=== PATIENT | male | born 1950 | race Caucasian/White ===

== ENCOUNTER 2022-12-29 13:53 | Outpatient (OUT) | payer MEDICARE, OTHER, SELFPAY ==
--- NOTE | 2022-12-29 14:42 | CA_ITS ---
Patient: KAITLYN MORALEZ Exam Date: 12/29/2022 : 1950 Gender:M Ordering : YOLANDA PRICE Admission #: [id number] Family : DR KATY GIRON M.D. Order #: [id number] CLICK HERE TO VIEW EXAM ECHOCARDIOGRAM REPORT PROCEDURE: CA ECHO DOPPLER COMPLETE INDICATIONS: Acute on chronic systolic heart failure, pacemaker, hypertension. diabetes COMPARISON: None. DESCRIPTION: COMPLETE ECHOCARDIOGRAM Real-time transthoracic echocardiography with 2D, M-mode, spectral and color flow Doppler performed. QUALITY: Technical quality was good. LEFT VENTRICLE: Normal chamber size. Mild concentric left ventricular hypertrophy. The septum is abnormal in motion likely due to pacing. Systolic function appears mildly reduced. LV EF: Mildly reduced left ventricular ejection fraction, (45-50%). DIASTOLIC: Diastolic function is indeterminate. ATRIAL SEPTUM: Visually appears intact. LEFT ATRIUM: Severe dilatation. RIGHT ATRIUM: Severe dilatation. RIGHT VENTRICLE: Moderate dilatation. Systolic function appears preserved. Pacer wire present. TRICUSPID VALVE: Normal mobility and thickness. No stenosis with moderate regurgitation. Doppler studies reveal mildly (35-45) elevated right sided pressures. RVSP 43 mmHg MITRAL VALVE: Normal mobility and thickness. No evidence of mitral valve stenosis. There is no mitral annular calcification. Mild mitral regurgitation. AORTIC VALVE: Normal trileaflet appearance. Mildly diminished mobility. Left coronary cusp is restricted in mobility. No evidence of aortic valve stenosis. DVI 0.5, MARYANN 2.1 cm2. Mild to moderate aortic regurgitation. AORTIC ROOT: Normal diameter and appearance. PULMONIC VALVE: Normal thickness and mobility. No stenosis. Trivial regurgitation. PERICARDIUM: No evidence of pericardial effusion. IVC: IVC is dilated (3.4 cm) with no collapse. PLEURA: CONCLUSION: 1. The left ventricle is normal in size and exhibits mildly reduced systolic function. LVEF is 45 to 50%. 2. Moderately dilated right ventricle with preserved systolic function. 3. Severe biatrial dilatation. 4. Mild mitral and mild to moderate aortic regurgitation. 5. Moderate tricuspid regurgitation. 6. Mildly elevated right-sided pressures. RVSP is 43 mmHg. Adult Echocardiography Procedure Report Left Ventricle LVEDD (3.7 - 5.6 cm): 5.24 cm LVESD (2.2 - 4.0 cm): 3.59 cm LVIVS thickness (0.6 - 1.2 cm): 1.19 cm LVPW thickness (0.5 - 1.0 cm): 1.38 cm e': 0.18 m/s E - e': 3.27 LVOT Max Gradient: 2.19 mm[Hg] LVOT Area (cm2): 0.74 m/s Peak Velocity (LVOT): 0.74 m/s Mean Velocity (LVOT): 0.56 m/s LVOT Diameter 2.19 cm Left Atrium LA Volume Index (2D A2C): 52.41 ml/m2 Left Atrium Systolic Dimension: 5.32 cm Mitral Valve MV E to A Ratio: 2.06 Mitral Valve A-Wave Peak Velocity: 0.29 m/s Mitral Valve E-Wave Peak Velocity: 0.59 m/s Right Ventricle Aorta AO Root Diam: 3.80 cm Ascending Ao Diam: 3.97 cm, 3.15 cm Aortic Valve AoV Area (Peak Alessandro): 2.17 cm2, 2.09 cm2 AoV Area (VTI): 2.12 cm2, 2.01 cm2 Peak Velocity(Antegrade Flow): 1.34 m/s, 1.25 m/s Peak Gradient(Antegrade Flow): 7.17 mm[Hg], 6.20 mm[Hg] Mean Velocity(Antegrade Flow): 0.96 m/s, 0.89 m/s Mean Gradient(Antegrade Flow): 4.22 mm[Hg], 3.55 mm[Hg] Velocity Time Integral: 26.92 cm, 23.94 cm Tricuspid Valve Peak Velocity (Regurgitant Flow): 2.06 m/s, 2.14 m/s, 1.95 m/s, 2.64 m/s, 2.86 m/s, 2.47 m/s Pulmonic Valve Peak Velocity: 1.06 m/s Peak Gradient: 4.88 mm[Hg], 4.13 mm[Hg] Right Atrium Right Atrium Systolic Pressure: 91.56 ml, 91.56 ml Dictated by: Danny Ta M.D. on 12/30/2022 at 12:12 Approved by: Danny Ta M.D. on 12/30/2022 at 12:18
== END 2022-12-29 13:54 | disposition home or self-care (01) ==
PROVIDERS: PCP Internal Medicine; Visit Provider Nurse Practitioner
DX: I50.23 Acute on chronic systolic (congestive) heart failure (principal); I08.3 Combined rheumatic disorders of mitral, aortic and tricuspid valves
CPT/HCPCS: 93306

== ENCOUNTER 2023-05-29 12:59 | Outpatient (OUT) | payer MEDICARE, OTHER, SELFPAY ==
--- NOTE | 2023-05-29 13:31 | CA_ITS ---
Patient Name: KAITLYN MORALEZ MR#: [id number] : 1950 Exam Date: 05/29/2023 Ordering Doctor: YOLANDA PRICE ECHOCARDIOGRAM REPORT PROCEDURE: CA ECHO LIMITED INDICATIONS: Heart failure with reduced ejection fraction, pacemaker, hypertension, diabetes COMPARISON: None. DESCRIPTION: Limited ECHOCARDIOGRAM Real-time transthoracic echocardiography with 2D and M-mode performed. QUALITY: Technical quality was good. 74 , 200#, BSA 2.17 m2 LEFT VENTRICLE: Mild dilatation. LV EF: Global left ventricular systolic function is mildly reduced; visually estimated ejection fraction is 40 to 45%. Abnormal septal motion due to paced rhythm. LEFT ATRIUM: Severe dilatation. RIGHT ATRIUM: Severe dilatation. RIGHT VENTRICLE: Severe dilatation. Right ventricular systolic function is reduced. Pacer wire present. TRICUSPID VALVE: Normal mobility and thickness. MITRAL VALVE: Normal mobility and thickness. Mild mitral annular calcification. AORTIC VALVE: Normal trileaflet appearance. Mildly calcified aortic valve. AORTIC ROOT: Normal diameter and appearance. PULMONIC VALVE: Normal thickness and mobility. PERICARDIUM: No evidence of pericardial effusion. IVC: IVC is dilated (3.1 cm) with no collapse. CONCLUSION: 1. Global left ventricular systolic function is mildly reduced; visually estimated ejection fraction is 40 to 45% 2. The left ventricle is mildly dilated 3. Severe biatrial enlargement 4. Right ventricle is severely enlarged with reduced systolic function A limited echocardiogram was performed Adult Echocardiography Procedure Report Left Ventricle LVEDD (3.7 - 5.6 cm): 5.98 cm LVESD (2.2 - 4.0 cm): 4.45 cm LVIVS thickness (0.6 - 1.2 cm): 0.96 cm LVPW thickness (0.5 - 1.0 cm): 1.03 cm LVOT Diameter 2.52 cm Left Atrium LA Volume Index (2D A2C): 46.50 ml/m2 Left Atrium Systolic Dimension: 4.98 cm Mitral Valve Right Ventricle Aorta AO Root Diam: 3.66 cm Ascending Ao Diam: 3.12 cm Aortic Valve Tricuspid Valve Pulmonic Valve Right Atrium Right Atrium Systolic Pressure: 87.12 ml, 87.12 ml Dictated by: Desean Sal M.D. on 06/05/2023 at 09:23 Approved by: Desean Sal M.D. on 06/05/2023 at 09:26
== END 2023-05-29 13:00 | disposition home or self-care (01) ==
LOC: CARD 12:59
PROVIDERS: PCP Internal Medicine; Visit Provider Nurse Practitioner
DX: I48.19 Other persistent atrial fibrillation (principal)
CPT/HCPCS: 93308; 93356

== ENCOUNTER 2024-04-02 12:23 | Outpatient (OUT) | payer MEDICARE, OTHER, SELFPAY ==
--- NOTE | 2024-04-02 | XR_ITS ---
[address] [address] Patient Name: KAITLYN MORALEZ MRN: [id number] date: 1950 Sex: M Assigned Patient Location: [facility] Current Patient Location: Accession/Order Number: [id number] Exam Date: 04/02/2024 12:38 Report Date: 04/04/2024 05:34 At the request of: KATY GIRON Procedure: XR wrist LT min 3V 3 views of the left wrist INDICATION: Pain COMPARISON: None XR/XR wrist LT min 3V IMPRESSION: No acute fracture or dislocation. Scattered mild degenerative changes. Joint alignment is intact. Vascular calcifications. Electronically authenticated by: VICTOR HUGO VELAZQUEZ Date: 04/04/2024 05:34
--- NOTE | 2024-04-02 | XR_ITS ---
The [address] [address] Patient Name: KAITLYN MORALEZ MRN: [id number] date: 1950 Sex: M Assigned Patient Location: RAD Current Patient Location: [facility] Accession/Order Number: [id number] Exam Date: 04/02/2024 12:38 Report Date: 04/07/2024 07:34 At the request of: KATY GIRON Procedure: XR hand LT 2V PROCEDURE: XR hand LT 2V COMPARISON: None. HISTORY: polyarticular arthritis FINDINGS: BONES:No fracture, acute abnormality, or significant arthropathy. SOFT TISSUES:Negative. No visible soft tissue swelling. EFFUSION:None visible. OTHER: Negative. XR/XR hand LT 2V IMPRESSION: No acute radiographic abnormality Electronically authenticated by: KARSON ROBERT Date: 04/07/2024 07:34
--- OUTSIDE RECORDS SUMMARY | 2024-04-02 12:46 | XMS_ITS | CCD ---
Author Organization [facility] Care Team Providers Care Online Marketing Specialist Name Role Phone YESI HAGER AM Unavailable Unavailable YESI HAGER AM Unavailable Unavailable ALEJANDRO PRO Unavailable Unavailable ALEJANDRO PRO Unavailable Enrique Rodas Unavailable ROSI Pro Primary Care Provider MD Enrique Sharpe Attending Provider [phone] PETER CRAIN Admitting Unavailable PETER CRAIN Attending Unavailable MORTEZA, DR BURNS Primary Care Unavailable SELEAN, DR ANDREW Calderon Consulting Unavailable PETER CRAIN Consulting Unavailable PETER CRAIN Admitting Unavailable PETER CRAIN Attending Unavailable DR ALEJANDRO PRO Primary Care Unavailable PETER CRAIN Consulting Unavailable PETER CRAIN Admitting Unavailable PETER CRAIN Attending Unavailable MORTEZA, DR BURNS Primary Care Unavailable PETER CRAIN Consulting Unavailable Katie Eldridge Unavailable Asaad, Imad Unavailable ROSI Pro Primary Care Provider MD Godwin Barnes Attending Provider [phone] ROSI Pro Primary Care Provider [phone] MD Godwin Barnes Attending Provider Asaad, Imad Attending Unavailable Alejandro Pro Primary Care Unavailable Asaad, Imad Admitting Unavailable Asaad, Imad Attending Unavailable Alejandro Pro Primary Care Unavailable Asaad, Imad Admitting Unavailable CHEN SHEFFIELD Attending Unavailab KEMAL Madrid Attending Unavailable KEMAL DRAKE Attending Unavailable KEMAL DRAKE Attending Unavailable CHEN SHEFFIELD Attending Unavailab ALEJANDRO Pop Attending Unavailable KEMAL DRAKE Attending Unavailable ALEJANDRO PRO Attending Unavailable ALEJANDRO PRO Attending Unavailable Alejandro Pro MD Unavailable Alejandro Pro MD Primary Care Provider DAVID COYLE Attending Unavailable EPTER CRAIN Referring Unavailable PETER CRAIN Admitting Unavailable PETER CRAIN Attending Unavailable YOLANDA ROMAN Referring Unavailable PETER CRAIN Attending Unavailable YOLANDA ROMAN Attending Unavailable PETER CRAIN Referring Unavailable Allergies Allergy Classification Reported Allergen(s) Allergy Type Date of Onset Reaction(s) Facility (1 source) 05775,00; Translations: [44671,00] Propensity to adverse reactions (disorder) 0 [facility] Medications Current Medications Medication Drug Class(es) Dates Sig (Normalized) Sig (Original) Aspir-81 81 MG (3 sources) take 1 tablet by mouth once daily Aspir-81 81 MG 1 tablet Orally Once a day Active atorvastatin 80 mg oral tablet (9 sources) HMG-CoA Reductase Inhibitor Start: 05-03-2023 take 1 tablet by mouth in the morning atorvastatin (Lipitor) 80 MG tablet Indications: Mixed hyperlipidemia (CMS/HCC) TAKE 1 TABLET BY MOUTH IN THE MORNING 90 tablet 3 10/01/2023 Active take 1 tablet by kirstie th every twenty-four hours Atorvastatin Calcium 80 MG 1 tablet Oral ly Once a day Active biotin 10 mg oral tablet (3 sources) Start: 10-01-2023 take 1 tablet by mouth twice daily biotin (Biotin Maximum Strength) 10 MG tablet Indications: Cervical dystonia TAKE 1 TABLET BY MOUTH TWICE A DAY 180 tablet 3 10/01/2023 Active canagliflozin 150 mg / metFORMIN hydrochloride 1000 mg oral tablet (9 sources) Biguanide, Sodium-Glucose Cotransporter 2 Inhibitor Start: 05-03-2023 take 1 tablet by mouth once daily in the morning Invokamet 150-1000 MG Indications: Type 2 diabetes mellitus without complication, 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) TAKE 1 TABLET BY MOUTH EVERY DAY IN THE MORNING 90 tablet 3 10/01/2023 Active take 1 tablet by kirstie th every twelve hours Invokamet 150-1000 MG 1 tablet with meal s Orally Twice a day Active Carbidopa / Levodopa (3 sources) Aromatic Amino Acid Decarboxylation Inhibitor, Aromatic Amino Acid Carbidopa-Levodopa Active cetirizine hydrochloride 10 mg oral tablet (9 sources) Histamine-1 Receptor Antagonist Start: 2022 take 1 tablet by mouth once daily Cetirizine (Zyrtec) 10 mg Tablet Active 10 MG PO Daily May 03, 2023 1:00am docosahexaenoic acid 120 mg / eicosapentaenoic acid 180 mg oral capsule (3 sources) take 2 capsules by mouth every twelve hours omega-3 (Fish Oil) 1000 MG capsule Take 2 capsules by mouth every 12 (twelve) hours. Active Fish Oils (3 sources) take 1 capsule by mouth once daily Fish Oil 1200 MG 1 capsule Orally Once a day 1200(4 tab) bid Active FLUoxetine 20 mg oral capsule (3 sources) Serotonin Reuptake Inhibitor Start: 2023 End: 2023 take 1 capsule by mouth once daily FLUoxetine (PROzac) 20 MG capsule Indications: Grief reaction with prolonged bereavement (CMS/HCC) Take 1 capsule (20 mg) by mouth Daily 30 capsule 5 11/15/2023 05/13/2024 Active fluticasone propionate 0.05 mg/actuat metered dose nasal spray (3 sources) Corticosteroid Start: 2023 take 2 spray(s) nasal route once daily fluticasone (Flonase) 50 MCG/ACT nasal spray Indications: Allergic rhinitis, unspecified seasonality, unspecified trigger SPRAY 2 SPRAYS INTO EACH NOSTRIL EVERY DAY 48 mL 2 01/01/2024 Active lisinopril 10 mg oral tablet (9 sources) Angiotensin Converting Enzyme Inhibitor Start: 2022 End: 2024 take 1 tablet by mouth once daily lisinopril 10 MG tablet Indications: Paroxysmal atrial fibrillation (CMS/HCC) Take 1 tablet (10 mg) by mouth Daily 100 tablet 3 12/05/2023 01/08/2025 Active take 1 tablet by kirstie th every twenty-four hours Lisinopril 10 MG 1 tablet Orally Once a day Active montelukast 10 mg oral tablet (9 sources) Leukotriene Receptor Antagonist Start: 05-03-2023 take 1 tablet by mouth at bedtime montelukast (Singulair) 10 MG tablet Indications: Allergic rhinitis, unspecified seasonality, unspecified trigger Take 1 tablet (10 mg) by mouth at bedtime 100 tablet 3 09/10/2023 Active take 1 tablet by kirstie th every twenty-four hours Montelukast Sodium 10 MG 1 tablet in the evening Orally Once a day Active Multiple Vitamin (Multi-Vitamin) tablet (3 sources) take 1 tablet by mouth in the morning Multiple Vitamin (Multi-Vitamin) tablet Take 1 tablet by mouth in the morning. Active Multivitamin preparation (3 sources) Start: 05-03-2023 take 1 tablet by mouth once daily Multivitamin Active 1 TAB PO Daily May 03, 2023 1:00am Start: 05-03-2023 take 1 tablet by kirstie th once daily Multivitamin Active 1 TAB PO Daily May 03, 2023 12:00am [place] 1-Lak-Cai-Fish Oil (Fish Oil) 1,200 (144-216) mg Capsule (3 sources) Start: 05-03-2023 take 4 capsules by mouth twice daily [place] 2-Iut-Ati-Fish Oil (Fish Oil) 1,200 (144-216) mg Capsule Active 4 CAP PO Twice daily May 03, 2023 1:00am Start: 05-03-2023 take 4 capsules by m outh twice daily [place] 5-Kpb-Ced-Fish Oil (Fish Oil) 1,200 (144-216) mg Capsule Active 4 CAP PO Twice daily May 03, 2023 12:00am piroxicam 10 mg oral capsule (3 sources) Nonsteroidal Anti-inflammatory Drug Start: 04-30-2023 End: 04-29-2024 take 1 capsule by mouth in the morning piroxicam (Feldene) 10 MG capsule Indications: Trochanteric bursitis of both hips Take 1 capsule (10 mg) by mouth in the morning. 30 capsule 11 04/30/2023 04/29/2024 Active polyethylene glycol 3350 [id number] mg / potassium chloride 2970 mg / sodium bicarbonate 6740 mg / sodium chloride 5860 mg / sodium sulfate 28311 mg powder for oral solution (1 source) Osmotic Laxative Start: 04-17-2023 take 236 g by mouth once daily PEG-3350/Electrol ytes 236 GM 4000 ML Orally once daily for 1 days Mar, Active sildenafil 100 mg oral tablet (6 sources) Phosphodiesterase 5 Inhibitor sildenafil (Viagra) 100 MG tablet Take 100 mg by mouth if needed for erectile dysfunction. Active Sod Picosulf-Mag Ox-Citric Ac (2 sources) Start: 11-02-2023 Sod Picosulf-Mag Ox-Citric Ac (Clenpiq) 10 mg-3.5 gram- 12 gram/175 mL solution Active 175 ML PO Daily 175 November 02, 2023 12:00am take first dose at 3:00 PM followed by four 8oz glasses of liquid take second dose at 9:00 PM followed by 3 8oz glasses of liquid tiZANidine 4 mg oral tablet (9 sources) Central alpha-2 Adrenergic Agonist Start: 05-03-2023 take 4 mg by mouth once daily Tizanidine Active 4 MG PO Daily May 03, 2023 1:00am take 1-2 tablets by mouth every eight hours as needed tiZANidine (Zanaflex) 4 MG tablet Take 1 -2 tablets by mouth every 8 (eight) hours if needed for muscle spasms (not to exceed 3 doses in 24 hours). Active traMADol hydrochloride 50 mg oral tablet (3 sources) Opioid Agonist take 1 tablet by mouth every six hours traMADol HCl 50 MG 1 tablet as needed Orally every 6 hrs Active warfarin sodium 5 mg oral tablet (9 sources) Vitamin K Antagonist Start: 01-19-20 23 warfarin (Coumadin) 5 MG tablet Indications: Paroxysmal atrial fibrillation (CMS/HCC) Take 1 tablet (5 mg) by mouth See administration instructions. Take 5 mg Sun, , , Sat. Take 7.5 mg Sun, Sun, Sun 145 tablet 3 01/18/2023 Active Warfarin 7.5mg 7 .5 mg as directed orally Active Completed/Discontinued Medications Medication Drug Class(es) Dates Sig (Normalized) Sig (Original) 24 hr metoprolol succinate 100 mg extended release oral tablet (9 sources) beta-Adrenergic Scott Start: 03-23-2023 End: 03-05-2024 take 1 tablet by mouth once daily metoprolol succinate XL (Toprol-XL) 100 MG 24 hr tablet Indications: Benign hypertension (CMS/HCC) Take 1 tablet (100 mg) by mouth 1 (one) time each day at the same time. 100 tablet 3 03/23/2023 03/05/2024 Discontinued Metoprolol Succi bradley 100 MG Orally Active Problems Active Problems Problem Classification Problem Date Documented Date Episodic/Chronic Cardiac dysrhythmias (19 sources) Unspecified atrial fibrillation; Translations: [Unspecified atrial flutter] Onset: 01-21-2018 Chronic Cardiac dysrhythmias (2 sources) Tachycardia, unspecified Onset: 12-22-2021 Resolved: 12-22-2021 Episodic Conduction disorders (11 sources) Cardiac pacemaker in situ; Translations: [Presence of cardiac pacemaker] Onset: 10-16-2011 10-19-2022 Chronic Congestive heart failure; nonhypertensive (15 sources) Chronic diastolic (congestive) heart failure; Translations: [Chronic systolic heart failure] Onset: 10-19-2011 Chronic Coronary atherosclerosis and other heart disease (5 sources) Coronary atherosclerosis; Translations: [Atherosclerotic heart disease of ewiiaapaayp coronary artery without angina pectoris] Onset: 10-16-2011 01-26-2023 Chronic Diabetes mellitus without complication (10 sources) Type 2 diabetes mellitus; Translations: [Type 2 diabetes mellitus without complications] Onset: 10-16-2011 Resolved: 05-17-2023 12-25-2023 Chronic Disorders of lipid metabolism (3 sources) Mixed hyperlipidemia; Translations: [Mixed hyperlipidemia] Onset: 10-19-2022 10-19-2022 Chronic Esophageal disorders (3 sources) Gastroesophageal reflux disease without esophagitis; Translations: [Gastro-esophageal reflux disease without esophagitis] Onset: 10-19-2022 10-19-2022 Chronic Essential hypertension (5 sources) Benign hypertension; Translations: [Essential (primary) hypertension] Onset: 01-26-2023 01-26-2023 Chronic Genitourinary congenital anomalies (3 sources) Medullary sponge kidney; 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] Onset: 10-19-2022 10-19-2022 Chronic Heart valve disorders (6 sources) Non-rheumatic mitral regurgitation ; Translations: [Nonrheumatic mitral (valve) insufficiency] Onset: 07-04-2019 10-19-2022 Chronic Mood disorders (2 sources) Depressive disorder; Translations: [Depression] 12-25-2023 Chronic Other aftercare (4 sources) Encounter for therapeutic drug level monitoring; Translations: [ENCOUNTER FOR THERAPEUTIC DRUG LEVEL MONITORING] Onset: 01-21-2018 Episodic Other aftercare (1 source) 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; Translations: [SENIOR LIVING (CURRENT) USE OF ANTICOAGULANTS] Onset: 01-21-2018 Episodic Other and ill-defined heart disease (3 sources) Left ventricular hypertrophy; Translations: [Cardiomegaly] Onset: 10-19-2022 10-19-2022 Chronic Other and ill-defined heart disease (3 sources) Bilateral enlargement of atria; Translations: [Cardiomegaly] Onset: 07-04-2019 01-26-2023 Chronic Other and ill-defined heart disease (3 sources) Cardiomegaly; Translations: [Cardiomegaly] Onset: 09-14-2016 01-26-2023 Chronic Other hereditary and degenerative nervous system conditions (3 sources) Isolated cervical dystonia; Translations: [Spasmodic torticollis] Onset: 07-27-2023 07-27-2023 Chronic Other lower respiratory disease (1 source) Shortness of breath; Translations: [SHORTNESS OF BREATH] Onset: 04-24-2022 Episodic Other non-traumatic joint disorders (3 sources) Derangement of left shoulder joint; Translations: [Other specific joint derangements of left shoulder, not elsewhere classified] Onset: 10-19-2022 10-19-2022 Chronic Other nutritional; endocrine; and metabolic disorders (3 sources) Disorder of lipid metabolism; Translations: [Disorder of lipoprotein metabolism, unspecified] Onset: 05-06-2014 01-26-2023 Chronic Other nutritional; endocrine; and metabolic disorders (3 sources) Obesity; Translations: [Obesity, unspecified] Onset: 10-16-2011 01-26-2023 Chronic Other nutritional; endocrine; and metabolic disorders (2 sources) Body mass index (BMI) 26.0-26.9, adult Onset: 12-22-2021 Resolved: 12-22-2021 Episodic Other nutritional; endocrine; and metabolic disorders (1 source) Overweight in adulthood with body mass index of 25 or more but less than 30; Translations: [Body mass index (BMI) 25.0-25.9, adult] 12-25-2023 Episodic Other nutritional; endocrine; and metabolic disorders (1 source) Body mass index (BMI) 25.0-25.9, adult; Translations: [Body Mass Index 25.0-25.9, adult] 12-25-2023 Episodic Other screening for suspected conditions (not mental disorders or infectious disease) (1 source) Encounter for screening for malignant neoplasm of colon; Translations: [Encounter for screening for malignant neoplasm of colon] Onset: 11-09-2023 Episodic Other upper respiratory disease (3 sources) Allergic rhinitis; Translations: [Allergic rhinitis, unspecified] Onset: 10-19-2022 10-19-2022 Chronic Massiel-; endo-; and myocarditis; cardiomyopathy (except that caused by tuberculosis or sexually transmitted disease) (3 sources) Primary cardiomyopathy; Translations: [Cardiomyopathy, unspecified] Onset: 11-21-2011 01-26-2023 Chronic Residual codes; unclassified (10 sources) Obstructive sleep apnea syndrome; Translations: [Obstructive sleep apnea (adult) (pediatric)] Onset: 10-19-2022 12-25-2023 Chronic Residual codes; unclassified (3 sources) Obstructive sleep apnea (adult) (pediatric); Translations: [Obstructive sleep apnea (adult)(pediatric)] Onset: 12-22-2021 Resolved: 12-22-2021 Chronic Spondylosis; intervertebral disc disorders; other back problems (3 sources) Displacement of lumbar intervertebral disc without myelopathy; Translations: [Other intervertebral disc displacement, lumbar region] Onset: 10-19-2022 10-19-2022 Chronic Unclassified (2 sources) Unknown / UNK(Unknown) Onset: 01-21-2018 Unclassified (1 source) CONTACT W/AND (SUSP) EXPOS COVID-19; Translations: [CONTACT W/AND (SUSP) EXPOS COVID-19] Onset: 04-14-2022 Unclassified (1 source) Encounter for screening for malignant neoplasm of colon; Translations: [Encounter for screening for malignant neoplasm of colon] Onset: 05-03-2023 Unclassified (2 sources) Other persistent atrial fibrillation; Translations: [Other persistent atrial fibrillation] Onset: 07-10-2023 Unclassified (2 sources) Longstanding persistent atrial fibrillation; Translations: [Longstanding persistent atrial fibrillation] Onset: 02-26-2023 Past or Other Problems Problem Classification Problem Date Documented Date Episodic/Chronic Abdominal hernia (3 sources) Inguinal hernia; Translations: [Unilateral inguinal hernia, without obstruction or gangrene, not specified as recurrent] Onset: 04-12-2015 01-26-2023 Episodic Biliary tract disease (3 sources) Cholelithiasis without obstruction; Translations: [Calculus of gallbladder without cholecystitis without obstruction] Onset: 10-19-2022 10-19-2022 Episodic Conditions associated with dizziness or vertigo (3 sources) Vertigo; Translations: [Dizziness and giddiness] Onset: 10-19-2022 10-19-2022 Episodic Mood disorders (2 sources) Mood disorders Onset: 03-03-2024 03-03-2024 Other aftercare (3 sources) Long-term current use of anticoagulant; 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] Onset: 01-30-2019 01-26-2023 Episodic Other and unspecified benign neoplasm (3 sources) History of polyp of colon; Translations: [History of colonic polyps] Onset: 04-12-2015 01-26-2023 Episodic Other circulatory disease (3 sources) Chronic hypotension; Translations: [Other hypotension] Onset: 10-19-2011 01-26-2023 Episodic Other connective tissue disease (3 sources) Pain in limb; Translations: [Pain in unspecified limb] Onset: 10-19-2022 10-19-2022 Episodic Other connective tissue disease (3 sources) Bilateral trochanteric bursitis; Translations: [Trochanteric bursitis, right hip] Onset: 01-30-2023 01-30-2023 Episodic Other connective tissue disease (3 sources) Trochanteric bursitis of right hip; Translations: [Trochanteric bursitis, right hip] Onset: 07-02-2023 07-02-2023 Episodic Spondylosis; intervertebral disc disorders; other back problems (12 sources) Lumbar radiculopathy; Translations: [Radiculopathy, lumbar region] Onset: 10-16-2011 10-19-2022 Episodic Results Test Name Value Interpretation Reference Range Facility Anticoagulation - Warfarin [facility] 03-14-2024 Anticoagulation - Warfarin Visit [id number] Kaitlyn Jordan 1950 [facility] Provider Department Center 03/14/2024 DAVID FRANK [facility] Family History Family history unknown: Yes [facility] Anticoagulation - Warfarin [facility] 02-06-2024 Anticoagulation - Warfarin Visit [id number] Kaitlyn Jordan 1950 [facility] Provider Department Center 02/06/2024 JHONATHAN AREVALO [facility]ANTICOAG [facility] Family History Family history unknown: Yes [facility] Anticoagulation - Warfarin [facility] 01-11-2024 Anticoagulation - Warfarin Visit [id number] Kaitlyn Jordan 1950 M Date Provider Department Center 01/11/2024 WON AMEZQUITA [facility] Family History Family history unknown: Yes [facility] Telephoneon 01-11-2024 Telephone [id number] JulianKelincesario Calderon 1950 M Date Provider Department [facility] 01/11/2024 DAVID FRANK [facility] Family History Family history unknown: Yes [facility] Anticoagulation - Warfarin [facility] 12-31-2023 Anticoagulation - Warfarin Visit [id number] JulianKaitlyn Calderon 1950 M Date Provider Department [facility] 12/31/2023 DAVID FRANK [facility] Family History Family history unknown: Yes [facility] 36on 12-28-2023 36 LVM reminder for pt Normal [facility] Anticoagulation - Warfarin [facility] 12-14-2023 Anticoagulation - Warfarin Visit [id number] Kaitlyn Jordan 1950 Provider Department [facility] 12/14/2023 DAVID FRANK [facility] Family History Family history unknown: Yes Level of Service:29989 [place] OFFICE/OUTPATIENT EST PT MAY NOT REQ PHYS/QHP [facility] Office Visiton 12-11-2023 Follow-up visit [id number] JulianKelincesario Calderon 1950 Provider Department [facility] 12/11/2023 241-PETER CRAIN [facility] Family History Family history unknown: Yes Level of Service:59796 [place] OFFICE/OUTPATIENT ESTABLISHED LOW MDM 20 MIN Normal [facility] Anticoagulation - Warfarin [facility] 11-15-2023 Anticoagulation - Warfarin Visit [id number] Kaitlyn Jordan 1950 M Date Provider Department [facility] 11/15/2023 JING CONTRERASCANTICALYSSA [facility] Family History Family history unknown: Yes [facility] Telephoneon 11-13-2023 Telephone [id number] Kaitlyn Jordan 1950 M Date Provider Department [facility] 11/13/2023 4102-LEONIDES, DAVID [facility]VCANTICOAG [facility] Family History Family history unknown: Yes [facility] 36on 11-12-2023 36 Left VM msg for call back [facility] Activated partial thrombopla stin time (aPTT) in platelet poor plasma by coagulation aOrdered By: Godwin Barnes on 11-09-2023 aPTT Coag (PPP) [Time] 32.5 s 25.1-36.5 [facility] Comment on above: A hematocrit value g reater than 55% may lead to inaccurate results in coagulation testing. Patients having hematocrit values >55% require a special collection tube for coagulation studies. Please contact the laboratory at [phone] for redraw instructions. Amphetamine Screen Ql (U)Ord ered By: Godwin Barnes on 11-09-2023 Amphetamines Ql (U) Negative Negative [facility] Automated basophil %Ordered By: Godwin Barnes on 11-09-2023 Basophils/100 WBC (Bld) 0.7 % Normal . [facility] Comment on above: Performed By: #### P TT, PT, CBC #### [facility] [address] Automated basophil countOrde red By: Godwin Barnes on 11-09-2023 Basophils (Bld) [#/Vol] 0.1 10*3/uL Normal 0.0-0.2 [facility] Comment on above: Result Comment: PERF ORMED BY: [address] [place] [address] PATHOLOGIST FPGA DESIGN ENGINEER EVELIN CARTER M.D. Performed By: #### P TT, PT, CBC #### [facility] [address] Automated blood monocyte cou ntOrdered By: Imad Cameron on 11-09-2023 Monocytes (Bld) [#/Vol] 0.8 10*3/uL Normal 0.0-0.8 [facility] Comment on above: Performed By: #### P TT, PT, CBC #### [facility] [address] Automated eosinophil %Ordere d By: Godwin Barnes on 11-09-2023 Eosinophils/100 WBC (Bld) 2.9 % Normal . [facility] Comment on above: Performed By: #### P TT, PT, CBC #### [facility] [address] Automated eosinophil countOr dered By: Imad Asaad on 11-09-2023 Eosinophils (Bld) [#/Vol] 0.3 10*3/uL Normal 0.0-0.45 [facility] Comment on above: Performed By: #### P TT, PT, CBC #### [facility] [address] Automated monocyte %Ordered By: Imad Asaad on 11-09-2023 Monocytes/100 WBC (Bld) 8.0 % Normal . [facility] Comment on above: Performed By: #### P TT, PT, CBC #### [facility] [address] Automated neutrophil %Ordere d By: Imad Asaad on 11-09-2023 Neutrophils/100 WBC (Bld) 70.4 % Normal . [facility] Comment on above: Performed By: #### P TT, PT, CBC #### [facility] [address] [place] [address] Barbiturates [Presence] in U rine by Screen methodOrdered By: Imad Asaad on 11-09-2023 Barbiturates Screen Ql (U) Negative Negative [facility] Benzodiazepines Screen Ql (U )Ordered By: Imad Asaad on 11-09-2023 Benzodiazepines Ql (U) Negative Negative [facility] Benzoylecgonine [Presence] i n Urine by Screen methodOrdered By: Imad Asaad on 11-09-2023 Benzoylecgonine Screen Ql (U) Negative Negative [facility] Cannabinoids [Presence] in U rine by Screen methodOrdered By: Imad Asaad on 11-09-2023 Cannabinoids Screen Ql (U) Positive High Negative [facility] Comment on above: These are unconfirme d results and should not be used for legal purposes. Drug Cut-Off Concentration: AMPH 1000 ng/mL LEOBRADO 200 ng/mL MAXIMO 200 ng/mL COCM 300 ng/mL OP 300 ng/mL PCP 25 ng/mL THC 20 ng/mL Capillary blood glucose diego urement by glucometer (mass/volume)Ordered By: Godwin Barnes on 11-09-2023 Glucose [Mass/Vol] 78 mg/dL Normal [facility] Comment on above: Random Glucose Refer ence Range is dependent on time and content of last meal. Glucose of more than 200 mg/dL in a nonstressed, ambulatory subject supports the diagnosis of Diabetes Mellitus. Result Comment: [place] om Glucose Reference Range is dependent on time and content of last meal. Glucose of more than 200 mg/dL in a nonstressed, ambulatory subject supports the diagnosis of Diabetes Mellitus. PERFORMED BY: [place] [address] PATHOLOGIST FPGA DESIGN ENGINEER EVELIN CARTER M.D. Performed By: #### G LULS #### Point of Care testing , Complete Blood Count Auto Di ffon 11-09-2023 Mean Corpuscular HGB Conc 33.8 g/dL Normal 32.5-35.6 [facility] Comment on above: Performed By: #### P TT, PT, CBC #### [address] NRBC% 0.1 /100{WBC} Normal 0-0.5 [facility] Comment on above: Performed By: #### P TT, PT, CBC #### [place] [address] [place] Drug Screen,Urineon 11-09-19 24 Amphetamine Screen,Urine Negative Normal Negative [facility] Comment on above: Performed By: #### U RDS #### [address] Barbiturate Screen,Urine Negative Normal Negative [facility] Comment on above: Performed By: #### U RDS #### [address] Benzodiazepines Screen,Urine Negative Normal Negative [facility] Comment on above: Performed By: #### U RDS #### [address] Cannabinoid Screen,Urine Positive High Negative [facility] Comment on above: Result Comment: Thes e are unconfirmed results and should not be used for legal purposes. Drug Cut-Off Concentration: AMPH 1000 ng/mL LEOBARDO 200 ng/mL MAXIMO 200 ng/mL COCM 300 ng/mL OP 300 ng/mL PCP 25 ng/mL THC 20 ng/mL PERFORMED BY: [place] [address] PATHOLOGIST FPGA DESIGN ENGINEER EVELIN CARTER M.D. Performed By: #### U RDS #### [address] Cocaine Screen,Urine Negative Normal Negative [facility] Comment on above: Performed By: #### U RDS #### [address] Opiate Screen,Urine Negative Normal Negative [facility] Comment on above: Performed By: #### U RDS #### [address] Phencyclidine Screen,Urine Negative Normal Negative [facility] Comment on above: Performed By: #### U RDS #### [address] Erythrocyte distribution wid th [Ratio] by Automated countOrdered By: Imad Asaad on 11-09-2023 Erythrocyte distribution width (RBC) [Ratio] 13.2 % Normal 12.0-14.8 [facility] Comment on above: Performed By: #### P TT, PT, CBC #### [address] Erythrocytes [#/volume] in B lood by Automated countOrdered By: Imad Asaad on 11-09-2023 RBC (Bld) [#/Vol] 4.45 10*6/uL Normal 3.90-5.60 [facility] Comment on above: Performed By: #### P TT, PT, CBC #### [address] Hematocrit [Volume Fraction] of Blood by Automated countOrdered By: Imad Asaad on 11-09-2023 Hematocrit (Bld) [Volume fraction] 40.1 % Normal 38.8-50.0 [facility] Comment on above: Performed By: #### P TT, PT, CBC #### [facility] [address] Hemoglobin [Mass/volume] in BloodOrdered By: Godwin Barnes on 11-09-2023 Hemoglobin (Bld) [Mass/Vol] 13.6 g/dL Normal 13.0-17.0 [facility] Comment on above: Performed By: #### P TT, PT, CBC #### [facility] [address] INR in Platelet poor plasma by Coagulation assayOrdered By: Godwin Barnes on 11-09-2023 INR Coag (PPP) [Relative time] 1.3 {INR} Normal [facility] Comment on above: INR Therapeutic Rang e A) Pre- and Peroperative OAT started two weeks before surgery. NOT HIP SURGERY: 1.5 - 2.5 HIP SURGERY: 2 - 3B) Primary and secondary prevention of venous THROMBOSIS: 2 - 3C) Active venous thrombosis, pulmonary embolismand prevention of recurrent venous thrombosis: 2 - 3D) Prevention of arterial thromboembolismincluding patients with mechanical heart valves: 3 - 4.5 Result Comment: INR Therapeutic Range A) Pre- and Peroperative OAT started two weeks before surgery. NOT HIP SURGERY: 1.5 - 2.5 HIP SURGERY: 2 - 3 B) Primary and secondary prevention of venous THROMBOSIS: 2 - 3 C) Active venous thrombosis, pulmonary embolism and prevention of recurrent venous thrombosis: 2 - 3 D) Prevention of arterial thromboembolism including patients with mechanical heart valves: 3 - 4.5 Performed By: #### P TT, PT, CBC #### [facility] [address] [place] 11-09-2023 L Specimen: [id number] Received: 11/09/231249 Status: RADHA Noelle Num: [id number] Spec Type: Surgical Subm Dr: Godwin Barnes MD Tissues: A Colon Biopsy (CECUM POLYP) Procedures: HE/2, Gross/Micro L4 Age/ Patient Sex Location Account Attending Physician Kaitlyn Jordan 73/M [id number] Godwin Barnes MD SPEC NUM: [id number] RECD: 11/09/23 STATUS: RADHA DRAKE NUM: [id number] ROJELIO: 11/09/23- DR: Godwin Barnes MD ENTERED: 11/09/[address] [facility] [address]: SPEC TYPE: Surgical DEPT: S ORDERED: HE/2, Gross/Micro L4 ORDERED: HE/2, Gross/Micro L4 Pathological Diagnosis Cecum polyp biopsy: -Tubular adenoma Clinical Information History of colon polyps, family history of colon cancer Gross Description Received in formalin labeled with the patient's name, date of and cecum polyp is a 0.5 x 0.4 x 0.1 cm taylor polypoid tissue fragment, entirely submitted in A1. CPT Codes 80082 Specimen: [id number] Received: 11/09/23 Status: RADHA Drake Num: [id number] Spec Type: Surgical Subm Dr: Godwin Barnes MD Tissues: A Colon Biopsy (CECUM POLYP) Procedures: HE/2, Gross/Micro L4 Patient: Kaitlyn Jordan [id number] (Continued) Signed (signature on file) Dat-Jigar Calle MD 11/12/231922 Normal [facility] Leukocytes [#/volume] correc nicole for nucleated erythrocytes in Blood by Automated counOrdered By: Imad Asaad on 11-09-2023 WBC corrected for nucl RBC Auto (Bld) [#/Vol] 9.6 10*3/uL 4.1-10.5 [facility] Leukocytes [#/volume] in Blo od by Automated countOrdered By: Imad Asaad on 11-09-2023 WBC (Bld) [#/Vol] 9.6 10*3/uL Normal 4.1-10.5 [facility] Comment on above: Performed By: #### P TT, PT, CBC #### [facility] [address] [place] [address] Lymphocytes [#/volume] in Bl ood by Automated countOrdered By: Imad Asaad on 11-09-2023 Lymphocytes (Bld) [#/Vol] 1.7 10*3/uL Normal 1.00-4.8 [facility] Comment on above: Performed By: #### P TT, PT, CBC #### [facility] [address] [place] [address] [place] Lymphocytes/100 leukocytes i n Blood by Automated countOrdered By: Imad Asaad on 11-09-2023 Lymphocytes/100 WBC (Bld) 18.0 % Normal . [facility] Comment on above: Performed By: #### P TT, PT, CBC #### [facility] [address] [place] [address] MCH [Entitic mass] by Automa nicole countOrdered By: Imad Asaad on 11-09-2023 MCH (RBC) [Entitic mass] 30.5 pg Normal 27.5-35.2 [facility] Comment on above: Performed By: #### P TT, PT, CBC #### [facility] [address] [place] [address] MCHC Auto (RBC) [Mass/Vol]Or dered By: Imad Asaad on 11-09-2023 MCHC (RBC) [Mass/Vol] 33.8 g/dL 32.5-35.6 [facility] MCV [Entitic volume] by Auto mated countOrdered By: Imad Asaad on 11-09-2023 MCV (RBC) [Entitic vol] 90.3 fL Normal 83.5-101 [facility] Comment on above: Performed By: #### P TT, PT, CBC #### [facility] [address] [place] [address] Neutrophils [#/volume] in Bl ood by Automated countOrdered By: Imad Luis Mad on 11-09-2023 Neutrophils (Bld) [#/Vol] 6.8 10*3/uL Normal 1.8-7.7 [facility] Comment on above: Performed By: #### P TT, PT, CBC #### [facility] [address] [place] [address] Nucleated erythrocytes [Pres ence] in Blood by Automated countOrdered By: Imad Asaad on 11-09-2023 Nucleated RBC Auto Ql (Bld) 0.1 /100{WBC} 0-0.5 [facility] Opiates [Presence] in Urine by Screen methodOrdered By: Imad Asaad on 11-09-2023 Opiates Screen Ql (U) Negative Negative [facility] Partial Thromboplastin Timeo n 11-09-2023 aPTT Coag (Bld) [Time] 32.5 s Normal 25.1-36.5 [facility] Comment on above: Result Comment: A he matocrit value greater than 55% may lead to inaccurate results in coagulation testing. Patients having hematocrit values >55% require a special collection tube for coagulation studies. Please contact the laboratory at [phone] for redraw instructions. PERFORMED BY: [place] [address] PATHOLOGIST FPGA DESIGN ENGINEER EVELIN CARTER M.D. Performed By: #### P TT, PT, CBC #### [facility] [address] [place] [address] Phencyclidine Screen Ql (U)O rdered By: Imad Asaad on 11-09-2023 Phencyclidine Ql (U) Negative Negative [facility] Platelet mean volume [Entiti c volume] in Blood by Automated countOrdered By: Imad Asaad on 11-09-2023 Platelet mean volume (Bld) [Entitic vol] 6.0 fL Low 6.6-10.1 [facility] Comment on above: Performed By: #### P TT, PT, CBC #### [address] Platelets [#/volume] in Bloo d by Automated countOrdered By: Imad Asaad on 11-09-2023 Platelets (Bld) [#/Vol] 246 10*3/uL Normal 150-450 [facility] Comment on above: Performed By: #### P TT, PT, CBC #### [address] Prothrombin time (PT)Ordered By: Imad Asaad on 11-09-2023 PT Coag (PPP) [Time] 14.7 s High 9.0-12.9 [facility] Comment on above: A hematocrit value g reater than 55% may lead to inaccurate results in coagulation testing. Patients having hematocrit values >55% require a special collection tube for coagulation studies. Please contact the laboratory at [phone] for redraw instructions. Result Comment: A he matocrit value greater than 55% may lead to inaccurate results in coagulation testing. Patients having hematocrit values >55% require a special collection tube for coagulation studies. Please contact the laboratory at [phone] for redraw instructions. Performed By: #### P TT, PT, CBC #### [facility] [address] Documentationon 11-05-2023 Documentation [id number] Alkire,Kaityln R 1950 Date Provider Department Center 11/05/2023 DAVID FRANK [facility] Family History Family history unknown: Yes Reason for Visit and Comments: Anticoagulation [8] Normal [facility]tico[facility] - [facility] 10-31-2023 Anticoagulation - Warfarin Visit [id number] Alkire,Kaitlyn R 1950 M Date Provider Department Center 10/31/2023 SUZI WEBBER [facility] Family History Family history unknown: Yes Normal [facility] Documentationon 10-25-2023 Documentation [id number] Alkire,Kaitlyn R 1950 M Date Provider Department Center 10/25/2023 DAVID FRANK [facility] Family History Family history unknown: Yes Normal [facility] Anticoagulation - [facility]far[facility] 10-16-2023 Anticoagulation - Warfarin Visit [id number] Alkire,Kaitlyn R 1950 M Date Provider Department Center 10/16/202342808-WODJTCPETER GASTON [facility] Family History Family history unknown: Yes Normal [facility] Anticoagulation - Warfarin [facility] 09-20-2023 Anticoagulation - Warfarin Visit [id number] Alkire,Kaitlyn R 1950 Date Provider Department Center 09/20/2023 DAVID FRANK [facility] Family History Family history unknown: Yes Normal [facility] Anticoagulation - Warfarin [facility] 08-08-2023 Anticoagulation - Warfarin Visit [id number] Alkire,Kaitlyn R 1950 M Date Provider Department Center 08/08/2023 RAJ HERRERA [facility] Family History Family history unknown: Yes Normal [facility] Anticoagulation - Warfarin [facility] 06-28-2023 Anticoagulation - Warfarin Visit [id number] Alkire,Kaitlyn R 1950 M Date Provider Department Center 06/28/2023 DAVID FRANK [facility] Family History Family history unknown: Yes Normal [facility] Anticoagulation - Warfarin [facility] 06-15-2023 Anticoagulation - Warfarin Visit [id number] Kaitlyn Jordan R 1950 M Date Provider Department Center 06/15/2023 LavonRAJ BARNARDC[facility]ICOAR[facility]yn [facility] Family History Family history unknown: Yes Normal [facility] Telephoneon 06-14-2023 Telephone [id number] Kelin Jordann R 1950 M Date Provider Department Center 06/14/2023 LavonRAJ BARNARD [facility] Family History Family history unknown: Yes Normal [facility] Anticoagulation - Warfarin [facility] 06-04-2023 Anticoagulation - Warfarin Visit [id number] Kaitlyn Jordan R 1950 M Date Provider Department Center 06/04/2023 LavonRAJ BARNARD [facility] Family History Family history unknown: Yes Normal [facility] Telephoneon 06-01-2023 Telephone [id number] Kaitlyn Jordan R 1950 M Date Provider Department Center 06/01/2023 LavonRAJ BARNARD [facility] Family History Family history unknown: Yes Normal [facility] Follow-Upon 05-14-2023 Follow-Up [id number] Kaitlyn Jordan R 1950 [facility] Provider Department Center 05/14/[address] [facility] [facility] Family History Family history unknown: Yes Level of Service:94952 [place] OFFICE/OUTPATIENT ESTABLISHED MOD MDM 30 MIN Normal [facility] Activated partial thrombopla stin time (aPTT) in platelet poor plasma by coagulation aOrdered By: Godwin Barnes on 05-03-2023 aPTT Coag (PPP) [Time] 46.9 s 25.1-36.5 [facility] Comment on above: A hematocrit value g reater than 55% may lead to inaccurate results in coagulation testing. Patients having hematocrit values >55% require a special collection tube for coagulation studies. Please contact the laboratory at [phone] for redraw instructions. Automated basophil %Ordered By: Imad Asaad on 05-03-2023 Basophils/100 WBC (Bld) 0.8 % Normal . [facility] Comment on above: Performed By: #### P TT, PT, CBC #### [address] Automated basophil countOrde red By: Imad Asaad on 05-03-2023 Basophils (Bld) [#/Vol] 0.1 10*3/uL Normal 0.0-0.2 [facility] Comment on above: Result Comment: PERF ORMED BY: [place] [address] PATHOLOGIST FPGA DESIGN ENGINEER EVELIN CARTER M.D. Performed By: #### P TT, PT, CBC #### [address] Automated blood monocyte cou ntOrdered By: Imad Asaad on 05-03-2023 Monocytes (Bld) [#/Vol] 0.7 10*3/uL Normal 0.0-0.8 [facility] Comment on above: Performed By: #### P TT, PT, CBC #### [address] Automated eosinophil %Ordere d By: Imad Asaad on 05-03-2023 Eosinophils/100 WBC (Bld) 6.5 % Normal . [facility] Comment on above: Performed By: #### P TT, PT, CBC #### [address] Automated eosinophil countOr dered By: Imad Asaad on 05-03-2023 Eosinophils (Bld) [#/Vol] 0.5 10*3/uL High 0.0-0.45 [facility] Comment on above: Performed By: #### P TT, PT, CBC #### [address] Automated monocyte %Ordered By: Imad Asaad on 05-03-2023 Monocytes/100 WBC (Bld) 8.9 % Normal . [facility] Comment on above: Performed By: #### P TT, PT, CBC #### [facility] [address] Automated neutrophil %Ordere d By: Godwin Barnes on 05-03-2023 Neutrophils/100 WBC (Bld) 56.8 % Normal . [facility] Comment on above: Performed By: #### P TT, PT, CBC #### [address] Capillary blood glucose diego urement by glucometer (mass/volume)Ordered By: Godwin Barnes on 05-03-2023 Glucose [Mass/Vol] 88 mg/dL Normal [facility] Comment on above: Random Glucose Refer ence Range is dependent on time and content of last meal. Glucose of more than 200 mg/dL in a nonstressed, ambulatory subject supports the diagnosis of Diabetes Mellitus. Result Comment: [place] Glucose Reference Range is dependent on time and content of last meal. Glucose of more than 200 mg/dL in a nonstressed, ambulatory subject supports the diagnosis of Diabetes Mellitus. Performed By: #### P TT, PT, CBC #### [address] Complete Blood Count Auto Di ffon 05-03-2023 Mean Corpuscular HGB Conc 33.6 g/dL Normal 32.5-35.6 [facility] Comment on above: Performed By: #### P TT, PT, CBC #### [address] NRBC% 0.2 /100{WBC} Normal 0-0.5 [facility] Comment on above: Performed By: #### P TT, PT, CBC #### [address] Erythrocyte distribution wid th [Ratio] by Automated countOrdered By: Godwin Barnes on 05-03-2023 Erythrocyte distribution width (RBC) [Ratio] 14.3 % Normal 12.0-14.8 [facility] Comment on above: Performed By: #### P TT, PT, CBC #### [address] Erythrocytes [#/volume] in B lood by Automated countOrdered By: Imad Asaad on 05-03-2023 RBC (Bld) [#/Vol] 5.03 10*6/uL Normal 3.90-5.60 [facility] Comment on above: Performed By: #### P TT, PT, CBC #### [address] Glucose Poct Glucometerson 1 07-04-2022 Commemt1 Glu2: Cleaned Meter Normal [facility] Comment on above: Result Comment: PERF ORMED BY: [place] [address] PATHOLOGIST FPGA DESIGN ENGINEER EVELIN CARTER M.D. Performed By: #### P TT, PT, CBC #### [address] Hematocrit [Volume Fraction] of Blood by Automated countOrdered By: Imad Asaad on 05-03-2023 Hematocrit (Bld) [Volume fraction] 46.0 % Normal 38.8-50.0 [facility] Comment on above: Performed By: #### P TT, PT, CBC #### [address] Hemoglobin [Mass/volume] in BloodOrdered By: Imad Asaad on 05-03-2023 Hemoglobin (Bld) [Mass/Vol] 15.4 g/dL Normal 13.0-17.0 [facility] Comment on above: Performed By: #### P TT, PT, CBC #### [address] INR in Platelet poor plasma by Coagulation assayOrdered By: Imad Asaad on 05-03-2023 INR Coag (PPP) [Relative time] 2.3 {INR} Normal [facility] Comment on above: INR Therapeutic Rang e A) Pre- and Peroperative OAT started two weeks before surgery. NOT HIP SURGERY: 1.5 - 2.5 HIP SURGERY: 2 - 3B) Primary and secondary prevention of venous THROMBOSIS: 2 - 3C) Active venous thrombosis, pulmonary embolismand prevention of recurrent venous thrombosis: 2 - 3D) Prevention of arterial thromboembolismincluding patients with mechanical heart valves: 3 - 4.5 Result Comment: INR Therapeutic Range A) Pre- and Peroperative OAT started two weeks before surgery. NOT HIP SURGERY: 1.5 - 2.5 HIP SURGERY: 2 - 3 B) Primary and secondary prevention of venous THROMBOSIS: 2 - 3 C) Active venous thrombosis, pulmonary embolism and prevention of recurrent venous thrombosis: 2 - 3 D) Prevention of arterial thromboembolism including patients with mechanical heart valves: 3 - 4.5 Performed By: #### P TT, PT, CBC #### [address] 05-03-2023 L ------ Specimen: [id number] Received: 05/03/23 Status: RADHA Brisenoaz Num: [id number] Spec Type: Surgical Subm Dr: Godwin Barnes MD Tissues: A Colon Biopsy (TRANSV POLYP) B Colon Biopsy (ASC POLYP) Procedures: HE/4, Gross/Micro L4/2 Age/ Patient Sex Location Account Attending Physician Kaitlyn Jordan 72/Radha [id number] Godwin Barnes MD SPEC NUM: [id number] RECD: 05/03/23 STATUS: RADHA DRAKE NUM: [id number] ROJELIO: 05/03/23- SUBM DR: Godwin Barnes MD ENTERED: 05/03/[address] [facility] [address]: ALEX TYPE: Surgical DEPT: S ORDERED: HE/4, Gross/Micro L4/2 ORDERED: HE/4, Gross/Micro L4/2 Pathological Diagnosis A. Transverse colon polyps removal: - Multiple fragments of tubulovillous adenoma(s) without high-grade features B. Ascending colon polyps removal: - Multiple fragments of tubulovillous adenoma(s) without high-grade features Clinical Information Positive Cologuard Gross Description A. Received in formalin labeled with the patient's name, date of and transverse polyps are multiple taylor tissues measuring 2.0 x 1.5 x 0.3 cm in aggregate. Entirely submitted in one cassette labeled A1. B. Received in formalin labeled with the patient's name, date of and ascending polyps are multiple taylor tissues and fecal material measuring 2.0 x 0.7 x 0.3 cm in aggreg ate. Entirely submitted in one cassette labeled B1. Specimen: [id number] Received: 05/03/23 Status: TIFFANYAlena Drake Num: [id number] Spec Type: Surgical Subm Dr: Godwin Barnes MD Tissues: A Colon Biopsy (TRANSV POLYP) B Colon Biopsy (ASC POLYP) Procedures: MAIRA Gross/Micro L4/2 Patient: IvelisseKelin cruzcesario Calderon [id number] (Continued) Specimen: [id number] Received: 05/03/23 (Continued) Signed (signature on file) Diane Calle MD 05/04/23 1654 Specimen: [id number] Received: 05/03/23 Status: TIFFANYAlena Drake Num: [id number] Spec Type: Surgical Subm Dr: Godwin Barnes MD Tissues: A Colon Biopsy (TRANSV POLYP) B Colon Biopsy (ASC POLYP) Procedures: Rosalio RAO/Micro L4/2 Patient: Kaitlyn Jordan [id number] (Continued) Specimen: [id number] Received: 05/03/23 (Continued) Microscopic Description A. Two H E slides reviewed. The microscopic examination confirms the diagnosis. B. Two H E slides reviewed. The microscopic examination confirms the diagnosis. CPT Codes 63204s8 Specimen: [id number] Received: 05/03/23 Status: RADHA Drake Num: [id number] Spec Type: Surgical Subm Dr: Godwin Barnes MD Tissues: A Colon Biopsy (TRANSV POLYP) B Colon Biopsy (ASC POLYP) Procedures: HE/4, Gross/Micro L4/2 Patient: IvelisseKelin cruzcesario Calderon [id number] (Continued) Signed (signature on file) Chin-Jigar Calle MD 05/04/23 1654 Normal [facility] Leukocytes [#/volume] correc nicole for nucleated erythrocytes in Blood by Automated counOrdered By: Imad Asaad on 05-03-2023 WBC corrected for nucl RBC Auto (Bld) [#/Vol] 8.0 10*3/uL 4.1-10.5 [facility] Leukocytes [#/volume] in Blo od by Automated countOrdered By: Imad Asaad on 05-03-2023 WBC (Bld) [#/Vol] 8.0 10*3/uL Normal 4.1-10.5 [facility] Comment on above: Performed By: #### P TT, PT, CBC #### [facility] [address] Lymphocytes [#/volume] in Bl ood by Automated countOrdered By: Imad Asaad on 05-03-2023 Lymphocytes (Bld) [#/Vol] 2.2 10*3/uL Normal 1.00-4.8 [facility] Comment on above: Performed By: #### P TT, PT, CBC #### [facility] [address] [place] [address] Lymphocytes/100 leukocytes i n Blood by Automated countOrdered By: Imad Asaad on 05-03-2023 Lymphocytes/100 WBC (Bld) 27.0 % Normal . [facility] Comment on above: Performed By: #### P TT, PT, CBC #### [address] MCH [Entitic mass] by Automa nicole countOrdered By: Imad Asaad on 05-03-2023 MCH (RBC) [Entitic mass] 30.6 pg Normal 27.5-35.2 [facility] Comment on above: Performed By: #### P TT, PT, CBC #### [address] MCHC Auto (RBC) [Mass/Vol]Or dered By: Imad Asaad on 05-03-2023 MCHC (RBC) [Mass/Vol] 33.6 g/dL 32.5-35.6 [facility] MCV [Entitic volume] by Auto mated countOrdered By: Imad Asaad on 05-03-2023 MCV (RBC) [Entitic vol] 91.3 fL Normal 83.5-101 [facility] Comment on above: Performed By: #### P TT, PT, CBC #### [address] Neutrophils [#/volume] in Bl ood by Automated countOrdered By: Imad Asaad on 05-03-2023 Neutrophils (Bld) [#/Vol] 4.5 10*3/uL Normal 1.8-7.7 [facility] Comment on above: Performed By: #### P TT, PT, CBC #### [facility] [address] [place] [address] No Panel InformationOrdered By: Imad Asaad on 05-03-2023 Bedside Glucose Comment Glu2: cleaned meter [facility] Nucleated erythrocytes [Pres ence] in Blood by Automated countOrdered By: Imad Asaad on 05-03-2023 Nucleated RBC Auto Ql (Bld) 0.2 /100{WBC} 0-0.5 [facility] Partial Thromboplastin Timeo n 05-03-2023 aPTT Coag (Bld) [Time] 46.9 s High 25.1-36.5 [facility] Comment on above: Result Comment: A he matocrit value greater than 55% may lead to inaccurate results in coagulation testing. Patients having hematocrit values >55% require a special collection tube for coagulation studies. Please contact the laboratory at [phone] for redraw instructions. PERFORMED BY: [place] [address] PATHOLOGIST [employer] DESIGN ENGINEER EVELIN CARTER M.D. Performed By: #### P TT, PT, CBC #### [facility] [address] [place] [address] Platelet mean volume [Entiti c volume] in Blood by Automated countOrdered By: Imad Asaad on 05-03-2023 Platelet mean volume (Bld) [Entitic vol] 6.8 fL Normal 6.6-10.1 [facility] Comment on above: Performed By: #### P TT, PT, CBC #### [facility] [address] [place] [address] Platelets [#/volume] in Bloo d by Automated countOrdered By: Imad Luis Mad on 05-03-2023 Platelets (Bld) [#/Vol] 207 10*3/uL Normal 150-450 [facility] Comment on above: Performed By: #### P TT, PT, CBC #### [facility] [address] [place] [address] Prothrombin time (PT)Ordered By: Imad Asaad on 05-03-2023 PT Coag (PPP) [Time] 27.5 s High 9.0-12.9 [facility] Comment on above: A hematocrit value g reater than 55% may lead to inaccurate results in coagulation testing. Patients having hematocrit values >55% require a special collection tube for coagulation studies. Please contact the laboratory at [phone] for redraw instructions. Result Comment: A he matocrit value greater than 55% may lead to inaccurate results in coagulation testing. Patients having hematocrit values >55% require a special collection tube for coagulation studies. Please contact the laboratory at [phone] for redraw instructions. Performed By: #### P TT, PT, CBC #### [place] [id number] [facility] Telephoneon 04-27-2023 Telephone [id number] Kaitlyn Jordan R 1950 M [facility] Center 04/27/2023 DAVID FRANK HVCANTICOARobyn [facility] Family History Family history unknown: Yes Reason for Visit and Comments: Anticoagulation [8] Normal [facility] Orders Onlyon 04-10-2023 Orders Only [id number] JulianKaitlyn R 1950 [facility] Provider Department Center 04/10/2023 SUAD KRISHNAMURTHY HVC VASC LAB [facility] Family History Family history unknown: Yes Normal [facility] Documentationon 04-04-2023 Documentation [id number] Kaitlyn Jordan R 1950 [facility] Provider Department Center 04/04/2023 RAJ HERRERA HVCANTICOARobyn [facility] Family History Family history unknown: Yes Normal [facility] - Warfarin Visit [id number] Kaitlyn Jordan R 1950 [facility] Provider Department Center 03/22/2023 DAVID FRANK HVCANTICOARobyn [facility] Family History Family history unknown: Yes Normal [facility] Telephoneon 03-22-2023 Telephone [id number] Kaitlyn Jordan R 1950 [facility] Provider Department Center 03/22/2023 DAVID FRANK HVCANTICOARobyn [facility] Family History Family history unknown: Yes Reason for Visit and Comments: Anticoagulation [8] Normal [facility] XR CHEST 2 Von 04-19-2022 XR CHEST 2 V EXAMINATION: XR CHES T 2 V HISTORY: Atrial flutter , shortness of breath COMPARISON: XR chest 10/10/2019 FINDINGS: LUNGS: Mild blunting/opacification of left lateral and posterior costophrenic angles. Lungs otherwise clear. VASCULATURE: No increased pulmonary vasculature. PLEURA: No pneumothorax. CARDIAC: No cardiomegaly. Stable cardiac pacer. MEDIASTINUM: No visible mass or adenopathy. BONES: No fracture or visible bone lesion. OTHER: Negative. IMPRESSION: 1. New opacification of left lateral and posterior costophrenic angles; mild infiltrates versus atelectasis versus small pleural effusion. Electronically authenticated by: ANDREW WALTERS Date: 2022-04-19 09:06 Normal [facility] CBC AUTO DIFFon 04-11-2022 BASO # 0.0 103/ul Normal 0.0-0.1 [facility] Comment on above: Performed By: #### C BC #### [facility] [address] [address] [address] Georgia Calle Basophils/100 WBC (Bld) 0.5 % Normal 0.2-2.0 [facility] Comment on above: Performed By: #### C BC #### [facility] [address] [address] [address] Georgia Calle EO # 0.4 103/ul Normal 0.0-0.7 [facility] Comment on above: Performed By: #### C BC #### [facility] [address] [address] [address] Georgia Calle Eosinophils/100 WBC (Bld) 6.1 % Normal 0.9-7.0 [facility] Comment on above: Performed By: #### C BC #### [facility] [address] [address] [address] Georgia Calle Erythrocyte distribution width (RBC) [Ratio] 13.1 % Normal 11.0-15.0 [facility] Comment on above: Performed By: #### C BC #### [facility] [address] [address] [address] Georgia Calle Hematocrit (Bld) [Volume fraction] 40.0 % Critically low 42.0-54.0 [facility] Comment on above: Performed By: #### C BC #### [facility] [address] [address] [address] Georgia Calle Hemoglobin (Bld) [Mass/Vol] 13.1 g/dL Critically low 14.0-18.0 [facility] Comment on above: Performed By: #### C BC #### [facility] [address] [place] [address] Dr. Georgia Calle IG # 0.01 10e3/ul Normal 0.00-0.03 [facility] Comment on above: Performed By: #### C BC #### [facility] [address] [place] [address] Dr. Georgia Calle IG % 0.2 % Normal 0.0-0.5 [facility] Comment on above: Performed By: #### C BC #### [facility] [address] [place] [address] Dr. Georgia Calle LYMPH # 1.5 103/ul Normal 1.2-3.8 [facility] Comment on above: Performed By: #### C BC #### [facility] [address] [place] [address] Dr. Georgia Calle Lymphocytes/100 WBC (Bld) 25.7 % Normal 20.5-60.0 [facility] Comment on above: Performed By: #### C BC #### [facility] [address] [place] [address] Dr. Georgia Calle MANUAL DIFF REQ NO Normal [facility] Comment on above: Performed By: #### C BC #### [facility] [address] [place] [address] Dr. Georgia Calle MCH (RBC) [Entitic mass] 30.0 pg Normal 25.9-34.0 [facility] Comment on above: Performed By: #### C BC #### [facility] [address] [place] [address] Dr. Georgia Calle MCHC (RBC) [Mass/Vol] 32.8 g/dL Normal 29.9-35.2 [facility] Comment on above: Performed By: #### C BC #### [facility] [address] [place] [address] Dr. Georgia Calle MCV (RBC) [Entitic vol] 91.5 fL Normal 80.0-94.0 [facility] Comment on above: Performed By: #### C BC #### [facility] [address] [address] [address] Georgia Calle MONO # 0.5 103/ul Normal 0.3-0.8 [facility] Comment on above: Performed By: #### C BC #### [facility] [address] [address] [address] Georgia Calle Monocytes/100 WBC (Bld) 8.2 % Normal 1.7-12.0 [facility] Comment on above: Performed By: #### C BC #### [facility] [address] [place] [address] Dr. Georgia Calle NEUT # 3.4 103/ul Normal 1.4-6.5 [facility] Comment on above: Performed By: #### C BC #### [facility] [address] [place] [address] Dr. Georgia Calle Neutrophils/100 WBC (Bld) 59.3 % Normal 43.0-75.0 [facility] Comment on above: Performed By: #### C BC #### [facility] [address] [place] [address] Dr. Georgia Calle Platelet mean volume (Bld) [Entitic vol] 8.8 fL Critically low 9.5-13.5 [facility] Comment on above: Performed By: #### C BC #### [facility] [address] [place] [address] Dr. Georgia Calle PLT 168 103/ul Normal 150-450 [facility] Comment on above: Performed By: #### C BC #### [facility] [address] [place] [address] Dr. Georgia Calle RBC 4.37 106/ul Critically low 4.70-6.10 [facility] Comment on above: Performed By: #### C BC #### [facility] [address] [place] [address] Dr. Georgia Calle WBC 5.7 103/ul Normal 4.0-11.0 [facility] Comment on above: Performed By: #### C BC #### [facility] [address] [place] [address] Dr. Georgia Calle [facility] SARS-CoV-2 (COVID-19) RNA VERÓNICA+probe Ql (Unsp spec) Not detected Normal NOT DETECTED [facility] Comment on above: Result Comment: This test is not yet approved or cleared by the [place] FDA. When there are no FDA-approved or cleared tests available, and other criteria are met, FDA can make tests available under an emergency access mechanism called an Emergency Use Authorization (EUA). The EUA for this test is supported by the [place]waller of Health and Human Service's (HHS's) declaration that circumstances exist to justify the emergency use of in vitro diagnostics for the detection and/or diagnosis of the virus that causes COVID-19. This EUA will remain in effect (meaning this test can be used) for the duration of the COVID-19 declaration justifying emergency of IVDs, unless it is terminated or revoked by FDA (after which the test may no longer be used). When diagnostic testing is negative, the possibility of a false negative should be considered in the context of a patient's recent exposures and the presence of clinical signs and symptoms consistent with SARS-CoV-2. Performed By: #### C VDTBH #### [facility] [address] [place] [address] Dr. Georgia Calle PROF CHEM 8 (BAS METB)on Anion gap [Moles/Vol] 9.9 mmol/L Normal [facility] Comment on above: Performed By: #### B MP #### [facility] [address] [place] [address] Dr. Georgia Calle Calcium [Mass/Vol] 9.5 mg/dL Normal 8.5-10.1 [facility] Comment on above: Performed By: #### B MP #### [facility] [address] [place] [address] Dr. Georgia Calle Chloride [Moles/Vol] 103 mmol/L Normal 98-107 [facility] Comment on above: Performed By: #### B MP #### [facility] [address] [place] [address] Dr. Georgia Calle CO2 [Moles/Vol] 30.4 mmol/L Normal 21.0-32.0 [facility] Comment on above: Performed By: #### B MP #### [facility] [address] [address] [address] Georgia Calle Creatinine [Mass/Vol] 0.89 mg/dL Normal 0.70-1.30 [facility] Comment on above: Performed By: #### B MP #### [facility] [address] [address] [address] Georgia Calle EGFR-AF CROATIAN >60 Normal >=60 [facility] Comment on above: Performed By: #### B MP #### [facility] [address] [address] [address] Georgia Calle EGFR-NON AF CROATIAN >60 Normal >=60 [facility] Comment on above: Performed By: #### B MP #### [facility] [address] [address] [address] Georgia Calle Glucose [Mass/Vol] 92 mg/dL Normal 74-106 [facility] Comment on above: Performed By: #### B MP #### [facility] [address] [address] [address] Georgia Calle Potassium [Moles/Vol] 4.3 mmol/L Normal 3.5-5.1 [facility] Comment on above: Performed By: #### B MP #### [facility] [address] [address] [address] Georgia Calle Sodium [Moles/Vol] 139 mmol/L Normal 136-145 [facility] Comment on above: Performed By: #### B MP #### [facility] [address] [address] [address] Georgia Calle Urea nitrogen [Mass/Vol] 19.0 mg/dL Critically high 7.0-18.0 [facility] Comment on above: Performed By: #### B MP #### [facility] [address] [address] [address] Georgia Calle Urea nitrogen/Creatinine [Mass ratio] 21.3 mg/mg Normal [facility] Comment on above: Performed By: #### B #### [facility] [address] [address] [address] Georgia Calle ECHOCARDIO M/2D COMPLETEon 1 05-29-2021 ECHOCARDIO M/2D COMPLETE Patient: KAITLYN JORDAN Exam Date: 03/29/2022 : 1950 Gender:M Ordering : PETER PavonJoão KEVIN Admission #: [id number] Family : Order #: [id number] CLICK HERE TO VIEW EXAM ECHOCARDIOGRAM REPORT PROCEDURE: CARDIO PULMONARY ECHOCARDIO M/2D COMP INDICATIONS: Chronic diastolic heart failure COMPARISON: None. DESCRIPTION: COMPLETE ECHOCARDIOGRAM Real-time transthoracic echocardiography with 2D, M-mode, spectral and color flow Doppler performed. QUALITY: Technical quality was good. LEFT VENTRICLE: Normal chamber size. Mild concentric left ventricular hypertrophy. Systolic function is at the lower limits of normal. LV EF: Lower limits of normal left ventricular ejection fraction, (50%). DIASTOLIC: ATRIAL SEPTUM: LEFT ATRIUM: Severe dilatation. RIGHT ATRIUM: Severe dilatation. Pacer wire present. RIGHT VENTRICLE: Moderate dilatation. Decreased right ventricular systolic function. Pacer wire present. TRICUSPID VALVE: Normal mobility and thickness. No stenosis with moderate regurgitation. Mild pulmonary hypertension. RVSP 38 mmHg MITRAL VALVE: Normal mobility and thickness. No mitral valve prolapse. No evidence of mitral valve stenosis. There is no mitral annular calcification. Mild mitral regurgitation. AORTIC VALVE: Normal trileaflet appearance. Thickened aortic valve. Normal leaflet mobility. No evidence of aortic valve stenosis. Mild to moderate aortic regurgitation. AORTIC ROOT: Normal diameter and appearance. PULMONIC VALVE: Grossly normal. No regurgitation. PERICARDIUM: No evidence of pericardial effusion. IVC: Moderate dilatation. Measuring 2.6 cm. Collapses with inspiration. PLEURA: CONCLUSION: 1. Left ventricular systolic function is at the lower limits of normal. LVEF is 50%. 2. Moderately dilated right ventricle with reduced systolic function. 3. Severe biatrial dilatation. 4. Mild mitral regurgitation. 5. Mild to moderate aortic regurgitation. 6. Moderate tricuspid regurgitation. 7. Mildly elevated right-sided pressures. Adult Echocardiography Procedure Report Left Ventricle LVEDD (3.7 - 5.6 cm): 5.43 cm LVESD (2.2 - 4.0 cm): 4.11 cm LVIVS thickness (0.6 - 1.2 cm): 1.30 cm LVPW thickness (0.5 - 1.0 cm): 1.28 cm e': 0.17 m/s E - e': 4.09 LVOT Max Gradient: 3.81 mm[Hg] Peak Velocity (LVOT): 0.98 m/s Mean Velocity (LVOT): 0.67 m/s LVOT Diameter 2.26 cm Left Ventricular Ejection Fraction: 50 % Left Atrium LA Volume Index (2D A2C): 139.24 ml, 139.24 ml Left Atrium Systolic Dimension: 5.40 cm Mitral Valve MV E to A Ratio: 1.60 Mitral Valve A-Wave Peak Velocity: 0.43 m/s Mitral Valve E-Wave Peak Velocity: 0.68 m/s Right Ventricle RV Internal Diastolic Dimension: 5.04 cm Aorta AO Root Diam: 3.81 cm Ascending Ao Diam: 3.29 cm Aortic Valve AoV Area (Peak Alessandro): 2.44 cm2, 2.44 cm2 AoV Area (VTI): 2.31 cm2, 2.31 cm2 Deceleration Sequoyah: 2.16 m/s2 Pressure Half-Time: 525.28 ms Peak Velocity(Antegrade Flow): 1.60 m/s Peak Gradient(Antegrade Flow): 10.18 mm[Hg] Mean Velocity(Antegrade Flow): 1.10 m/s Mean Gradient(Antegrade Flow): 5.58 mm[Hg] Velocity Time Integral: 33.12 cm Tricuspid Valve Peak Velocity (Regurgitant Flow): 2.51 m/s, 2.27 m/s, 2.73 m/s, 2.73 m/s Peak Velocity: 0.76 m/s Pulmonic Valve Mean Gradient: 0.54 mm[Hg] Mean Velocity: 0.35 m/s Peak Velocity: 0.54 m/s, 0.84 m/s, 0.83 m/s Peak Gradient: 2.80 mm[Hg], 1.15 mm[Hg], 2.73 mm[Hg] Right Atrium Right Atrium Systolic Pressure: 117.74 ml, 117.74 ml Dictated by: Danny Ta M.D. on 03/29/2022 at 16:08 Approved by: Danny Ta M.D. on 03/29/2022 at 16:[address] [facility] Vital Signs Date Time Vital Sign Value Performing Clinician Facility 03-03-2024 10:55-0400 Body mass index (BMI) [Ratio] 25.11 kg/m2 Alejandro Pro MD Work Phone: [facility] 03-03-2024 10:55-0400 Body weight 88.72 kg Alejandro Pro MD Work Phone: [facility] 03-03-2024 10:55-0400 Diastolic blood pressure 65 mm[Hg] Alejandro Pro MD Work Phone: [facility] 03-03-2024 10:55-0400 Heart rate 72 /min Alejandro Pro MD Work Phone: [facility] 03-03-2024 10:55-0400 Respiratory rate 17 /min Alejandro Pro MD Work Phone: [facility] 03-03-2024 10:55-0400 SaO2% (BldA) [Mass fraction] 97 % Alejandro Pro MD Work Phone: [facility] 03-03-2024 10:55-0400 Systolic blood pressure 105 mm[Hg] Alejandro Pro MD Work Phone: [facility] 12-25-2023 10:29-0400 Body height 187.96 cm II Alejandro Pro Work Phone: [facility] 12-25-2023 10:29-0400 Body mass index (BMI) [Ratio] 25.4 kg/m2 II Alejandro Pro Work Phone: [facility] 12-25-2023 10:29-0400 Body weight 89.81 kg II Alejandro Pro Work Phone: [facility] 12-25-2023 10:29-0400 Diastolic blood pressure 67 mm[Hg] II Alejandro Pro Work Phone: [facility] 12-25-2023 10:29-0400 Heart rate 84 /min II Alejandro Pro Work Phone: [facility] 12-25-2023 10:29-0400 SaO2% (BldA) [Mass fraction] 95 % II Alejandro Pro Work Phone: [facility] 12-25-2023 10:29-0400 Systolic blood pressure 111 mm[Hg] II Alejandro Pro Work Phone: [facility] 11-09-2023 11:10-0400 Diastolic blood pressure 69 mm[Hg] II Alejandro Pro Work Phone: [facility] 11-09-2023 11:10-0400 Heart rate 78 /min II Alejandro Pro Work Phone: [facility] 11-09-2023 11:10-0400 Respiratory rate 16 /min II Alejandro Pro Work Phone: [facility] 11-09-2023 11:10-0400 SaO2% (BldA) [Mass fraction] 94 % II Alejandro Pro Work Phone: [facility] 11-09-2023 11:10-0400 Systolic blood pressure 113 mm[Hg] II lAejandro Pro Work Phone: [facility] 11-09-2023 08:30-0400 Body height 187.96 cm II Alejandro Pro Work Phone: [facility] 11-09-2023 08:30-0400 Body temperature 98.1 [degF] II Alejandro Pro Work Phone: [facility] 11-09-2023 08:30-0400 Body weight 90.7 kg II Alejandro Pro Work Phone: [facility] 05-03-2023 13:15-0500 Diastolic blood pressure 63 mm[Hg] II Alejandro Pro Work Phone: [facility] 05-03-2023 13:15-0500 Heart rate 69 /min II Alejandro Pro Work Phone: [facility] 05-03-2023 13:15-0500 Respiratory rate 18 /min II Alejandro Pro Work Phone: [facility] 05-03-2023 13:15-0500 SaO2% (BldA) [Mass fraction] 98 % II Alejandro Pro Work Phone: [facility] 05-03-2023 13:15-0500 Systolic blood pressure 102 mm[Hg] II Alejandro Pro Work Phone: [facility] 05-03-2023 10:41-0500 Body height 187.96 cm II Alejandro Pro Work Phone: [facility] 05-03-2023 10:41-0500 Body temperature 97.7 [degF] II Alejandro Pro Work Phone: [facility] 05-03-2023 10:41-0500 Body weight 90.71 kg II Alejandro Pro Work Phone: [facility] 12-19-2022 10:15-0400 Body height Katie Eldridge Other [facility] Other 12-19-2022 10:15-0400 Body mass index (BMI) [Ratio] 26.06 kg/m2 Katie Eldridge Other [facility] Other 12-19-2022 10:15-0400 Body weight 92.08 kg Katie Eldridge Other [facility] Other 12-19-2022 10:15-0400 Diastolic blood pressure 56 mm[Hg] Katie Eldridge Other [facility] Other 12-19-2022 10:15-0400 SaO2% (BldA) [Mass fraction] 96 % Katie Eldridge Other [facility] Other 12-19-2022 10:15-0400 Systolic blood pressure 94 mm[Hg] Katie Eldridge Other [facility] Other 12-22-2021 14:00-0400 Body height Enrique Sharpe Other [facility] Other 12-22-2021 14:00-0400 Body mass index (BMI) [Ratio] 26.13 kg/m2 Enrique Sharpe Other [facility] Other 12-22-2021 14:00-0400 Body temperature 98 [degF] Enrique Sharpe Other [facility] Other 12-22-2021 14:00-0400 Body weight 92.31 kg Enrique Sharpe Other [facility] Other 12-22-2021 14:00-0400 Diastolic blood pressure 69 mm[Hg] Enrique Dell Other [facility] Other 12-22-2021 14:00-0400 SaO2% (BldA) [Mass fraction] 96 % Enrique Sharpe Other [facility] Other 12-22-2021 14:00-0400 Systolic blood pressure 111 mm[Hg] Enrique Dell Other [facility] Other Encounters Encounter Date Encounter Type Care Provider Facility Start: 03-03-2024 End: 03-03-2024 Bamboo flowsheet Alejandro Pro MD Work Phone: [facility] Start: 03-03-2024 End: 03-03-2024 Bamboo flowsheet Alejandro Pro MD Work Phone: [facility] Start: 03-03-2024 End: 03-03-2024 Assay of hemosiderin, quant Alejandro Pro MD Work Phone: [facility] Work Phone: Start: 03-03-2024 End: 03-03-2024 Patient encounter procedure Alejandro Pro MD Work Phone: [facility] Comment on above: Routine general medi ramesh examination at health care facility (Primary Dx); Type 2 diabetes mellitus with other circulatory complication, 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); Benign hypertension (CMS/HCC); Chronic systolic heart failure (CMS/HCC); Paroxysmal atrial fibrillation ([facility]/HCC); Atherosclerosis of coronary artery of ewiiaapaayp heart, unspecified vessel or lesion type, unspecified whether angina present ([facility]/HCC) Start: 03-03-2024 End: 03-03-2024 ambulatory ALEJANDRO PRO Not Available Start: 01-08-2024 End: 01-08-2024 ambulatory [facility] Start: 12-25-2023 End: 12-25-2023 ambulatory II Alejandro Pro Work Phone: [facility] Work Phone: Start: 12-25-2023 End: 12-25-2023 Patient encounter procedure II Alejandro Pro Work Phone: [facility] Work Phone: Start: 12-14-2023 ambulatory DAVID [facility] Start: 12-11-2023 End: 12-11-2023 ambulatory [facility] Start: 11-15-2023 End: 11-15-2023 ambulatory ALEJANDRO PRO Not Available Start: 11-14-2023 Non-patient / Non-visit II Chad Pro Work Phone: [facility] Work Phone: Start: 11-09-2023 Non-patient / Non-visit II Chad Pro Work Phone: [facility] Work Phone: Start: 11-09-2023 End: 11-09-2023 Admission to same day surgery center II Alejandro Pro Work Phone: [facility] Work Phone: Start: 11-09-2023 End: 11-09-2023 ambulatory II Alejandro Pro Work Phone: [facility] Work Phone: Start: 07-26-2023 End: 07-26-2023 ambulatory CHEN M YOHANNES Not Available Start: 07-10-2023 End: 07-10-2023 ambulatory [facility] Start: 06-28-2023 End: 06-28-2023 ambulatory KEMAL W DRAKE Not Available Start: 06-21-2023 End: 06-21-2023 ambulatory KEMAL W DRAKE Not Available Start: 05-31-2023 End: 05-31-2023 ambulatory CHEN SHEFFIELD Not Available Start: 05-17-2023 End: 05-17-2023 ambulatory ALEJANDRO PRO Not Available Start: 05-17-2023 End: 05-17-2023 ambulatory KEMAL W DRAKE Not Available Start: 05-14-2023 End: 05-14-2023 ambulatory [facility] Start: 05-03-2023 End: 05-03-2023 Admission to same day surgery center II Alejandro Pro Work Phone: [facility] Work Phone: Start: 05-03-2023 End: 05-03-2023 ambulatory II Alejandro Pro Work Phone: [facility] Work Phone: Start: 04-30-2023 End: 04-30-2023 ambulatory KEMAL Librado DRAKE Not Available Start: 04-18-2023 End: 10-05-2023 [facility] Start: 04-13-2023 End: 04-13-2023 ambulatory Godwin Barnes Other [facility] Other Start: 04-13-2023 Telephone encounter Godwin Barnes [facility] R[facility] Access Start: 12-19-2022 End: 12-19-2022 ambulatory Katie Eldridge Other [facility] Other Start: 12-19-2022 Office outpatient vi sit 15 minutes Katie Eldridge [facility] Start: 04-18-2022 End: 04-19-2022 ambulatory PETER CRAIN Facility:[facility] Start: 04-14-2022 Encounter for other preprocedural examination PETER CRAIN [facility] Start: 04-14-2022 Encounter for preprocedural laboratory examination PETER CRAIN [facility] Start: 04-11-2022 End: 04-12-2022 ambulatory PETER CRAIN Facility:[facility] Start: 04-11-2022 End: 04-12-2022 Encounter for other preprocedural examination PETER CRAIN Facility:[facility] Start: 03-29-2022 End: 03-30-2022 ambulatory PETER CRAIN Facility:[facility] Start: 12-22-2021 End: 12-22-2021 ambulatory Enrique Sharpe Other [facility] Other Start: 12-22-2021 Office outpatient vi sit 25 minutes Enrique Sharpe [facility] Start: 12-22-2021 End: 12-22-2021 Patient encounter procedure II Alejandro Morteza Work Phone: [facility] Start: 01-21-2018 End: 01-22-2018 Patient encounter YESI HAGER Facility:[facility] Procedures Date Procedure Procedure Detail Performing Clinician Start: 11-09-2023 End: 11-09-2023 Colonoscopy II Alejandro Pro Work Phone: Start: 05-03-2023 Colonoscopy II Alejandrowood Pro Work Phone: Plan of Treatment Date Care Activity Detail Author Start: 11-08-2033 Screening for malign ant neoplasm of colon [facility] Start: 03-26-2026 Screening for malign ant neoplasm of colon FIT-DNA [facility] Start: 05-30-2025 Glaucoma screening Diabetes: R etinopathy Screening [facility] Start: 03-03-2025 Medicare Annual Wellness (AWV) Medicare Annual Wellness (AWV) [facility] Start: 02-26-2025 Urine screening for protein Diabetes: Urine Protein Screening [facility] Start: 09-08-2024 End: 09-08-2024 Patient encounter procedure 09/08/2024 11:30 AM EDT Office Visit [facility] [address] [place] [address] Alejandro Pro MD [address] [place] [address] [facility] Start: 05-29-2024 Hemoglobin A1c measurement Diabetes: Hemoglobin A1C [facility] Start: 03-03-2024 End: 03-03-2024 Patient encounter procedure 03/03/2024 10:30 AM EDT Office Visit [facility] [address] [place] [address] Alejandro Pro MD [address] [place] [address] Arrived [facility] Comment on above: Arrived Start: 11-09-2023 [facility] Start: 05-03-2023 [facility] Start: 1950 Medicare Annual Wellness (AWV) Medicare Annual Wellness (AWV) [facility] Start: 1950 Screening for malign ant neoplasm of colon [facility] Patient Education [facility] Work Phone: Immunizations Immunization Date Immunization Notes Care Provider Fa cili 02-04-2024 influenza, high dose seasonal, preservative-free Alejandro Pro MD Work Phone: [facility] 02-04-2024 RSV, recombinant, protein subunit RSVpreF, adjuvant reconstitu, 120mcg/0.5mL, PF (Arexvy) Alejandro Pro MD Work Phone: [facility] 02-06-2023 Influenza, Seasonal, Quadrivalent, Adjuvanted Alejandro Pro MD Work Phone: [facility] 02-06-2023 zoster vaccine recombinant Alejandro Pro MD Work Phone: [facility] 10-03-2022 zoster vaccine recombinant Alejandro Pro MD Work Phone: [facility] 03-20-2022 Influenza, Seasonal, Quadrivalent, Adjuvanted Alejandro Pro MD Work Phone: [facility] 03-20-2022 Seasonal, trivalent, recombinant, injectable influenza vaccine, preservative free Alejandro Pro MD Work Phone: [facility] 02-28-2021 Influenza, Seasonal, Quadrivalent, Adjuvanted Alejandro Pro MD Work Phone: [facility] 01-25-2021 tetanus toxoid, redu vaishali diphtheria toxoid, and acellular pertussis vaccine, adsorbed Alejandro Pro MD Work Phone: [facility] 04-07-2020 influenza, high dose seasonal, preservative-free Alejandro Pro MD Work Phone: [facility] 04-07-2020 pneumococcal polysaccharide vaccine, 23 valent Alejandro Pro MD Work Phone: [facility] 05-06-2019 influenza, injectabl e, quadrivalent, contains preservative Alejandro Pro MD Work Phone: [facility] 04-05-2018 Influenza, High-dose Seasonal, Quadrivalent, Preservative Free Alejandro Pro MD Work Phone: [facility] 04-16-2017 Influenza, High-dose Seasonal, Quadrivalent, Preservative Free Alejandro Pro MD Work Phone: [facility] 02-25-2014 influenza virus vacc ine, split virus (incl. purified surface antigen) Alejandro Pro MD Work Phone: [facility] Work Phone: 11-25-2013 zoster vaccine, live Alejandro Pro MD Work Phone: [facility] 05-28-2011 pneumococcal polysaccharide vaccine, 23 valent Alejandro Pro MD Work Phone: [facility] Payers Date Payer Category Payer Self-pay [id number] 2014 Unknown [employer] [id number] 2014-Present [address] [address] [place] [address] [id number] 2014 Medicare MEDICARE MEDICAR E RAILROAD [id number] 2014-Present [employer] MEDICARE [address] [address] [place] [address] Medicare [id number] 1959 Medicare [id number] 1959 Unknown [id number] 1948 Unknown [id number] 1948 Unknown [id number] 1948 Unknown [id number] 1948 Unknown [id number] 9 1948 Unknown [id number] 9 1948 Unknown [id number] [id number] 9 1948 Unknown [id number] [id number] 9 1948 Unknown [id number] 9 1948 Unknown [id number] 9 1948 Unknown [id number] [id number] 9 1948 Unknown [id number] [id number] 9 1948 Unknown [id number] 9 Medicare [id number] Unknown [id number] Unknown [id number] Social History Date Type Detail Facility Start: 05-16-2023 End: 03-03-2024 Sex Assigned At [facility] Start: 1950 Sex Assigned At Male [facility] Start: 05-03-2023 End: 07-26-2023 Tobacco smoking status NHIS Ex-smoker (finding) [facility] History of tobacco use Current smoker [facility] History of tobacco use Cigarette Smoker [facility] Start: 07-26-2023 Tobacco use and exposure Smokeless tobacco non-user [facility] Start: 11-15-2023 End: 03-03-2024 Alcoholic beverage intake Current drinker of alcohol (finding) [facility] Start: 05-16-2023 End: 03-03-2024 History of Social function [facility] Within the last year , have you been afraid of your partner or ex-partner? No [facility] How often do you att end scientology or zoroastrian services? Patient declined [facility] Do you belong to any clubs or organizations such as scientology groups, unions, fraternal or athletic groups, or school groups? Yes [facility] Are you now , , , , never or living with a partner? [facility] How often to you hav e a drink containing alcohol? Monthly or less [facility] How many standard dr inks containing alcohol do you have on a typical day? 1 or 2 [facility] How often do you hav e 6 or more drinks on 1 occasion? Never [facility] Do you feel stress - tense, restless, nervous, or anxious, or unable to sleep at night because your mind is troubled all the time - these days [OSQ] Only a little [facility] (I/We) worried wheberyl er (my/our) food would run out before (I/we) got money to buy more. Never true [facility] Start: 03-23-2023 Tobacco Comment Last smoked:>10 years [facility] Start: 03-23-2023 Alcohol Comment 2-4 times a month, caffeine 3-4 cups per day,soda [facility] Start: 11-02-2022 Gender identity Identifies as male gender (finding) [facility] Goals Date Patient Goal Desired Activity /State Clinical Notes 12-22-2021 to 03-14-2024 Alejandro Pro MD - 03/03/2024 10:30 AM EDT Note Date & Type Note Facility 03-14-2024 Note Management by ruthy barrios of [facility] 03-03-2024 History of Present illness Narrative Images from the original note were not included. Subjective : Chief Complaint: Kaitlyn Jordan is an 73 y.o. male here for an annual wellness visit. I have reviewed and reconciled the history and medication list with the patient today. Current Outpatient Medications Medication Sig Dispense Refill atorvastatin (Lipitor) 80 MG tablet TAKE 1 TABLET BY MOUTH IN THE MORNING 90 tablet 3 biotin (Biotin Maximum Strength) 10 MG tablet TAKE 1 TABLET BY MOUTH TWICE A DAY 180 tablet 3 cetirizine (ZyrTEC ALLERGY) 10 MG tablet Take 10 mg by mouth 1 (one) time each day at the same time. FLUoxetine (PROzac) 20 MG capsule Take 1 capsule (20 mg) by mouth Daily 30 capsule 5 fluticasone (Flonase) 50 MCG/ACT nasal spray SPRAY 2 SPRAYS INTO EACH NOSTRIL EVERY DAY 48 mL 2 Invokamet 150-1000 MG TAKE 1 TABLET BY MOUTH EVERY DAY IN THE MORNING 90 tablet 3 lisinopril 10 MG tablet Take 1 tablet (10 mg) by mouth Daily 100 tablet 3 montelukast (Singulair) 10 MG tablet Take 1 tablet (10 mg) by mouth at bedtime 100 tablet 3 Multiple Vitamin (Multi-Vitamin) tablet Take 1 tablet by mouth in the morning. omega-3 (Fish Oil) 1000 MG capsule Take 2 capsules by mouth every 12 (twelve) hours. piroxicam (Feldene) 10 MG capsule Take 1 capsule (10 mg) by mouth in the morning. 30 capsule 11 sildenafil (Viagra) 100 MG tablet Take 100 mg by mouth if needed for erectile dysfunction. tiZANidine (Zanaflex) 4 MG tablet Take 1-2 tablets by mouth every 8 (eight) hours if needed for muscle spasms (not to exceed 3 doses in 24 hours). warfarin (Coumadin) 5 MG tablet Take 1 tablet (5 mg) by mouth See administration instructions. Take 5 mg Sun, , , Sat. Take 7.5 mg Sun, Sun, Sun 145 tablet 3 metoprolol succinate XL (Toprol-XL) 100 MG 24 hr tablet TAKE 1 TABLET (100 MG) BY MOUTH ONE TIME EACH DAY AT THE SAME TIME 90 tablet 4 No current facility-administered medications for this visit. Review of Systems List of current healthcare providers: Patient Care Team: Alejandro Pro MD as PCP - General (Internal Medicine) Alejandro Pro MD as PCP - ACO [employer] Medicare Annual Visit Over the past 2 weeks, how often have you been bothered by any of the following problems? Little interest or pleasure in doing things: Not at all Feeling down, depressed, or hopeless: Not at all Patient Health Questionnaire-2 Score: 0 Over the past 2 weeks, how often have you been bothered by any of the following problems? Trouble falling or staying asleep, or sleeping too much: Not at all Feeling tired or having little energy: Several days Poor appetite or overeating: Not at all Feeling bad about yourself - or that you are a failure or have let yourself or your family down: Not at all Trouble concentrating on things, such as reading the newspaper or watching television: Not at all Moving or speaking so slowly that other people could have noticed? Or the opposite - being so fidgety or restless that you have been moving around a lot more than usual.: Not at all Thoughts that you would be better off or hurting yourself in some way: Not at all Patient Health Questionnaire-9 Score: 1 [place] Fall Risk History of Falling, Immediate or Within 3 Months: No Health Risk Assessment Form Do you need help eating, bathing, using the toilet, dressing, or getting around your home?: No Can you prepare your own meals?: Yes Can you do your own housework without help?: Yes Can you shop for groceries or clothes without help?: Yes Do you exercise for about 20 minutes 3 or more days a week?: Yes How confident are you that you can control and manage most of your health problems?: Very confident Can you mange your money, credit cards and accounts, pay bills and taxes?: Yes Cognitive Screening Three Word Registration: Banana, Ferguson, Chair Clock Drawing: Normal Clock - 2 Three Word Recall: All 3 words correct - 3 Total Score (0-5 Points): 5 Pain Assessment Pain Score: 2 Advance Care Planning Do you have a living will?: Yes Do you have a medical power of deputy prosecuting attorney?: Yes Who is your medical power of deputy prosecuting attorney?: Objective : BP 105/65 Pulse 72 Resp 17 Wt 195 lb 9.6 oz SpO2 97% BMI 25.11 kg/m No results found. Physical Exam Constitutional: General: He is not in acute distress. HENT: Head: Normocephalic and atraumatic. Cardiovascular: Rate and Rhythm: Normal rate. Rhythm irregular. Pulses: Dorsalis pedis pulses are 0 on the right side and 0 on the left side. Posterior tibial pulses are 0 on the right side and 0 on the left side. Heart sounds: Murmur heard. Systolic murmur is present with a grade of 2/6. Pulmonary: Effort: Pulmonary effort is normal. No respiratory distress. Breath sounds: Normal breath sounds. No wheezing. Abdominal: General: Bowel sounds are normal. There is no distension. Palpations: Abdomen is soft. Tenderness: There is no abdominal tenderness. There is no guarding. Musculoskeletal: Right lower leg: No edema. Left lower leg: No edema. Neurological: General: No focal deficit present. Mental Status: He is alert and oriented to person, place, and time. Psychiatric: Mood and Affect: Mood normal. Telephone on 02/26/2024 Component Date Value Ref Range Status Hemoglobin A1C 02/27/2024 6.6 (H) <5.7 % of total Hgb Final Comment: For someone without known diabetes, a hemoglobin A1c value of 6.5% or greater indicates that they may have diabetes and this should be confirmed with a follow-up test. For someone with known diabetes, a value <7% indicates that their diabetes is well controlled and a value greater than or equal to 7% indicates suboptimal control. A1c targets should be individualized based on duration of diabetes, age, comorbid conditions, and other considerations. Currently, no consensus exists regarding use of hemoglobin A1c for diagnosis of diabetes for children. Glucose 02/27/2024 102 (H) 65 - 99 mg/dL Final Comment: Fasting reference interval For someone without known diabetes, a glucose value between 100 and 125 mg/dL is consistent with prediabetes and should be confirmed with a follow-up test. BUN 02/27/2024 19 7 - 25 mg/dL Final Creatinine 02/27/2024 0.97 0.70 - 1.28 mg/dL Final EGFR 02/27/2024 81 > OR = 60 mL/min/1.73m2 Final BUN/CREATININE RATIO 02/27/2024 SEE NOTE: 6 - 22 (calc) Final Comment: Not Reported: BUN and Creatinine are within reference range. Sodium 02/27/2024 137 135 - 146 mmol/L Final Potassium, Bld 02/27/2024 4.0 3.5 - 5.3 mmol/L Final Chloride 02/27/2024 103 98 - 110 mmol/L Final Carbon Dioxide 02/27/2024 24 20 - 32 mmol/L Final Calcium 02/27/2024 9.2 8.6 - 10.3 mg/dL Final PROTEIN, TOTAL 02/27/2024 7.0 6.1 - 8.1 g/dL Final ALBUMIN 02/27/2024 4.0 3.6 - 5.1 g/dL Final GLOBULIN 02/27/2024 3.0 1.9 - 3.7 g/dL (calc) Final ALBUMIN/GLOBULIN RATIO 02/27/2024 1.3 1.0 - 2.5 (calc) Final BILIRUBIN, TOTAL 02/27/2024 1.0 0.2 - 1.2 mg/dL Final ALKALINE PHOSPHATASE 02/27/2024 63 35 - 144 U/L Final AST 02/27/2024 43 (H) 10 - 35 U/L Final ALT 02/27/2024 46 9 - 46 U/L Final WHITE BLOOD CELL COUNT 02/27/2024 4.9 3.8 - 10.8 Thousand/uL Final RED BLOOD CELL COUNT 02/27/2024 4.61 4.20 - 5.80 Million/uL Final HEMOGLOBIN 02/27/2024 13.2 13.2 - 17.1 g/dL Final HEMATOCRIT 02/27/2024 42.3 38.5 - 50.0 % Final MCV 02/27/2024 91.8 80.0 - 100.0 fL Final MCH 02/27/2024 28.6 27.0 - 33.0 pg Final MCHC 02/27/2024 31.2 (L) 32.0 - 36.0 g/dL Final Comment: For adults, a slight decrease in the calculated MCHC value (in the range of 30 to 32 g/dL) is most likely not clinically significant; however, it should be interpreted with caution in correlation with other red cell parameters and the patient's clinical condition. RDW 02/27/2024 14.3 11.0 - 15.0 % Final PLATELET COUNT 02/27/2024 156 140 - 400 Thousand/uL Final MPV 02/27/2024 9.1 7.5 - 12.5 fL Final CREATININE, RANDOM URINE 02/27/2024 75 20 - 320 mg/dL Final ALBUMIN, URINE 02/27/2024 15.5 See Note: mg/dL Final Comment: Reference Range: Reference Range Not established ALBUMIN/CREATININE RATIO, RANDOM U* 02/27/2024 207 (H) <30 mg/g creat Final Comment: The ADA defines abnormalities in albumin excretion as follows: Albuminuria Category Result (mg/g creatinine) Normal to Mildly increased <30 Moderately increased 30-299 Severely increased > OR = 300 The ADA recommends that at least two of three specimens collected within a 3-6 month period be abnormal before considering a patient to be within a diagnostic category. CHOLESTEROL, TOTAL 02/27/2024 94 <200 mg/dL Final HDL CHOLESTEROL 02/27/2024 23 (L) > OR = 40 mg/dL Final TRIGLYCERIDES 02/27/2024 150 (H) <150 mg/dL Final LDL-CHOLESTEROL 02/27/2024 48 mg/dL (calc) Final Comment: Reference range: <100 Desirable range <100 mg/dL for primary prevention; <70 mg/dL for patients with CHD or diabetic patients with > or = 2 CHD risk factors. LDL-C is now calculated using the Alexis-Nikia calculation, which is a validated novel method providing better accuracy than the Friedewald equation in the estimation of LDL-C. Alexis VERDIN et al. JANE. 2013;310(19): 8080-9485 (http://education.[employer].com/faq/VRS237) CHOL/HDLC RATIO 02/27/2024 4.1 <5.0 (calc) Final NON HDL CHOLESTEROL 02/27/2024 71 <130 mg/dL (calc) Final Comment: For patients with diabetes plus 1 major ASCVD risk factor, treating to a non-HDL-C goal of <100 mg/dL (LDL-C of <70 mg/dL) is considered a therapeutic option. PSA, TOTAL 02/27/2024 1.63 < OR = 4.00 ng/mL Final Comment: The total PSA value from this assay system is standardized against the WHO standard. The test result will be approximately 20% lower when compared to the equimolar-standardized total PSA (Ujdith Casey). Comparison of serial PSA results should be interpreted with this fact in mind. This test was performed using the Siemens chemiluminescent method. Values obtained from different assay methods cannot be used interchangeably. PSA levels, regardless of value, should not be interpreted as absolute evidence of the presence or absence of disease. Assessment/Plan : The following health maintenance schedule was reviewed with the patient and provided in printed form in the after visit summary: Health Maintenance Topic Date Due Medicare Annual Wellness (AWV) Never done Diabetes: Hemoglobin A1C 05/29/2024 Diabetes: Urine Protein Screening 02/26/2025 Diabetes: Retinopathy Screening 05/30/2025 Colorectal Cancer Screening 11/08/2033 Influenza Vaccine Completed Pneumococcal Vaccine: 65+ Years Addressed Advance Care Planning Patient agreed to discuss advance care planning at today's wellness visit. We discussed that an advance directive is a legal document that only goes into effect if the patient is incapacitated and unable to speak for himself or herself. This would help healthcare providers to ensure that the patient gets the care that he or she wishes to receive. The goal is to provide a patient with the best possible quality of life. Encouraged patient to obtain a living will and durable power of deputy prosecuting attorney for healthcare. We discussed telling posey people about their advance directives such as close family members, and requested a copy to scan into the patient's EHR. An advance directive packet was offered to the patient. Assessment/Plan Diagnoses and all orders for this visit: Routine general medical examination at [facility] facility Type 2 diabetes mellitus with other circulatory complication, 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) Benign hypertension (CMS/HCC) Chronic systolic heart failure (CMS/HCC) Paroxysmal atrial fibrillation (CMS/HCC) Atherosclerosis of coronary artery of [place] heart, unspecified vessel or lesion type, unspecified whether angina present (CMS/HCC) No orders of the defined types were placed in this encounter. Follow up in about 6 months (around 09/01/2024) for Routine F/U. Electronically signed by Alejandro Pro MD on March 07, 2024 documented in this encounter [facility] 02-27-2024 Note msg left for call back [facility] 01-23-2024 Note Manage by [facility] 12-14-2023 Note Annual face to face encounter - warfarin Reviewed anticoagulation education Yes Patient was educated on warfarin including: -Indication: atrial fibrillation -Duration of therapy: indefinite -Goal INR: 2-3 Discussed Dietary impact to INR was addressed including vitamin K and alcohol. Over the counter options for pain relief/fever were discussed with preference given to acetaminophen, and avoidance of NSAIDs. Patient was educated on signs of adverse events such as bleeding and bruising (blood in nose, gums, urine, dark tarry stool), and thrombosis or stroke (FAST acronym). Specifically, patient was educated to seek medical attention of any trauma was inflicted to the head to rule out bleed. Patient was educated to contact clinic on the same day for the following reasons: any medication changes, surgery is scheduled, medication refill request, any other facility gives warfarin instructions which contradict the anticoagulation clinic. Adherence was discussed. Warfarin is recommended to be taken in the evening. In case of a missed dose, patient may take up to 12 hours late, but should never double dose or make any changes to regimen without talking to the anticoagulation clinic. All of patient's providers should be aware of anticoagulation status. Teratogenicity not discussed as not of childbearing potential [place] Suicide Risk Screening was performed Yes Patient was provided written education material and verbalized understanding. Yes Medication reconciliation complete and allergies reviewed Yes Verified patient has active prescription Yes Verified patient has active lab order / Home monitor order Yes Verified patient has appropriate follow up with referring provider Yes, had appointment on 12/10 [facility] 12-11-2023 Note [facility] Consul t Note Reason for Consultation: Low HOOP RIVETER Pacing due to AF with RVR 12/11/23 patient is quite active and walks about a mile a day without any significant limitations. previously the decision to do AV node ablation was canceled due to the fact that he was not having significant A-fib RVR patient had a device check performed on 07/10/2023 that showed that he had 90% BiV pacing and 95% atrial pacing. he was noted to be in A-fib 3.5%. echocardiogram 05/29/2023 reveals ejection fraction to be 40 to 45% 05/14/23: S/p aborted AVN ablation d/t RVR improving Discussed with patient if RVR persists we will consider another AVN ablation TTE 12/29/22 shows EF45-50% Device check 04/18/23 shows HOOP RIVETER-P 99.9% of time and total Vpacing 88.9% He continues to feel well without complaints of SOB, CP, RHODES, LE edema, palpitations. He continues to be on warfarin without concerns for intolerance or bleeding 02/20/[address] crain HPI: He has been feeling well with no complaints of palpitations, CP, SOB, RHODES, LE edema, Per his device check he continues to have reduced HOOP RIVETER due to A-fib. this previous device heck shows less percent of time in A-fib but has less ventricular pacing ECHO: 12/29/22 EF 45-50% 03/2022 shows EF 50% Device check 11/29/22 11/29/2022 11 AF episodes he has been having A-fib for 12 hours/day for 60 days. RA pacing 54%, V pacing 86% with RV hiss lead 06/27/2022: RA pacing 14%, HOOP RIVETER 92% RV his lead, A-fib episode noted and was noted for 82% of the time Gen change 03/2022 with RA lead palcement and old Ra lead capped off Prior HPI: Kaitlyn Jordan is a 73 y.o. year old with past medical history of moderate single-vessel coronary disease [40% mid LAD]. Atrial flutter: Status post ablation of cavotricuspid isthmus on 12/30/2009. HFpEF, HFrEF with recovered EF of 55% per ECHO 2020. Patient underwent a BiV pacemaker GEN change on 01/03/[address] Lynne. He had initially undergone a BiV pacemaker placement by Dr. Kush Lutz on 10/02/2010. For pacemaker mediated cardiomyopathy. Previously he underwent ablation of the CTI flutter by Dr. Nash on 12/31/2019. He noted that the patient was in atrial flutter with a cycle length of 280 ms and during ablation the tachycardia terminated and following linear ablation a post pacing interval of 135 ms was noted. Additional medical history includes hypotension, HLD, mild MR, TR, mild AR, DM type II. Of late he has been noted to have atrial fibrillation on his device. Device check from 07/11/2021 reveals his current Medtronic HOOP RIVETER-P device with thresholds are acceptable with an element threshold of 1.5 V at 1 ms pulse width device histograms shows he has atrial fibrillation . He is atrially paced 95% of the time and ventricularly paced 97%. There was 6 days in which that he had more than 6 hours of A. fib. He is on metoprolol succinate extended release 100 mg once a day and takes Coumadin for anticoagulation. Prior testing: Device check 01/10/2021: mostly AP/BiVP. Underlying CHB <30 bpm, 2.2% AF burden. Blood testing 01/25/2021: BUN 21, creatinine 1.0, potassium 4.5, LFTs normal, cholesterol 111, triglycerides 78, LDL 63, HDL 32. Hemoglobin 14.5, platelets 186. Device check 07/12/20: PM dependent, ROJELIO 1.5 years, Apaced 96% Vpaced 100%, episode of VT (notes list printed but images not available) Device check 01/05/2020: 1.4% of A. fib ECG 02/16/2020: AV paced rhythm.. ECHO 07/31/2019 Normal size left ventricle. Global left ventricular systolic function is normal. The EF is 55 % visually. The LV wall thickness was mildly increased. No regional wall motion abnormality. Normal diastolic function. The right ventricle is enlarged. Normal right ventricular systolic function. Doppler studies suggest normal right sided pressures. The left atrium is mildly enlarged. The right atrium is moderately enlarged. Mild mitral regurgitation. Mild aortic valve regurgitation. This is a normal transthoracic echocardiogram. Cardiac cath 2009 Cardiovascular Laboratory Report FINAL IMPRESSION: 1. Moderate single vessel coronary artery disease. (mid LAD 40% narrowing) 2. Normal global left ventricular systolic function. 3. Moderately elevated left ventricular end-diastolic pressures. PMH: Past Medical History: Diagnosis Date Atrial fibrillation, unspecified type (CMS/HCC) 01/24/2022 Atrial flutter (CMS/HCC) 05/06/2014 Cardiac pacemaker in situ 02/05/2012 Chronic diastolic heart failure (CMS/HCC) 07/04/2019 Conduction disorder of the heart 10/16/2011 Coronary atherosclerosis 10/16/2011 Hyperlipidemia 10/16/2011 Primary cardiomyopathy (CMS/HCC) 11/21/2011 Tricuspid valve regurgitation 07/04/2019 Type 2 diabetes mellitus without complication (CMS/HCC) 10/16/2011 PSH: Past Surgical History: Procedure Laterality Date CARDIAC CATHETERIZATION CARDIAC ELECTROPHYSIOLOGY MAPPING AND ABLATION 12/30/2009 HEMORRHOID SURGERY INSERT / REPLACE / (more content not included)... [facility] 11-09-2023 History and physical note Note Date/Time November 09, 2023 9:37 am [facility] [address] [place] [address] Gastroenterology H&P Signed Patient: Kaitlyn Jordan MR#: [id number] : 1950 Acct:[id number] Age/Sex: 73 / M Adm Date: 4 Loc: Room: Type: [facility] Attending Dr: Godwin Barnes MD Copies to: MD Godwin Yates II, MD~ Date of Service: 11/09/2023 HISTORY & PHYSICAL: Patient's history with special attention to the cardiovascular, pulmonary systems and the current problem was reviewed with the patient immediately prior to the procedure. Present medications and doses reviewed in the EMR. Allergies and pertinent laboratory tests were also reviewedat this time in the EMR. The physical examination, as below, was then performed. Indication, assessment and HPI: 73-year-old man with history of colonic polyps and family history of colon cancer(mother) here for surveillance colonoscopy Family history of GI malignancy? Yes PHYSICAL EXAMINATION General appearance: NAD Skin: No jaundice Head: NC/AT Eyes: Anicteric Neck: Supple Lungs: Normal respiratory effort, no use of accessory muscles Abdomen: nondistended Neuro: Ox3. REVIEW OF SYSTEMS Constitutional: Denies malaise, fevers Cardiovascular: Denies chest pain, palpitations Respiratory: Denies shortness of breath, wheezing Gastrointestinal: As per HPI Genitourinary: Denies dysuria, polyuria Musculoskeletal: Denies joint swelling, joint stiffness Neurological: Denies confusion, numbness, tingling Endocrine: Denies fatigue Written informed consent obtained from the patient. Risks (including but not limited to perforation, infection, bloating, bleeding, need for emergent surgeryand loss of life), benefits and alternatives explained and questions answered. The patient verbalized understanding. Based on history patient is an appropriate candidate for the procedure. Godwin Barnes M.D. Documented By: Godwin Barnes MD 11/09/23935 Signed By: <Electronically signed by Godwin Barnes MD> 11/09/2337 [facility] Work Phone: 1(610) 539-742006-14-2024 [facility] NoteAnnual review of anticoagulation therapy completed today. Patient is taking warfarin for atrial fibrillation. Duration of anticoagulation is anticipated to be indefinite. INR Goal (if applicable): 2-3 Referring provider: Dr. Tsai - Visit with provider in last 12 months? Yes Date: w/ Yoalnda Roman 05/14/23 Screenings (if applicable to indication): Wt Readings from Last 1 Encounters: 04/18/23 90.3 kg (199 lb) Lab Results Component Value Date WBC 6.3 03/23/2023 HGB 14.2 03/23/2023 HCT 42.0 03/23/2023 Lab Results Component Value Date GLUCOSE 92 04/11/2022 NA 141 03/23/2023 K 4.4 03/23/2023 CO2 28 03/23/2023 BUN 21 03/23/2023 CHADS-VASc Score 6 due to CHF HTN DM vascular disease ages 75 and older HASBLED Score 1 due to ages 65 and older Factor II activity : Not applicable Phone or F2F Management? Phone Management - Home Monitor -If phone management - Patient due for annual kgyw-al-zhrf visit? Yes Next appointment or lab work scheduled? Yes If yes, next INR w/ home monitor due 11/14/23. Patient due for annual [id number]06-05-2024 NotePharmacist second verification of perioperative plan. I have reviewed and agree with plan. Jing Lowery, PharmD, BCACPUnUC Medical Center06-05-2024 NoteVM msg left for pt [facility] back[facility]06-[facility]-2024 NoteProcedure Type: Colonoscopy Procedure Date: 11/09/23 Required Hold Duration: 5 days Date Day of the Week Warfarin Dose (# tablet) 5 mg tablet Warfarin Dose (# mg) -11/04/23Sunday 0 Tabs 0 mg -11/05/23Sunday 0 Tabs 0 mg -11/06/23Sunday 0 Tabs 0 mg -11/07/23Sunday 0 Tabs 0 mg -11/08/23 0 Tabs 0 mg Procedure Day 11/09/23Sunday 2 Tabs 10 mg 11/10/23Sunday 2 Tabs 10 mg 11/11/23Sunday 2 Tabs 10 mg 11/12/23Sunday 1.5 Tabs 7.5 mg 11/13/23Sunday 1.5 Tabs 7.5 mg 11/14/23Sunday Warfarin Dose TBD - INR Due Follow above instructions exactly, unless your surgeon or procedure doctor states otherwise. If so, follow your surgeon's instructions or procedure doctor's instructions.[facility]05-30-2024 NoteAcelis Rx renewed 10/24[facility]05-21-2024 NoteManagement by exclusionWayne Hospital03-27-2024 NoteManage by exclusion [facility]02-28-2024 NoteManage by exclusionWayne Hospital02-28-2024 NoteOpened in errorWayne Hospital12-20-2023 NoteManage by exclusionWayne Hospital12-18-2023 NotePatient here for 3 mo follow up afib, chronic diastolic heart failure, and valve regurgitation. Ablation was not performed last month. Denies chest pain, SOB, palpitations, syncope, and bleeding on warfarin. Review of Systems Musculoskeletal: Positive for arthritis and back pain. Neurological: Positive for light-headedness. All other systems reviewed and are negative.[facility] 05-14-2023 NoteUT Cardiology Consult Note Reason for Consultation: Low HOOP RIVETER Pacing to AF with RVR 05/14/23: S/p aborted AVN ablation d/t RVR improving Discussed with patient if RVR persists we will consider another AVN ablation TTE 12/29/22 shows EF45-50% Device check 04/18/23 shows HOOP RIVETER-P 99.9% of time and total Vpacing 88.9% He continues to feel well without complaints of SOB, CP, RHODES, LE edema, palpitations. He continues to be on warfarin without concerns for intolerance or bleeding 02/20/[address]rain HPI: He has been feeling well with no complaints of palpitations, CP, SOB, RHODES, LE edema, Per his device check he continues to have reduced HOOP RIVETER due to A-fib. this previous device heck shows less percent of time in A-fib but has less ventricular pacing ECHO: 12/29/22 EF 45-50% 03/2022 shows EF 50% Device check 11/29/22 11/29/2022 11 AF episodes he has been having A-fib for 12 hours/day for 60 days. RA pacing 54%, V pacing 86% with RV hiss lead 06/27/2022: RA pacing 14%, HOOP RIVETER 92% RV his lead, A-fib episode noted and was noted for 82% of the time Gen change 03/2022 with RA lead palcement and old Ra lead capped off Prior HPI: Kaitlyn Jordan is a 72 y.o. year old with past medical history of moderate single-vessel coronary disease [40% mid LAD]. Atrial flutter: Status post ablation of cavotricuspid isthmus on 12/30/2009. HFpEF, HFrEF with recovered EF of 55% per ECHO 2020. Patient underwent a BiV pacemaker GEN change on 01/03/[address] Lynne. He had initially undergone a BiV pacemaker placement by Dr. Kush Lutz on 10/02/2010. For pacemaker mediated cardiomyopathy. Previously he underwent ablation of the CTI flutter by Dr. Nash on 12/31/2019. He noted that the patient was in atrial flutter with a cycle length of 280 ms and during ablation the tachycardia terminated and following linear ablation a post pacing interval of 135 ms was noted. Additional medical history includes hypotension, HLD, mild MR, TR, mild AR, DM type II. Of late he has been noted to have atrial fibrillation on his device. Device check from 07/11/2021 reveals his current Medtronic HOOP RIVETER-P device with thresholds are acceptable with an element threshold of 1.5 V at 1 ms pulse width device histograms shows he has atrial fibrillation . He is atrially paced 95% of the time and ventricularly paced 97%. There was 6 days in which that he had more than 6 hours of A. fib. He is on metoprolol succinate extended release 100 mg once a day and takes Coumadin for anticoagulation. Prior testing: Device check 01/10/2021: mostly AP/BiVP. Underlying CHB <30 bpm, 2.2% AF burden. Blood testing 01/25/2021: BUN 21, creatinine 1.0, potassium 4.5, LFTs normal, cholesterol 111, triglycerides 78, LDL 63, HDL 32. Hemoglobin 14.5, platelets 186. Device check 07/12/20: PM dependent, ROJELIO 1.5 years, Apaced 96% Vpaced 100%, episode of VT (notes list printed but images not available) Device check 01/05/2020: 1.4% of A. fib ECG 02/16/2020: AV paced rhythm.. ECHO 07/31/2019 Normal size left ventricle. Global left ventricular systolic function is normal. The EF is 55 % visually. The LV wall thickness was mildly increased. No regional wall motion abnormality. Normal diastolic function. The right ventricle is enlarged. Normal right ventricular systolic function. Doppler studies suggest normal right sided pressures. The left atrium is mildly enlarged. The right atrium is moderately enlarged. Mild mitral regurgitation. Mild aortic valve regurgitation. This is a normal transthoracic echocardiogram. Cardiac cath 2009 Cardiovascular Laboratory Report FINAL IMPRESSION: 1. Moderate single vessel coronary artery disease. (mid LAD 40% narrowing) 2. Normal global left ventricular systolic function. 3. Moderately elevated left ventricular end-diastolic pressures. PMH: Past Medical History: Diagnosis Date Atrial fibrillation, unspecified type (CMS/HCC) 01/24/2022 Atrial flutter (CMS/HCC) 05/06/2014 Cardiac pacemaker in situ 02/05/2012 Chronic diastolic heart failure (CMS/HCC) 07/04/2019 Conduction disorder of the heart 10/16/2011 Coronary atherosclerosis 10/16/2011 Hyperlipidemia 10/16/2011 Primary cardiomyopathy (CMS/HCC) 11/21/2011 Tricuspid valve regurgitation 07/04/2019 Type 2 diabetes mellitus without complication (CMS/HCC) 10/16/2011 PSH: Past Surgical History: Procedure Laterality Date CARDIAC CATHETERIZATION CARDIAC ELECTROPHYSIOLOGY MAPPING AND ABLATION 12/30/2009 HEMORRHOID SURGERY INSERT / REPLACE / REMOVE PACEMAKER 01/03/2017 INSERT / REPLACE / REMOVE PACEMAKER 12/26/2011 SH: Social Determinants of Health Tobacco Use: Medium Risk (04/10/2023) Patient History Smoking Tobacco Use: Former Smokeless Tobacco Use: Never Passive Exposure: Not on file Alcohol Use: Not on file Financial Resource Strain: Not on file Food Insecurity: Not on file Transportation Needs: Not on file Physical Activity: Not on file Stress: (more content not included)...[facility] 05-03-2023 History and physical note Author Godwin Barnes [facility] May 03, 2023 11:44am Note Date/Time May 03, 2023 1 1:44am [facility] [address] [place] [address] Gastroenterology H&P Signed Patient: Kaitlyn Jordan MR#: [id number] : 1950 Acct:[id number] Age/Sex: 72 / M Adm Date: 3 Loc: Room: Type: [facility] Attending Dr: Godwin Barnes MD Copies to: MD Godwin Yates II, MD~ Date of Service: 05/03/2023 HISTORY & PHYSICAL: Patient's history with special attention to the cardiovascular, pulmonary systems and the current problem was reviewed with the patient immediately prior to the procedure. Present medications and doses reviewed in the EMR. Allergies and pertinent laboratory tests were also reviewedat this time in the EMR. The physical examination, as below, was then performed. Indication, assessment and HPI: 72-year-old man with history of colonic polyps and family history of colon cancer(mother) here for surveillance colonoscopy Family history of GI malignancy? Yes PHYSICAL EXAMINATION Mouth and Pharynx : Moist mucus membranes, normal dentition Cardiac: Regular rate, regular rhythm Pulmonary: Clear to auscultation bilaterally, no wheezing Neurological: Alert and oriented x3, no focal deficits noted Abdomen: Abdomen soft, non-tender REVIEW OF SYSTEMS Constitutional: Denies malaise, fevers Cardiovascular: Denies chest pain, palpitations Respiratory: Denies shortness of breath, wheezing Gastrointestinal: Per HPI Genitourinary: Denies dysuria, polyuria Musculoskeletal: Denies joint swelling, joint stiffness Neurological: Denies numbness, tingling Integumentary: Denies rashes, skin lesions Endocrine: Denies fatigue, weight loss Written informed consent obtained from the patient. Risks (including but not limited to perforation, infection, bloating, bleeding, need for emergent surgeryand loss of life), benefits and alternatives explained and questions answered. The patient verbalized understanding. Based on history patient is an appropriate candidate for the procedure. Gdowin Barnes M.D. Documented By: Godwin Barnes MD 05/03/231142 Signed By: <Electronically signed by Godwin Barnes MD> 05/03/23 1144 [facility] Work Phone: 1(855) 877-157012-07-2023 Procedure noteOhio[facility]11-22-2023 NotePatient: Kaitlyn Jordan Procedure Information Date/Time: 04/18/23829 Procedure: AV node ablation Location: [facility]NA[facility] 1 / [facility] (Cath) Providers: Peter Crain MD Clinical information reviewed: Tobacco Allergies Meds Med Hx Surg Hx Fam Hx Physical Exam Airway Mallampati: II TM distance: >3 FB Neck ROM: full Cardiovascular Dental Pulmonary Abdominal Anesthesia Plan ASA 2 CSE Anesthetic plan and risks discussed with patient. Use of blood products discussed with patient who. Additional [facility] RequestsWayne Hospital11-22-2023 Note [place] [facility] Consult Note Reason for Consultation: Low HOOP RIVETER Pacing to AF with RVR HPI: He has been feeling well with no complaints of palpitations, CP, SOB, RHODES, LE edema, Per his device check he continues to have reduced HOOP RIVETER due to A-fib. this previous device heck shows less percent of time in A-fib but has less ventricular pacing ECHO: 12/29/22 EF 45-50% 03/2022 shows EF 50% Device check 11/29/22 11/29/2022 11 AF episodes he has been having A-fib for 12 hours/day for 60 days. RA pacing 54%, V pacing 86% with RV hiss lead 06/27/2022: RA pacing 14%, HOOP RIVETER 92% RV his lead, A-fib episode noted and was noted for 82% of the time Gen change 03/2022 with RA lead palcement and old Ra lead capped off Prior HPI: Kaitlyn Jordan is a 72 y.o. year old with past medical history of moderate single-vessel coronary disease [40% mid LAD]. Atrial flutter: Status post ablation of cavotricuspid isthmus on 12/30/2009. HFpEF, HFrEF with recovered EF of 55% per ECHO 2020. Patient underwent a BiV pacemaker GEN change on 01/03/[address] Lynne. He had initially undergone a BiV pacemaker placement by Dr. Kush Lutz on 10/02/2010. For pacemaker mediated cardiomyopathy. Previously he underwent ablation of the CTI flutter by Dr. Nash on 12/31/2019. He noted that the patient was in atrial flutter with a cycle length of 280 ms and during ablation the tachycardia terminated and following linear ablation a post pacing interval of 135 ms was noted. Additional medical history includes hypotension, HLD, mild MR, TR, mild AR, DM type II. Of late he has been noted to have atrial fibrillation on his device. Device check from 07/11/2021 reveals his current Medtronic HOOP RIVETER-P device with thresholds are acceptable with an element threshold of 1.5 V at 1 ms pulse width device histograms shows he has atrial fibrillation . He is atrially paced 95% of the time and ventricularly paced 97%. There was 6 days in which that he had more than 6 hours of A. fib. He is on metoprolol succinate extended release 100 mg once a day and takes Coumadin for anticoagulation. Prior testing: Device check 01/10/2021: mostly AP/BiVP. Underlying CHB <30 bpm, 2.2% AF burden. Blood testing 01/25/2021: BUN 21, creatinine 1.0, potassium 4.5, LFTs normal, cholesterol 111, triglycerides 78, LDL 63, HDL 32. Hemoglobin 14.5, platelets 186. Device check 07/12/20: PM dependent, ROJELIO 1.5 years, Apaced 96% Vpaced 100%, episode of VT (notes list printed but images not available) Device check 01/05/2020: 1.4% of A. fib ECG 02/16/2020: AV paced rhythm.. ECHO 07/31/2019 Normal size left ventricle. Global left ventricular systolic function is normal. The EF is 55 % visually. The LV wall thickness was mildly increased. No regional wall motion abnormality. Normal diastolic function. The right ventricle is enlarged. Normal right ventricular systolic function. Doppler studies suggest normal right sided pressures. The left atrium is mildly enlarged. The right atrium is moderately enlarged. Mild mitral regurgitation. Mild aortic valve regurgitation. This is a normal transthoracic echocardiogram. Cardiac cath 2009 Cardiovascular Laboratory Report FINAL IMPRESSION: 1. Moderate single vessel coronary artery disease. (mid LAD 40% narrowing) 2. Normal global left ventricular systolic function. 3. Moderately elevated left ventricular end-diastolic pressures. PMH: Past Medical History: Diagnosis Date Atrial fibrillation, unspecified type (CMS/HCC) 01/24/2022 Atrial flutter (CMS/HCC) 05/06/2014 Cardiac pacemaker in situ 02/05/2012 Chronic diastolic heart failure (CMS/HCC) 07/04/2019 Conduction disorder of the heart 10/16/2011 Coronary atherosclerosis 10/16/2011 Hyperlipidemia 10/16/2011 Primary cardiomyopathy (CMS/HCC) 11/21/2011 Tricuspid valve regurgitation 07/04/2019 Type 2 diabetes mellitus without complication (CMS/HCC) 10/16/2011 PSH: Past Surgical History: Procedure Laterality Date CARDIAC CATHETERIZATION CARDIAC ELECTROPHYSIOLOGY MAPPING AND ABLATION 12/30/2009 HEMORRHOID SURGERY INSERT / REPLACE / REMOVE PACEMAKER 01/03/2017 INSERT / REPLACE / REMOVE PACEMAKER 12/26/2011 SH: Social Determinants of Health Tobacco Use: Medium Risk (04/10/2023) Patient History Smoking Tobacco Use: Former Smokeless Tobacco Use: Never Passive Exposure: Not on file Alcohol Use: Not on file Financial Resource Strain: Not on file Food Insecurity: Not on file Transportation Needs: Not on file Physical Activity: Not on file Stress: Not on file Social Connections: Not on file Intimate Partner Violence: Not on file Depression: Not on file Housing Stability: Not on file Meds: No current facility-administered medications on file prior to encounter. Current Outpatient Medications on File Prior to Encounter Medication Sig Dispense Refill atorvastatin (Lipitor) 80 mg tablet Take 80 mg by mouth in the morning. canagliflozin-metformin (Invokam (more content not included)...[facility]11-08-2023 NoteProcedure Type: 04/18/23 Procedure Date: Ablation No bridge needed due to Afib [id number] >4 - Instructed to hold warfarin for 4 days per Cardiology clinic See dosing in AC ramesh for hold and dosing.[facility] 12-19-2022 Evaluation note* Encounter Date Diagnosis Assessment Notes Treatment Notes Treatment Clinical Notes Nov, Obstructive sleep apnea (ICD-10 - G47.33) Fortunately, the patient is using and benefiting from treatment. Download was reviewed with patient, Current pressure is controlling apnea well, And we will make no changes at this time. A prescription was sent to the [facility] for new supplies throughout the year. He was encouraged to continue to use his machine nightly, throughout the entire night as this does provide clinical benefit. He will follow-up in the sleep clinic in 1 year or sooner if problems. Nov, BMI 26.0-26.9,adult (ICD-10 - Z68.26) Weight is unchanged since last OV. We discussed the benefits of weight control in relation to LAYO. Any significant increase in body weight typically will cause worsened apnea, and thus render current pressure settings less effective. Encouraged patient to maintain healthy diet that is low in fat/calories and nutrient-dense, and staying active. We will continue to monitor Nov, Tachycardia (ICD-10 - R00.0) Patient got a new pacemaker with new leads which has resolved this issue. Nov, Other Call if any questions or problems. Patient is advised to work on healthy diet choices and appropriate servings, weight control, regular exercise as directed, and reduce fat intake. Use machine regularly, and keep up with mask changes as needed. Call if problems with mask toleration, increased sleepiness, or poor response to treatment. . [facility] Other 07-28-2022 Evaluation note* Encounter Date Diagnosis Assessment Notes Treatment Notes Treatment Clinical Notes Nov, Obstructive sleep apnea (ICD-10 - G47.33) Fortunately the patient is using and benefiting from treatment according to most recent download. The patient reports he uses his machine every night, all night. Lower pressures have been well-tolerated, but at times he will have leakage and does feel it may be low to hired at times. He has lost substantial weight since his original sleep test. Consequently we will try to adjust his pressure downward. He has a fixed pressure BiPAP currently set at 18/15 and his most recent AHI was 1.4. We will change BiPAP to 16/12, and we will get a download in a month after that. We could consider further clinical titration. Anticipate return in 1 year, call sooner if problems... Next time he is eligible for machine, it would be ideal if an auto BiPAP could be obtained Nov, BMI 26.0-26.9,adult (ICD-10 - Z68.26) Weight loss can have significant positive effects on sleep apnea, and it is quite possible that his previously required pressures are more than he needs now. We will make changes as noted. Nov, Tachycardia (ICD-10 - R00.0) He has tachycardia currently, which is much higher than he usually experiences. He reports that his usual base line heart rate is very consistent in the mid 70s. Fortunately he is not having shortness of breath dizziness or other associated symptoms. He plans to talk to his doctor today and have the tachycardia evaluated. He notes that he is continuously paced Nov, Other Call if any questions or problems. Patient is advised to work on healthy diet choices and appropriate servings, weight control, regular exercise as directed, and reduce fat intake. Use machine regularly, and keep up with mask changes as needed. Call if problems with mask toleration, increased sleepiness, or poor response to treatment. . [facility] Other Evaluation noteNo assessment information available [facility] Work Phone: Evaluation noteNo [facility] Other Evaluation note* Diagnosis Onset Date Resolution Status Atrial fibrillation acute BMI 25.0-25.9,adult acute Depression acute LAYO (obstructive sleep apnea) acute Type 2 diabetes mellitus acu te [facility] Work Phone: Evaluation note* Diagnosis Routine general medical examination at health care facility- Primary Routine general medical examination at a health care facility Type 2 diabetes mellitus with other circulatory complication, 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) Benign hypertension (CMS/HCC) Essential hypertension, benign Chronic systolic heart failure (CMS/HCC) Chronic systolic heart failure Paroxysmal atrial fibrillation (CMS/HCC) Atrial fibrillation Atherosclerosis of coronary artery of ewiiaapaayp heart, unspecified vessel or lesion type, unspecified whether angina present ([facility]) documented in this encounter [facility] general Narrative - Reported* Type Description Date Medical History Afib Medical History Hyperlipemia Medical History Diabetes Medical History LAYO (obstructive sleep apnea) Medical History Parkinson disease Surgical History cardiac pacemeker Surgical History hernia repair MC2 Other Hospital Discharge instructions Additional Instructions DISCHARGE INSTRUCTIONS FOR COLONOSCOPY WHAT TO EXPECT: - You may feel full, gassy or cramping after your procedure. In some cases, this may be from a few hours to a day. Walking may help relieve the discomfort. - If you have polyp(s) removed you may note some minor bloody discharge after your first bowel movements. - You should begin to recover from anesthesia within 1 hour of the procedure, however may feel groggy for the next 24 hours. DO's AND DON'Ts: - Call your doctor right away if you have a hard abdomen, severe pain, are passing lots of bright red blood or clots. - Call your doctor if you develop any rashes, hives or difficulty breathing. - Let your doctor know if you have not had a bowel movement by 3 days after your procedure. - If you take 81 mg aspirin for your heart it is safe to resume this medication. - If you take other blood thinner medications your doctor will instruct you when these can safely be resumed. - Do NOT drive for 24 hours. - Do NOT operate machinery such as power tools, lawn mowers, snow blowers, sewing machines, etc. for 24 hours. - Avoid alcoholic beverages and drugs for allergies, nerves, or sleep. - Do NOT stay alone. Do NOT leave your child unattended. - Do NOT make important personal or business decisions or sign any legal documents. - Eat solid foods and drink liquids in smaller amounts than usual until normal appetite returns. If you should experience an upset stomach, liquids high in sugar content (soda, Abraham-Aid, non-acid juices) are recommended. - You can resume normal activities tomorrow. FOLLOW UP & RECOMMENDATIONS: -Next colonoscopy in 6 months -Notify the doctor if you have any problems. -Follow up with PCP. -Office number [phone]. [facility] Work Phone: Hospital Discharge instructions Additional Instructions DISCHARGE INSTRUCTIONS FOR COLONOSCOPY WHAT TO EXPECT: - You may feel full, gassy or cramping after your procedure. In some cases, this may be from a few hours to a day. Walking may help relieve the discomfort. - If you have polyp(s) removed you may note some minor bloody discharge after your first bowel movements. - You should begin to recover from anesthesia within 1 hour of the procedure, however may feel groggy for the next 24 hours. DO's AND DON'Ts: - Call your doctor right away if you have a hard abdomen, severe pain, are passing lots of bright red blood or clots. - Call your doctor if you develop any rashes, hives or difficulty breathing. - Let your doctor know if you have not had a bowel movement by 3 days after your procedure. - If you take 81 mg aspirin for your heart it is safe to resume this medication. - If you take other blood thinner medications your doctor will instruct you when these can safely be resumed. - Do NOT drive for 24 hours. - Do NOT operate machinery such as power tools, lawn mowers, snow blowers, sewing machines, etc. for 24 hours. - Avoid alcoholic beverages and drugs for allergies, nerves, or sleep. - Do NOT stay alone. Do NOT leave your child unattended. - Do NOT make important personal or business decisions or sign any legal documents. - Eat solid foods and drink liquids in smaller amounts than usual until normal appetite returns. If you should experience an upset stomach, liquids high in sugar content (soda, Abraham-Aid, non-acid juices) are recommended. - You can resume normal activities tomorrow. FOLLOW UP & RECOMMENDATIONS: -Notify the doctor if you have any problems. -Repeat colonoscopy in 3 years. -Follow up with PCP. -Office number [phone]. [facility] Work Phone: Summary Purpose Family History No Family History Records Found Relationship Condition Age at Onset Recorded Date/T michele Not Specified Malignant neoplasm of colon Unknown Relationship Condition Age at Onset Recorded Date/T michele Not Specified Malignant neoplasm of colon Unknown father Parkinson's disease Unknown Not Specified Diabetes mellitus Unknown Unknown Malignant neoplasm Unknown Relationship Condition Age at Onset Recorded Date/T michele mother Malignant neoplasm of colon Unknown father Parkinson's disease Unknown mother Diabetes mellitus Unknown Unknown Malignant neoplasm Unknown Advance Directives No Advanced Directives Records Found Advance Directive Response Recorded Date/ Time Advance Directives No December 10 2:40pm Advance Directive Response Recorded Date/ Time Advance Directives No December 10 1:40pm Chief Complaint and Reason for Visit Chief Complaint Sleep apnea annual f ollow up Chief Complaint positive cologuard Chief Complaint hx colon polyps, fam maged hx of colon ca mother hx colon polyps, family hx of colon ca mother Chief Complaint hx colon polyps, fam maged hx of colon ca mother hx colon polyps, family hx of colon ca mother Amb Documentation layo/annual visit Reason for Visit Atrial fibrillation BMI 25.0-25.9,adult Depression LAYO (obstructive sleep apnea) Type 2 diabetes mellitus Additional Source Comments (unrecognized sect ion and content) No Status Records FoundNo Status Records FoundNo Status Records FoundNo Status Records FoundNo Status Records Found INFORMATION SOURCE (unrecogn ized section and content) DATE CREATED AUTHOR 01/30/2018 [facility] DATE CREATED AUTHOR AUTHOR'S ORGANIZ ATION 04/24/2022 [facility] DATE CREATED AUTHOR AUTHOR'S ORGANIZ ATION 01/03/2024 [facility] DATE CREATED AUTHOR AUTHOR'S ORGANIZ ATION 03/04/2024 [facility] EPIC DATE CREATED AUTHOR AUTHOR'S ORGANIZ ATION 03/17/2024 [facility] Care Teams (unrecognized sec tion and content) Team Status: Inactive Member Role Status Dates Alejandro Pro II MD Primary Care Provider Active Enrique Sharpe MD Attending Provider Active Team Status: Active Member Role Status Dates Alejandro Pro II MD Primary Care Provider Active Team Status: Inactive Member Role Status Dates Alejandro Por II MD Primary Care Provider Active Godwin Barnes MD Attending Provider Active Team Status: Inactive Member Role Status Dates Alejandro Pro II MD Primary Care Provider Active Start: November 09, 2023 End: November 09, 2023 Godwin Barnes MD Attending Provider Active Start: November 09, 2023 End: November 09, 2023 Team Status: Active Member Role Status Dates Alejandro Pro II MD Primary Care Provider Active Start: November 09, 2023 Godwin Barnes MD Attending Provider, Other Provider Act mari Start: November 09, 2023 Team Status: Active Member Role Status Dates Alejandro Pro II MD Primary Care Provider Active Start: November 14, 2023 Olamide Neri Attending Provider Active Start: November 14, 2023 Team Status: Inactive Member Role Status Dates Alejandro Pro II MD Primary Care Provider Active Start: December 25, 2023 End: December 25, 2023 Katie Eldridge NP Attending Provider Active Start: December 25, 2023 End: December 25, 2023 Online Marketing Specialist Relationship Specialty Start Date End Date Alejandro Pro MD [address] [place] [address] PCP - [facility] Reach 10/19/22 Alejandro Pro MD [address] [place] [address] PCP - General Internal Medicine 10/03/22 Online Marketing Specialist Relationship Specialty Start Date End Date Alejandro Pro MD [address] [place] [address] PCP - ACO Reach 10/19/22 Alejandro Pro MD [address] [place] [address] PCP - General Internal Medicine 10/03/22 Goals (unrecognized section and content) Goals may be documented in a n alternate section REASON FOR VISIT (unrecogniz ed section and content) MAIL PPW FOR RECORDS PERTAINING TO PATIENTS WHO ARE OR HAVE BEEN ENROLLED IN A CHEMICAL DEPENDENCY/SUBSTANCEABUSE PROGRAM, SOME INFORMATION MAY BE OMITTED. This clinical summary was aggregated from multiple sources. Caution should be exercised in using it in the provision of clinical care. This summary normalizes information from multiple sources, and as a consequence, information in this document may materially change the coding, format and clinical context of patient data. In addition, data may be omitted in some cases. CLINICAL DECISIONS SHOULD BE BASED ON THE PRIMARY CLINICAL RECORDS. [employer] provides no warranty or guarantee of the accuracy or completeness of information in this document.
== END 2024-04-02 12:24 | disposition home or self-care (01) ==
LOC: RAD 12:25
PROVIDERS: PCP Internal Medicine; Visit Provider Internal Medicine
DX: M13.0 Polyarthritis, unspecified (principal)
CPT/HCPCS: 73110; 73120

== ENCOUNTER 2024-09-12 11:51 | Outpatient (OUT) | payer MEDICARE, OTHER, SELFPAY ==
--- OUTSIDE RECORDS SUMMARY | 2024-09-12 11:59 | XMS_ITS | CCD ---
Author Organization [facility] Care Team Providers Care Hydraulic Lift Operator Name Role Phone YESI HAGER AM Unavailable Unavailable YESI HAGER AM Unavailable Unavailable ALEJANDRO PRO Unavailable Unavailable ALEJANDRO PRO Unavailable Unavailable Enrique Sharpe Unavailable ROSI Pro Primary Care Provider [phone] MD Enrique Sharpe Attending Provider JAMES CRAIN Admitting Unavailable JAMES CRAIN Attending Unavailable MORTEZA, DR BURNS Primary Care Unavailable SELENA, DR ANDREW Calderon Consulting Unavailable JAMES CRAIN Consulting Unavailable JAMES CRAIN Admitting Unavailable JAMES CRAIN Attending Unavailable MORTEZA, DR BURNS Primary Care Unavailable JAMES CRAIN Consulting Unavailable JAMES CRAIN Admitting Unavailable JAMES CRAIN Attending Unavailable MORTEZA, DR BURNS Primary Care Unavailable JAMES CRAIN Consulting Unavailable Katie Eldridge Unavailable Asaad, Imad Unavailable ROSI Pro Primary Care Provider [phone] MD Godwin Barnes Attending Provider ROSI Pro Primary Care Provider [phone] MD Godwin Barnes Attending Provider Alejandro Pro MD Unavailable Alejandro Pro MD Primary Care Provider Alejandro Pro II Primary Care Provider Rustam Harris MD Attending Provider [phone] Alejandro Pro Primary Care Unavailable Rustam Harris Attending Unavailable Rustam Harris Admitting Unavailable Asaad, Imad Attending Unavailable Cameron, Imad Admitting Unavailable Alejandro Pro Primary Care Unavailable ALEJANDRO PRO Attending Unavailable ALEJANDRO PRO Attending Unavailable ALEJANDRO PRO Attending Unavailable ALEJANDRO PRO Attending Unavailable ALEJANDRO PRO Attending Unavailable NAKITA BALDWIN Attending Unavailable ALEJANDRO PRO Attending Unavailable KEMAL STONE Attending Unavailable ALEJANDRO PRO Attending Unavailable ALEJANDRO PRO Attending Unavailable JAMES CRAIN Referring Unavailable JAMES CRAIN Attending Unavailable JAMES CRAIN Attending Unavailable GERALD COYLE Attending Unavailable Allergies Allergy Classification Reported Allergen(s) Allergy Type Date of Onset Reaction(s) Facility (1 source) 57609,00; Translations: [63747,00] Propensity to adverse reactions (disorder) 0 [facility] Repository Medications Current Medications Medication Drug Class(es) Dates Sig (Normalized) Sig (Original) amantadine hydrochloride 100 mg oral capsule (7 sources) Influenza A M2 Protein Inhibitor Start: 08-16-2024 take 1 capsule by mouth once daily amantadine (Symmetrel) 100 MG capsule Indications: Parkinsonism, unspecified Parkinsonism type (CMS/HCC) TAKE 1 CAPSULE BY MOUTH EVERY DAY 90 capsule 1 08/16/2024 Active Start: 07-24-2024 End: 07-24-2025 take 1 tablet by mouth once daily amantadine (Symmetrel) 100 MG tablet Indications: Parkinsonism, unspecified Parkinsonism type (CMS/HCC) Take 1 tablet (100 mg) by mouth Daily 30 tablet 2 07/24/2024 07/24/2025 Active Aspir-81 81 MG (3 sources) take 1 tablet by mouth once daily Aspir-81 81 MG 1 tablet Orally Once a day Active atorvastatin 80 mg oral tablet (20 sources) HMG-CoA Reductase Inhibitor Start: 3 take 1 tablet by mouth in the morning atorvastatin (Lipitor) 80 MG tablet Indications: Mixed hyperlipidemia (CMS/HCC) TAKE 1 TABLET BY MOUTH IN THE MORNING 100 tablet 3 08/28/2024 Active take 1 tablet by kirstie th every twenty-four hours Atorvastatin Calcium 80 MG 1 tablet Oral ly Once a day Active biotin 10 mg oral tablet (20 sources) Start: 10-01-2023 End: 08-27-2024 take 1 tablet by mouth twice daily biotin (Biotin Maximum Strength) 10 MG tablet Indications: Cervical dystonia TAKE 1 TABLET BY MOUTH TWICE A DAY 180 tablet 3 08/27/2024 Active canagliflozin 150 mg / metFORMIN hydrochloride 1000 mg oral tablet (20 sources) Biguanide, Sodium-Glucose Cotransporter 2 Inhibitor Start: 05-03-2023 End: 06-30-2024 take 150-1000 mg by mouth once daily Canagliflozin-Metf ormin (Invokamet) 150-1,000 mg tablet Active 1 TAB PO Daily May 03, 2023 1:00am take 1 tablet by kirstie th every twelve hours Invokamet 150-1000 MG 1 tablet with meal s Orally Twice a day Active Carbidopa / Levodopa (3 sources) Aromatic Amino Acid Decarboxylation Inhibitor, Aromatic Amino Acid Carbidopa-Levodopa Active cefuroxime 500 mg oral tablet (8 sources) Cephalosporin Antibacterial Start: 2024 End: 2024 take 1 tablet by mouth in the morning cefuroxime (Ceftin) 500 MG tablet Indications: Acute Lyme disease Take 1 tablet (500 mg) by mouth in the morning and 1 tablet (500 mg) before bedtime. Do all this for 28 days. 56 tablet 06/30/2024 07/28/2024 Active cetirizine hydrochloride 10 mg oral tablet (20 sources) Histamine-1 Receptor Antagonist Start: 2022 take 1 tablet by mouth once daily Cetirizine (Zyrtec) 10 mg Tablet Active 10 MG PO Daily May 03, 2023 1:00am 24 hr dapagliflozin 5 mg / metFORMIN hydrochloride 1000 mg extended release oral tablet (10 sources) Biguanide, Sodium-Glucose Cotransporter 2 Inhibitor Start: 2024 End: 2025 take 1 tablet by mouth at mealtime dapagliflozin-metFORMIN ER (Xigduo XR) 5-1000 MG Indications: Type 2 diabetes mellitus with other circulatory complication, without long-term current use of insulin Take 1 tablet by mouth in the morning. Take with meals. 30 tablet 11 06/30/2024 06/30/2025 Active docosahexaenoic acid 120 mg / eicosapentaenoic acid 180 mg oral capsule (20 sources) take 2 capsules by mouth every twelve hours omega-3 (Fish Oil) 1000 MG capsule Take 2 capsules by mouth every 12 (twelve) hours. Active doxycycline hyclate 100 mg oral tablet (3 sources) Tetracycline-class Drug Start: 2023 End: 2024 take 1 tablet by mouth in the morning, then take 1 tablet by mouth at bedtime doxycycline (Vibra-Tabs) 100 MG tablet Indications: Acute Lyme disease Take 1 tablet (100 mg) by mouth in the morning and 1 tablet (100 mg) before bedtime. Take with a full glass of water and do not lie down for at least 30 minutes after.. 60 tablet 05/14/2024 06/13/2024 Active Fish Oils (3 sources) take 1 capsule by mouth once daily Fish Oil 1200 MG 1 capsule Orally Once a day 1200(4 tab) bid Active fluticasone propionate 0.05 mg/actuat metered dose nasal spray (20 sources) Corticosteroid Start: 2023 take 2 spray(s) nasal route once daily fluticasone (Flonase) 50 MCG/ACT nasal spray Indications: Allergic rhinitis, unspecified seasonality, unspecified trigger SPRAY 2 SPRAYS INTO EACH NOSTRIL EVERY DAY 48 mL 2 08/28/2024 Active lisinopril 10 mg oral tablet (20 sources) Angiotensin Converting Enzyme Inhibitor Start: 2022 End: 2024 take 1 tablet by mouth once daily lisinopril 10 MG tablet Indications: Paroxysmal atrial fibrillation (CMS/HCC) Take 1 tablet (10 mg) by mouth Daily 100 tablet 3 12/05/2023 01/08/2025 Active take 1 tablet by kirstie th every twenty-four hours Lisinopril 10 MG 1 tablet Orally Once a day Active 24 hr metoprolol succinate 100 mg extended release oral tablet (20 sources) beta-Adrenergic Scott Start: 03-23-2023 End: 03-05-2024 take 1 tablet by mouth once daily metoprolol succinate XL (Toprol-XL) 100 MG 24 hr tablet Indications: Benign hypertension (CMS/HCC) TAKE 1 TABLET (100 MG) BY MOUTH ONE TIME EACH DAY AT THE SAME TIME 90 tablet 4 03/05/2024 Active Metoprolol Succi bradley 100 MG Orally Active montelukast 10 mg oral tablet (20 sources) Leukotriene Receptor Antagonist Start: 05-03-2023 take 1 tablet by mouth at bedtime montelukast (Singulair) 10 MG tablet Indications: Allergic rhinitis, unspecified seasonality, unspecified trigger TAKE 1 TABLET BY MOUTH AT BEDTIME 100 tablet 3 08/28/2024 Active take 1 tablet by kirstie th every twenty-four hours Montelukast Sodium 10 MG 1 tablet in the evening Orally Once a day Active Multiple Vitamin (Multi-Vitamin) tablet (20 sources) take 1 tablet by mouth in [...] TAB PO Daily May 03, 2023 12:00am Multivitamin Tablet (1 source) Start: 05-03-2023 take 1 tablet by mouth once daily Multivitamin Tablet Active 1 TAB PO Daily May 03, 2023 1:00am Crowley 6-Beh-Rik-Fish Oil (Fish Oil) 1,200 (144-216) mg Capsule (4 sources) Start: 05-03-2023 take 4 capsules by mouth twice daily Crowley 6-Itn-Csp-Fish Oil (Fish Oil) 1,200 (144-216) mg Capsule Active 4 CAP PO Twice daily May 03, 2023 1:00am Start: 05-03-2023 take 4 capsules by m out twice daily Crowley 9-Lyg-Lgc-Fish Oil (Fish Oil) 1,200 (144-216) mg Capsule Active 4 CAP PO Twice daily May 03, 2023 12:00am piroxicam 10 mg oral capsule (17 sources) Nonsteroidal Anti-inflammatory Drug Start: 04-30-2023 End: 06-30-2024 take 1 capsule by mouth in the morning piroxicam (Feldene) 10 MG capsule Indications: Trochanteric bursitis of both hips TAKE 1 CAPSULE BY MOUTH IN THE MORNING 30 capsule 11 04/06/2024 06/30/2024 Discontinued polyethylene glycol 3350 [id number] mg / potassium chloride 2970 mg / sodium bicarbonate 6740 mg / sodium chloride 5860 mg / sodium sulfate 31853 mg powder for oral solution (1 source) Osmotic Laxative Start: 04-17-2023 take 236 g by mouth once daily PEG-3350/Electrol ytes 236 GM 4000 ML Orally once daily for 1 days Mar, Active predniSONE 20 mg oral tablet (5 sources) Start: 07-24-2024 End: 08-02-2024 predniSONE (Deltasone) 20 MG tablet Indications: Lyme disease 3 pills po daily X3 days, then 2 pills po daily X3 days , then 1 pill po daily X3 days then stop 9 days ,18 pills 18 tablet 1 07/24/2024 08/02/2024 Active sildenafil 100 mg oral tablet (20 sources) Phosphodiesterase 5 Inhibitor sildenafil (Viagra) 100 MG tablet Take 100 mg by mouth if needed for erectile dysfunction. Active Sod Picosulf-Mag Ox-Citric Ac (3 sources) Start: 11-02-2023 Sod Picosulf-Mag Ox-Citric Ac (Clenpiq) 10 mg-3.5 gram- 12 gram/175 mL solution Active 175 ML PO Daily 175 1 November 02, 2023 12:00am take first dose at 3:00 PM followed by four 8oz glasses of liquid take second dose at 9:00 PM followed by 3 8oz glasses of liquid tiZANidine 4 mg oral tablet (20 sources) Central alpha-2 Adrenergic Agonist Start: 05-03-2023 take 1 tablet by mouth once daily Tizanidine 4 mg Tablet Active 4 MG PO Daily May 03, [...] Active warfarin sodium 5 mg oral tablet (20 sources) Vitamin K Antagonist Start: 3 warfarin (Coumadin) 5 MG tablet Indications: Paroxysmal atrial fibrillation (CMS/HCC) TAKE 1 TABLET BY MOUTH SUN, TU, , SAT. TAKE 7.5MG MON, WED, FRI 102 tablet 5 04/23/2024 Active Warfarin 7.5mg 7 .5 mg as directed orally Active Completed/Discontinued Medications Medication Drug Class(es) Dates Sig (Normalized) Sig (Original) FLUoxetine 20 mg oral capsule (14 sources) Serotonin Reuptake Inhibitor Start: 4 End: 5 take 1 capsule by mouth once daily FLUoxetine (PROzac) 20 MG capsule Indications: Grief reaction with prolonged bereavement (CMS/HCC) TAKE 1 CAPSULE BY MOUTH EVERY DAY 100 capsule 3 03/13/2024 06/02/2024 Discontinued methylPREDNISolone (2 sources) Corticosteroid Start: 4 End: methylPREDNISolone (Medrol Dospak) 4 MG tablets Indications: Polyarticular arthritis Follow schedule on package instructions 21 tablet 04/07/2024 04/14/2024 Problems Active Problems Problem Classification Problem Date Documented Date Episodic/Chronic Cardiac dysrhythmias (20 sources) Unspecified atrial fibrillation; Translations: [Unspecified atrial flutter] Onset: 01-21-2018 Chronic Cardiac dysrhythmias (2 sources) Tachycardia, unspecified Onset: 12-22-2021 Resolved: 12-22-2021 Episodic Conduction disorders (20 sources) Cardiac pacemaker in situ; Translations: [Presence of cardiac pacemaker] Onset: 10-16-2011 10-19-2022 Chronic Congestive heart failure; nonhypertensive (20 sources) Chronic diastolic (congestive) heart failure; Translations: [Chronic systolic heart failure] Onset: 10-19-2011 Chronic Coronary atherosclerosis and other heart disease (20 sources) Coronary atherosclerosis; Translations: [Atherosclerotic heart disease of ewiiaapaayp coronary artery without angina pectoris] Onset: 10-16-2011 01-26-2023 Chronic Diabetes mellitus without complication (20 sources) Type 2 diabetes mellitus; Translations: [Type 2 diabetes mellitus without complications] Onset: 10-16-2011 Resolved: 05-17-2023 12-25-2023 Chronic Disorders of lipid metabolism (20 sources) Mixed hyperlipidemia; Translations: [Mixed hyperlipidemia] Onset: 10-19-2022 10-19-2022 Chronic Esophageal disorders (20 sources) Gastroesophageal reflux disease without esophagitis; Translations: [Gastro-esophageal reflux disease without esophagitis] Onset: 10-19-2022 10-19-2022 Chronic Essential hypertension (20 sources) Benign hypertension; Translations: [Essential (primary) hypertension] Onset: 01-26-2023 01-26-2023 Chronic Genitourinary congenital anomalies (20 sources) Medullary sponge kidney; 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] Onset: 10-19-2022 10-19-2022 Chronic Heart valve disorders (20 sources) Non-rheumatic mitral regurgitation ; Translations: [Nonrheumatic mitral (valve) insufficiency] Onset: 07-04-2019 10-19-2022 Chronic Mood disorders (3 sources) Depressive disorder; Translations: [Depression] 12-25-2023 Chronic Other aftercare (4 sources) Encounter for therapeutic drug level monitoring; Translations: [ENCOUNTER FOR THERAPEUTIC DRUG LEVEL MONITORING] Onset: 01-21-2018 Episodic Other aftercare (1 source) oysterman (current) use of anticoagulants; Translations: [ALF (CURRENT) USE OF ANTICOAGULANTS] Onset: 01-21-2018 Episodic Other and ill-defined heart disease (20 sources) Left ventricular hypertrophy; Translations: [Cardiomegaly] Onset: 10-19-2022 10-19-2022 Chronic Other and ill-defined heart disease (20 sources) Bilateral enlargement of atria; Translations: [Cardiomegaly] Onset: 07-04-2019 01-26-2023 Chronic Other and ill-defined heart disease (20 sources) Cardiomegaly; Translations: [Cardiomegaly] Onset: 09-14-2016 01-26-2023 Chronic Other connective tissue disease (2 sources) Bilateral weakness of upper limbs; Translations: [Other symptoms and signs involving the musculoskeletal system] 06-30-2024 Episodic Other connective tissue disease (1 source) Pain in right hand; Translations: [Pain in right hand] Onset: 08-14-2024 Episodic Other hereditary and degenerative nervous system conditions (20 sources) Isolated cervical dystonia; Translations: [Spasmodic torticollis] Onset: 07-27-2023 07-27-2023 Chronic Other infections; including parasitic (4 sources) Acute lyme disease; Translations: [Lyme disease, unspecified] 06-02-2024 Episodic Other infections; including parasitic (9 sources) Lyme disease; Translations: [Lyme disease, unspecified] Onset: 07-24-2024 07-23-2024 Episodic Other lower respiratory disease (1 source) Shortness of breath; Translations: [SHORTNESS OF BREATH] Onset: 04-24-2022 Episodic Other nervous system disorders (9 sources) Bilateral carpal tunnel syndrome; Translations: [Carpal tunnel syndrome, bilateral upper limbs] Onset: 07-24-2024 07-24-2024 Chronic Other non-traumatic joint disorders (20 sources) Derangement of left shoulder joint; Translations: [Other specific joint derangements of left shoulder, not elsewhere classified] Onset: 10-19-2022 10-19-2022 Chronic Other non-traumatic joint disorders (16 sources) Polyarthropathy; Translations: [Polyarthritis, unspecified] 04-02-2024 Chronic Other nutritional; endocrine; and metabolic disorders (20 sources) Disorder of lipid metabolism; Translations: [Disorder of lipoprotein metabolism, unspecified] Onset: 05-06-2014 01-26-2023 Chronic Other nutritional; endocrine; and metabolic disorders (20 sources) Obesity; Translations: [Obesity, unspecified] Onset: 10-16-2011 01-26-2023 Chronic Other nutritional; endocrine; and metabolic disorders (2 sources) Body mass index (BMI) 26.0-26.9, adult Onset: 12-22-2021 Resolved: 12-22-2021 Episodic Other nutritional; endocrine; and metabolic disorders (2 sources) Overweight in adulthood with body mass index of 25 or more but less than 30; Translations: [Body mass index (BMI) 25.0-25.9, adult] 12-25-2023 Episodic Other nutritional; endocrine; and metabolic disorders (1 source) Body mass index (BMI) 25.0-25.9, adult; Translations: [Body Mass Index 25.0-25.9, adult] 12-25-2023 Episodic Other upper respiratory disease (20 sources) Allergic rhinitis; Translations: [Allergic rhinitis, unspecified] Onset: 10-19-2022 10-19-2022 Chronic Massiel-; endo-; and myocarditis; cardiomyopathy (except that caused by tuberculosis or sexually transmitted disease) (20 sources) Primary cardiomyopathy; Translations: [Cardiomyopathy, unspecified] Onset: 11-21-2011 01-26-2023 Chronic Residual codes; unclassified (20 sources) Obstructive sleep apnea syndrome; Translations: [Obstructive sleep apnea (adult) (pediatric)] Onset: 10-19-2022 12-25-2023 Chronic Residual codes; unclassified (3 sources) Obstructive sleep apnea (adult) (pediatric); Translations: [Obstructive sleep apnea (adult)(pediatric)] Onset: 12-22-2021 Resolved: 12-22-2021 Chronic Residual codes; unclassified (2 sources) Insomnia; Translations: [Sleep disorder, unspecified] 06-02-2024 Episodic Spondylosis; intervertebral disc disorders; other back problems (20 sources) Displacement of lumbar intervertebral disc without myelopathy; Translations: [Other intervertebral disc displacement, lumbar region] Onset: 10-19-2022 10-19-2022 Chronic Unclassified (9 sources) Parkinsonism; Translations: [Parkinsonism, unspecified Parkinsonism type (CMS/HCC)] Onset: 07-24-2024 07-24-2024 Chronic Unclassified (2 sources) Unknown / UNK(Unknown) Onset: 01-21-2018 Unclassified (1 source) CONTACT W/AND (SUSP) EXPOS COVID-19; Translations: [CONTACT W/AND (SUSP) EXPOS COVID-19] Onset: 04-14-2022 Past or Other Problems Problem Classification Problem Date Documented Date Episodic/Chronic Abdominal hernia (20 sources) Inguinal hernia; Translations: [Unilateral inguinal hernia, without obstruction or gangrene, not specified as recurrent] Onset: 04-12-2015 01-26-2023 Episodic Biliary tract disease (20 sources) Cholelithiasis without obstruction; Translations: [Calculus of gallbladder without cholecystitis without obstruction] Onset: 10-19-2022 10-19-2022 Episodic Conditions associated with dizziness or vertigo (20 sources) Vertigo; Translations: [Dizziness and giddiness] Onset: 10-19-2022 10-19-2022 Episodic Mood disorders (20 sources) Mood disorders Onset: 03-03-2024 03-03-2024 Other aftercare (20 sources) Long-term current use of anticoagulant; Translations: [oysterman (current) use of anticoagulants] Onset: 01-30-2019 01-26-2023 Episodic Other and unspecified benign neoplasm (20 sources) History of polyp of colon; Translations: [History of colonic polyps] Onset: 04-12-2015 01-26-2023 Episodic Other circulatory disease (20 sources) Chronic hypotension; Translations: [Other hypotension] Onset: 10-19-2011 01-26-2023 Episodic Other connective tissue disease (20 sources) Pain in limb; Translations: [Pain in unspecified limb] Onset: 10-19-2022 10-19-2022 Episodic Other connective tissue disease (20 sources) Bilateral trochanteric bursitis; Translations: [Trochanteric bursitis, right hip] Onset: 01-30-2023 01-30-2023 Episodic Other connective tissue disease (20 sources) Trochanteric bursitis of right hip; Translations: [Trochanteric bursitis, right hip] Onset: 07-02-2023 07-02-2023 Episodic Other screening for suspected conditions (not mental disorders or infectious disease) (1 source) Encounter for screening for malignant neoplasm of colon; Translations: [Encounter for screening for malignant neoplasm of colon] Onset: 11-09-2023 Episodic Spondylosis; intervertebral disc disorders; other back problems (20 sources) Lumbar radiculopathy; Translations: [Radiculopathy, lumbar region] Onset: 10-16-2011 10-19-2022 Episodic Results Test Name Value Interpretation Reference Range Facility Orders Onlyon 09-10-2024 Orders Only [id number] Kaitlyn Jordan 1950 Provider Department Center 09/10/2024 YESI DALE [facility] Family History Family history unknown: Yes Normal [facility] Anticoagulation - Warfarin [facility] 09-08-2024 Anticoagulation - Warfarin Visit [id number] Kaitlyn Jordan 1950 [facility] Provider Department Center 09/08/2024 NAA [facility] Family History Family history unknown: Yes Normal [facility] Telephoneon 09-04-2024 Telephone [id number] Kaitlyn Jordan 1950 Provider Department Center 09/04/2024 JHONATHAN AREVALO [facility] Family History Family history unknown: Yes Normal [facility] Anticoagulation - Warfarin [facility] 09-01-2024 Anticoagulation - Warfarin Visit [id number] Kaitlyn Jordan 1950 Date Provider Department Center 09/01/2024 JHONATHAN AREVALO [facility] Family History Family history unknown: Yes Normal [facility] Anticoagulation - Warfarin [facility] 08-27-2024 Anticoagulation - Warfarin Visit [id number] Kaitlyn Jordan 1950 Date Provider Department Center 08/27/2024 JHONATHAN AREVALO [facility] Family History Family history unknown: Yes Normal [facility] Alanine aminotransferase [En zymatic activity/volume] in Serum or PlasmaOrdered By: Rustam Harris on 08-14-2024 ALT [Catalytic activity/Vol] Alanine aminotransferase [Enzymatic activity/volume] in Serum or Plasma 7-52 [facility] Albumin [Mass/volume] in Ser um or Plasma by Bromocresol green (BCG) dye binding methoOrdered By: Rustam Harris on 08-14-2024 Albumin BCG dye [Mass/Vol] Albumin [Mass/volume] in Serum or Plasma by Bromocresol green (BCG) dye binding metho 3.5-5.7 [facility] Alkaline phosphatase [Enzyma tic activity/volume] in Serum or PlasmaOrdered By: Rustam Harris on 08-14-2024 ALP [Catalytic activity/Vol] Alkaline phosphatase [Enzymatic activity/volume] in Serum or Plasma 34-104 [facility] Aspartate aminotransferase [ Enzymatic activity/volume] in Serum or PlasmaOrdered By: Rustam Harris on 08-14-2024 AST [Catalytic activity/Vol] Aspartate aminotransferase [Enzymatic activity/volume] in Serum or Plasma 13-39 [facility] Basophils Auto (Bld) [#/Vol] Ordered By: Rustam Harris on 08-14-2024 Basophils (Bld) [#/Vol] Automated basophil count 0.0-0.2 [facility] Basophils/100 WBC Auto (Bld) Ordered By: Rustam Harris on 08-14-2024 Basophils/100 WBC (Bld) Automated basophil % . [facility] Bilirubin.direct [Mass/volum e] in Serum or PlasmaOrdered By: Rustam Harris on 08-14-2024 Bilirubin.direct [Mass/Vol] Bilirubin.direct [Mass/volume] in Serum or Plasma High 0.03-0.18 [facility] Bilirubin.total [Mass/volume ] in Serum or PlasmaOrdered By: Rustam Harris on 08-14-2024 Bilirubin [Mass/Vol] Bilirubin.total [Mass/volume] in Serum or Plasma 0.3-1.0 [facility] C reactive protein [Mass/vol ume] in Serum or PlasmaOrdered By: Rustam Harris on 08-14-2024 CRP [Mass/Vol] C reactive protein [Mass/volume] in Serum or Plasma 0.0-0.5 [facility] C-Reactive Proteinon 08-14- 025 CRP [Mass/Vol] mg/L Normal 0.0-0.5 [facility] Comment on above: Result Comment: PERF ORMED BY: [place] [address] PATHOLOGIST [employer] TE[employer]ER JAVIER FRIED M.D. Performed By: #### P T, CBC, PTT #### [address] Complete Blood Count Auto Di ffon 08-14-2024 Basophils (Bld) [#/Vol] 0.1 10*3/uL Normal 0.0-0.2 [facility] Comment on above: Performed By: #### C REAT, ESR, HEPATIC, PTH, CBC, CRP #### [address] Basophils/100 WBC (Bld) 0.9 % Normal . [facility] Comment on above: Performed By: #### C REAT, ESR, HEPATIC, PTH, CBC, CRP #### [address] Eosinophils (Bld) [#/Vol] 0.3 10*3/uL Normal 0.0-0.45 [facility] Comment on above: Performed By: #### C REAT, ESR, HEPATIC, PTH, CBC, CRP #### [address] Eosinophils/100 WBC (Bld) 4.6 % Normal . [facility] Comment on above: Performed By: #### C REAT, ESR, HEPATIC, PTH, CBC, CRP #### [address] Erythrocyte distribution width (RBC) [Ratio] 15.7 % High 12.0-14.8 [facility] Comment on above: Performed By: #### C REAT, ESR, HEPATIC, PTH, CBC, CRP #### [address] Hematocrit (Bld) [Volume fraction] 39.2 % Normal 38.8-50.0 [facility] Comment on above: Performed By: #### C REAT, ESR, HEPATIC, PTH, CBC, CRP #### [address] Hemoglobin (Bld) [Mass/Vol] 13.1 g/dL Normal 13.0-17.0 [facility] Comment on above: Performed By: #### C REAT, ESR, HEPATIC, PTH, CBC, CRP #### [address] Lymphocytes (Bld) [#/Vol] 1.2 10*3/uL Normal 1.00-4.8 [facility] Comment on above: Performed By: #### C REAT, ESR, HEPATIC, PTH, CBC, CRP #### [address] Lymphocytes/100 WBC (Bld) 19.1 % Normal . [facility] Comment on above: Performed By: #### C REAT, ESR, HEPATIC, PTH, CBC, CRP #### [address] MCH (RBC) [Entitic mass] 30.2 pg Normal 27.5-35.2 [facility] Comment on above: Performed By: #### C REAT, ESR, HEPATIC, PTH, CBC, CRP #### [address] MCV (RBC) [Entitic vol] 90.6 fL Normal 83.5-101 [facility] Comment on above: Performed By: #### C REAT, ESR, HEPATIC, PTH, CBC, CRP #### [address] Mean Corpuscular HGB Conc 33.3 g/dL Normal 32.5-35.6 [facility] Comment on above: Performed By: #### C REAT, ESR, HEPATIC, PTH, CBC, CRP #### [address] Monocytes (Bld) [#/Vol] 0.6 10*3/uL Normal 0.0-0.8 [facility] Comment on above: Performed By: #### C REAT, ESR, HEPATIC, PTH, CBC, CRP #### [address] Monocytes/100 WBC (Bld) 8.9 % Normal . [facility] Comment on above: Performed By: #### C REAT, ESR, HEPATIC, PTH, CBC, CRP #### [address] Neutrophils (Bld) [#/Vol] 4.2 10*3/uL Normal 1.8-7.7 [facility] Comment on above: Performed By: #### C REAT, ESR, HEPATIC, PTH, CBC, CRP #### [address] Neutrophils/100 WBC (Bld) 66.5 % Normal . [facility] Comment on above: Performed By: #### C REAT, ESR, HEPATIC, PTH, CBC, CRP #### [address] NRBC% 0.1 /100{WBC} Normal 0-0.5 [facility] Comment on above: Performed By: #### C REAT, ESR, HEPATIC, PTH, CBC, CRP #### [address] Platelet mean volume (Bld) [Entitic vol] 7.0 fL Normal 6.6-10.1 [facility] Comment on above: Performed By: #### C REAT, ESR, HEPATIC, PTH, CBC, CRP #### [address] Platelets (Bld) [#/Vol] 149 10*3/uL Low 150-450 [facility] Comment on above: Performed By: #### C REAT, ESR, HEPATIC, PTH, CBC, CRP #### [address] RBC (Bld) [#/Vol] 4.32 10*6/uL Normal 3.90-5.60 [facility] Comment on above: Performed By: #### C REAT, ESR, HEPATIC, PTH, CBC, CRP #### [address] WBC (Bld) [#/Vol] 6.3 10*3/uL Normal 4.1-10.5 [facility] Comment on above: Performed By: #### C REAT, ESR, HEPATIC, PTH, CBC, CRP #### [address] Creatinineon 08-14-2024 Creatinine [Mass/Vol] 1.18 mg/dL Normal 0.70-1.30 [facility] Comment on above: Performed By: #### P T, CBC, PTT #### [address] GFR/1.73 sq M.predicted MDRD (S/P/Bld) [Vol rate/Area] mL/min/{1.73_m2} Normal [facility] Comment on above: Performed By: #### P T, CBC, PTT #### [address] Creatinine [Mass/volume] in Serum or PlasmaOrdered By: Rustam Harris on 08-14-2024 Creatinine [Mass/Vol] Creatinine [Mass/volume] in Serum or Plasma 0.70-1.30 [facility] Eosinophils Auto (Bld) [#/Vo l]Ordered By: Rustam Harris on 08-14-2024 Eosinophils (Bld) [#/Vol] Automated eosinophil count 0.0-0.45 [facility] Eosinophils/100 WBC Auto (Bl d)Ordered By: Rustam Harris on 08-14-2024 Eosinophils/100 WBC (Bld) Automated eosinophil % . [facility] Erythrocyte Sedimentation Ra makenna 08-14-2024 ESR (Bld) [Velocity] 20 mm/h High 0-19 [facility] Comment on above: Result Comment: PERF ORMED BY: [address] [place] [place] [address] PATHOLOGIST [employer] JAVIER FRIED M.D. Performed By: #### C REAT, ESR, HEPATIC, PTH, CBC, CRP #### [address] Erythrocyte distribution wid th Auto (RBC) [Ratio]Ordered By: Rustam Harris on 08-14-2024 Erythrocyte distribution width (RBC) [Ratio] Erythrocyte distribution width [Ratio] by Automated count High 12.0-14.8 [facility] Erythrocyte sedimentation ra te by Photometric methodOrdered By: Rustam Harris on 08-14-2024 ESR Photometric method (Bld) [Velocity] Erythrocyte sedimentation rate by Photometric method High 0-19 [facility] Globulin Calc (S) [Mass/Vol] Ordered By: Rustam Harris on 08-14-2024 Globulin (S) [Mass/Vol] Serum globulin measurement by calculation (mass/volume) [facility] Hematocrit Auto (Bld) [Volum e fraction]Ordered By: Rustam Harris on 08-14-2024 Hematocrit (Bld) [Volume fraction] Hematocrit [Volume Fraction] of Blood by Automated count 38.8-50.0 [facility] Hemoglobin [Mass/volume] in BloodOrdered By: Rustam Harris on 08-14-2024 Hemoglobin (Bld) [Mass/Vol] Hemoglobin [Mass/volume] in Blood 13.0-17.0 [facility] Hepatic Panelon 08-14-2024 Albumin [Mass/Vol] 4.5 g/dL Normal 3.5-5.7 [facility] Comment on above: Performed By: #### P T, CBC, PTT #### [address] Albumin/Globulin [Mass ratio] 1.7 {ratio} Normal [facility] Comment on above: Performed By: #### P T, CBC, PTT #### [address] ALP [Catalytic activity/Vol] 65 U/L Normal 34-104 [facility] Comment on above: Performed By: #### P T, CBC, PTT #### [address] ALT [Catalytic activity/Vol] 29 U/L Normal 7-52 [facility] Comment on above: Performed By: #### P T, CBC, PTT #### [address] AST [Catalytic activity/Vol] 22 U/L Normal 13-39 [facility] Comment on above: Performed By: #### P T, CBC, PTT #### [facility] [address] [place] [address] Bilirubin [Mass/Vol] 0.8 mg/dL Normal 0.3-1.0 [facility] Comment on above: Performed By: #### P T, CBC, PTT #### [address] Bilirubin,Indirect 0.6 mg/dL Normal [facility] Comment on above: Performed By: #### P T, CBC, PTT #### [facility] [address] [place] [address] Bilirubin.indirect [Mass/Vol] 0.20 mg/dL High 0.03-0.18 [facility] Comment on above: Performed By: #### P T, CBC, PTT #### [address] Globulin (S) [Mass/Vol] 2.7 g/dL Normal [facility] Comment on above: Performed By: #### P T, CBC, PTT #### [address] Protein [Mass/Vol] 7.2 g/dL Normal 6.4-8.9 [facility] Comment on above: Performed By: #### P T, CBC, PTT #### [facility] [address] [place] [address] Leukocytes [#/volume] correc nicole for nucleated erythrocytes in Blood by Automated counOrdered By: Rustam Harris on 08-14-2024 WBC corrected for nucl RBC Auto (Bld) [#/Vol] Leukocytes [#/volume] corrected for nucleated erythrocytes in Blood by Automated coun 4.1-10.5 [facility] Lymphocytes Auto (Bld) [#/Vo l]Ordered By: Rustam Harris on 08-14-2024 Lymphocytes (Bld) [#/Vol] Lymphocytes [#/volume] in Blood by Automated count 1.00-4.8 [facility] Lymphocytes/100 WBC Auto (Bl d)Ordered By: Rustam Harris on 08-14-2024 Lymphocytes/100 WBC (Bld) Lymphocytes/100 leukocytes in Blood by Automated count . [facility] MCH Auto (RBC) [Entitic mass ]Ordered By: Rustam Harris on 08-14-2024 MCH (RBC) [Entitic mass] MCH [Entitic mass] by Automated count 27.5-35.2 [facility] MCHC Auto (RBC) [Mass/Vol]Or dered By: Rustam Harris on 08-14-2024 MCHC (RBC) [Mass/Vol] MCHC [Mass/volume] by Automated count 32.5-35.6 [facility] MCV Auto (RBC) [Entitic vol] Ordered By: Rustam Harris on 08-14-2024 MCV (RBC) [Entitic vol] MCV [Entitic volume] by Automated count 83.5-101 [facility] Monocytes Auto (Bld) [#/Vol] Ordered By: Rustam Harris on 08-14-2024 Monocytes (Bld) [#/Vol] Automated blood monocyte count 0.0-0.8 [facility] Monocytes/100 WBC Auto (Bld) Ordered By: Rustam Harris on 08-14-2024 Monocytes/100 WBC (Bld) Automated monocyte % . [facility] Neutrophils Auto (Bld) [#/Vo l]Ordered By: Rustam Harris on 08-14-2024 Neutrophils (Bld) [#/Vol] Neutrophils [#/volume] in Blood by Automated count 1.8-7.7 [facility] Neutrophils/100 WBC Auto (Bl d)Ordered By: Rustam Harris on 08-14-2024 Neutrophils/100 WBC (Bld) Automated neutrophil % . [facility] No Panel InformationOrdered By: Rustam Harris on 08-14-2024 Estimated GFR (CKD-EPI) > 60.0 mL/Min [facility] Creatinine Clearance (Chem N/A [facility] Nucleated erythrocytes [Pres ence] in Blood by Automated countOrdered By: Rustam Harris on 08-14-2024 Nucleated RBC Auto Ql (Bld) Nucleated erythrocytes [Presence] in Blood by Automated count 0-0.5 [facility] Parathyrin.intact [Mass/volu me] in Serum or PlasmaOrdered By: Rustam Harris on 08-14-2024 Parathyrin.intact [Mass/Vol] Parathyrin.intact [Mass/volume] in Serum or Plasma [facility] Parathyroid Hormone Intacton 08-14-2024 Parathyroid Hormone Intact 18.5 pg/mL Normal [facility] Comment on above: Result Comment: PERF ORMED BY: [place] [address] PATHOLOGIST [employer] JAVIER FRIED M.D. Performed By: #### C REAT, ESR, HEPATIC, PTH, CBC, CRP #### [address] Platelet mean volume Auto (B ld) [Entitic vol]Ordered By: Rustam Harris on 08-14-2024 Platelet mean volume (Bld) [Entitic vol] Platelet mean volume [Entitic volume] in Blood by Automated count 6.6-10.1 [facility] Platelets Auto (Bld) [#/Vol] Ordered By: Rustam Harris on 08-14-2024 Platelets (Bld) [#/Vol] Platelets [#/volume] in Blood by Automated count Low 150-450 [facility] Protein [Mass/volume] in Ser um or PlasmaOrdered By: Rustam Harris on 08-14-2024 Protein [Mass/Vol] Protein [Mass/volume ] in Serum or Plasma 6.4-8.9 [facility] RBC Auto (Bld) [#/Vol]Ordere d By: Rustam Harris on 08-14-2024 RBC (Bld) [#/Vol] Erythrocytes [#/volu me] in Blood by Automated count 3.90-5.60 [facility] Serum or plasma albumin/glob ulin mass ratioOrdered By: Rustam Harris on 08-14-2024 Albumin/Globulin [Mass ratio] Serum or plasma albumin/globulin mass ratio [facility] Serum or plasma non-glucuron idated bilirubin measurement (mass/volume)Ordered By: Rustam Harris on 08-14-2024 Bilirubin.indirect [Mass/Vol] Serum or plasma non-glucuronidated bilirubin measurement (mass/volume) [facility] WBC Auto (Bld) [#/Vol]Ordere d By: Rustam Harris on 08-14-2024 WBC (Bld) [#/Vol] Leukocytes [#/volume ] in Blood by Automated count 4.1-10.5 [facility] X-ray reportOrdered By: Jaciel Sarabia on 08-14-2024 Study report [facility] [address] XRay Report Signed Patient: Kaitlyn Jordan MR#: [id number] : 1950 Acct:[id number] Age/Sex: 74 / M ADM Date: 5 Loc: ICXD Room: Type: [facility] Attending Dr: Rustam Harris MD Copies to: Rustam Harris MD~ Ordering Provider: Rustam Harris MD Date of Service: 08/14/24 XR/XR hand BI 2V: HAND PAIN BILATERAL HAND - 4 views total COMPARISON: None REASON FOR EXAM: lyme disease, arthritis, hand and joint pain FINDINGS: No fracture dislocation. Osteoarthritic changes notably involving theDIP joint joints [id number] degenerative changes involving the carpal and intercarpal joints. No definite areas of periarticular osteopenia. There is maybe focal soft tissue involving DIP joint of the second digit left hand and second digit of the right hand. XR/XR hand BI 2V IMPRESSION: Predominantly osteoarthritic changes. Questionable areas of soft tissue swelling involving the DIP joints of the second digits bilaterally. Impression dictated by: Rafy Sarabia M.D.08/14/2024 4:27 PM Dictation Location: [place] [address] Transcribed By: [facility] 08/14/24 1627 Dictated By: Rafy Sarabia MD 08/14/24 1629 Signed By: 08/14/24 1627 [facility] Work Phone: XR hand BI 2Von 08-14-2024 XR hand BI 2V [facility] Main [address] [address] XRay Report Signed Patient: Kaitlyn Jordan MR#: [id number] : 1950 Acct:[id number] Age/Sex: 74 / M ADM Date: 08/14/24 Loc: ICXD Room: Type: [facility] Attending Dr: Rustam Harris MD Copies to: Rustam Harris MD Ordering Provider: Rustam Harris MD Date of Service: 08/14/24 XR/XR hand BI 2V: HAND PAIN BILATERAL HAND - 4 views total COMPARISON: None REASON FOR EXAM: lyme disease, arthritis, hand and joint pain FINDINGS: No fracture dislocation. Osteoarthritic changes notably involving the DIP joint joints [id number] degenerative changes involving the carpal and intercarpal joints. No definite areas of periarticular osteopenia. There is maybe focal soft tissue involving DIP joint of the second digit left hand and second digit of the right hand. XR/XR hand BI 2V IMPRESSION: Predominantly osteoarthritic changes. Questionable areas of soft tissue swelling involving the DIP joints of the second digits bilaterally. Impression dictated by: Rafy Sarabia M.D.08/14/2024 4:27 PM Dictation Location: [place] [address] Transcribed By: [facility] 08/14/24 162 Dictated By: Rafy Sarabia MD 08/14/241623 Signed By: 08/14/24 1627 Normal [facility] Anticoagulation - Warfarin V [place] 08-13-2024 Anticoagulation - Warfarin Visit [id number] Kaitlyn Jordan 1950 Provider Department Center 08/13/2024 Zane-GERALD COYLE HVCANTICOARobyn [facility] Family History Family history unknown: Yes Normal [facility] Office Visiton 08-05-2024 Follow-up visit [id number] Kaitlyn Jordan 1950 Date Provider Department Center 08/05/2024 JAMES SAM [facility] Jorge [facility] Family History Family history unknown: Yes Level of Service:69710 [place] OFFICE/OUTPATIENT ESTABLISHED HIGH MDM 40 MIN Normal [facility] Anticoagulation - Warfarin [facility] 07-31-2024 Anticoagulation - Warfarin Visit [id number] IvelisseKelin cruzn R 1950 M Date Provider Department Center 07/31/2024 JHONATHAN AREVALO HVCANTICALYSSA [facility] Family History Family history unknown: Yes Normal [facility] Laboratory - Hematology and Cell countson 07-28-2024 HbA1c (Bld) [Mass fraction] 6.5 % [facility] No Panel Informationon 07-28 [facility] Anticoagulation - Warfarin [facility] 07-17-2024 Anticoagulation - Warfarin Visit [id number] IvelisseKelin cruzn R 1950 M Date Provider Department Center 07/17/2024 GERALD FRANK HVCANTICOARobyn [facility] Family History Family history unknown: Yes Normal [facility] Anticoagulation - Warfarin [facility] 06-25-2024 Anticoagulation - Warfarin Visit [id number] IvelisseKelin cruzn R 1950 M Date Provider Department Center 06/25/2024 GERALD FRANK [facility]VCANTICOARobyn [facility] Family History Family history unknown: Yes Normal [facility] Anticoagulation - Warfarin [facility] 06-04-2024 Anticoagulation - Warfarin Visit [id number] IvelisseKelin cruzn R 1950 M Date Provider Department Center 06/04/2024 GERALD FRANK HVCANTICOAG [facility] Family History Family history unknown: Yes Normal [facility] Laboratory - Hematology and Cell countson 06-02-2024 HbA1c (Bld) [Mass fraction] 6.3 % [facility] No Panel Informationon 06-02 Interpretation and review of laboratory results Abnormal [facility] Telephoneon 05-15-2024 Telephone [id number] IvelisseKelin cruzn R 1950 M Date Provider Department Center 05/15/2024 JHONATHAN AREVALO [facility]VCANTICALYSSA [facility] Family History Family history unknown: Yes Normal [facility] Anticoagulation - Warfarin [facility] 05-14-2024 Anticoagulation - Warfarin Visit [id number] Kaitlyn Jordan 1950 M Date Provider Department [place] 05/14/2024 Jeff-NAA FERNÁNDEZ [facility] Family History Family history unknown: Yes Normal [facility] C-REACTIVE PROTEINon 024 CRP [Mass/Vol] 34.3 mg/L High <8.0 [facility] Comment on above: Performed By: #### 6 399, 8472, 8593 #### [facility] [address], [address] [place] [address] [place]: Trevor Lundy MD #### 528 #### [facility], [address] [place] [phone] [place]: Geeta Alfonso MD,PhD,AUDIE CBC (INCLUDES DIFF/PLT)on Basophils (Bld) [#/Vol] 0.037 10*3/uL Normal 0-200 [facility] Comment on above: Performed By: #### 6 399, 6890, 8593 #### [facility] [address], [address] [place] [address] [place]: Trevor Lundy MD #### 528 #### [facility], [facility] [place] [address] [place]: Geeta Alfonso MD,PhD,AUDIE Basophils/100 WBC (Bld) 0.4 % Normal [facility] Comment on above: Performed By: #### 6 399, 6272, 8593 #### [facility] [address], [address] [place] [address] [place]: Trevor Lundy MD #### 528 #### [facility], [address] [place] [address] [place]: Geeta Alfonso MD,PhD,AUDIE Eosinophils (Bld) [#/Vol] 0.26 10*3/uL Normal 15-500 [facility] Comment on above: Performed By: #### 6 399, 8472, 8593 #### [facility] of [address], [address] [place] [address] [place]: Trevor Lundy MD #### 528 #### [facility], [address] [place] [address] [place]: Geeta Alfonso MD,PhD,AUDIE Eosinophils/100 WBC (Bld) 2.8 % Normal [facility] Comment on above: Performed By: #### 6 399, 8472, 8593 #### [facility] of [place] [address] [place]: Trevor Lundy MD #### 528 #### [facility], [address] [place] [address] [place]: Geeta Alfonso MD,PhD,AUDIE Erythrocyte distribution width (RBC) [Ratio] 14.4 % Normal 11.0-15.0 [facility] Comment on above: Performed By: #### 6 399, 8872, 8593 #### [facility] of [address], [address] [place] [address] [place]: Trevor Lundy MD #### 528 #### [facility], [address] [place] [address] [place]: Geeta Alfonso MD,PhD,AUDIE Hematocrit (Bld) [Volume fraction] 42.8 % Normal 38.5-50.0 [facility] Comment on above: Performed By: #### 6 399, 6872, 8593 #### [facility] of [address], [address] [place] [address] [place]: Trevor Lundy MD #### 528 #### [facility], [address] [place] [address] [place]: Geeta Alfonso MD,PhD,AUDIE Hemoglobin (Bld) [Mass/Vol] 14.0 g/dL Normal 13.2-17.1 [facility] Comment on above: Performed By: #### 6 399, 8472, 8593 #### [facility] of [place] [address], [address] [place] [address] [place]: Trevor Lunyd MD #### 528 #### [facility], [facility] [place] [phone] [place]: Geeta Alfonso MD,PhD,AUDIE Lymphocytes (Bld) [#/Vol] 1.488 10*3/uL Normal 850-3900 [facility] Comment on above: Performed By: #### 6 399, 8472, 8593 #### [facility] of [place] [address], [address] [place] [address] [place]: Trevor Lundy MD #### 528 #### [facility], [facility] [place] [phone] [place]: Geeta Alfonso MD,PhD,AUDIE Lymphocytes/100 WBC (Bld) 16.0 % Normal [facility] Comment on above: Performed By: #### 6 399, 8472, 8593 #### [facility] of [place] [address], [address] [place] [address] [place]: Trevor Lundy MD #### 528 #### [facility], [address] [place] [phone] [place]: Geeta Alfonso MD,PhD,AUDIE MCH (RBC) [Entitic mass] 29.0 pg Normal 27.0-33.0 [facility] Comment on above: Performed By: #### 6 399, 8472, 8593 #### [facility] [address], [address] [place] [address] [place]: Trevor Lundy MD #### 528 #### [facility], [address] [place] [address] [place]: Geeta Alfonso MD,PhD,AUDIE MCHC (RBC) [Mass/Vol] 32.7 g/dL Normal 32.0-36.0 [facility] Comment on above: Result Comment: For adults, a slight decrease in the calculated MCHC value (in the range of 30 to 32 g/dL) is most likely not clinically significant; however, it should be interpreted with caution in correlation with other red cell parameters and the patient's clinical condition. Performed By: #### 6 399, 8472, 8593 #### [facility] [place] [address] [place]: Trevor Lundy MD #### 528 #### [facility]/[place] [address] [place]: Geeta Alfonso MD,PhD,AUDIE MCV (RBC) [Entitic vol] 88.8 fL Normal 80.0-100.0 [facility] Comment on above: Performed By: #### 6 399, 5470, 8593 #### [facility] [place] [address] [place]: Trevor Lundy MD #### 528 #### [facility], [address] [place] [address] [place]: Geeta Alfonso MD,PhD,AUDIE Monocytes (Bld) [#/Vol] 0.753 10*3/uL Normal 200-950 [facility] Comment on above: Performed By: #### 6 399, 2072, 8593 #### [facility] of [place] [address], [address] [place] [address] [place]: Trevor Lundy MD #### 528 #### [facility] [address] [facility] [place] [address] [place]: Geeta Alfonso MD,PhD,AUDIE Monocytes/100 WBC (Bld) 8.1 % Normal [facility] Comment on above: Performed By: #### 6 399, 8472, 8593 #### [facility] of [place] [address], [address] [place] [address] [place]: Trevor Lundy MD #### 528 #### [facility], [facility] [place] [address] [place]: Geeta Alfonso MD,PhD,AUDIE Neutrophils (Bld) [#/Vol] 6.761 10*3/uL Normal 5527-0244 [facility] Comment on above: Performed By: #### 6 399, 8472, 8593 #### [facility] of [place] [address], [address] [place] [address] [place]: Trevor Lundy MD #### 528 #### [facility] [address] [place] [address] [place]: Geeta Alfonso MD,PhD,AUDIE Neutrophils/100 WBC (Bld) 72.7 % Normal [facility] Comment on above: Performed By: #### 6 399, 8472, 8593 #### [facility] of [place] [address] , [address] [place] [address] [place]: Trevor Lundy MD #### 528 #### [facility], [address] [place] [address] [place]: Geeta Alfonso MD,PhD,AUDIE Platelet mean volume (Bld) [Entitic vol] 8.9 fL Normal 7.5-12.5 [facility] Comment on above: Performed By: #### 6 399, 8472, 8593 #### [facility] of [address], [address] [place] [address] [place]: Trevor Lundy MD #### 528 #### [facility], [facility] [address] [place]: Geeta Alfonso MD,PhD,AUDIE Platelets (Bld) [#/Vol] 251 10*3/uL Normal 140-400 [facility] Comment on above: Performed By: #### 6 399, 8472, 8593 #### [facility] of [address], [address] [place] [address] [place]: Trevor Lundy MD #### 528 #### [facility], [facility] [address] [place]: Geeta Alfonso MD,PhD,AUDIE RBC (Bld) [#/Vol] 4.82 10*6/uL Normal 4.20-5.80 [facility] Comment on above: Performed By: #### 6 399, 8472, 8593 #### [facility] of [address], [address] [place] [address] [place]: Trevor Lundy MD #### 528 #### [facility], [address] [address] [place]: Geeta Alfonso MD,PhD,AUDIE WBC (Bld) [#/Vol] 9.3 10*3/uL Normal 3.8-10.8 [facility] Comment on above: Performed By: #### 6 399, 8472, 8593 #### [facility] of [address], [address] [place] [address] [place]: Trevor Lundy MD #### 528 #### [facility], [address] [place] [address] [place]: Geeta Alfonso MD,PhD,AUDIE HEPATITIS C AB W/REFL TO HCV RNA, QN, PCRon 05-13-2024 HEPATITIS C ANTIBODY Non-Reactive Normal NON-MARILIN CTIV E [facility] Comment on above: Result Comment: HCV antibody was non-reactive. There is no laboratory evidence of HCV infection. In most cases, no further action is required. However, if recent HCV exposure is suspected, a test for HCV RNA (test code 85054) is suggested. For additional information please refer to http://education.Glanse/faq/DLB94l3 (This link is being provided for informational/ educational purposes only.) Performed By: #### 6 399, 3040, 8593 #### [facility] [address], [address] [place] [address] [place]: Trevor Lundy MD #### 528 #### [facility], [address] [place] [address] [place]: Geeta Alfonso MD,PhD,AUDIE HLA-B27 ANTIGENon 05-13-2024 HLA-B27 ANTIGEN Negative Normal NEGATIVE [facility] Comment on above: Performed By: #### 6 399, 1051, 8593 #### [facility] [address], [address] [place] [address] [place]: Trevor Lundy MD #### 528 #### [facility], [address] [place] [address] [place]: Geeta Alofnso MD,PhD,AUDIE LYME DISEASE ANTIBODIES (IGG ,IGM), IMMUNOBLOTon 05-13-2024 18 KD (IGG) BAND Reactive Abnormal [facility] Comment on above: Performed By: #### 6 399, 6572, 8593 #### [facility] of [facility] [address], [address] [place] [address] [place]: Trevor Lundy MD #### 528 #### [facility], [address] [facility] [place] [address] [place]: Geeta Alfonso MD,PhD,AUDIE 23 KD (IGG) BAND Non-Reactive Normal [facility] Comment on above: Performed By: #### 6 399, 8472, 8593 #### [facility] of [facility] [address], [address] [place] [address] [place]: Trevor Lundy MD #### 528 #### [facility], [address] [place] [address] [place]: Geeta Alfonso MD,PhD,AUDIE 23 KD (IGM) BAND Non-Reactive Normal [facility] Comment on above: Performed By: #### 6 399, 8472, 8593 #### [facility] of [place] [address], [address] [place] [address] [place]: Trevor Lundy MD #### 528 #### [facility], [address] [place] [address], [place] [address] [place]: Geeta Alfonso MD,PhD,AUDIE 28 KD (IGG) BAND Non-Reactive Normal [facility] Comment on above: Performed By: #### 6 399, 8472, 8593 #### [facility] of [facility] [address], [address] [place] [address] [place]: Trevor Lundy MD #### 528 #### [facility], [address] [place] [address], [place] [address] [place]: Geeta Alfonso MD,PhD,AUDIE 30 KD (IGG) BAND Non-Reactive Normal [facility] Comment on above: Performed By: #### 6 399, 8472, 8593 #### [facility] [place] [address] , [address] [place] [address] [place]: Trevor Lundy MD #### 528 #### [facility], [address] [place] [address] [place]: Geeta Alfonso MD,PhD,UADIE 39 KD (IGG) BAND Non-Reactive Normal [facility] Comment on above: Performed By: #### 6 399, 8472, 8593 #### [facility] [address], [address] [place] [address] [place]: Trevor Lundy MD #### 528 #### [facility], [address] [place] [address] [place]: Geeta Alfonso MD,PhD,AUDIE 39 KD (IGM) BAND Reactive Abnormal [facility] Comment on above: Performed By: #### 6 399, 8472, 8593 #### [facility] of [address], [address] [place] [address] [place]: Trevor Lundy MD #### 528 #### [facility], [address] [place] [address] [place]: Geeta Alfonso MD,PhD,AUDIE 41 KD (IGG) BAND Non-Reactive Normal [facility] Comment on above: Performed By: #### 6 399, 8472, 8593 #### [facility] [address], [address] [place] [address] [place]: Trevor Lundy MD #### 528 #### [facility], [address] [place] [address] [place]: Geeta Alfonso MD,PhD,AUDIE 41 KD (IGM) BAND Non-Reactive Normal [facility] Comment on above: Result Comment: Lyme immunoblot testing should only be performed on samples from patients who have had a Positive or Equivocal result in a screening assay. As per CDC criteria, a Lyme disease IgG Immunoblot must show reactivity to at least 5 of 10 specific borrelial proteins to be considered positive; similarly, a positive Lyme disease IgM immunoblot requires reactivity to 2 of 3 specific borrelial proteins. Although considered negative, IgG reactivity to fewer specific borrelial proteins or IgM reactivity to only 1 protein may indicate recent B. burgdorferi infection and warrant testing of a later sample. A positive IgM but negative IgG result obtained more than a month after onset of symptoms likely represents a false- positive IgM result rather than acute Lyme disease. In rare instances, Lyme disease immunoblot reactivity may represent antibodies induced by exposure to other spirochetes. Performed By: #### 6 399, 3320, 8593 #### [facility] [address], [address] [place] [address] [place]: Trevor Lundy MD #### 528 #### [facility] [address] [place] [address] [place]: Geeta Alfonso MD,PhD,AUDIE 45 KD (IGG) BAND Non-Reactive Normal [facility] Comment on above: Performed By: #### 6 399, 0302, 8514 #### [facility] [place] [address] [place]: Trevor Lundy MD #### 528 #### [facility], [address] [place] [address] [place]: Geeta Alfonso MD,PhD,AUDIE 58 KD (IGG) BAND Non-Reactive Normal [facility] Comment on above: Performed By: #### 6 399, 5974, 8593 #### [facility] [address], [address] [place] [address] [place]: Trevor Lundy MD #### 528 #### [facility], [address] [facility] [place] [address] [place]: Geeta Alfonso MD,PhD,AUDIE 66 KD (IGG) BAND Non-Reactive Normal [facility] Comment on above: Performed By: #### 6 399, 8472, 8593 #### [facility] [place] [address] , [address] [place] [address] [place]: Trevor Lundy MD #### 528 #### [facility], [address] [facility] [place] [address] [place]: Geeta Alfonso MD,PhD,AUDIE 93 KD (IGG) BAND Non-Reactive Normal [facility] Comment on above: Performed By: #### 6 399, 8472, 8593 #### [facility] [address], [address] [place] [address] [place]: Trevor Lundy MD #### 528 #### [facility], [address] [address] [place] [address] [place]: Geeta Alfonso MD,PhD,AUDIE LYME DISEASE AB(IGG),BLOT Negative Normal NEGATIVE [facility] Comment on above: Performed By: #### 6 399, 8472, 8593 #### [facility] of [address], [address] [place] [address] [place]: Trevor Lundy MD #### 528 #### [facility], [address] [address] [place] [address] [place]: Geeta Alfonso MD,PhD,AUDIE LYME DISEASE AB(IGM),BLOT Negative Normal NEGATIVE [facility] Comment on above: Performed By: #### 6 399, 8472, 8593 #### [facility] [address], [address] [place] [address] [place]: Trevor Lundy MD #### 528 #### [facility], [address] [place] [place] [address] [place]: Geeta Alfonso MD,PhD,AUDIE Anticoagulation - Warfarin V mahin 05-02-2024 Anticoagulation - Warfarin Visit [id number] Kelin Jordancesario Calderon 1950 M Date Provider Department Center 05/02/2024 J[facility]ATHAN [facility] History Family history unknown: Yes Normal [facility] Telephoneon 05-01-2024 Telephone [id number] Kelin Jordann R 1950 M Date Provider Department Center 05/01/2024 JHONATHAN [facility]VAL[facility] Family History Family history unknown: Yes Normal [facility] Laboratory - Chemistry and C hemistry - challengeon 04-11-2024 Urate [Mass/Vol] 3.9 mg/dL Low 4.0 - 8.0 mg/dL [facility] Comment on above: Therapeutic target f or gout patients: <6.0 mg/dL URIC ACIDon 04-11-2024 Urate [Mass/Vol] 3.9 mg/dL Low 4.0-8.0 [facility] Comment on above: Order Comment: FASTI NG:NO FASTING: NO Result Comment: Ther apeutic target for gout patients: <6.0 mg/dL Performed By: #### 9 05 #### [facility] [address], [address] [place], [place] [address] [place]: Trevor Lundy MD Urate [Mass/Vol]on Interpretation and review of laboratory results Abnormal [facility] FASTING:NO FASTING: NO QUEST Performing Organizat ion Information Site ID: QPT Name: [facility] Address: [address] [place] [address], [address] [place], [place] [id number] Director: Trevor Lundy MD [facility] KAREN SCREEN, IFA, W/REFL TITE R AND PATTERNon 04-07-2024 KAREN SCREEN, IFA Negative Normal NEGATIVE [facility] Comment on above: Result Comment: KAREN IFA is a first line screen for detecting the presence of up to approximately 150 autoantibodies in various autoimmune diseases. A negative KAREN IFA result suggests an KAREN-associated autoimmune disease is not present at this time, but is not definitive. If there is high clinical suspicion for Sjogren's syndrome, testing for anti-SS-A/Ro antibody should be considered. Anti-Bridget-1 antibody should be considered for clinically suspected inflammatory myopathies. AC-0: Negative International Consensus on KAREN Patterns (https://doi.org/10.1515/piht-8479-7738) For additional information, please refer to http://education.Jaba Technologies/faq/LDW132 (This link is being provided for informational/ educational purposes only.) Performed By: #### 8 4419, 249 #### [facility] [place] [address] [place]: Trevor Lundy MD #### [address] #### [facility]/[address] [place], [place]: Crispin Hutchison M.D.,PhD C-REACTIVE PROTEINon CRP [Mass/Vol] 7.0 mg/L Normal <8.0 [facility] Comment on above: Performed By: #### 8 4419, 249 #### [facility] [place] [address] [place]: Trevor Lundy MD #### [address] #### [facility]/[address] [place], [place]: Crispin Hutchison M.D.,PhD RHEUMATOID ARTHRITIS DIAGNOS TIC PANEL 3on 04-07-2024 CYCLIC CITRULLINATED PEPTIDE (CCP) AB (IGG) <16 Normal <20 [facility] Comment on above: Result Comment: Negative: <20 Weak Positive: 20 - 39 Moderate Positive: 40 - 59 Strong Positive: >59 Performed By: #### 4419, 249 #### [facility] [address], [address] [place], [place] [address] [place]: Trevor Lundy MD ### #### [facility]/[address] [place]: Crispin Hutchison M.D.,PhD RHEUMATOID FACTOR (IGA) <5 Normal <=6 [facility] Comment on above: Performed By: #### 01 03, 4419, 249 #### [facility] of [address], [address] [place], [place] [address] [place]: Trevor Lundy MD #### #### [facility]/[address] [place], [place]: Crispin Hutchison M.D.,PhD RHEUMATOID FACTOR (IGG) <5 Normal <=6 [facility] Comment on above: Performed By: #### 01 03, 4419, 249 #### [facility] [address], [address] [place], [place] [address] [place]: Trevor Lundy MD #### [address] #### [facility]/[address] [place], [place]: Crispin Hutchison M.D.,PhD RHEUMATOID FACTOR (IGM) <5 Normal <=6 [facility] Comment on above: Performed By: #### 01 03, 4419, 249 #### [facility] of [address], [address] [place] [address] [place]: Trevor Lundy MD #### #### [facility] [address] [place], [place]: Crispin Hutchison M.D.,PhD SJOGREN'S ANTIBODY (SS-A) <1.0 Normal [facility] Comment on above: Result Comment: Reference Range: < 1.0 NEG AI Performed By: #### 01 03, 4419, 249 #### [facility] of [address], [address] [place] [address] [place]: Trevor Lundy MD #### [address] #### [facility]/[address] [place], [place]: Crispin Hutchison M.D.,PhD SJOGREN'S ANTIBODY (SS-B) <1.0 Normal [facility] Comment on above: Result Comment: Reference Range: < 1.0 NEG AI Performed By: #### 8 , 44, 249 #### [facility] [address], [address] [place] [address] [place]: Trevor Lundy MD #### 033[address] #### [facility]/[address] [place], [place]: Crispin Hutchison M.D.,PhD SED RATE BY MODIFIED [facility] 04-07-2024 SED RATE BY MODIFIED WESTERGREN 17 mm/h Normal < OR = 20 [facility] Comment on above: Performed By: #### 01 03, 4419, 249 #### [facility] of [address], [address] [place] [address] [place]: Trevor Lundy MD #### 18605 #### [facility]/[address] [place], [place]: Crispin Hutchison M.D.,PhD Anticoagulation - Warfarin [facility] 04-02-2024 Anticoagulation - Warfarin Visit [id number] Kaitlyn Jordan 1950 Date Provider Department Center 04/02/2024 [facility]ALD FR[place] [facility] Family History Family history unknown: Yes Normal [facility] Anticoagulation - Warfarin [facility] 03-14-2024 Anticoagulation - Warfarin Visit [id number] Kaitlyn Jordan 1950 M Date Provider Department [place] 03/14/2024 GERALD FRANK [facility] Family History Family history unknown: Yes Normal [facility] Anticoagulation - Warfarin [facility] 02-06-2024 Anticoagulation - Warfarin Visit [id number] Kaitlyn Jordan 1950 M Date Provider Department Center 02/06/2024 JHONATHAN AREVALO [facility] [facility] Family History Family history unknown: Yes Normal [facility] Anticoagulation - Warfarin [facility] 01-11-2024 Anticoagulation - Warfarin Visit [id number] Kaitlyn Jordan 1950 [facility] Provider Department Center 01/11/2024 [id number], JOY [facility]ANTICOAG [facility] Family History Family history unknown: Yes Normal [facility] Telephoneon 01-11-2024 Telephone [id number] Kaitlyn Jordan 1950 [facility] Provider Department [place] 01/11/2024 GERALD FRANKCANTICOARobyn [facility] Family History Family history unknown: Yes Normal [facility] Anticoagulation - Warfarin [facility] 12-31-2023 Anticoagulation - Warfarin Visit [id number] Kaitlyn Jordan 1950 [facility] Provider Department [place] 12/31/2023 GERALD FRANKCANTICALYSSA [facility] Family History Family history unknown: Yes Normal [facility] 36on 12-28-2023 36 LVM reminder for pt Normal [facility] Anticoagulation - Warfarin [facility] 12-14-2023 Anticoagulation - Warfarin Visit [id number] Kaitlyn Jordan 1950 Provider Department Center 12/14/2023 GERALD FRANKCANTICOARobyn [facility] Family History Family history unknown: Yes Level of Service:67015 [place] OFFICE/OUTPATIENT EST PT MAY NOT REQ PHYS/QHP Normal [facility] Office Visiton 12-11-2023 Follow-up visit [id number] Kaitlyn Jordan 1950 [facility] Provider Department Center 12/11/2023 Misbah-JAMES CRAIN [facility] Family History Family history unknown: Yes Level of Service:66092 [place] OFFICE/OUTPATIENT ESTABLISHED LOW MDM 20 MIN Normal [facility] Anticoagulation - Warfarin [facility] 11-15-2023 Anticoagulation - Warfarin Visit [id number] Kaitlyn Jordan 1950 M Date Provider Department Center 11/15/2023 JING CONTRERAS [facility]ICOAG [facility] Family History Family history unknown: Yes Normal [facility] Telephoneon 11-13-2023 Telephone [id number] Kaitlyn Jordan 1950 M Date Provider Department Center 11/13/2023 GERALD FRANK [facility]ICOAG [facility] Family History Family history unknown: Yes Normal [facility] 36on 11-12-2023 36 Left VM msg for call back Normal [facility] Activated partial thrombopla stin time (aPTT) in platelet poor plasma by coagulation aOrdered By: Godwin Barnes on 11-09-2023 aPTT Coag (PPP) [Time] 32.5 s 25.1-36.5 [facility] Comment on above: A hematocrit value g reater than 55% may lead to inaccurate results in coagulation testing. Patients having hematocrit values >55% require a special collection tube for coagulation studies. Please contact the laboratory at [phone] for redraw instructions. Amphetamine Screen Ql (U)Ord ered By: Godwin Barnes on 11-09-2023 Amphetamines Ql (U) Negative Negative [facility] Automated basophil %Ordered By: Godwin Barnes on 11-09-2023 Basophils/100 WBC (Bld) 0.7 % Normal . [facility] Comment on above: Performed By: #### P T, CBC, PTT #### [facility] [address] [place] [address] Automated basophil countOrde red By: Godwni Barnes on 11-09-2023 Basophils (Bld) [#/Vol] 0.1 10*3/uL Normal 0.0-0.2 [facility] Comment on above: Result Comment: PERF ORMED BY: [place] [address] PATHOLOGIST DAY CARE TEACHER EVELIN CARTER M.D. Performed By: #### P T, CBC, PTT #### [address] Automated blood monocyte cou ntOrdered By: Imad Asaad on 11-09-2023 Monocytes (Bld) [#/Vol] 0.8 10*3/uL Normal 0.0-0.8 [facility] Comment on above: Performed By: #### P T, CBC, PTT #### [address] Automated eosinophil %Ordere d By: Imad Asaad on 11-09-2023 Eosinophils/100 WBC (Bld) 2.9 % Normal . [facility] Comment on above: Performed By: #### P T, CBC, PTT #### [address] Automated eosinophil countOr dered By: Imad Asaad on 11-09-2023 Eosinophils (Bld) [#/Vol] 0.3 10*3/uL Normal 0.0-0.45 [facility] Comment on above: Performed By: #### P T, CBC, PTT #### [address] Automated monocyte %Ordered By: Imad Asaad on 11-09-2023 Monocytes/100 WBC (Bld) 8.0 % Normal . [facility] Comment on above: Performed By: #### P T, CBC, PTT #### [address] Automated neutrophil %Ordere d By: Imad Asaad on 11-09-2023 Neutrophils/100 WBC (Bld) 70.4 % Normal . [facility] Comment on above: Performed By: #### P T, CBC, PTT #### [address] Barbiturates [Presence] in U rine by Screen methodOrdered By: Imad Asaad on 11-09-2023 Barbiturates Screen Ql (U) Negative Negative [facility] Benzodiazepines Screen Ql (U )Ordered By: Imad Asaad on 11-09-2023 Benzodiazepines Ql (U) Negative Negative [facility] Benzoylecgonine [Presence] i n Urine by Screen methodOrdered By: Godwin Barnes on 11-09-2023 Benzoylecgonine Screen Ql (U) Negative Negative [facility] Cannabinoids [Presence] in U rine by Screen methodOrdered By: Godwin Barnes on 11-09-2023 Cannabinoids Screen Ql (U) Positive High Negative [facility] Comment on above: These are unconfirme d results and should not be used for legal purposes. Drug Cut-Off Concentration: AMPH 1000 ng/mL LEOBARDO 200 ng/mL MAXIMO 200 ng/mL COCM 300 ng/mL OP 300 ng/mL PCP 25 ng/mL THC 20 ng/mL Capillary blood glucose diego urement by glucometer (mass/volume)Ordered By: Godwin Barnes on 11-09-2023 Glucose [Mass/Vol] 78 mg/dL Normal [facility] Comment on above: Random Glucose Refer ence Range is dependent on time and content of last meal. Glucose of more than 200 mg/dL in a nonstressed, ambulatory subject supports the diagnosis of Diabetes Mellitus. Result Comment: [place] Glucose Reference Range is dependent on time and content of last meal. Glucose of more than 200 mg/dL in a nonstressed, ambulatory subject supports the diagnosis of Diabetes Mellitus. PERFORMED BY: [place] [address] PATHOLOGIST DAY CARE TEACHER EVELIN CARTER M.D. Performed By: #### G LUJOSEFA #### Point of Care testing , Complete Blood Count Auto Di ffon 11-09-2023 Mean Corpuscular HGB Conc 33.8 g/dL Normal 32.5-35.6 [facility] Comment on above: Performed By: #### P T, CBC, PTT #### [facility] [address] [place] [address] NRBC% 0.1 /100{WBC} Normal 0-0.5 [facility] Comment on above: Performed By: #### P T, CBC, PTT #### [facility] [address] [place] [address] Drug Screen,Urineon 11-09-19 24 Amphetamine Screen,Urine Negative Normal Negative [facility] Comment on above: Performed By: #### U RDS #### [address] Barbiturate Screen,Urine Negative Normal Negative [facility] Comment on above: Performed By: #### U RDS #### [address] Benzodiazepines Screen,Urine Negative Normal Negative [facility] Comment on above: Performed By: #### U RDS #### [address] Cannabinoid Screen,Urine Positive High Negative [facility] Comment on above: Result Comment: Thes e are unconfirmed results and should not be used for legal purposes. Drug Cut-Off Concentration: AMPH 1000 ng/mL LEOBARDO 200 ng/mL MAXIMO 200 ng/mL COCM 300 ng/mL OP 300 ng/mL PCP 25 ng/mL THC 20 ng/mL PERFORMED BY: [place] [address] PATHOLOGIST DAY CARE TEACHER EVELIN CARTER M.D. Performed By: #### U RDS #### [address] Cocaine Screen,Urine Negative Normal Negative [facility] Comment on above: Performed By: #### U RDS #### [address] Opiate Screen,Urine Negative Normal Negative [facility] Comment on above: Performed By: #### U RDS #### [place] [address] [place] Phencyclidine Screen,Urine Negative Normal Negative [facility] Comment on above: Performed By: #### U RDS #### [address] Erythrocyte distribution wid th [Ratio] by Automated countOrdered By: Godwin Barnes on 11-09-2023 Erythrocyte distribution width (RBC) [Ratio] 13.2 % Normal 12.0-14.8 [facility] Comment on above: Performed By: #### P T, CBC, PTT #### [address] Erythrocytes [#/volume] in B lood by Automated countOrdered By: Godwin Barnes on 11-09-2023 RBC (Bld) [#/Vol] 4.45 10*6/uL Normal 3.90-5.60 [facility] Comment on above: Performed By: #### P T, CBC, PTT #### [facility] [address] Hematocrit [Volume Fraction] of Blood by Automated countOrdered By: Godwin Barnes on 11-09-2023 Hematocrit (Bld) [Volume fraction] 40.1 % Normal 38.8-50.0 [facility] Comment on above: Performed By: #### P T, CBC, PTT #### [facility] [address] Hemoglobin [Mass/volume] in BloodOrdered By: Godwin Barnes on 11-09-2023 Hemoglobin (Bld) [Mass/Vol] 13.6 g/dL Normal 13.0-17.0 [facility] Comment on above: Performed By: #### P T, CBC, PTT #### [facility] [address] INR in Platelet poor plasma by Coagulation assayOrdered By: Godwin Barnes on 11-09-2023 INR Coag (PPP) [Relative time] 1.3 {INR} Normal [facility] Comment on above: INR Therapeutic Rang [...] 3 - 4.5 Performed By: #### P T, CBC, PTT #### [facility] [address] Raza 11-09-2023 L Specimen: [id number] Received: 11/09/23 Status: RADHA Brisenoaz Num: [id number] Spec Type: Surgical Subm Dr: Godwin Barnes MD Tissues: A Colon Biopsy (CECUM POLYP) Procedures: HE/2, Gross/Micro L4 Age/ Patient Sex Location Account Attending Physician Kaitlyn Jordan 73/M [id number] Godwin Barnes MD SPEC NUM: RECD: 11/09/23 STATUS: TIFFANYAlena DRAKE NUM: [id number] ROJELIO: 11/09/23 DR: Godwin Barnes MD ENTERED: 11/09/23 [facility] DR: SPEC TYPE: Surgical DEPT: S ORDERED: [...] fragment, entirely submitted in A1. CPT Codes 10473 Specimen: [id number] Received: 11/09/23 Status: RADHA Drake Num: [id number] Spec Type: Surgical Subm Dr: Godwin Barnes MD Tissues: A Colon Biopsy (CECUM POLYP) Procedures: HE/2, Gross/Micro L4 Patient: Kaitlyn Jordan Kvng [id number] (Continued) Signed (signature on file) Diane Calle MD 11/12/231922 Normal [facility] Leukocytes [#/volume] correc nicole for nucleated erythrocytes in Blood by Automated counOrdered By: Imad Luis Mad on 11-09-2023 WBC corrected for nucl RBC Auto (Bld) [#/Vol] 9.6 10*3/uL 4.1-10.5 [facility] Leukocytes [#/volume] in Blo od by Automated countOrdered By: Imad Asaad on 11-09-2023 WBC (Bld) [#/Vol] 9.6 10*3/uL Normal 4.1-10.5 [facility] Comment on above: Performed By: #### P T, CBC, PTT #### [facility] [address] [place] [address] Lymphocytes [#/volume] in Bl ood by Automated countOrdered By: Imad Asamoncho on 11-09-2023 Lymphocytes (Bld) [#/Vol] 1.7 10*3/uL Normal 1.00-4.8 [facility] Comment on above: Performed By: #### P T, CBC, PTT #### [address] Lymphocytes/100 leukocytes i n Blood by Automated countOrdered By: Imad Asaad on 11-09-2023 Lymphocytes/100 WBC (Bld) 18.0 % Normal . [facility] Comment on above: Performed By: #### P T, CBC, PTT #### [address] MCH [Entitic mass] by Automa nicole countOrdered By: Imad Asaad on 11-09-2023 MCH (RBC) [Entitic mass] 30.5 pg Normal 27.5-35.2 [facility] Comment on above: Performed By: #### P T, CBC, PTT #### [address] MCHC Auto (RBC) [Mass/Vol]Or dered By: Imad Asaad on 11-09-2023 MCHC (RBC) [Mass/Vol] 33.8 g/dL 32.5-35.6 [facility] MCV [Entitic volume] by Auto mated countOrdered By: Imad Asaad on 11-09-2023 MCV (RBC) [Entitic vol] 90.3 fL Normal 83.5-101 [facility] Comment on above: Performed By: #### P T, CBC, PTT #### [place] [address] [place] Neutrophils [#/volume] in Bl ood by Automated countOrdered By: Imad Asaad on 11-09-2023 Neutrophils (Bld) [#/Vol] 6.8 10*3/uL Normal 1.8-7.7 [facility] Comment on above: Performed By: #### P T, CBC, PTT #### [place] [address] [place] Nucleated erythrocytes [Pres ence] in Blood by Automated countOrdered By: Imad Asaad on 11-09-2023 Nucleated RBC Auto Ql (Bld) 0.1 /100{WBC} 0-0.5 [facility] Opiates [Presence] in Urine by Screen methodOrdered By: Immoncho Barnes on 11-09-2023 Opiates Screen Ql (U) Negative Negative [facility] Partial Thromboplastin Timeo n 11-09-2023 aPTT Coag (Bld) [Time] 32.5 s Normal 25.1-36.5 [facility] Comment on above: Result Comment: A he matocrit value greater than 55% may lead to inaccurate results in coagulation testing. Patients having hematocrit values >55% require a special collection tube for coagulation studies. Please contact the laboratory at [phone] for redraw instructions. PERFORMED BY: [place] [address] PATHOLOGIST DAY CARE TEACHER EVELIN CARTER M.D. Performed By: #### P T, CBC, PTT #### [facility] [address] [place] [address] Phencyclidine Screen Ql (U)O rdered By: Immoncho Barnes on 11-09-2023 Phencyclidine Ql (U) Negative Negative [facility] Platelet mean volume [Entiti c volume] in Blood by Automated countOrdered By: Immoncho Asamoncho on 11-09-2023 Platelet mean volume (Bld) [Entitic vol] 6.0 fL Low 6.6-10.1 [facility] Comment on above: Performed By: #### P T, CBC, PTT #### [facility] [address] [place] [address] Platelets [#/volume] in Bloo d by Automated countOrdered By: Imad Asaad on 11-09-2023 Platelets (Bld) [#/Vol] 246 10*3/uL Normal 150-450 [facility] Comment on above: Performed By: #### P T, CBC, PTT #### [facility] [address] [place] [address] Prothrombin time (PT)Ordered By: Imad Asaad on 11-09-2023 PT Coag (PPP) [Time] 14.7 s High 9.0-12.9 [facility] Comment on above: A hematocrit value g reater than 55% may lead to inaccurate results in coagulation testing. Patients having hematocrit values >55% require a special collection tube for coagulation studies. Please contact the laboratory at [phone] for redraw instructions. Result Comment: A he matocrit value greater than 55% may lead to inaccurate results in coagulation testing. Patients having hematocrit values >55% require a special collection tube for coagulation studies. Please contact the laboratory at [phone] for redraw instructions. Performed By: #### P T, CBC, PTT #### [address] Documentationon 11-05-2023 Documentation [id number] IvelisseireKaitlyn R 1950 Date Provider Department Center 11/05/2023 GERALD FRANK HVCANTICALYSSA [facility] Family History Family history unknown: Yes Reason for Visit and Comments: Anticoagulation [8] Normal [facility] Anticoagulation - Warfarin [facility] 10-31-2023 Anticoagulation - Warfarin Visit [id number] AlkireKaitlyn R 1950 M Date Provider Department Center 10/31/2023 Xiomy6NAA PHELPS HVCANTICOARobyn [facility] Family History Family history unknown: Yes Normal [facility] Documentationon 10-25-2023 Documentation [id number] Alkire,Kaitlyn R 1950 Date Provider Department Center 10/25/2023 GERALD FRANKTICALYSSA [facility] Family History Family history unknown: Yes Normal [facility] Anticoagulation - Warfarin [facility] 10-16-2023 Anticoagulation - Warfarin Visit [id number] AlkireKaitlyn R 1950 M Date Provider Department Center 10/16/2023 [id number] GASTON HVCANTICOARobyn [facility] Family History Family history unknown: Yes Normal [facility] Anticoagulation - Warfarin [facility] 09-20-2023 Anticoagulation - Warfarin Visit [id number] AlkireKaitlyn R 1950 M Date Provider Department Center 09/20/2023 GERALD FRANK [facility]VCANTICOARobyn [facility] Family History Family history unknown: Yes Normal [facility] Activated partial thrombopla stin time (aPTT) in platelet poor plasma by coagulation aOrdered By: Godwin Barnes on 05-03-2023 aPTT Coag (PPP) [Time] 46.9 s 25.1-36.5 [facility] Comment on above: A hematocrit value g reater than 55% may lead to inaccurate results in coagulation testing. Patients having hematocrit values >55% require a special collection tube for coagulation studies. Please contact the laboratory at [phone] for redraw instructions. Basophils Auto (Bld) [#/Vol] Ordered By: ad Cameron on 05-03-2023 Basophils (Bld) [#/Vol] 0.1 10*3/uL 0.0-0.2 [facility] Basophils/100 WBC Auto (Bld) Ordered By: ad Asaad on 05-03-2023 Basophils/100 WBC (Bld) 0.8 % . [facility] Eosinophils Auto (Bld) [#/Vo l]Ordered By: ad Asaad on 05-03-2023 Eosinophils (Bld) [#/Vol] 0.5 10*3/uL 0.0-0.45 [facility] Eosinophils/100 WBC Auto (Bl d)Ordered By: Imad Asaad on 05-03-2023 Eosinophils/100 WBC (Bld) 6.5 % . [facility] Erythrocyte distribution wid th Auto (RBC) [Ratio]Ordered By: Imad Asaad on 05-03-2023 Erythrocyte distribution width (RBC) [Ratio] 14.3 % 12.0-14.8 [facility] Glucose Glucometer (BldC) [M ass/Vol]Ordered By: [facility] Cameron on 05-03-2023 Glucose [Mass/Vol] 88 mg/dL [facility] Comment on above: Random Glucose Refer ence Range is dependent on time and content of last meal. Glucose of more than 200 mg/dL in a nonstressed, ambulatory subject supports the diagnosis of Diabetes Mellitus. Hematocrit Auto (Bld) [Volum e fraction]Ordered By: Imad Luis Mad on 05-03-2023 Hematocrit (Bld) [Volume fraction] 46.0 % 38.8-50.0 [facility] Hemoglobin [Mass/volume] in BloodOrdered By: Godwin Barnes on 05-03-2023 Hemoglobin (Bld) [Mass/Vol] 15.4 g/dL 13.0-17.0 [facility] INR in Platelet poor plasma by Coagulation assayOrdered By: Godwin Barnes on 05-03-2023 INR Coag (PPP) [Relative time] 2.3 {INR} [facility] Comment on above: INR Therapeutic Rang [...] with mechanical heart valves: 3 - 4.5 Leukocytes [#/volume] correc nicole for nucleated erythrocytes in Blood by Automated counOrdered By: moncho Barnes on 05-03-2023 WBC corrected for nucl RBC Auto (Bld) [#/Vol] 8.0 10*3/uL 4.1-10.5 [facility] Lymphocytes Auto (Bld) [#/Vo l]Ordered By: moncho Barnes on 05-03-2023 Lymphocytes (Bld) [#/Vol] 2.2 10*3/uL 1.00-4.8 [facility] Lymphocytes/100 WBC Auto (Bl d)Ordered By: moncho Barnes on 05-03-2023 Lymphocytes/100 WBC (Bld) 27.0 % . [facility] MCH Auto (RBC) [Entitic mass ]Ordered By: moncho Barnes on 05-03-2023 MCH (RBC) [Entitic mass] 30.6 pg 27.5-35.2 [facility] MCHC Auto (RBC) [Mass/Vol]Or dered By: ad Asaad on 05-03-2023 MCHC (RBC) [Mass/Vol] 33.6 g/dL 32.5-35.6 [facility] MCV Auto (RBC) [Entitic vol] Ordered By: ad Asaad on 05-03-2023 MCV (RBC) [Entitic vol] 91.3 fL 83.5-101 [facility] Monocytes Auto (Bld) [#/Vol] Ordered By: Imad Asaad on 05-03-2023 Monocytes (Bld) [#/Vol] 0.7 10*3/uL 0.0-0.8 [facility] Monocytes/100 WBC Auto (Bld) Ordered By: Imad Asaad on 05-03-2023 Monocytes/100 WBC (Bld) 8.9 % . [facility] Neutrophils Auto (Bld) [#/Vo l]Ordered By: Imad Asaad on 05-03-2023 Neutrophils (Bld) [#/Vol] 4.5 10*3/uL 1.8-7.7 [facility] Neutrophils/100 WBC Auto (Bl d)Ordered By: Imad Asaad on 05-03-2023 Neutrophils/100 WBC (Bld) 56.8 % . [facility] No Panel InformationOrdered By: Imad Asaad on 05-03-2023 Bedside Glucose Comment Glu2: cleaned meter [facility] Nucleated erythrocytes [Pres ence] in Blood by Automated countOrdered By: Imad Asaad on 05-03-2023 Nucleated RBC Auto Ql (Bld) 0.2 /100{WBC} 0-0.5 [facility] Platelet mean volume Auto (B ld) [Entitic vol]Ordered By: Imad Asaad on 05-03-2023 Platelet mean volume (Bld) [Entitic vol] 6.8 fL 6.6-10.1 [facility] Platelets Auto (Bld) [#/Vol] Ordered By: Imad Asaad on 05-03-2023 Platelets (Bld) [#/Vol] 207 10*3/uL 150-450 [facility] Prothrombin time (PT)Ordered By: Imad Asaad on 05-03-2023 PT Coag (PPP) [Time] 27.5 s 9.0-12.9 [facility] Comment on above: A hematocrit value g reater than 55% may lead to inaccurate results in coagulation testing. Patients having hematocrit values >55% require a special collection tube for coagulation studies. Please contact the laboratory at [phone] for redraw instructions. RBC Auto (Bld) [#/Vol]Ordere d By: Imad Asaad on 05-03-2023 RBC (Bld) [#/Vol] 5.03 10*6/uL 3.90-5.60 [facility] WBC Auto (Bld) [#/Vol]Ordere d By: Godwin Barnes on 05-03-2023 WBC (Bld) [#/Vol] 8.0 10*3/uL 4.1-10.5 [facility] XR CHEST 2 Von 04-19-2022 XR [...] ANDREW WALTERS Date: 2022-04-19 09:06 Normal [facility] CBC AUTO DIFFon 04-11-2022 BASO # 0.0 103/ul Normal 0.0-0.1 [facility] Comment on above: Performed By: #### C BC #### [facility] [address] [place] [address] Dr. Georgia Calle Basophils/100 WBC (Bld) 0.5 % Normal 0.2-2.0 [facility] Comment on above: Performed By: #### C BC #### [facility] [address] [address] [address] Georgia Calle EO # 0.4 103/ul Normal 0.0-0.7 [facility] Comment on above: Performed By: #### C BC #### [facility] [address] [place] [address] Dr. Georgia Calle Eosinophils/100 WBC (Bld) 6.1 % Normal 0.9-7.0 [facility] Comment on above: Performed By: #### C BC #### [facility] [address] [place] [address] Dr. Georgia Calle Erythrocyte distribution width (RBC) [Ratio] 13.1 % Normal 11.0-15.0 [facility] Comment on above: Performed By: #### C BC #### [facility] [address] [place] [address] Dr. Georgia Calle Hematocrit (Bld) [Volume fraction] 40.0 % Critically low 42.0-54.0 [facility] Comment on above: Performed By: #### C BC #### [facility] [address] [place] [address] Dr. Georgia Calle Hemoglobin (Bld) [Mass/Vol] 13.1 g/dL Critically low 14.0-18.0 [facility] Comment on above: Performed By: #### C BC #### [facility] [address] [place] [address] Dr. Georgia Calle IG # 0.01 10e3/ul Normal 0.00-0.03 [facility] Comment on above: Performed By: #### C BC #### [facility] [address] [place] [address] Dr. Georgia Calle IG % 0.2 % Normal 0.0-0.5 [facility] Comment on above: Performed By: #### C BC #### [facility] [address] [place] [address] Dr. Georgia Calle LYMPH # 1.5 103/ul Normal 1.2-3.8 [facility] Comment on above: Performed By: #### C BC #### [facility] [address] [place] [address] Dr. Georgia Calle Lymphocytes/100 WBC (Bld) 25.7 % Normal 20.5-60.0 [facility] Comment on above: Performed By: #### C BC #### [facility] [address] [place] [address] Dr. Georgia Calle MANUAL DIFF REQ NO Normal [facility] Comment on above: Performed By: #### C BC #### [facility] [address] [address] [address] Georgia Calle MCH (RBC) [Entitic mass] 30.0 pg Normal 25.9-34.0 [facility] Comment on above: Performed By: #### C BC #### [facility] [address] [place] [address] Dr. Georgia Calle MCHC (RBC) [Mass/Vol] 32.8 g/dL Normal 29.9-35.2 [facility] Comment on above: Performed By: #### C BC #### [facility] [address] [place] [address] Dr. Georgia Calle MCV (RBC) [Entitic vol] 91.5 fL Normal 80.0-94.0 [facility] Comment on above: Performed By: #### C BC #### [facility] [address] [place] [address] Dr. Georgia Calle MONO # 0.5 103/ul Normal 0.3-0.8 [facility] Comment on above: Performed By: #### C BC #### [facility] [address] [place] [address] Dr. Georgia Calle Monocytes/100 WBC (Bld) 8.2 % Normal 1.7-12.0 [facility] Comment on above: Performed By: #### C BC #### [facility] [address] [place] [address] Dr. Georgia Calle NEUT # 3.4 103/ul Normal 1.4-6.5 [facility] Comment on above: Performed By: #### C BC #### [facility] [address] [place] [address] Dr. Georgia Calle Neutrophils/100 WBC (Bld) 59.3 % Normal 43.0-75.0 [facility] Comment on above: Performed By: #### C BC #### [facility] [address] [place] [address] Dr. Georgia Calle Platelet mean volume (Bld) [Entitic vol] 8.8 fL Critically low 9.5-13.5 [facility] Comment on above: Performed By: #### C BC #### [facility] [address] [address] [address] Georgia Calle PLT 168 103/ul Normal 150-450 [facility] Comment on above: Performed By: #### C BC #### [facility] [address] [address] [address] Georgia Calle RBC 4.37 106/ul Critically low 4.70-6.10 [facility] Comment on above: Performed By: #### C BC #### [facility] [address] [address] [address] Georgia Calle WBC 5.7 103/ul Normal 4.0-11.0 [facility] Comment on above: Performed By: #### C BC #### [facility] [address] [place] [address] Dr. Georgia Calle Covid-19 PCR (CVDTB)on 03-28 SARS-CoV-2 (COVID-19) RNA VERÓNICA+probe Ql (Unsp spec) Not detected Normal NOT DETECTED [facility] Comment on above: Result Comment: This test is not yet approved or cleared by the [place] FDA. When there are no FDA-approved or cleared tests available, and other criteria are met, FDA can make tests available under an emergency access mechanism called an Emergency Use Authorization (EUA). The EUA for this test is supported by the [employer] of Health and Human Service's (HHS's) declaration [...] SARS-CoV-2. Performed By: #### C VDTBH #### [facility] [address] [place] [address] Dr. Georgia Calle PROF CHEM 8 (BAS METB)on Anion gap [Moles/Vol] 9.9 mmol/L Normal [facility] Comment on above: Performed By: #### B MP #### [facility] [address] [place] [address] Dr. Georgia Calle Calcium [Mass/Vol] 9.5 mg/dL Normal 8.5-10.1 [facility] Comment on above: Performed By: #### B MP #### [facility] [address] [place] [address] Dr. Georgia Calle Chloride [Moles/Vol] 103 mmol/L Normal 98-107 [facility] Comment on above: Performed By: #### B MP #### [facility] [address] [place] [address] Dr. Georgia Calle CO2 [Moles/Vol] 30.4 mmol/L Normal 21.0-32.0 [facility] Comment on above: Performed By: #### B MP #### [facility] [address] [place] [address] Dr. Georgia Calle Creatinine [Mass/Vol] 0.89 mg/dL Normal 0.70-1.30 [facility] Comment on above: Performed By: #### B MP #### [facility] [address] [place] [address] Dr. Georgia Calle EGFR-AF SERBIAN >60 Normal >=60 [facility] Comment on above: Performed By: #### B MP #### [facility] [address] [place] [address] Dr. Georgia Calle EGFR-NON AF SERBIAN >60 Normal >=60 [facility] Comment on above: Performed By: #### B MP #### [facility] [address] [place] [address] Dr. Georgia Calle Glucose [Mass/Vol] 92 mg/dL Normal 74-106 [facility] Comment on above: Performed By: #### B MP #### [facility] [address] [place] [address] Dr. Georgia Calle Potassium [Moles/Vol] 4.3 mmol/L Normal 3.5-5.1 [facility] Comment on above: Performed By: #### B MP #### [facility] [address] [place], [place] [address] Dr. Georgia Calle Sodium [Moles/Vol] 139 mmol/L Normal 136-145 [facility] Comment on above: Performed By: #### B MP #### [facility] [address] [place], [place] [address] Dr. Georgia Calle Urea nitrogen [Mass/Vol] 19.0 mg/dL Critically high 7.0-18.0 [facility] Comment on above: Performed By: #### B MP #### [facility] [address] [place], [place] [address] Dr. Georgia Calle Urea nitrogen/Creatinine [Mass ratio] 21.3 mg/mg Normal [facility] Comment on above: Performed By: #### B MP #### [facility] [address] [place], [place] [address] Dr. Georgia Calle ECHOCARDIO M/2D COMPLETEon 1 05-29-2021 ECHOCARDIO M/2D COMPLETE Patient: KAITLYN JORDAN Exam Date: 03/29/2022 : 1950 Gender:M Ordering : JAMES CRAIN Admission #: [id number] Family : Order #: [id number] CLICK HERE TO VIEW EXAM ECHOCARDIOGRAM REPORT [...] Area (VTI): 2.31 cm2, 2.31 cm2 Deceleration Maries: 2.16 m/s2 Pressure Half-Time: 525.28 ms Peak [...] Danny Ta M.D. on 03/29/2022 at 16:13 [facility] Vital Signs Date Time Vital Sign Value Performing Clinician Facility 07-28-2024 14:08-0500 Body height 185.4 cm Alejandro Pro MD Work Phone: [facility] 07-28-2024 14:08-0500 Body mass index (BMI) [Ratio] 25.73 kg/m2 Alejandro Pro MD Work Phone: [facility] 07-28-2024 14:08-0500 Body weight 88.45 kg Alejandro Pro MD Work Phone: [facility] 07-28-2024 14:08-0500 Diastolic blood pressure 66 mm[Hg] Alejandro Pro MD Work Phone: [facility] 07-28-2024 14:08-0500 Heart rate 86 /min Alejandro Pro MD Work Phone: [facility] 07-28-2024 14:08-0500 SaO2% (BldA) [Mass fraction] 97 % Alejandro Pro MD Work Phone: [facility] 07-28-2024 14:08-0500 Systolic blood pressure 126 mm[Hg] Alejandro Pro MD Work Phone: [facility] 07-23-2024 13:09-0500 Body height 185.4 cm Kemal Stone MD Work Phone: [facility] 07-23-2024 13:09-0500 Body mass index (BMI) [Ratio] 25.73 kg/m2 Kemal Stone MD Work Phone: [facility] 07-23-2024 13:09-0500 Body weight 88.45 kg Kemal Stone MD Work Phone: [facility] 07-23-2024 13:09-0500 Diastolic blood pressure 80 mm[Hg] Kemal Stone MD Work Phone: [facility] 07-23-2024 13:09-0500 Systolic blood pressure 128 mm[Hg] Kemal Stone MD Work Phone: [facility] 06-30-2024 11:16-0500 Body height 185.4 cm Alejandro Pro MD Work Phone: [facility] 06-30-2024 11:16-0500 Body mass index (BMI) [Ratio] 25.33 kg/m2 Alejandro Pro MD Work Phone: [facility] 06-30-2024 11:16-0500 Body weight 87.09 kg Alejandro Pro MD Work Phone: [facility] 06-30-2024 11:16-0500 Diastolic blood pressure 76 mm[Hg] Alejandro Pro MD Work Phone: [facility] 06-30-2024 11:16-0500 Heart rate 84 /min Alejandro Pro MD Work Phone: [facility] 06-30-2024 11:16-0500 SaO2% (BldA) [Mass fraction] 97 % Alejandro Pro MD Work Phone: [facility] 06-30-2024 11:16-0500 Systolic blood pressure 122 mm[Hg] Alejandro Pro MD Work Phone: [facility] 06-02-2024 14:05-0500 Body height 185.4 cm Nakita PETERS Work Phone: [facility] 06-02-2024 14:05-0500 Body mass index (BMI) [Ratio] 24.94 kg/m2 Nakita Hemmer PA Work Phone: [facility] 06-02-2024 14:05-0500 Body weight 85.73 kg Nakita Hemmer PA Work Phone: [facility] 06-02-2024 14:05-0500 Diastolic blood pressure 66 mm[Hg] Nakita Hemmer PA Work Phone: [facility] 06-02-2024 14:05-0500 Heart rate 103 /min Nakita Hemmer PA Work Phone: [facility] 06-02-2024 14:05-0500 Respiratory rate 16 /min Nakita Hemmer PA Work Phone: [facility] 06-02-2024 14:05-0500 SaO2% (BldA) [Mass fraction] 97 % Nakita Hemmer PA Work Phone: [facility] 06-02-2024 14:05-0500 Systolic blood pressure 112 mm[Hg] Nakita Hemmer PA Work Phone: [facility] 05-08-2024 08:32-0500 Body height 188 cm Alejandro Pro MD Work Phone: [facility] 05-08-2024 08:32-0500 Body mass index (BMI) [Ratio] 25.04 kg/m2 Alejandro Pro MD Work Phone: [facility] 05-08-2024 08:32-0500 Body temperature 98.29 [degF] Alejandro Pro MD Work Phone: [facility] 05-08-2024 08:32-0500 Body weight 88.45 kg Alejandro Pro MD Work Phone: [facility] 05-08-2024 08:32-0500 Diastolic blood pressure 64 mm[Hg] Alejandro Pro MD Work Phone: [facility] 05-08-2024 08:32-0500 Heart rate 78 /min Alejandro Pro MD Work Phone: [facility] 05-08-2024 08:32-0500 SaO2% (BldA) [Mass fraction] 96 % Alejandro Pro MD Work Phone: [facility] 05-08-2024 08:32-0500 Systolic blood pressure 120 mm[Hg] Alejandro Pro MD Work Phone: [facility] 04-07-2024 13:11-0500 Body height 188 cm Alejandro Pro MD Work Phone: [facility] 04-07-2024 13:11-0500 Body mass index (BMI) [Ratio] 25.42 kg/m2 Alejandro Pro MD Work Phone: [facility] 04-07-2024 13:11-0500 Body weight 89.81 kg Alejandro Pro MD Work Phone: [facility] 04-07-2024 13:11-0500 Diastolic blood pressure 66 mm[Hg] Alejandro Pro MD Work Phone: [facility] 04-07-2024 13:11-0500 Heart rate 75 /min Alejandro Pro MD Work Phone: [facility] 04-07-2024 13:11-0500 SaO2% (BldA) [Mass fraction] 97 % Alejandro Pro MD Work Phone: [facility] 04-07-2024 13:11-0500 Systolic blood pressure 118 mm[Hg] Alejandro Pro MD Work Phone: [facility] 04-02-2024 11:24-0500 Body height 188 cm Alejandro Pro MD Work Phone: [facility] 04-02-2024 11:24-0500 Body mass index (BMI) [Ratio] 25.42 kg/m2 Alejandro Pro MD Work Phone: [facility] 04-02-2024 11:24-0500 Body weight 89.81 kg Alejandro Pro MD Work Phone: [facility] 04-02-2024 11:24-0500 Diastolic blood pressure 66 mm[Hg] Alejandro Pro MD Work Phone: [facility] 04-02-2024 11:24-0500 Heart rate 75 /min Alejandro Pro MD Work Phone: [facility] 04-02-2024 11:24-0500 SaO2% (BldA) [Mass fraction] 97 % Alejandro Pro MD Work Phone: [facility] 04-02-2024 11:24-0500 Systolic blood pressure 122 mm[Hg] Alejandro Pro MD Work Phone: [facility] 03-03-2024 10:55-0400 Body mass index (BMI) [Ratio] 25.11 kg/m2 Alejandro Pro MD Work Phone: [facility] 03-03-2024 10:55-0400 Body weight 88.72 kg Alejandro Pro MD Work Phone: [facility] 03-03-2024 10:55-0400 Diastolic blood pressure 65 mm[Hg] Alejandro Pro MD Work Phone: [facility] 03-03-2024 10:55-0400 Heart rate 72 /min Alejandro Pro MD Work Phone: [facility] 03-03-2024 10:55-0400 Respiratory rate 17 /min Alejandro Pro MD Work Phone: [facility] 03-03-2024 10:55-0400 SaO2% (BldA) [Mass fraction] 97 % Alejandro Pro MD Work Phone: [facility] 03-03-2024 10:55-0400 Systolic blood pressure 105 mm[Hg] Alejandro Pro MD Work Phone: [facility] 12-25-2023 10:29-0400 Body height 187.96 cm II Alejandro Pro Work Phone: [facility] 12-25-2023 10:29-0400 Body mass index (BMI) [Ratio] 25.4 kg/m2 II Alejandro Pro Work Phone: [facility] 12-25-2023 10:29-0400 Body weight 89.81 kg II Alejandro Pro Work Phone: [facility] 12-25-2023 10:29-0400 Diastolic blood pressure 67 mm[Hg] II Alejandro Pro Work Phone: [facility] 12-25-2023 10:29-0400 Heart rate 84 /min II Alejandro Pro Work Phone: [facility] 12-25-2023 10:29-0400 SaO2% (BldA) [Mass fraction] 95 % II Alejandro Pro Work Phone: [facility] 12-25-2023 10:29-0400 Systolic blood pressure 111 mm[Hg] II Alejandro Pro Work Phone: [facility] 11-09-2023 11:10-0400 Diastolic blood pressure 69 mm[Hg] II Alejandro Pro Work Phone: [facility] 11-09-2023 11:10-0400 Heart rate 78 /min II Alejandro Pro Work Phone: [facility] 11-09-2023 11:10-0400 Respiratory rate 16 /min II Alejandro Pro Work Phone: [facility] 11-09-2023 11:10-0400 SaO2% (BldA) [Mass fraction] 94 % II Alejandro Pro Work Phone: [facility] 11-09-2023 11:10-0400 Systolic blood pressure 113 mm[Hg] II Alejandro Pro Work Phone: [facility] 11-09-2023 08:30-0400 Body height 187.96 cm II Alejandro Pro Work Phone: [facility] 11-09-2023 08:30-0400 Body temperature 98.1 [degF] II Alejandro Pro Work Phone: [facility] 11-09-2023 08:30-0400 Body weight 90.7 kg II Alejandro Pro Work Phone: [facility] 05-03-2023 13:15-0500 Diastolic blood pressure 63 mm[Hg] II Alejandro Pro Work Phone: [facility] 05-03-2023 13:15-0500 Heart rate 69 /min II Alejandro Pro Work Phone: [facility] 05-03-2023 13:15-0500 Respiratory rate 18 /min II Alejandro Pro Work Phone: [facility] 05-03-2023 13:15-0500 SaO2% (BldA) [Mass fraction] 98 % II Alejandro Pro Work Phone: [facility] 05-03-2023 13:15-0500 Systolic blood pressure 102 mm[Hg] II Alejandro Pro Work Phone: [facility] 05-03-2023 10:41-0500 Body height 187.96 cm II Alejandro Pro Work Phone: [facility] 05-03-2023 10:41-0500 Body temperature 97.7 [degF] II Alejandro Pro Work Phone: [facility] 05-03-2023 10:41-0500 Body weight 90.71 kg II Alejandro Pro Work Phone: [facility] 12-19-2022 10:15-0400 Body height Katienell Eldridge Other [employer] Other 12-19-2022 10:15-0400 Body mass index (BMI) [Ratio] 26.06 kg/m2 Katie Eldridge Other [employer] Other 12-19-2022 10:15-0400 Body weight 92.08 kg Katie Eldridge Other [employer] Other 12-19-2022 10:15-0400 Diastolic blood pressure 56 mm[Hg] Katie Eldridge Other [employer] Other 12-19-2022 10:15-0400 SaO2% (BldA) [Mass fraction] 96 % Katie Eldridge Other [employer] Other 12-19-2022 10:15-0400 Systolic blood pressure 94 mm[Hg] Katie Eldridge Other [employer] Other 12-22-2021 14:00-0400 Body height Enrique Dell Other [employer] Other 12-22-2021 14:00-0400 Body mass index (BMI) [Ratio] 26.13 kg/m2 Enrique Sharpe Other [employer] Other 12-22-2021 14:00-0400 Body temperature 98 [degF] Enrique Sharpe Other [employer] Other 12-22-2021 14:00-0400 Body weight 92.31 kg Enrique Dell Other [employer] Other 12-22-2021 14:00-0400 Diastolic blood pressure 69 mm[Hg] Enrique Sharpe Other [employer] Other 12-22-2021 14:00-0400 SaO2% (BldA) [Mass fraction] 96 % Enrique Sharpe Other [employer] Other 12-22-2021 14:00-0400 Systolic blood pressure 111 mm[Hg] Enrique Sharpe Other [employer] Other Encounters Encounter Date Encounter Type Care Provider Facility Start: 09-08-2024 End: 09-08-2024 Kory Pro MD Work Phone: [facility] Start: 09-08-2024 End: 09-08-2024 Kory Pro MD Work Phone: [facility] Start: 09-08-2024 End: 09-08-2024 ambulatory ALEJANDRO PRO Not Available Start: 08-27-2024 End: 08-27-2024 Refill Kemal Stone MD Work Phone: [facility] Comment on above: Cervical dystonia Start: 08-14-2024 End: 08-14-2024 Patient encounter procedure Alejandro Pro II Work Phone: [facility] [address] Work Phone: Start: 08-14-2024 End: 08-14-2024 ambulatory Alejandro Pro II Work Phone: [facility] Work Phone: Start: 08-05-2024 End: 08-05-2024 ambulatory [facility] Start: 08-04-2024 End: 08-04-2024 ambulatory ALEJANDRO PRO Not Available Start: 07-28-2024 End: 07-28-2024 Office outpatient visit 25 minutes Alejandro Pro MD Work Phone: [facility] Comment on above: Polyarticular arthri tis (Primary Dx); Type 2 diabetes mellitus with other circulatory complication, 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); Chronic diastolic (congestive) heart failure (CMS/HCC); Paroxysmal atrial fibrillation (CMS/HCC) Start: 07-28-2024 End: 07-28-2024 ambulatory ALEJANDRO PRO Not Available Start: 07-28-2024 End: 07-28-2024 Bamboo flowsjordyn Pro MD Work Phone: [facility] Start: 07-28-2024 End: 07-28-2024 Bamboo flowsjordyn Pro MD Work Phone: [facility] Start: 07-23-2024 End: 07-23-2024 Bamboo flowsheet Kemal Stone MD Work Phone: [facility] Start: 07-23-2024 End: 07-23-2024 Bamboo flowsheet Kemal Stone MD Work Phone: [facility] Start: 07-23-2024 End: 07-23-2024 Office outpatient visit 25 minutes Kemal Stone MD Work Phone: [facility] Comment on above: Lyme disease (Primar y Dx); Bilateral carpal tunnel syndrome; Parkinsonism, unspecified Parkinsonism type (CMS/HCC); Cervical dystonia; Lumbar radiculopathy Start: 07-23-2024 End: 07-23-2024 ambulatory KEMAL STONE Not Available Start: 06-30-2024 End: 06-30-2024 Bamboo flowsheet Alejandro Pro MD Work Phone: [facility] Start: 06-30-2024 End: 06-30-2024 Bamboo flowsheet Alejandro Pro MD Work Phone: [facility] Start: 06-30-2024 End: 06-30-2024 ambulatory ALEJANDRO PRO Not Available Start: 06-30-2024 End: 06-30-2024 Office outpatient visit 25 minutes Alejandro Pro MD Work Phone: [facility] Comment on above: Polyarticular arthri tis (Primary Dx); Type 2 diabetes mellitus with other circulatory complication, 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); Acute Lyme disease; Cervical dystonia; Bilateral arm weakness Start: 06-02-2024 End: 06-02-2024 Bamboo flowsheet Nakita PETERS Work Phone: [facility] Start: 06-02-2024 End: 06-02-2024 Bamboo flowsheet Nakita PETERS Work Phone: [facility] Start: 06-02-2024 End: 06-02-2024 Office outpatient visit 25 minutes Nakita PETERS Work Phone: [facility] Comment on above: Polyarticular arthri tis (Primary Dx); Type 2 diabetes mellitus with other circulatory complication, 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); Acute Lyme disease; Trouble in sleeping Start: 06-02-2024 End: 06-02-2024 ambulatory NAKITA BALDWIN Not Available Start: 05-08-2024 End: 05-08-2024 Bamboo flowsheet Alejandro Pro MD Work Phone: [facility] Start: 05-08-2024 End: 05-08-2024 Bamboo flowsheet Alejandro Pro MD Work Phone: [facility] Start: 05-08-2024 End: 05-08-2024 Office outpatient visit 25 minutes Alejandro Pro MD Work Phone: [facility] Comment on above: Polyarticular arthri tis (Primary Dx) Start: 05-08-2024 End: 05-08-2024 ambulatory ALEJANDRO PRO Not Available Start: 04-07-2024 End: 04-07-2024 Office outpatient visit 15 minutes Alejandro Pro MD Work Phone: [facility] Comment on above: Polyarticular arthri tis (Primary Dx) Start: 04-07-2024 End: 04-07-2024 ambulatory ALEJANDRO PRO Not Available Start: 04-02-2024 End: 04-02-2024 Bamboo flowsjordyn Pro MD Work Phone: [facility] Start: 04-02-2024 End: 04-02-2024 Bamboo flowsjordyn Pro MD Work Phone: [facility] Start: 04-02-2024 End: 04-02-2024 Office outpatient visit 15 minutes Alejandro Pro MD Work Phone: [facility] Comment on above: Polyarticular arthri tis (Primary Dx) Start: 04-02-2024 End: 04-02-2024 ambulatory ALEJANDRO PRO Not Available Start: 03-03-2024 End: 03-03-2024 Bamboo flowsheet Alejandro Pro MD Work Phone: [facility] Start: 03-03-2024 End: 03-03-2024 Bamboo flowsheet Alejandro Pro MD Work Phone: [facility] Start: 03-03-2024 End: 03-03-2024 Assay of hemosiderin, quant Alejandro Pro MD Work Phone: [facility] Work Phone: Start: 03-03-2024 End: 03-03-2024 Patient encounter procedure Alejandro Pro MD Work Phone: [facility] Comment on above: Routine general medi ramesh examination at health care facility (Primary Dx); Type 2 diabetes mellitus with other circulatory complication, 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); Benign hypertension ([facility]/HCC); Chronic systolic heart failure (CMS/HCC); Paroxysmal atrial fibrillation ([facility]/HCC); Atherosclerosis of coronary artery of e[place]ayp heart, unspecified vessel or lesion type, unspecified whether angina present ([facility]/HCC) Start: 03-03-2024 End: 03-03-2024 ambulatory ALEJANDRO PRO Not Available Start: 01-08-2024 End: 01-08-2024 ambulatory [facility] Start: 12-25-2023 End: 12-25-2023 ambulatory II Alejandro Pro Work Phone: [facility] Work Phone: Start: 12-25-2023 End: 12-25-2023 Patient encounter procedure II Alejandro Pro Work Phone: [facility] Work Phone: Start: 12-14-2023 ambulatory GERALD [facility] Start: 12-11-2023 End: 12-11-2023 ambulatory JAMES [facility] Start: 11-15-2023 End: 11-15-2023 ambulatory ALEJANDRO PRO Not Available Start: 11-14-2023 Non-patient / Non-visit II Chad Pro Work Phone: [facility] Work Phone: Start: 11-09-2023 Non-patient / Non-visit II Chad Pro Work Phone: [facility] Work Phone: Start: 11-09-2023 End: 11-09-2023 Admission to same day surgery center II Alejandro Pro Work Phone: [facility] Work Phone: Start: 11-09-2023 End: 11-09-2023 ambulatory II Alejandro Pro Work Phone: [facility] Work Phone: Start: 05-03-2023 End: 05-03-2023 Admission to same day surgery center II Alejandro Pro Work Phone: [facility] Work Phone: Start: 05-03-2023 End: 05-03-2023 ambulatory II Alejandro Pro Work Phone: [facility] Work Phone: Start: 04-13-2023 End: 04-13-2023 ambulatory Imad Asaad Other [employer] Other Start: 04-13-2023 Telephone encounter Immoncho Barnes [facility] [employer] [employer] Start: 12-19-2022 End: 12-19-2022 ambulatory Katie Eldridge Other [employer] Other Start: 12-19-2022 Office outpatient vi sit 15 minutes Katie Eldridge [facility] Start: 04-18-2022 End: 04-19-2022 ambulatory JAMES CRAIN Facility:[facility] Start: 04-14-2022 Encounter for other preprocedural examination JAMES CRAIN [facility] Start: 04-14-2022 Encounter for preprocedural laboratory examination JAMES CRAIN [facility] Start: 04-11-2022 End: 04-12-2022 ambulatory JAMES CRAIN Facility:[facility] Start: 04-11-2022 End: 04-12-2022 Encounter for other preprocedural examination JAMES CRAIN Facility:[facility] Start: 03-29-2022 End: 03-30-2022 ambulatory JAMES CRAIN Facility: Start: 12-22-2021 End: 12-22-2021 ambulatory Enrique Sharpe Other [facility] [employer] Other Start: 12-22-2021 Office outpatient vi sit 25 minutes Enrique Sharpe [facility] Start: 12-22-2021 End: 12-22-2021 Patient encounter procedure II Alejandro Morteza Work Phone: [facility] Start: 01-21-2018 End: 01-22-2018 Patient encounter YESI HAGER Facility:[facility] Procedures Date Procedure Procedure Detail Performing Clinician Start: 08-14-2024 Plain X-ray of bilat eral hands Alejandro Pro II Work Phone: Start: 07-28-2024 Hemoglobin glycosyla nicole a1c Alejandro Pro MD Work Phone: Start: 06-02-2024 Hemoglobin glycosyla nicole a1c Nakita PETERS Work Phone: Start: 04-10-2024 Assay of blood/uric acid Alejandro Pro MD Work Phone: Start: 11-09-2023 End: 11-09-2023 Colonoscopy II Alejandro Pro Work Phone: Start: 05-03-2023 Colonoscopy II Alejandro Pro Work Phone: Plan of Treatment Date Care Activity Detail Author Start: 11-08-2033 Screening for malign ant neoplasm of colon [facility] Start: 03-26-2026 Screening for malign ant neoplasm of colon FIT-DNA [facility] Start: 05-30-2025 Glaucoma screening Diabetes: R etinopathy Screening [facility] Start: 03-03-2025 Medicare Annual Well ness (AWV) Medicare Annual Wellness (AWV) [facility] Start: 02-26-2025 Urine screening for protein Di abetes: Urine Protein Screening [facility] Start: 10-28-2024 Hemoglobin A1c measurement Penelope betes: Hemoglobin A1C [facility] Start: 09-18-2024 End: 09-18-2024 Patient encounter procedure 09/18/2024 2:00 PM EDT Office Visit [facility] [address] [facility] [address] [place] [address] Kemal Stone MD [address] [facility] [address] [id number] [facility] Start: 09-08-2024 End: 09-08-2024 Patient encounter procedure [facility] Comment on above: Arrived Start: 08-31-2024 Hemoglobin A1c measurement Penelope betes: Hemoglobin A1C [facility] Start: 08-04-2024 End: 08-04-2024 Patient encounter procedure 08/04/2024 12:00 PM EDT Procedure Visit [facility] [address] [address] [facility] Start: 07-28-2024 End: 07-28-2024 Patient encounter procedure [facility] Comment on above: Arrived Start: 07-24-2024 End: 07-23-2025 EMG 2 Extremities EMG 2 Extremities Neurology Routine Bilateral carpal tunnel syndrome Expected: 07/24/2024 (Approximate), Expires: 07/23/2025 [facility] Work Phone: Comment on above: Expected: 07/24/2024 (Approximate), Expires: 07/23/2025 Start: 07-23-2024 End: 07-23-2024 Patient encounter procedure [facility] Comment on above: Arrived Start: 06-02-2024 End: 06-02-2024 Patient encounter procedure 06/02/2024 2:00 PM EST Office Visit [facility] [address] [facility] [address] [place] [id number] Nakita Baldwin PA [address] [facility] [address] [place] [address] Arrived [facility] Comment on above: Arrived Start: 05-29-2024 Hemoglobin A1c measurement Penelope betes: Hemoglobin A1C [facility] Start: 05-08-2024 End: 05-08-2025 B. burgdorferi antibodies B. burgdorferi antibodies Lab Routine Polyarticular arthritis Expected: 05/08/2024 (Approximate), Expires: 05/08/2025 [facility] Work Phone: Comment on above: Expected: 05/08/2024 (Approximate), Expires: 05/08/2025 Start: 05-08-2024 End: 05-08-2025 C reactive protein [Mass/volume] in Serum or Plasma C-reactive protein Lab Routine Polyarticular arthritis Expected: 05/08/2024 (Approximate), Expires: 05/08/2025 [facility] Comment on above: Expected: 05/08/2024 (Approximate), Expires: 05/08/2025 Start: 05-08-2024 End: 05-08-2025 Hepatitis C virus Ab [Presence] in Serum or Plasma by Immunoassay Hepatitis C antibody Lab Routine Polyarticular arthritis Expected: 05/08/2024 (Approximate), Expires: 05/08/2025 [facility] Comment on above: Expected: 05/08/2024 (Approximate), Expires: 05/08/2025 Start: 05-08-2024 End: 05-08-2025 HLA-B27 antigen HLA-B27 antigen Lab Routine Polyarticular arthritis Expected: 05/08/2024 (Approximate), Expires: 05/08/2025 [facility] Comment on above: Expected: 05/08/2024 (Approximate), Expires: 05/08/2025 Start: 05-08-2024 End: 05-08-2024 Patient encounter procedure 05/08/2024 8:45 AM EST Office Visit [facility] [address] [facility] [address] [place] [id number] Alejandro Pro MD [address] [facility] [address] [place] [address] Arrived [facility] Comment on above: Arrived Start: 04-02-2024 End: 04-02-2025 C reactive protein [Mass/volume] in Serum or Plasma C-reactive protein Lab Routine Polyarticular arthritis Expected: 04/02/2024 (Approximate), Expires: 04/02/2025 [facility] Comment on above: Expected: 04/02/2024 (Approximate), Expires: 04/02/2025 Start: 04-02-2024 End: 04-02-2025 Erythrocyte sedimentation rate Sedimentation rate, automated Lab Routine Polyarticular arthritis Expected: 04/02/2024 (Approximate), Expires: 04/02/2025 [facility] Comment on above: Expected: 04/02/2024 (Approximate), Expires: 04/02/2025 Start: 04-02-2024 End: 04-02-2025 Nuclear Ab [Titer] in Serum by Immunofluorescence KAREN Lab Routine Polyarticular arthritis Expected: 04/02/2024 (Approximate), Expires: 04/02/2025 [facility] Comment on above: Expected: 04/02/2024 (Approximate), Expires: 04/02/2025 Start: 04-02-2024 End: 04-02-2025 RHEUMATOID ARTHRITIS DIAGNOSTIC PANEL 3 RHEUMATOID ARTHRITIS DIAGNOSTIC PANEL 3 Lab Routine Polyarticular arthritis Expected: 04/02/2024 (Approximate), Expires: 04/02/2025 [facility] Work Phone: Comment on above: Expected: 04/02/2024 (Approximate), Expires: 04/02/2025 Start: 04-02-2024 End: 04-02-2025 XR Hand - left 2 Views XR hand 1 or 2 views left Imaging Routine Polyarticular arthritis Expected: 04/02/2024, Expires: 04/02/2025 [facility] Comment on above: Expected: 04/02/2024 , Expires: 04/02/2025 Start: 04-02-2024 End: 04-02-2025 XR Wrist - left 3 Views XR wrist 3+ views left Imaging Routine Polyarticular arthritis Expected: 04/02/2024, Expires: 04/02/2025 [facility] Comment on above: Expected: 04/02/2024 , Expires: 04/02/2025 Start: 04-02-2024 End: 04-02-2024 Patient encounter procedure 04/02/2024 11:30 AM EST Office Visit [facility] [address] [facility] [address] [place] [id number] Alejandro Pro MD [address] [facility] [address] [place], [place] [id number] Arrived [facility] Comment on above: Arrived Start: 03-03-2024 End: 03-03-2024 Patient encounter procedure 03/03/2024 10:30 AM EDT Office Visit [facility] [address] [place] [address] [place] [address] Alejandro Pro MD [address] [place] [address] [place] [address] Arrived [facility] Comment on above: Arrived Start: 11-09-2023 [facility] Start: 05-03-2023 [facility] Start: 1950 Medicare Annual Well ness (AWV) Medicare Annual Wellness (AWV) [facility] Start: 1950 Screening for malign ant neoplasm of colon [facility] CBC W Auto Different ial panel - Blood CBC and differential Lab Routine Polyarticular arthritis Ordered: 05/08/2024 [facility] Comment on above: Ordered: 05/08/2024 Patient Education [facility] Work Phone: Immunizations Immunization Date Immunization Notes Care Provider Fa cili 02-04-2024 influenza, high dose seasonal, preservative-free Alejandro Pro MD Work Phone: [facility] 02-04-2024 RSV, recombinant, protein subunit RSVpreF, adjuvant reconstitu, 120mcg/0.5mL, PF (Arexvy) Alejandro Pro MD Work Phone: [facility] 02-06-2023 Influenza, Seasonal, Quadrivalent, Adjuvanted Alejandro Pro MD Work Phone: [facility] 02-06-2023 zoster vaccine recombinant Alejandro Pro MD Work Phone: [facility] 10-03-2022 zoster vaccine recombinant Alejandro Pro MD Work Phone: [facility] 03-20-2022 Influenza, Seasonal, Quadrivalent, Adjuvanted Alejandro Pro MD Work Phone: [facility] 03-20-2022 Seasonal, trivalent, recombinant, injectable influenza vaccine, preservative free Alejandro Pro MD Work Phone: [facility] 02-28-2021 Influenza, Seasonal, Quadrivalent, Adjuvanted Alejandro Pro MD Work Phone: [facility] 01-25-2021 tetanus toxoid, redu vaishali diphtheria toxoid, and acellular pertussis vaccine, adsorbed Alejandro Pro MD Work Phone: [facility] 04-07-2020 influenza, high dose seasonal, preservative-free Alejandro Pro MD Work Phone: [facility] 04-07-2020 pneumococcal polysaccharide vaccine, 23 valent Alejandro Pro MD Work Phone: [facility] 05-06-2019 influenza, injectabl e, quadrivalent, contains preservative Alejandro Pro MD Work Phone: [facility] 04-05-2018 Influenza, High-dose Seasonal, Quadrivalent, Preservative Free Alejandro Pro MD Work Phone: [facility] 04-16-2017 Influenza, High-dose Seasonal, Quadrivalent, Preservative Free Alejandro Pro MD Work Phone: [facility] 02-25-2014 influenza virus vacc ine, split virus (incl. purified surface antigen) Alejandro Pro MD Work Phone: [facility] Work Phone: 11-25-2013 zoster vaccine, live Alejandro Pro MD Work Phone: [facility] 05-28-2011 pneumococcal polysaccharide vaccine, 23 valent Alejandro Pro MD Work Phone: [facility] Payers Date Payer Category Payer Self-pay [id number] 2014 Private Health Insurance [facility] [employer] [id number] 2014 Unknown [employer] [id number] 2014-Present [address] [address] [place] [address] [id number] 2014 Medicare [id number] 1959 Medicare [id number] 1959 Unknown [id number] 1948 Unknown [id number] .593 1948 Unknown [id number] .593 1948 Unknown [id number] [id number] .593 1948 Unknown [id number] [id number] .1259 1948 Unknown [id number] [id number] .1259 1948 Unknown [id number] [id number] .1259 1948 Unknown [id number] [id number] .1259 1948 Unknown [id number] [id number] .1259 1948 Unknown [id number] [id number] .1259 1948 Unknown [id number] [id number] .1259 1948 Unknown [id number] [id number] .1258 1948 Unknown [id number] [id number] .1259 1948 Unknown [id number] [id number] .1259 1948 Unknown [id number] [id number] .1259 Medicare [id number] Unknown [id number] .531 Unknown [id number] .531 Social History Date Type Detail Facility Start: 05-16-2023 End: 03-03-2024 Sex Assigned At [facility] Start: 1950 Sex Assigned At Male [facility] Start: 05-03-2023 End: 07-26-2023 Tobacco smoking status NHIS Ex-smoker (finding) [facility] History of tobacco use Current smoker [facility] History of tobacco use Cigarette Smoker [facility] Start: 07-26-2023 Tobacco use and exposure Smokeless tobacco non-user [facility] Start: 11-15-2023 End: 07-28-2024 Alcoholic beverage intake Current drinker of alcohol (finding) [facility] Start: 05-16-2023 End: 03-03-2024 History of Social function [facility] Within the last year , have you been afraid of your partner or ex-partner? No [facility] How often do you att end holiness or tenriism services? Patient declined [facility] Do you belong to any clubs or organizations such as holiness groups, unions, fraternal or athletic groups, or school groups? Yes [facility] Are you now , , , , never or living with a partner? [facility] How often to you hav e a drink containing alcohol? Monthly or less [facility] How many standard dr preciado containing alcohol do you have on a [...] Only a little [facility] (I/We) worried wheth er (my/our) food would run out before (I/we) got money to buy more. Never true [facility] Start: 03-23-2023 Tobacco Comment Last smoked:>10 years [facility] Start: 03-23-2023 Alcohol Comment 2-4 times a month, caffeine 3-4 cups per day,soda [facility] Start: 11-02-2022 Gender identity Identifies as male gender (finding) [facility] Start: 08-15-2024 Sex Male (finding) [facility] Goals Date Patient Goal Desired Activity /State Clinical Notes 12-22-2021 to 09-08-2024 Alejandro Pro MD - 07/28/2024 2:15 PM Teresa Stone MD - 07/23/2024 1:00 PM Keren Pro MD - 06/30/2024 11:15 AM FRAN Butler - 06/02/2024 2:00 PM EST Note Date & Type Note Facility 09-08-2024 Note Spoke to pt and inst ructed to begin taking xarelto today with food. Pt aware he will need labs in 3 months and we will give reminder call [facility] 09-01-2024 Note Follow-Up Telephone Encounter for Anticoagulation Management Subjective/Objective: INR Performed via Home Monitor: INR 2.4 on 09/01/24 with INR Goal Range: 2-3. Patient Reports: Missed or extra doses: No Changes to medications: No Changes to lifestyle (diet / alcohol / smoking / activity): No Recent health change / ED visit / hospitalization / falls: No Signs/symptoms of bruising or bleeding / clotting or stroke / other HIREN: No Upcoming procedures: Cardioversion 09/17/24 New prescription needed: No Seen referring provider in last 12 months: Yes Assessment: INR is Therapeutic today. Plan: Patient is instructed to take 7.5mg today and re-assess dosing tomorrow. Patient has since received Xarelto from [facility]; will await further recs from Dr. Crain regarding date of transition. Check INR in 7 days. Patient Education: Patient provided with dosing and follow-up instructions. Patient reminded to seek medical attention if experiencing any signs/symptoms of bleeding or clotting. Patient aware to call with questions or changes to medications or medical status. Jhonathan Vital PharmD 09/01/24 [facility] 08-27-2024 Note Follow-Up Telephone Encounter for Anticoagulation Management Subjective/Objective: INR Performed via Home Monitor: INR 5.2 on 08/27/24 with INR Goal Range: 2-3. Patient Reports: Missed or extra doses: No Changes to medications: Started steroid course and piroxicam (Dr. Stone - Neurology) Changes to lifestyle (diet / alcohol / smoking / activity): No Recent health change / ED visit / hospitalization / falls: No Signs/symptoms of bruising or bleeding / clotting or stroke / other HIREN: No Upcoming procedures: No New prescription needed: No Seen referring provider in last 12 months: Yes Assessment: INR is Supratherapeutic today. Plan: Patient is instructed to hold today 08/27, take 2.5mg Clara, 7.5mg Fri, and 5mg Sat/Sun. Check INR in 5 days. Patient Education: Patient provided with dosing and follow-up instructions. Patient reminded to seek medical attention if experiencing any signs/symptoms of bleeding or clotting. Patient aware to call with questions or changes to medications or medical status. Jhonathan Vital PharmD 08/27/24 [facility] 08-13-2024 Note Follow-Up Telephone Encounter for Anticoagulation Management Subjective/Objective: INR Performed via Home Monitor: INR 3.3 on 08/13/24 with INR Goal Range: 2-3. Patient Reports: Missed or extra doses: No Changes to medications: started amiodarone last week Changes to lifestyle (diet / alcohol / smoking / activity): No Recent health change / ED visit / hospitalization / falls: No Signs/symptoms of bruising or bleeding / clotting or stroke / other HIREN: No Upcoming procedures: cardioversion in August New prescription needed: No Seen referring provider in last 12 months: Yes Assessment: INR is Supratherapeutic today. Plan: Patient is instructed to reduce regimen to 7.5 mg MF, 5 mg AOD. Check INR in 2 weeks. Patient Education: Patient provided with dosing and follow-up instructions. Patient reminded to seek medical attention if experiencing any signs/symptoms of bleeding or clotting. Patient aware to call with questions or changes to medications or medical status. Gerald Coyle, PharmD, CACP 08/13/24 [facility] 08-05-2024 Note [place] [facility] Consul t Note Reason for Consultation: Low E TAILER Pacing due to AF with RVR 08/05/24 Patient here for 6 month follow up. He is in Afib. Previously we discussed ablation and he was in SR. He was ion DOAC before but stopped due to high cost. Device check performed on 01/08/2024 shows 1 episode of A-fib that may have been persistent since October 10, 2023 BiV pacing was 90% at that time and has been in it since then. 12/11/23 patient is quite active and walks [...] 12/29/22 shows EF45-50% Device check 04/18/23 shows E TAILER-P 99.9% of time and total Vpacing 88.9% He continues to feel well without complaints of SOB, CP, RHODES, LE edema, palpitations. He continues to be on warfarin without concerns for intolerance or bleeding 02/20/[address] crain HPI: He has been feeling well with no complaints of palpitations, CP, SOB, RHODES, LE edema, Per his device check he continues to have reduced E TAILER due to A-fib. this previous device heck shows less percent of time in A-fib but has less ventricular pacing ECHO: 12/29/22 EF 45-50% 03/2022 shows EF 50% Device check 11/29/22 11/29/2022 11 AF episodes he has been having A-fib for 12 hours/day for 60 days. RA pacing 54%, V pacing 86% with RV hiss lead 06/27/2022: RA pacing 14%, E TAILER 92% RV his lead, A-fib episode noted and was noted for 82% of the time Gen change 03/2022 with RA lead palcement and old Ra lead capped off Prior HPI: Kaitlyn Jordan is a 74 y.o. year old with past medical history [...] check from 07/11/2021 reveals his current Med[employer]onic E TAILER-P device with thresholds are acceptable with an [...] History: Diagnosis Date Atrial fibrillation, unspecified type (CMS/[facility]) 01/24/2022 Atrial flutter (CMS/[facility]) 05/06/2014 Cardiac pacemaker in situ 02/05/2012 Chronic diastolic heart failure (CMS/HCC) 07/04/2019 Conduction disorder of the heart 10/16/2011 Coronary atherosclerosis 10/16/2011 Hyperlipidem (more content not included)... [facility] 07-31-2024 Note Follow-Up Telephone Encounter for Anticoagulation Management Subjective/Objective: INR Performed via Home Monitor: INR 3.0 on 07/30/24 with INR Goal Range: 2-3. Patient Reports: Missed or extra doses: No Changes to medications: Started steroid and cefuroxime; couple days left for lymes disease Changes to lifestyle (diet / alcohol / smoking / activity): No Recent health change / ED visit / hospitalization / falls: No Signs/symptoms of bruising or bleeding / clotting or stroke / other HIREN: No Upcoming procedures: No New prescription needed: No Seen referring provider in last 12 months: Yes Assessment: INR is Therapeutic today. Plan: Patient is instructed to continue 7.5mg Mon/Wed/Fri and 5mg all other days. Check INR in 2 weeks. Patient Education: Patient provided with dosing and follow-up instructions. Patient reminded to seek medical attention if experiencing any signs/symptoms of bleeding or clotting. Patient aware to call with questions or changes to medications or medical status. Jhonathan Vital, Radha [facility] 07-28-2024 History of Present illness Narrative Images from the original note were not included. Subjective Patient ID: Kaitlyn Jordan is a 74 y.o. male who presents for Diabetes. Diabetes Mellitus Patient presents for follow up of diabetes. Current symptoms include: none. Patient denies foot ulcerations, hypoglycemia , paresthesia of the feet, polydipsia, polyuria, and visual disturbances. Evaluation to date has included: fasting blood sugar, fasting lipid panel, hemoglobin A1C, and microalbuminuria. Home sugars: BGs range between 100 and 110. Pt has been taking Xigduo as directed tolerating well Hypertension Patient is here for follow-up of elevated blood pressure. Cardiac symptoms: none. Patient denies chest pain, claudication, exertional chest pressure/discomfort, fatigue, irregular heart beat, lower extremity edema, near-syncope, orthopnea, palpitations, paroxysmal nocturnal dyspnea, syncope, and tachypnea. Cardiovascular risk factors: advanced age (older than 55 for men, 65 for women), diabetes mellitus, hypertension, and male gender. Diabetes Hypoglycemia symptoms include nervousness/anxiousness. Pertinent negatives for diabetes include no chest pain and no fatigue. Congestive Heart Failure Associated symptoms include unexpected weight change. Pertinent negatives include no abdominal pain, chest pain, fatigue, palpitations or shortness of breath. Hypertension Pertinent negatives include no chest pain, palpitations or shortness of breath. Current Outpatient Medications on File Prior to Visit Medication Sig Dispense Refill amantadine (Symmetrel) 100 MG tablet Take 1 tablet (100 mg) by mouth Daily 30 tablet 2 atorvastatin (Lipitor) 80 MG tablet TAKE 1 TABLET BY MOUTH IN THE MORNING 90 tablet 3 biotin (Biotin Maximum Strength) 10 MG tablet TAKE 1 TABLET BY MOUTH TWICE A DAY 180 tablet 3 cefuroxime (Ceftin) 500 MG tablet Take 1 tablet (500 mg) by mouth in the morning and 1 tablet (500 mg) before bedtime. Do all this for 28 days. 56 tablet 0 cetirizine (ZyrTEC ALLERGY) 10 MG tablet Take 10 mg by mouth 1 (one) time each day at the same time. dapagliflozin-metFORMIN ER (Xigduo XR) 5-1000 MG Take 1 tablet by mouth in the morning. Take with meals. 30 tablet 11 fluticasone (Flonase) 50 MCG/ACT nasal spray SPRAY 2 SPRAYS INTO EACH NOSTRIL EVERY DAY 48 mL 2 lisinopril 10 MG tablet Take 1 tablet (10 mg) by mouth Daily 100 tablet 3 metoprolol succinate XL (Toprol-XL) 100 MG 24 hr tablet TAKE 1 TABLET (100 MG) BY MOUTH ONE TIME EACH DAY AT THE SAME TIME 90 tablet 4 montelukast (Singulair) 10 MG tablet Take 1 tablet (10 mg) by mouth at bedtime 100 tablet 3 Multiple Vitamin (Multi-Vitamin) tablet Take 1 tablet by mouth in the morning. omega-3 (Fish Oil) 1000 MG capsule Take 2 capsules by mouth every 12 (twelve) hours. predniSONE (Deltasone) 20 MG tablet 3 pills po daily X3 days, then 2 pills po daily X3 days , then 1 pill po daily X3 days then stop 9 days ,18 pills 18 tablet 1 sildenafil (Viagra) 100 MG tablet Take 100 mg by mouth if needed for erectile dysfunction. tiZANidine (Zanaflex) 4 MG tablet Take 1-2 tablets by mouth every 8 (eight) hours if needed for muscle spasms (not to exceed 3 doses in 24 hours). warfarin (Coumadin) 5 MG tablet TAKE 1 TABLET BY MOUTH SUN, , , SAT. TAKE 7.5MG MON, WED, FRI 102 tablet 5 No current facility-administered medications on file prior to visit. I have reviewed and reconciled the history and medication list with the patient today. No Known Allergies Social History Tobacco Use Smoking status: Former Types: Cigarettes Smokeless tobacco: Never Tobacco comments: Last smoked:>10 years Substance Use Topics Alcohol use: Yes Comment: 2-4 times a month, caffeine 3-4 cups per day,soda Family History Problem Relation Name Age of Onset Cancer Mother Diabetes Mother Parkinsonism Father Heart disease Father Diabetes Sibling Past Medical History: Diagnosis Date Atrial fibrillation (CMS/HCC) 2009 Left inguinal hernia 2019 Pacemaker 03/2022 Pace Maker replaced Type 2 diabetes mellitus (CMS/HCC) Past Surgical History: Procedure Laterality Date CARDIAC PACEMAKER PLACEMENT 2009 CARDIAC PACEMAKER PLACEMENT 2016 COLONOSCOPY W/ POLYPECTOMY 2008 COLONOSCOPY W/ POLYPECTOMY 2004 COLONOSCOPY W/ POLYPECTOMY 05/03/2023 COLONOSCOPY W/ POLYPECTOMY 11/09/2023 EYE EXAM 2012 Diabetes mellitus, type 2 HERNIA REPAIR 05/2019 Left inguinal hernia repair with mesh graft and excision cord lipoma HERNIA REPAIR 10/10/2019 Repair recurrent left inguinal hernia with mesh INSERT / REPLACE / REMOVE PACEMAKER 04/17/2022 Pacemaker Lead & Generator Replacement IR RADIO FREQUENCY ABLATION 2009 Radio Freq Ablation;Disease:Atrial fibrillation Visit Vitals BP 126/66 Pulse 86 Ht 6' 1 Wt 195 lb SpO2 97% BMI 25.73 kg/m Smoking Status Former BSA 2.13 m Review of Systems Constitutional: Positive for unexpected weight change. Negative for fatigue. Respiratory: Negative for shortness of breath. Cardiovascular: Negative for chest pain and palpitations. Gastrointestinal: Negative for abdominal pain. Psychiatric/Behavioral: The patient is nervous/anxious. Objective Physical Exam Constitutional: General: He is not in acute distress. Appearance: Normal appearance. HENT: Head: Normocephalic and atraumatic. Eyes: General: No scleral icterus. Cardiovascular: Rate and Rhythm: Normal rate and regular rhythm. Heart sounds: Murmur heard. Systolic murmur is present with a grade of 2/6. Pulmonary: Effort: Pulmonary effort is normal. No respiratory distress. Breath sounds: Normal breath sounds. No wheezing, rhonchi or rales. Musculoskeletal: Right hand: No swelling or tenderness. Decreased range of motion. Decreased strength. Normal capillary refill. Normal pulse. Left hand: No swelling or tenderness. Decreased range of motion. Decreased strength. Normal capillary refill. Normal pulse. Skin: General: Skin is warm and dry. Neurological: Mental Status: He is alert and oriented to person, place, and time. Motor: Weakness and tremor present. 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 Behavior: Behavior normal. Office Visit on 07/28/2024 Component Date Value Ref Range Status Hemoglobin A1C 07/28/2024 6.5 Final Assessment/Plan Diagnoses and all orders for this visit: Polyarticular arthritis - Ambulatory referral to Rheumatology; Future - Has clinical features c/w PMR. Responds well to oral steroids at high dose. Did not respond to low dose. Was treated for Lyme disease, felt a little better . Type 2 diabetes mellitus with other circulatory complication, 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) - POCT Glycated hemoglobin, total Chronic diastolic (congestive) heart failure (CMS/HCC) Paroxysmal atrial fibrillation (CMS/HCC) Follow up for As Previously Scheduled. documented in this encounter [facility] 07-23-2024 History of Present illness Narrative Images from the original note were not included. CHIEF COMPLAINT REASON FOR VISIT: Follow up due to lyme disease HPI: Kaitlyn Jordan is a 74 y.o. male who presents for a follow up, pains and aches have started more since the diagnosis of lyme disease. He states tremor can be increased from stress/nerves. States that cold weather can caused them to increase as well. He states that he does get aches and pains. He states he does get a lot of stiffness in his hands. States the right hand he cannot close all the way. He can push it closed and it does not hurt. States that he does get stiffness in his feet. States he did two rounds of the steroids that did help. States that if he is sitting too long he will be sore. He states that sometimes he will tend to go to the right when he is walking. Denies any other concerns. CURRENT MEDICATIONS: ALLERGIES/DISCONTINUE MEDICATIONS Current Outpatient Medications Medication Instructions atorvastatin (LIPITOR) 80 mg, Oral, Every morning Biotin Maximum Strength 10 mg, Oral, 2 times daily cefuroxime (CEFTIN) 500 mg, Oral, 2 times daily cetirizine (ZYRTEC ALLERGY) 10 mg, Every 24 hours dapagliflozin-metFORMIN ER (Xigduo XR) 5-1000 MG 1 tablet, Oral, Daily with breakfast fluticasone (Flonase) 50 MCG/ACT nasal spray 2 sprays, Each Nostril, Daily lisinopril 10 mg, Oral, Daily metoprolol succinate XL (Toprol-XL) 100 MG 24 hr tablet TAKE 1 TABLET (100 MG) BY MOUTH ONE TIME EACH DAY AT THE SAME TIME montelukast (SINGULAIR) 10 mg, Oral, Nightly Multiple Vitamin (Multi-Vitamin) tablet 1 tablet, Daily RT omega-3 (Fish Oil) 1000 MG capsule 2 capsules, Every 12 hours sildenafil (VIAGRA) 100 mg, As needed tiZANidine (Zanaflex) 4 MG tablet 1-2 tablets, Every 8 hours PRN warfarin (Coumadin) 5 MG tablet TAKE 1 TABLET BY MOUTH SUN, TUES, THURS, SAT. TAKE 7.5MG MON, WED, FRI No Known Allergies There are no discontinued medications. PAST MEDICAL HISTORY: SURGICAL/SOCIAL/FAMILY HISTORY DEPRESSION SCREEN: Past Medical History: Diagnosis Date Atrial fibrillation (CMS/HCC) 2009 Left inguinal hernia 2019 Pacemaker 03/2022 Pace Maker replaced Type 2 diabetes mellitus (CMS/HCC) Past Surgical History: Procedure Laterality Date CARDIAC PACEMAKER PLACEMENT 2009 CARDIAC PACEMAKER PLACEMENT 2016 COLONOSCOPY W/ POLYPECTOMY 2008 COLONOSCOPY W/ POLYPECTOMY 2004 COLONOSCOPY W/ POLYPECTOMY 05/03/2023 COLONOSCOPY W/ POLYPECTOMY 11/09/2023 EYE EXAM 2012 Diabetes mellitus, type 2 HERNIA REPAIR 05/2019 Left inguinal hernia repair with mesh graft and excision cord lipoma HERNIA REPAIR 10/10/2019 Repair recurrent left inguinal hernia with mesh INSERT / REPLACE / REMOVE PACEMAKER 04/17/2022 Pacemaker Lead & Generator Replacement IR RADIO FREQUENCY ABLATION 2009 Radio Freq Ablation;Disease:Atrial fibrillation Social History Tobacco Use Smoking status: Former Types: Cigarettes Smokeless tobacco: Never Tobacco comments: Last smoked:>10 years Substance Use Topics Alcohol use: Yes Comment: 2-4 times a month, caffeine 3-4 cups per day,soda Family History Problem Relation Name Age of Onset Cancer Mother Diabetes Mother Parkinsonism Father Heart disease Father Diabetes Sibling Depression: Not at risk (03/03/2024) PHQ-2 PHQ-2 Score: 0 REVIEW OF SYMPTOMS: Review of Systems Constitutional: Negative for chills, diaphoresis, fatigue and fever. HENT: Negative for ear pain, tinnitus and trouble swallowing. Eyes: Negative for photophobia and visual disturbance. Respiratory: Negative for cough and shortness of breath. Cardiovascular: Negative for palpitations and leg swelling. Gastrointestinal: Negative for abdominal pain and nausea. Genitourinary: Negative for difficulty urinating and urgency. Musculoskeletal: Positive for back pain and gait problem. Negative for arthralgias, myalgias, neck pain and neck stiffness. Neurological: Positive for tremors. Negative for weakness, light-headedness and numbness. Psychiatric/Behavioral: Negative for agitation, confusion and suicidal ideas. OBJECTIVE: 07/23/2024 1:09 PM 06/30/2024 11:16 AM 06/02/2024 2:05 PM Vitals BMI 25.73 kg/m2 25.33 kg/m2 24.94 kg/m2 BSA (m2) 2.14 m2 2.12 m2 2.1 m2 Systolic 128 122 112 Diastolic 80 76 66 Heart Rate 84 103 SpO2 97 % 97 % Resp 16 Height (in) 6' 1 6' 1 6' 1 Weight (lb) 195 192 189 Visit Report Report Report Report EXAM: Neurological Exam Mental Status Awake, alert and oriented to person, place and time. Oriented to person, place and time. Recent and remote memory are intact. Speech is normal. Language is fluent with no aphasia. Attention and concentration are normal. Cranial Nerves CN II: Visual acuity is normal. Visual herr full to confrontation. CN III, IV, : Extraocular movements intact bilaterally. Normal lids and orbits bilaterally. Pupils equal round and reactive to light bilaterally. CN V: Facial sensation is normal. CN VII: Full and symmetric facial movement. CN VIII: Hearing is normal. CN XII: Tongue midline without atrophy or fasciculations. Motor Normal muscle bulk throughout. Normal muscle tone. Right Left Wrist flexion 5 5 Wrist extension 5 5 Right Left Deltoid 5 5 Biceps 5 5 Triceps 5 5 Wrist flexor 5 5 Wrist extensor 5 5 Glutei 5 5 Iliopsoas 5 5 Quadriceps 5 5 Gastrocnemius 5 5 Anterior tibialis 5 5 Posterior tibialis 5 5 Sensory Light touch is normal in upper and lower extremities. Pinprick is normal in upper and lower extremities. Vibration is normal in upper and lower extremities. Reflexes Right Left Brachioradialis 2+ 2+ Biceps 2+ 2+ Patellar 2+ 2+ Achilles 2+ 2+ Right Plantar: downgoing Left Plantar: downgoing Right pathological reflexes: Ryan's absent. Ankle clonus absent. Left pathological reflexes: Ryan's absent. Ankle clonus absent. Coordination Yethmf-eg-axea, rapid alternating movements and ayln-rk-mgrk normal bilaterally without dysmetria. Gait Normal casual, toe, heel and tandem gait. Romberg is absent. PROCEDURE: ASSESSMENT AND PLAN: Diagnoses and all orders for this visit: Lyme disease - predniSONE (Deltasone) 20 MG tablet; 3 pills po daily X3 days, then 2 pills po daily X3 days , then 1 pill po daily X3 days then stop 9 days ,18 pills Bilateral carpal tunnel syndrome - EMG 2 Extremities; Future -I will order an electromyograph evaluation of the upper extremities to assess for nerve damage such as cervical radiculopathy, brachial plexopathy, or entrapment mononeuropathy. Parkinsonism, unspecified Parkinsonism type (CMS/HCC) - amantadine (Symmetrel) 100 MG tablet; Take 1 tablet (100 mg) by mouth Daily -I will order a Corky scan, or Dopamine Transporter Scan, which is a specialized imaging test used to help diagnose Parkinson's disease and other conditions that affect dopamine function in the brain. It involves the use of a radioactive tracer that binds to dopamine transporters in the brain, allowing us to visualize and assess dopamine activity. The patient receives an injection of a small amount of a radioactive tracer, commonly [id number] (DaTscan), which binds to dopamine transporters in the brain. The images are analyzed to determine whether there is a reduction in dopamine transporter levels, which is a hallmark of Parkinson's disease and other parkinsonian syndromes. In a healthy brain, the images typically show a symmetrical, comma-shaped appearance of dopamine activity. In Parkinson's disease, the dopamine activity is reduced, often asymmetrically, leading to a characteristic change in the shape and intensity of the signal. The Corky scan is primarily used to differentiate Parkinson's disease from other conditions that cause similar symptoms, such as essential tremor or drug-induced parkinsonism. It can help confirm a diagnosis when clinical symptoms are unclear or atypical. Cervical dystonia Lumbar radiculopathy This note was scribed by LEDY Mulligan acting under the direction of Kemal Stone MD. The content has been reviewed and confirmed for accuracy by Kemal Stone MD documented in this encounter [facility] 07-17-2024 Note Follow-Up Telephone Encounter for Anticoagulation Management Subjective/Objective: INR Performed via Home Monitor: INR 2.5 on 07/16/24 with INR Goal Range: 2-3. Patient Reports: Missed or extra doses: No Changes to medications: on cefuroxime for 2 more weeks Changes to lifestyle (diet / alcohol / smoking / activity): No Recent health change / ED visit / hospitalization / falls: No Signs/symptoms of bruising or bleeding / clotting or stroke / other HIREN: No Upcoming procedures: No New prescription needed: No Seen referring provider in last 12 months: Yes Assessment: INR is Therapeutic today. Plan: Patient is instructed to continue TWD 42.5 mg. Check INR in 2 weeks. Patient Education: Patient provided with dosing and follow-up instructions. Patient reminded to seek medical attention if experiencing any signs/symptoms of bleeding or clotting. Patient aware to call with questions or changes to medications or medical status. Gerald Coyle, Radha [facility] 07-09-2024 Note Follow-Up Telephone Encounter for Anticoagulation Management Subjective/Objective: INR Performed via Home Monitor: INR 3.1 on 07/09/2024 with INR Goal Range: 2-3. Patient Reports: Missed or extra doses: yes pt has been taking 7.5 mg 4 days and 5 mg 3 days, not as we had instructed. Will begin taking as noted Changes to medications: Yes pt is back on cefuroxime bid x 30 days , started 5 days ago, for lymes disease Changes to lifestyle (diet / alcohol / smoking / activity): No Recent health change / ED visit / hospitalization / falls: No Signs/symptoms of bruising or bleeding / clotting or stroke / other HIREN: No Upcoming procedures: No New prescription needed: No Seen referring provider in last 12 months: Yes Assessment: INR is Supratherapeutic today. Plan: Patient is instructed to Check INR in 1weeks. Patient Education: Patient provided with dosing and follow-up instructions. Patient reminded to seek medical attention if experiencing any signs/symptoms of bleeding or clotting. Patient aware to call with questions or changes to medications or medical status. Naa Fernández RN [facility] 06-30-2024 History of Present illness Narrative HPI discuss medication changes Additional comments: Pt states invokamet is not covered he brought a list of covered alternatives Last edited by Varsha Maldonado LPN on 06/30/2024 11:20 AM. Subjective Patient ID: Kaitlyn Jordan is a 73 y.o. male who presents for Lyme Disease and discuss medication changes (Pt states invokamet is not covered he brought a list of covered alternatives). Pt finished doxycycline since last visit Pt states the severe pain he was having in hands has improved But still as stiffness and aches in bilateral hands --right is still worse than left Lyme Disease Current Outpatient Medications on File Prior to Visit Medication Sig Dispense Refill atorvastatin (Lipitor) 80 MG tablet TAKE 1 TABLET BY MOUTH IN THE MORNING 90 tablet 3 biotin (Biotin Maximum Strength) 10 MG tablet TAKE 1 TABLET BY MOUTH TWICE A DAY 180 tablet 3 cetirizine (ZyrTEC ALLERGY) 10 MG tablet Take 10 mg by mouth 1 (one) time each day at the same time. fluticasone (Flonase) 50 MCG/ACT nasal spray SPRAY 2 SPRAYS INTO EACH NOSTRIL EVERY DAY 48 mL 2 lisinopril 10 MG tablet Take 1 tablet (10 mg) by mouth Daily 100 tablet 3 metoprolol succinate XL (Toprol-XL) 100 MG 24 hr tablet TAKE 1 TABLET (100 MG) BY MOUTH ONE TIME EACH DAY AT THE SAME TIME 90 tablet 4 montelukast (Singulair) 10 MG tablet Take 1 tablet (10 mg) by mouth at bedtime 100 tablet 3 Multiple Vitamin (Multi-Vitamin) tablet Take 1 tablet by mouth in the morning. omega-3 (Fish Oil) 1000 MG capsule Take 2 capsules by mouth every 12 (twelve) hours. sildenafil (Viagra) 100 MG tablet Take 100 mg by mouth if needed for erectile dysfunction. tiZANidine (Zanaflex) 4 MG tablet Take 1-2 tablets by mouth every 8 (eight) hours if needed for muscle spasms (not to exceed 3 doses in 24 hours). warfarin (Coumadin) 5 MG tablet TAKE 1 TABLET BY MOUTH SUN, TU, TH, SAT. TAKE 7.5MG MON, WED, FRI 102 tablet 5 [DISCONTINUED] Invokamet 150-1000 MG TAKE 1 TABLET BY MOUTH EVERY DAY IN THE MORNING 90 tablet 3 [DISCONTINUED] piroxicam (Feldene) 10 MG capsule TAKE 1 CAPSULE BY MOUTH IN THE MORNING (Patient not taking: Reported on 06/02/2024) 30 capsule 11 No current facility-administered medications on file prior to visit. I have reviewed and reconciled the history and medication list with the patient today. No Known Allergies Social History Tobacco Use Smoking status: Former Types: Cigarettes Smokeless tobacco: Never Tobacco comments: Last smoked:>10 years Substance Use Topics Alcohol use: Yes Comment: 2-4 times a month, caffeine 3-4 cups per day,soda Family History Problem Relation Name Age of Onset Cancer Mother Diabetes Mother Parkinsonism Father Heart disease Father Diabetes Sibling Past Medical History: Diagnosis Date Atrial fibrillation (CMS/HCC) 2009 Left inguinal hernia 2019 Pacemaker 03/2022 Pace Maker replaced Type 2 diabetes mellitus (CMS/HCC) Past Surgical History: Procedure Laterality Date CARDIAC PACEMAKER PLACEMENT 2009 CARDIAC PACEMAKER PLACEMENT 2016 COLONOSCOPY W/ POLYPECTOMY 2009 COLONOSCOPY W/ POLYPECTOMY 2004 COLONOSCOPY W/ POLYPECTOMY 05/03/2023 COLONOSCOPY W/ POLYPECTOMY 11/09/2023 EYE EXAM 2012 Diabetes mellitus, type 2 HERNIA REPAIR 05/2019 Left inguinal hernia repair with mesh graft and excision cord lipoma HERNIA REPAIR 10/10/2019 Repair recurrent left inguinal hernia with mesh INSERT / REPLACE / REMOVE PACEMAKER 04/17/2022 Pacemaker Lead & Generator Replacement IR RADIO FREQUENCY ABLATION 2009 Radio Freq Ablation;Disease:Atrial fibrillation Visit Vitals BP 122/76 Pulse 84 Ht 6' 1 Wt 192 lb SpO2 97% BMI 25.33 kg/m Smoking Status Former BSA 2.12 m Review of Systems Objective Physical Exam Constitutional: General: He is not in acute distress. Appearance: Normal appearance. HENT: Head: Normocephalic and atraumatic. Eyes: General: No scleral icterus. Cardiovascular: Rate and Rhythm: Normal rate and regular rhythm. Heart sounds: Murmur heard. Systolic murmur is present with a grade of 2/6. Pulmonary: Effort: Pulmonary effort is normal. No respiratory distress. Breath sounds: Normal breath sounds. No wheezing, rhonchi or rales. Musculoskeletal: Right hand: Swelling and tenderness present. Decreased range of motion. Normal capillary refill. Normal pulse. Left hand: Swelling and tenderness present. Decreased range of motion. Normal capillary refill. Normal pulse. Comments: Mild swelling of bilat hands, worst over the MCP, PIP, and DIP joints. No significant erythema Skin: General: Skin is warm and dry. Neurological: Mental Status: He is alert and oriented to person, place, and time. Motor: Weakness and tremor present. 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 Behavior: Behavior normal. Assessment/Plan Diagnoses and all orders for this visit: Polyarticular arthritis Type 2 diabetes mellitus with other circulatory complication, without long-term current use of insulin ([facility]) - dapagliflozin-metFORMIN ER (Xigduo XR) 5-1000 MG; Take 1 tablet by mouth in the morning. Take with meals. Acute Lyme disease - cefuroxime (Ceftin) 500 MG tablet; Take 1 tablet (500 mg) by mouth in the morning and 1 tablet (500 mg) before bedtime. Do all this for 28 days. Cervical dystonia Bilateral arm weakness Follow up in about 4 weeks (around 07/28/2024) for F/U med changes. documented in this encounter [facility] 06-18-2024 Note Follow-Up Telephone Encounter for Anticoagulation Management Subjective/Objective: INR Performed via Home Monitor: INR 2.9 on 06/18/2024 with INR Goal Range: 2-3. Patient Reports: Missed or extra doses: No Changes to medications: No not at the moment but pt feels he may be on et off antibiotics for life. He will let us know when he restarts Changes to lifestyle (diet / alcohol / smoking / activity): No Recent health change / ED visit / hospitalization / falls: No Signs/symptoms of bruising or bleeding / clotting or stroke / other HIREN: No Upcoming procedures: No New prescription needed: No Seen referring provider in last 12 months: Yes Assessment: INR is Therapeutic today. Plan: Patient is instructed to Check INR in 2 weeks. Patient Education: Patient provided with dosing and follow-up instructions. Patient reminded to seek medical attention if experiencing any signs/symptoms of bleeding or clotting. Patient aware to call with questions or changes to medications or medical status. Naa Fernández RN [facility] 06-11-2024 Note Follow-Up Telephone Encounter for Anticoagulation Management Subjective/Objective: INR Performed In-Office via POC: INR 4.1 on 06/11/2024 with INR Goal Range: 2-3. Patient Reports: Missed or extra doses: No Changes to medications: Yes Pt is still on doxycycline x 1 day but he feels he will need another round, still having joint pain Changes to lifestyle (diet / alcohol / smoking / activity): No Recent health change / ED visit / hospitalization / falls: No Signs/symptoms of bruising or bleeding / clotting or stroke / other HIREN: No Upcoming procedures: No New prescription needed: No Seen referring provider in last 12 months: Yes Assessment: INR is Supratherapeutic today. Plan: Patient is instructed to Check INR in 1 weeks. Patient Education: Patient provided with dosing and follow-up instructions. Patient reminded to seek medical attention if experiencing any signs/symptoms of bleeding or clotting. Patient aware to call with questions or changes to medications or medical status. Naa Fernández RN [facility] 06-04-2024 Note Follow-Up Telephone Encounter for Anticoagulation Management Subjective/Objective: INR Performed via Home Monitor: INR 4.9 on 06/04/24 with INR Goal Range: 2-3. Patient Reports: Missed or extra doses: No Changes to medications: on doxycycline for Lymes disease x10 more days, Tylenol PRN Changes to lifestyle (diet / alcohol / smoking / activity): reduced activity due to significant pain from Lymes disease Recent health change / ED visit / hospitalization / falls: recent diagnosis of Lymes disease, causing significant pain Signs/symptoms of bruising or bleeding / clotting or stroke / other HIREN: No Upcoming procedures: No New prescription needed: No Seen referring provider in last 12 months: Yes Assessment: INR is Supratherapeutic today. Plan: Patient is instructed to hold warfarin today, then resume prior maintenance regimen. Check INR in 1 weeks. Patient Education: Patient provided with dosing and follow-up instructions. Patient reminded to seek medical attention if experiencing any signs/symptoms of bleeding or clotting. Patient aware to call with questions or changes to medications or medical status. Gerald Coyle, PharmD [facility] 06-02-2024 History of Present illness Narrative Images from the original note were not included. Subjective Patient ID: Kaitlyn Jordan is a 73 y.o. male who presents for lyme disease. Kaitlyn is present today for follow up Lyme disease. He was rx'd Doxycycline Hyclate. He has not been doing his INR's twice a week, he was not aware he was to do his INR's twice a week. The ATB has improved his symptoms. The worst of his symptoms is in his hands/fingers, right worse than left. Pain level is down and can sleep for a few hours. Has been using Voltaren Gel which has helped some. Did use a warm wax therapy treatment which helped that day, but then it was worse the next day. Denies any s/e from the medication. Has been eating yogurt regularly. States he is not taking the Fluoxetine. Does not want to take it. I have just been dealing with it. Does not take the Piroxicam currently, does have it at home in case he needs it. States it messed up his INR. Current Outpatient Medications on File Prior to Visit Medication Sig Dispense Refill atorvastatin (Lipitor) 80 MG tablet TAKE 1 TABLET BY MOUTH IN THE MORNING 90 tablet 3 biotin (Biotin Maximum Strength) 10 MG tablet TAKE 1 TABLET BY MOUTH TWICE A DAY 180 tablet 3 cetirizine (ZyrTEC ALLERGY) 10 MG tablet Take 10 mg by mouth 1 (one) time each day at the same time. doxycycline (Vibra-Tabs) 100 MG tablet Take 1 tablet (100 mg) by mouth in the morning and 1 tablet (100 mg) before bedtime. Take with a full glass of water and do not lie down for at least 30 minutes after.. 60 tablet 0 fluticasone (Flonase) 50 MCG/ACT nasal spray SPRAY 2 SPRAYS INTO EACH NOSTRIL EVERY DAY 48 mL 2 Invokamet 150-1000 MG TAKE 1 TABLET BY MOUTH EVERY DAY IN THE MORNING 90 tablet 3 lisinopril 10 MG tablet Take 1 tablet (10 mg) by mouth Daily 100 tablet 3 metoprolol succinate XL (Toprol-XL) 100 MG 24 hr tablet TAKE 1 TABLET (100 MG) BY MOUTH ONE TIME EACH DAY AT THE SAME TIME 90 tablet 4 montelukast (Singulair) 10 MG tablet Take 1 tablet (10 mg) by mouth at bedtime 100 tablet 3 Multiple Vitamin (Multi-Vitamin) tablet Take 1 tablet by mouth in the morning. omega-3 (Fish Oil) 1000 MG capsule Take 2 capsules by mouth every 12 (twelve) hours. piroxicam (Feldene) 10 MG capsule TAKE 1 CAPSULE BY MOUTH IN THE MORNING (Patient not taking: Reported on 06/02/2024) 30 capsule 11 sildenafil (Viagra) 100 MG tablet Take 100 mg by mouth if needed for erectile dysfunction. tiZANidine (Zanaflex) 4 MG tablet Take 1-2 tablets by mouth every 8 (eight) hours if needed for muscle spasms (not to exceed 3 doses in 24 hours). warfarin (Coumadin) 5 MG tablet TAKE 1 TABLET BY MOUTH SUN, TUES, THURS, SAT. TAKE 7.5MG MON, WED, FRI 102 tablet 5 [DISCONTINUED] FLUoxetine (PROzac) 20 MG capsule TAKE 1 CAPSULE BY MOUTH EVERY DAY (Patient not taking: Reported on 06/02/2024) 100 capsule 3 No current facility-administered medications on file prior to visit. I have reviewed and reconciled the history and medication list with the patient today. No Known Allergies Social History Tobacco Use Smoking status: Former Types: Cigarettes Smokeless tobacco: Never Tobacco comments: Last smoked:>10 years Substance Use Topics Alcohol use: Yes Comment: 2-4 times a month, caffeine 3-4 cups per day,soda Family History Problem Relation Name Age of Onset Cancer Mother Diabetes Mother Parkinsonism Father Heart disease Father Diabetes Sibling Past Medical History: Diagnosis Date Atrial fibrillation (CMS/HCC) 2009 Left inguinal hernia 2019 Pacemaker 03/2022 Pace Maker replaced Type 2 diabetes mellitus (CMS/HCC) Past Surgical History: Procedure Laterality Date CARDIAC PACEMAKER PLACEMENT 2009 CARDIAC PACEMAKER PLACEMENT 2016 COLONOSCOPY W/ POLYPECTOMY 2008 COLONOSCOPY W/ POLYPECTOMY 2004 COLONOSCOPY W/ POLYPECTOMY 05/03/2023 COLONOSCOPY W/ POLYPECTOMY 11/09/2023 EYE EXAM 2012 Diabetes mellitus, type 2 HERNIA REPAIR 05/2019 Left inguinal hernia repair with mesh graft and excision cord lipoma HERNIA REPAIR 10/10/2019 Repair recurrent left inguinal hernia with mesh INSERT / REPLACE / REMOVE PACEMAKER 04/17/2022 Pacemaker Lead & Generator Replacement IR RADIO FREQUENCY ABLATION 2009 Radio Freq Ablation;Disease:Atrial fibrillation Visit Vitals BP 112/66 Pulse 103 Resp 16 Ht 6' 1 Wt 189 lb SpO2 97% BMI 24.94 kg/m Smoking Status Former BSA 2.1 m Review of Systems Constitutional: Negative for chills, fatigue and fever. Respiratory: Negative for cough, shortness of breath and wheezing. Cardiovascular: Negative for chest pain, palpitations and leg swelling. Gastrointestinal: Negative for abdominal pain, constipation, diarrhea, nausea and vomiting. Musculoskeletal: Positive for arthralgias, back pain and joint swelling. Skin: Negative for rash. Psychiatric/Behavioral: Positive for sleep disturbance. Objective Physical Exam Constitutional: General: He is not in acute distress. Appearance: Normal appearance. HENT: Head: Normocephalic and atraumatic. Eyes: General: No scleral icterus. Cardiovascular: Rate and Rhythm: Normal rate and regular rhythm. Heart sounds: Murmur heard. Systolic murmur is present with a grade of 2/6. Pulmonary: Effort: Pulmonary effort is normal. No respiratory distress. Breath sounds: Normal breath sounds. No wheezing, rhonchi or rales. Musculoskeletal: Right hand: Swelling and tenderness present. Decreased range of motion. Normal capillary refill. Normal pulse. Left hand: Swelling and tenderness present. Decreased range of motion. Normal capillary refill. Normal pulse. Comments: Mild-moderate swelling of bilat hands, worst over the MCP, PIP, and DIP joints. No significant erythema Skin: General: Skin is warm and dry. Neurological: General: No focal deficit present. Mental Status: He is alert and oriented to person, place, and time. Psychiatric: Mood and Affect: Mood normal. Behavior: Behavior normal. Assessment/Plan Diagnoses and all orders for this visit: Polyarticular arthritis Per pt, symptoms have started to improve. Type 2 diabetes mellitus with other circulatory complication, without long-term current use of insulin ([facility]) - POCT Glycated hemoglobin, total Advised pt that his HgbA1c is improved to 6.3. from previous of 6.6. Continue current medications. Continue to aim for healthy diet and maintaining a healthy weight. Acute Lyme disease Is responding to the Doxycyline. He has noted mild improvement in his joint pain. Tolerating the antibiotic well. Continue yogurt with active cultures. Trouble in sleeping Multifactorial, has trouble getting comfortable due to back pain in addition to his joint pain. Sleeps in a recliner or the bed as tolerated. Muscle relaxers are helpful for pt. Follow up for Appointment As Scheduled. documented in this encounter [facility] 05-26-2024 Note Spoke to pt and he c hecked it on 05/21 but sis not call it in. Will call it in today [facility] by [facility] 05-14-2024 Note Follow-Up Telephone Encounter for Anticoagulation Management Subjective/Objective: INR Performed via Home Monitor: INR 3.0 on 05/14/2024 with INR Goal Range: 2-3. Patient Reports: Missed or extra doses: No Changes to medications: No Changes to lifestyle (diet / alcohol / smoking / activity): No Recent health change / ED visit / hospitalization / falls: No Signs/symptoms of bruising or bleeding / clotting or stroke / other HIREN: No Upcoming procedures: No New prescription needed: No Seen referring provider in last 12 months: Yes Assessment: INR is Therapeutic today. Plan: 5 mg every Sun, Clara, Sat; 7.5 mg all other days Patient is instructed to Check INR in 2 weeks. Patient Education: Patient provided with dosing and follow-up instructions. Patient reminded to seek medical attention if experiencing any signs/symptoms of bleeding or clotting. Patient aware to call with questions or changes to medications or medical status. Naa Fernández RN [facility] 05-08-2024 History of Present illness Narrative Images from the original note were not included. HPI Follow-up Additional comments: Bilateral wrist pain/swelling Last edited by Varsha aMldonado LPN on 05/08/2024 8:36 AM. Subjective Patient ID: Kaitlyn Jordan is a 73 y.o. male who presents for Follow-up (Bilateral wrist pain/swelling). Wrist Pain Patient complains of bilateral wrist pain. The pain worsens with movement, and some relief with steroids There is associated swelling in the wrists Pain has been present for 6-8 weeks. Denies injury Pt completed 2 courses of prednisone recently seemed to help some while on it but when med finsihed symptoms returned Xrays and labs were previously done for this Wrist Pain Current Outpatient Medications on File Prior to Visit Medication Sig Dispense Refill atorvastatin (Lipitor) 80 MG tablet TAKE 1 TABLET BY MOUTH IN THE MORNING 90 tablet 3 biotin (Biotin Maximum Strength) 10 MG tablet TAKE 1 TABLET BY MOUTH TWICE A DAY 180 tablet 3 cetirizine (ZyrTEC ALLERGY) 10 MG tablet Take 10 mg by mouth 1 (one) time each day at the same time. FLUoxetine (PROzac) 20 MG capsule TAKE 1 CAPSULE BY MOUTH EVERY DAY 100 capsule 3 fluticasone (Flonase) 50 MCG/ACT nasal spray SPRAY 2 SPRAYS INTO EACH NOSTRIL EVERY DAY 48 mL 2 Invokamet 150-1000 MG TAKE 1 TABLET BY MOUTH EVERY DAY IN THE MORNING 90 tablet 3 lisinopril 10 MG tablet Take 1 tablet (10 mg) by mouth Daily 100 tablet 3 metoprolol succinate XL (Toprol-XL) 100 MG 24 hr tablet TAKE 1 TABLET (100 MG) BY MOUTH ONE TIME EACH DAY AT THE SAME TIME 90 tablet 4 montelukast (Singulair) 10 MG tablet Take 1 tablet (10 mg) by mouth at bedtime 100 tablet 3 Multiple Vitamin (Multi-Vitamin) tablet Take 1 tablet by mouth in the morning. omega-3 (Fish Oil) 1000 MG capsule Take 2 capsules by mouth every 12 (twelve) hours. piroxicam (Feldene) 10 MG capsule TAKE 1 CAPSULE BY MOUTH IN THE MORNING 30 capsule 11 sildenafil (Viagra) 100 MG tablet Take 100 mg by mouth if needed for erectile dysfunction. tiZANidine (Zanaflex) 4 MG tablet Take 1-2 tablets by mouth every 8 (eight) hours if needed for muscle spasms (not to exceed 3 doses in 24 hours). warfarin (Coumadin) 5 MG tablet TAKE 1 TABLET BY MOUTH SUN, TUES, THURS, SAT. TAKE 7.5MG MON, WED, FRI 102 tablet 5 No current facility-administered medications on file prior to visit. I have reviewed and reconciled the history and medication list with the patient today. No Known Allergies Social History Tobacco Use Smoking status: Former Types: Cigarettes Smokeless tobacco: Never Tobacco comments: Last smoked:>10 years Substance Use Topics Alcohol use: Yes Comment: 2-4 times a month, caffeine 3-4 cups per day,soda Family History Problem Relation Name Age of Onset Cancer Mother Diabetes Mother Parkinsonism Father Heart disease Father Diabetes Sibling Past Medical History: Diagnosis Date Atrial fibrillation (CMS/HCC) 2009 Left inguinal hernia 2019 Pacemaker 03/2022 Pace Maker replaced Type 2 diabetes mellitus (CMS/HCC) Past Surgical History: Procedure Laterality Date CARDIAC PACEMAKER PLACEMENT 2009 CARDIAC PACEMAKER PLACEMENT 2016 COLONOSCOPY W/ POLYPECTOMY 2008 COLONOSCOPY W/ POLYPECTOMY 2004 COLONOSCOPY W/ POLYPECTOMY 05/03/2023 COLONOSCOPY W/ POLYPECTOMY 11/09/2023 EYE EXAM 2012 Diabetes mellitus, type 2 HERNIA REPAIR 05/2019 Left inguinal hernia repair with mesh graft and excision cord lipoma HERNIA REPAIR 10/10/2019 Repair recurrent left inguinal hernia with mesh INSERT / REPLACE / REMOVE PACEMAKER 04/17/2022 Pacemaker Lead & Generator Replacement IR RADIO FREQUENCY ABLATION 2009 Radio Freq Ablation;Disease:Atrial fibrillation Visit Vitals Ht 6' 2 BMI 25.42 kg/m Smoking Status Former BSA 2.17 m Review of Systems Objective Physical Exam Constitutional: General: He is not [...] tenderness. There is no guarding. Musculoskeletal: Right wrist: Effusion and tenderness present. Decreased range of motion. Left wrist: Effusion and tenderness present. Decreased range of motion. Right lower leg: No edema. Left lower leg: No edema. Neurological: General: No focal deficit present. Mental Status: He is alert and oriented to person, place, and time. Psychiatric: Mood and Affect: Mood normal. Office Visit on 04/07/2024 Component Date Value Ref Range Status URIC ACID 04/10/2024 3.9 (L) 4.0 - 8.0 mg/dL Final Comment: Therapeutic target for gout patients: <6.0 mg/dL Office Visit on 04/02/2024 Component Date Value Ref Range Status RHEUMATOID FACTOR (IGG) 04/02/2024 <5 <=6 U Final RHEUMATOID FACTOR (IGA) 04/02/2024 <5 <=6 U Final RHEUMATOID FACTOR (IGM) 04/02/2024 <5 <=6 U Final CYCLIC CITRULLINATED PEPTIDE (CCP)* 04/02/2024 <16 <20 Units Final Comment: Negative: <20 Weak Positive: 20 - 39 Moderate Positive: 40 - 59 Strong Positive: >59 SJOGREN'S ANTIBODY (SS-A) 04/02/2024 <1.0 AI Final Comment: Reference Range: < 1.0 NEG AI SJOGREN'S ANTIBODY (SS-B) 04/02/2024 <1.0 AI Final Comment: Reference Range: < 1.0 NEG AI SED RATE BY MODIFIED WESTERGREN 04/02/2024 17 < OR = 20 mm/h Final C-REACTIVE PROTEIN 04/02/2024 7.0 <8.0 mg/L Final KAREN SCREEN, IFA 04/02/2024 NEGATIVE NEGATIVE Final Comment: KAREN IFA is a first line screen for detecting the presence of up to approximately 150 autoantibodies in various autoimmune diseases. A negative KAREN IFA result suggests an KAREN-associated autoimmune disease is not present at this time, but is not definitive. If there is high clinical suspicion for Sjogren's syndrome, testing for anti-SS-A/Ro antibody should be considered. Anti-Bridget-1 antibody should be considered for clinically suspected inflammatory myopathies. AC-0: Negative International Consensus on KAREN Patterns (https://doi.org/10.1515/cclm-2018 -0052) For additional information, please refer to http://education.[employer]Met[employer]/faq/OLD534 (This link is being provided for informational/ educational purposes only.) Assessment/Plan Diagnoses and all orders for this visit: Polyarticular arthritis - B. burgdorferi antibodies; Future - Hepatitis C antibody; Future - CBC and differential - HLA-B27 antigen; Future - C-reactive protein; Future - Ambulatory referral to Rheumatology; Future - Partial response to Medrol dose pack, but INR went way high. - Workup to this point has been negative. No follow-ups on file. documented in this encounter [facility] 05-02-2024 Note Follow-Up Telephone Encounter for Anticoagulation Management Subjective/Objective: INR Performed via Home Monitor: INR 3.5 on 05/02/24 with INR Goal Range: 2-3. Patient Reports: Missed or extra doses: No Changes to medications: No Changes to lifestyle (diet / alcohol / smoking / activity): No Recent health change / ED visit / hospitalization / falls: No Signs/symptoms of bruising or bleeding / clotting or stroke / other HIREN: No Upcoming procedures: No New prescription needed: No Seen referring provider in last 12 months: Yes Assessment: INR is Supratherapeutic today. Plan: Patient is instructed to decrease today's dose to 5mg x1 and then continue on 45mg/week; 5mg Sun/Clara/Sat and 7.5mg all other days. Check INR in 2 weeks. Patient Education: Patient provided with dosing and follow-up instructions. Patient reminded to seek medical attention if experiencing any signs/symptoms of bleeding or clotting. Patient aware to call with questions or changes to medications or medical status. Jhonathan Vital PharmD [facility] 04-16-2024 Note Follow-Up Telephone Encounter for Anticoagulation Management Subjective/Objective: INR Performed via Home Monitor: INR 2.8 on 04/16/2024 with INR Goal Range: 2-3. Patient Reports: Missed or extra doses: No Changes to medications: No Changes to lifestyle (diet / alcohol / smoking / activity): No Recent health change / ED visit / hospitalization / falls: No Signs/symptoms of bruising or bleeding / clotting or stroke / other HIREN: No Upcoming procedures: No New prescription needed: No Seen referring provider in last 12 months: Yes Assessment: INR is Therapeutic today. Plan: Maintenance plan:5 mg every Sun, Clara, Sat; 7.5 mg all other days Patient is instructed to Check INR in 2 weeks. Patient Education: Patient provided with dosing and follow-up instructions. Patient reminded to seek medical attention if experiencing any signs/symptoms of bleeding or clotting. Patient aware to call with questions or changes to medications or medical status. Management by exclusion Naa Fernández RN [facility] 04-07-2024 History of Present illness Narrative HPI Results Additional comments: Labs and xray Last edited by Varsha Maldonado LPN on 04/07/2024 1:11 PM. Subjective Patient ID: Kaitlyn Jordan is a 73 y.o. male who presents for Results (Labs and xray) and Joint Pain. Wrist Pain Patient complains of left wrist pain. The pain worsens with movement, and some relief by voltaren gel. There is associated swelling in the left wrist Pain has been present for 2 weeks. Denies injury Pt states he has had issues with generalized joint 3-4 months ago but recently the left wrist started really bothering him since last visit right hand starting hurting as well Stopped atorvastatin no change in joint pain per pt Wrist Pain Current Outpatient Medications on File Prior to Visit Medication Sig Dispense Refill biotin (Biotin Maximum Strength) 10 MG tablet TAKE 1 TABLET BY MOUTH TWICE A DAY 180 tablet 3 cetirizine (ZyrTEC ALLERGY) 10 MG tablet Take 10 mg by mouth 1 (one) time each day at the same time. FLUoxetine (PROzac) 20 MG capsule TAKE 1 CAPSULE BY MOUTH EVERY DAY 100 capsule 3 fluticasone (Flonase) 50 MCG/ACT nasal spray SPRAY 2 SPRAYS INTO EACH NOSTRIL EVERY DAY 48 mL 2 Invokamet 150-1000 MG TAKE 1 TABLET BY MOUTH EVERY DAY IN THE MORNING 90 tablet 3 lisinopril 10 MG tablet Take 1 tablet (10 mg) by mouth Daily 100 tablet 3 metoprolol succinate XL (Toprol-XL) 100 MG 24 hr tablet TAKE 1 TABLET (100 MG) BY MOUTH ONE TIME EACH DAY AT THE SAME TIME 90 tablet 4 montelukast (Singulair) 10 MG tablet Take 1 tablet (10 mg) by mouth at bedtime 100 tablet 3 Multiple Vitamin (Multi-Vitamin) tablet Take 1 tablet by mouth in the morning. omega-3 (Fish Oil) 1000 MG capsule Take 2 capsules by mouth every 12 (twelve) hours. piroxicam (Feldene) 10 MG capsule TAKE 1 CAPSULE BY MOUTH IN THE MORNING 30 capsule 11 sildenafil (Viagra) 100 MG [...] mg Sun, Sun, Sun 145 tablet 3 atorvastatin (Lipitor) 80 MG tablet TAKE 1 TABLET BY MOUTH IN THE MORNING (Patient not taking: Reported on 04/07/2024) 90 tablet 3 [DISCONTINUED] piroxicam (Feldene) 10 MG capsule Take 1 capsule (10 mg) by mouth in the morning. 30 capsule 11 No current facility-administered medications on file prior to visit. I have reviewed and reconciled the history and medication list with the patient today. No Known Allergies Social History Tobacco Use Smoking status: Former Types: Cigarettes Smokeless tobacco: Never Tobacco comments: Last smoked:>10 years Substance Use Topics Alcohol use: Yes Comment: 2-4 times a month, caffeine 3-4 cups per day,soda Family History Problem Relation Name Age of Onset Cancer Mother Diabetes Mother Parkinsonism Father Heart disease Father Diabetes Sibling Past Medical History: Diagnosis Date Atrial fibrillation (CMS/HCC) 2009 Left inguinal hernia 2019 Pacemaker 03/2022 Pace Maker replaced Type 2 diabetes mellitus (CMS/HCC) Past Surgical History: Procedure Laterality Date CARDIAC PACEMAKER PLACEMENT 2009 CARDIAC PACEMAKER PLACEMENT 2016 COLONOSCOPY W/ POLYPECTOMY 2008 COLONOSCOPY W/ POLYPECTOMY 2004 COLONOSCOPY W/ POLYPECTOMY 05/03/2023 COLONOSCOPY W/ POLYPECTOMY 11/09/2023 EYE EXAM 2012 Diabetes mellitus, type 2 HERNIA REPAIR 05/2019 Left inguinal hernia repair with mesh graft and excision cord lipoma HERNIA REPAIR 10/10/2019 Repair recurrent left inguinal hernia with mesh INSERT / REPLACE / REMOVE PACEMAKER 04/17/2022 Pacemaker Lead & Generator Replacement IR RADIO FREQUENCY ABLATION 2009 Radio Freq Ablation;Disease:Atrial fibrillation Visit Vitals BP 118/66 Pulse 75 Ht 6' 2 Wt 198 lb SpO2 97% BMI 25.42 kg/m Smoking Status Former BSA 2.17 m Review of Systems Objective Physical Exam Constitutional: General: He is not [...] abdominal tenderness. There is no guarding. Musculoskeletal: Left wrist: Effusion and tenderness present. Decreased range of motion. Right lower leg: No edema. Left lower leg: No edema. Neurological: General: No focal deficit present. Mental Status: He is alert and oriented to person, place, and time. Psychiatric: Mood and Affect: Mood normal. Office Visit on 04/02/2024 Component Date Value Ref Range Status RHEUMATOID FACTOR (IGG) 04/02/2024 <5 <=6 U Final RHEUMATOID FACTOR (IGA) 04/02/2024 <5 <=6 U Final RHEUMATOID FACTOR (IGM) 04/02/2024 <5 <=6 U Final CYCLIC CITRULLINATED PEPTIDE (CCP)* 04/02/2024 <16 <20 Units Final Comment: Negative: <20 Weak Positive: 20 - 39 Moderate Positive: 40 - 59 Strong Positive: >59 SJOGREN'S ANTIBODY (SS-A) 04/02/2024 <1.0 AI Final Comment: Reference Range: < 1.0 NEG AI SJOGREN'S ANTIBODY (SS-B) 04/02/2024 <1.0 AI Final Comment: Reference Range: < 1.0 NEG AI SED RATE BY MODIFIED WESTERGREN 04/02/2024 17 < OR = 20 mm/h Final C-REACTIVE PROTEIN 04/02/2024 7.0 <8.0 mg/L Final KAREN SCREEN, IFA 04/02/2024 NEGATIVE NEGATIVE Final Comment: KAREN IFA is a first line screen for detecting the presence of up to approximately 150 autoantibodies in various autoimmune diseases. A negative KAREN IFA result suggests an KAREN-associated autoimmune disease is not present at this time, but is not definitive. If there is high clinical suspicion for Sjogren's syndrome, testing for anti-SS-A/Ro antibody should be considered. Anti-Bridget-1 antibody should be considered for clinically suspected inflammatory myopathies. AC-0: Negative International Consensus on KAREN Patterns (https://doi.org/10.1515/cclm-2018 -0052) For additional information, please refer to http://education.[employer]. g-Nostics/faq/ADE023 (This link is being provided for informational/ educational purposes only.) Telephone on 02/26/2024 Component Date Value Ref [...] factors. LDL-C is now calculated using the Alexis-Montejo calculation, which is a validated novel method providing better accuracy than the Friedewald equation in the estimation of LDL-C. Alexis SS et al. JANE. 2013;310(19): 4417-2528 (http://education.BarEye .g-Nostics/faq/QQG310) CHOL/HDLC RATIO 02/27/2024 4.1 <5.0 (calc) Final [...] when compared to the equimolar-standardized total PSA (Judith Makanda). Comparison of serial PSA results should be interpreted with this fact in mind. This test was performed using the Siemens chemiluminescent method. Values obtained from different assay methods cannot be used interchangeably. PSA levels, regardless of value, should not be interpreted as absolute evidence of the presence or absence of disease. Office Visit on 11/15/2023 Component Date Value Ref Range Status Hemoglobin A1C 11/15/2023 6.5 Final Assessment/Plan Diagnoses and all orders for this visit: Polyarticular arthritis - Uric acid; Future - methylPREDNISolone (Medrol Dospak) 4 MG tablets; Follow schedule on package instructions No follow-ups on file. documented in this encounter [facility] 04-02-2024 History of Present illness Narrative Images from the original note were not included. Subjective Patient ID: Kaitlyn Jordan is a 73 y.o. male who presents for Wrist Pain. Wrist Pain Patient complains of left wrist pain. The pain worsens with movement, and some relief by voltaren gel. There is associated swelling in the left wrist Pain has been present for 2 weeks. Denies injury Pt states he has had issues with generalized joint 3-4 months ago but recently the left wrist started really bothering him Wrist Pain Current Outpatient Medications on File Prior to Visit Medication Sig Dispense Refill atorvastatin (Lipitor) 80 MG tablet TAKE 1 TABLET BY MOUTH IN THE MORNING 90 tablet 3 biotin (Biotin Maximum Strength) 10 MG tablet TAKE 1 TABLET BY MOUTH TWICE A DAY 180 tablet 3 cetirizine (ZyrTEC ALLERGY) 10 MG tablet Take 10 mg by mouth 1 (one) time each day at the same time. FLUoxetine (PROzac) 20 MG capsule TAKE 1 CAPSULE BY MOUTH EVERY DAY 100 capsule 3 fluticasone (Flonase) 50 MCG/ACT nasal spray SPRAY 2 SPRAYS INTO EACH NOSTRIL EVERY DAY 48 mL 2 Invokamet 150-1000 MG TAKE 1 TABLET BY MOUTH EVERY DAY IN THE MORNING 90 tablet 3 lisinopril 10 MG tablet Take 1 tablet (10 mg) by mouth Daily 100 tablet 3 metoprolol succinate XL (Toprol-XL) 100 MG 24 hr tablet TAKE 1 TABLET (100 MG) BY MOUTH ONE TIME EACH DAY AT THE SAME TIME 90 tablet 4 montelukast (Singulair) 10 MG tablet Take 1 [...] Sun, , , Sat. Take 7.5 mg Mon, Wed, Sun 145 tablet 3 No current facility-administered medications on file prior to visit. I have reviewed and reconciled the history and medication list with the patient today. No Known Allergies Social History Tobacco Use Smoking status: Former Types: Cigarettes Smokeless tobacco: Never Tobacco comments: Last smoked:>10 years Substance Use Topics Alcohol use: Yes Comment: 2-4 times a month, caffeine 3-4 cups per day,soda Family History Problem Relation Name Age of Onset Cancer Mother Diabetes Mother Parkinsonism Father Heart disease Father Diabetes Sibling Past Medical History: Diagnosis Date Atrial fibrillation (CMS/HCC) 2009 Left inguinal hernia 2019 Pacemaker 03/2022 Pace Maker replaced Type 2 diabetes mellitus (CMS/HCC) Past Surgical History: Procedure Laterality Date CARDIAC PACEMAKER PLACEMENT 2009 CARDIAC PACEMAKER PLACEMENT 2016 COLONOSCOPY W/ POLYPECTOMY 2008 COLONOSCOPY W/ POLYPECTOMY 2004 COLONOSCOPY W/ POLYPECTOMY 05/03/2023 COLONOSCOPY W/ POLYPECTOMY 11/09/2023 EYE EXAM 2012 Diabetes mellitus, type 2 HERNIA REPAIR 05/2019 Left inguinal hernia repair with mesh graft and excision cord lipoma HERNIA REPAIR 10/10/2019 Repair recurrent left inguinal hernia with mesh INSERT / REPLACE / REMOVE PACEMAKER 04/17/2022 Pacemaker Lead & Generator Replacement IR RADIO FREQUENCY ABLATION 2010 Radio Freq Ablation;Disease:Atrial fibrillation Visit Vitals BP 122/66 Pulse 75 Ht 6' 2 Wt 198 lb SpO2 97% BMI 25.42 kg/m Smoking Status Former BSA 2.17 m Review of Systems Musculoskeletal: Positive for arthralgias and myalgias. Neurological: Positive for weakness. Objective Physical Exam Constitutional: General: He is not [...] abdominal tenderness. There is no guarding. Musculoskeletal: Left wrist: Effusion and tenderness present. Decreased range of motion. Right lower leg: No edema. Left lower leg: No edema. Neurological: General: No focal deficit present. Mental Status: He is alert and oriented to person, place, and time. Psychiatric: Mood and Affect: Mood normal. Assessment/Plan Diagnoses and all orders for this visit: Polyarticular arthritis - RHEUMATOID ARTHRITIS DIAGNOSTIC PANEL 3; Future - Sedimentation rate, automated; Future - C-reactive protein; Future - KAREN; Future - XR wrist 3+ views left; Future - XR hand 1 or 2 views left; Future - Hold Atorvastatin X 1 week Follow up in about 1 week (around 04/09/2024) for F/U med changes, Test/Lab Review. documented in this encounter [facility] 04-02-2024 Note Follow-Up Telephone Encounter for Anticoagulation Management Subjective/Objective: INR Performed via Home Monitor: INR 2.3 on 04/02/24 with INR Goal Range: 2-3. Patient Reports: Missed or extra doses: No Changes to medications: No Changes to lifestyle (diet / alcohol / smoking / activity): No Recent health change / ED visit / hospitalization / falls: No Signs/symptoms of bruising or bleeding / clotting or stroke / other HIREN: No Upcoming procedures: No New prescription needed: No Seen referring provider in last 12 months: Yes Assessment: INR is Therapeutic today. Plan: Patient is instructed to continue TWD 45 mg. Check INR in 2 weeks. Patient Education: Patient provided with dosing and follow-up instructions. Patient reminded to seek medical attention if experiencing any signs/symptoms of bleeding or clotting. Patient aware to call with questions or changes to medications or medical status. Geraldfrancheska Coyle PharmD [facility] 03-14-2024 Note Management by rtuhy Stein [facility] 03-03-2024 History of Present illness Narrative Images [...] See administration instructions. Take 5 mg Sun, Tues, Thurs, Sat. Take 7.5 mg Mon, Wed, Fri 145 tablet 3 metoprolol succinate XL (Toprol-XL) [...] Yes Cognitive Screening Three Word Registration: Banana, [place], Chair Clock Drawing: Normal Clock - 2 Three Word Recall: All 3 words correct - 3 Total Score (0-5 Points): 5 Pain Assessment Pain Score: 2 Advance Care Planning Do you have a living will?: Yes Do you have a medical power of attorney general?: Yes Who is your medical power of attorney general?: Objective : BP 105/65 Pulse 72 Resp [...] factors. LDL-C is now calculated using the Alexis-Montejo calculation, which is a validated novel method providing better accuracy than the Friedewald equation in the estimation of LDL-C. Alexis SS et al. JANE. 2013;310(19): 7132-9512 (http://education.BarEye .g-Nostics/faq/VLV424) CHOL/HDLC RATIO 02/27/2024 4.1 <5.0 (calc) Final [...] when compared to the equimolar-standardized total PSA (Judith Yaritza). Comparison of serial PSA results should be [...] a living will and durable power of attorney general for healthcare. We discussed telling posey people about their advance directives such as close family members, and requested a copy to scan into the patient's EHR. An advance directive packet was offered to the patient. Assessment/Plan Diagnoses and all orders for this visit: Routine general medical examination at [facility] Type 2 diabetes mellitus with [...] March 07, 2024 documented in this encounter [facility] 02-27-2024 Note VM msg [facility] 01-23-[address] [facility] 12-14-2023 Note Annual face to face encounter [...] not discussed as not of childbearing potential [place] Suicide Risk Screening was performed Yes Patient was provided written education material and verbalized understanding. Yes Medication reconciliation complete and allergies reviewed Yes Verified patient has active prescription Yes Verified patient has active lab order / Home monitor order Yes Verified patient has appropriate follow up with referring provider Yes, had appointment on 12/10 [facility] 12-11-2023 Note [place] Cardiology Consul t Note Reason for Consultation: Low E TAILER Pacing due to AF with RVR 12/11/23 [...] 12/29/22 shows EF45-50% Device check 04/18/23 shows E TAILER-P 99.9% of time and total Vpacing 88.9% He continues to feel well without complaints of SOB, CP, RHODES, LE edema, palpitations. He continues to be on warfarin without concerns for intolerance or bleeding 02/20/[address] crain HPI: He has been feeling well with no complaints of palpitations, CP, SOB, RHODES, LE edema, Per his device check he continues to have reduced E TAILER due to A-fib. this previous device heck shows less percent of time in A-fib but has less ventricular pacing ECHO: 12/29/22 EF 45-50% 03/2022 shows EF 50% Device check 11/29/22 11/29/2022 11 AF episodes he has been having A-fib for 12 hours/day for 60 days. RA pacing 54%, V pacing 86% with RV hiss lead 06/27/2022: RA pacing 14%, E TAILER 92% RV his lead, A-fib episode noted [...] check from 07/11/2021 reveals his current Medtronic E TAILER-P device with thresholds are acceptable with an [...] / REPLACE / (more content not included)... [facility] 11-09-2023 History and physical note Note Date/Time November 09, 2023 9:37 am [facility] [address] [place] [address] Gastroenterology H&P Signed Patient: Kaitlyn Jordan MR#: [id number] : 1950 Acct:[id number] Age/Sex: 73 / M Adm Date: 4 Loc: Room: Type: [facility] Attending Dr: Godwin Barnes MD Copies to: [...] Barnes M.D. Documented By: Godwin Barnes MD 11/09/23 0936 Signed By: <Electronically signed by Godwin Barnes MD> 11/09/23 0937 [facility] Work Phone: 1(123) 679-976306-14-2024 [facility] NoteAnnual review of anticoagulation therapy completed today. Patient is taking warfarin for atrial fibrillation. Duration of anticoagulation is anticipated to be indefinite. INR Goal (if applicable): 2-3 Referring provider: Dr. Tsai - Visit with provider in last 12 months? Yes Date: w/ Amilcar Roman 05/14/23 Screenings (if applicable to indication): [...] phone management - Patient due for annual [id number]-[id number] visit? Yes Next appointment or lab work scheduled? Yes If yes, next INR w/ home monitor due 11/14/23. Patient [id number]24 NotePharmacist second verification of perioperative plan. I have reviewed and agree with plan. Jing Lowery, PharmD, BCACPUnWayne Hospital06-05-2024 NoteProcedure Type: Colonoscopy Procedure Date: 11/09/23 [...] follow your surgeon's instructions or procedure doctor's instructions.[facility]06-05-2024 NoteVM msg left for pt to call backUnWayne Hospital05-30-2024 NoteAcelis Rx renewed 10/24[facility]05-21-2024 NoteManagement by exclusionUnWayne Hospital12-07-2023 History and physical note Author Godwin Barnes [facility] May 03, 2023 11:44am Note Date/Time May 03, 2023 1 1:44am [facility] [address] [place] [address] Gastroenterology H&P Signed Patient: Kaitlyn Jordan MR#: [id number] : 1950 Acct:[id number] Age/Sex: 72 / M Adm Date: 3 Loc: Room: Type: [facility] Attending Dr: Godwin Barnes MD Copies to: [...] Barnes M.D. Documented By: Godwin Barnes MD 05/03/23 114 Signed By: <Electronically signed by Godwin Barnes MD> 05/03/23 1148 [facility] Work Phone: 1(893) 875-935612-07-2023 Procedure noteHol[facility]07-25-2023 Evaluation note* Encounter Date Diagnosis Assessment Notes Treatment Notes Treatment Clinical Notes Nov, Obstructive sleep apnea (ICD-10 - G47.33) Fortunately, the patient is using and benefiting from treatment. Download was reviewed with patient, Current pressure is controlling apnea well, And we will make no changes at this time. A prescription was sent to the [facility] for new supplies throughout the year. He [...] sleepiness, or poor response to treatment. . [employer] Other 07-28-2022 Evaluation note* Encounter Date Diagnosis [...] sleepiness, or poor response to treatment. . [facility] [employer] Other Evaluation noteNo assessment information available [facility] Work Phone: Evaluation noteNo [facility] Behind [employer] Other Evaluation note* Diagnosis Onset Date Resolution Status Atrial fibrillation acute BMI 25.0-25.9,adult acute Depression acute LAYO (obstructive sleep apnea) acute Type 2 diabetes mellitus acu te [facility] Work Phone: Evaluation note* Diagnosis Routine general medical examination at health care facility- Primary Routine general medical examination at a health care facility Type 2 diabetes mellitus with other circulatory complication, without long-term current use of insulin ([facility]) Benign hypertension ([facility]) Essential hypertension, benign Chronic systolic heart failure ([facility]) Chronic systolic heart failure Paroxysmal atrial fibrillation ([facility]) Atrial fibrillation Atherosclerosis of coronary artery of ewiiaapaayp heart, unspecified vessel or lesion type, unspecified whether angina present ([facility]) [facility] Diagnosis Polyarticular arthritis- Primary Unspecified polyarthropathy or polyarthritis, site unspecified [facility]* Diagnosis Polyarticular arthritis- Primary Unspecified polyarthropathy or polyarthritis, site unspecified [facility]* Diagnosis Polyarticular arthritis- Primary Unspecified polyarthropathy or polyarthritis, site unspecified [facility]* Diagnosis Polyarticular arthritis- Primary Unspecified polyarthropathy or polyarthritis, site unspecified Type 2 diabetes mellitus with other circulatory complication, without long-term current use of insulin ([facility]) Acute Lyme disease Trouble in sleeping Unspecified sleep disturbance [facility] Diagnosis Polyarticular arthritis- Primary Unspecified polyarthropathy or polyarthritis, site unspecified Type 2 diabetes mellitus with other circulatory complication, without long-term current use of insulin ([facility]) Acute Lyme disease Cervical dystonia Spasmodic torticollis Bilateral arm weakness Other musculoskeletal symptoms referable to limbs [facility]* Diagnosis Lyme disease- Primary Bilateral carpal tunnel syndrome Carpal tunnel syndrome Parkinsonism, unspecified Parkinsonism type ([facility]) Cervical dystonia Spasmodic torticollis Lumbar radiculopathy Thoracic or lumbosacral neuritis or radiculitis, unspecified documented in this encounter [facility] HealthcareEvaluation [facility]* Diagnosis Polyarticular arthritis- Primary Unspecified polyarthropathy or polyarthritis, site unspecified Type 2 diabetes mellitus with other circulatory complication, without long-term current use of insulin ([facility]) Chronic diastolic (congestive) heart failure ([facility]) Paroxysmal atrial fibrillation ([facility]) Atrial fibrillation documented in this encounter [facility] HealthcareEvaluation note* Diagnosis Cervical dystonia Spasmodic torticollis documented in this encounter [facility] HealthcareHistory general Narrative - Reported* Type Description Date Medical History Afib Medical History Hyperlipemia Medical History Diabetes Medical History LAYO (obstructive sleep apnea) Medical History Parkinson disease Surgical History cardiac pacemeker Surgical History hernia repair [employer] Other Hospital Discharge instructions Additional Instructions DISCHARGE [...] problems. -Follow up with PCP. -Office number [phone]. [facility] Work Phone: Hospital Discharge instructions Additional [...] years. -Follow up with PCP. -Office number [phone]. [facility] Work Phone: Summary Purpose Family History No [...] (obstructive sleep apnea) Type 2 diabetes mellitus Chief Complaint Admit Date HAND PAINS, M25.50 M89.9 August 14 10:58am Additional Source Comments (unrecognized sect ion and content) No Status Records FoundNo Status Records FoundNo Status Records FoundNo Status Records FoundNo Status Records FoundNo Status Records Found INFORMATION SOURCE (unrecogn ized section and content) DATE CREATED AUTHOR 01/30/2018 [facility] DATE CREATED AUTHOR AUTHOR'S ORGANIZ ATION 04/24/2022 [facility] DATE CREATED AUTHOR AUTHOR'S ORGANIZ ATION 05/17/2024 [facility] DATE CREATED AUTHOR AUTHOR'S ORGANIZ ATION 08/22/2024 [facility] DATE CREATED AUTHOR AUTHOR'S ORGANIZ ATION 09/09/2024 [facility] EPIC DATE CREATED AUTHOR AUTHOR'S ORGANIZ ATION 09/11/2024 [facility] Care Teams (unrecognized sec tion and content) Team Status: Inactive Member Role Status Dates Alejandro Pro II MD Primary Care Provider Active Enrique Sharpe MD Attending Provider Active Team Status: Active Member Role Status Dates Alejandro Pro II MD Primary Care Provider Active Team Status: Inactive Member Role Status Dates Alejandro Pro II MD Primary Care Provider Active Godwin [...] December 25, 2023 End: December 25, 2023 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 Specialty Start Date End Date Alejandro Pro MD [address] [facility] [address] [place] [address] PCP - ACO Reach 10/19/22 Alejandro Pro MD [address] [facility] [address] [place] [address] PCP - General Internal Medicine 10/03/22 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 Specialty Start Date End Date Alejandro Pro MD [address] [facility] [address] [place] [address] PCP - ACO Reach 10/19/22 Alejandro Pro MD [address] [facility] [address] [place] [address] PCP - General Internal Medicine 10/03/22 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 Specialty Start Date End Date Alejandro Pro MD [address] [place] [address] [place] [address] PCP - ACO Reach 10/19/22 Alejandro Pro MD [address] [place] [address] [place] [address] PCP - General Internal Medicine 10/03/22 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 Specialty Start Date End Date Alejandro Pro MD [address] [place] [address] [place] [address] PCP - ACO Reach 10/19/22 Alejandro Pro MD [address] [place] [address] [place] [address] PCP - General Internal Medicine 10/03/22 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 Specialty Start Date End Date Alejandro Pro MD [address] [place] [address] [place] [address] PCP - ACO Reach 10/19/22 Alejandro Pro MD [address] [place] [address] [place] [address] PCP - General Internal Medicine 10/03/22 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 Specialty Start Date End Date Alejandro Pro MD [address] [place] [address] [place] [address] PCP - ACO Reach 10/19/22 Alejandro Pro MD [address] [place] [address] [place] [address] PCP - General Internal Medicine 10/03/22 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 Specialty Start Date End Date Alejandro Pro MD [address] [place] [address] [place] [address] PCP - ACO Reach 10/19/22 Alejandro Pro MD [address] [place] [address] [place] [address] PCP - General Internal Medicine 10/03/22 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 Specialty Start Date End Date Alejandro Pro MD [address] [place] [address] [place] [address] PCP - ACO Reach 10/19/22 Alejandro Pro MD [address] [place] [address] [place] [address] PCP - General Internal Medicine 10/03/22 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 Specialty Start Date End Date Alejandro Pro MD [address] [place] [address] [place] [address] PCP - ACO Reach 10/19/22 Alejandro Pro MD [address] [place] [address] [place] [address] PCP - General Internal Medicine 10/03/22 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 Specialty Start Date End Date Alejandro Pro MD [address] [place] [address] [place] [address] PCP - ACO Reach 10/19/22 Alejandro Pro MD [address] [place] [address] [place] [address] PCP - General Internal Medicine 10/03/22 Team Status: Inactive Member Role Status Dates Alejandro Pro II MD Primary Care Provider Active Start: August 14, 2024 End: August 14, 2024 Rustam Harris MD Attending Provider Active St art: August 14, 2024 End: August 14, 2024 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 Specialty Start Date End Date Alejandro Pro MD [address] [facility] [address] [place] [address] PCP - ACO Reach 10/19/22 Alejandro Pro MD [address] [facility] [address] [place] [address] PCP - General Internal Medicine 10/03/22 Goals (unrecognized section and content) Goals may be documented in a n alternate section REASON FOR VISIT (unrecogniz ed section and content) Reason Comments Med Refill Reason Comments Diabetes Reason Comments Lyme Disease discuss medication changes Pt states inv okamet is not covered he brought a list of covered alternatives Reason Comments Follow-up Bilateral wrist pain /swelling Reason Comments Results Labs and xray Joint Pain Reason Comments Wrist Pain MAIL PPW FOR RECORDS PERTAINING TO PATIENTS [...] BE BASED ON THE PRIMARY CLINICAL RECORDS. [employer] [facility]. provides no warranty or guarantee of the accuracy or completeness of information in this document.
[2024-09-12 12:13] LABS: Basophils Absolute Auto 0.1 10^3/uL (0.0-0.1); Basophils Percent Auto 0.8 % (0.2-2.0); Eosinophils Absolute Auto 0.2 10^3/uL (0.0-0.7); Eosinophils Percent Auto 3.6 % (0.9-7.0); Immature Granulocytes Abs Auto 0.03 10^3/uL (0.00-0.03); Immature Granulocytes Pct Auto 0.5 % (0.0-0.5); Lymphocytes Absolute Auto 1.8 10^3/uL (1.2-3.8); Lymphocytes Percent Auto 29.5 % (20.5-60.0); Mean Corpuscular HGB Conc 32.5 g/dL (29.9-35.2); Mean Corpuscular Hemoglobin 30.2 pg (25.9-34.0); Mean Corpuscular Volume 92.8 fL (80.0-94.0); Monocytes Absolute Auto 0.6 10^3/uL (0.3-0.8); Monocytes Percent Auto 9.9 % (1.7-12.0); Neutrophils Absolute Auto 3.4 10^3/uL (1.4-6.5); Neutrophils Percent Auto 55.7 % (43.0-75.0); Platelet Count 138 10^3/uL (150-450); Red Blood Count 4.31 10^6/uL (4.70-6.10); Red Cell Distribution Width 14.5 % (11.0-15.0); White Blood Count 6.2 10^3/uL (4.0-11.0)
[2024-09-12 13:06] LABS: Anion Gap 13.1; BUN Creatinine Ratio 17.6; Calcium 9.3 mg/dL (8.5-10.1); Carbon Dioxide 25.9 mmol/L (21.0-32.0); Chloride 105 mmol/L (98-107); Estimated GFR (African America >60 (>=60 mL/min/1.73m^2); Estimated GFR (Non-African Ame 59 (>=60 mL/min/1.73m^2); Glucose 98 mg/dL (74-106); Sodium 140 mmol/L (136-145)
== END 2024-09-12 11:52 | disposition home or self-care (01) ==
LOC: LAB 11:54
PROVIDERS: PCP Internal Medicine; Visit Provider Internal Medicine Cardiovascular Disease
DX: I48.0 Paroxysmal atrial fibrillation (principal)
CPT/HCPCS: 36415; 80048; 85025

== ENCOUNTER 2025-03-23 12:11 | Outpatient (OUT) | payer MEDICARE, OTHER, SELFPAY ==
--- OUTSIDE RECORDS SUMMARY | 2025-03-09 13:00 | XMS_ITS | Encounter Summary ---
Author Organization [facility] Address [address] [place] [id number] Care Team Providers Care Import/Export Administrator Name Role Phone Alejandro Pro MD Unavailable [phone] Alejandro Pro MD Primary Care Provider [phone] Reason for Referral * Imaging (Routine) - AuthorizedSpecialtyDiagnoses / ProceduresReferred By ContactReferred To ContactRadiology Diagnoses Hypermotility of intestine Procedures FL upper GI single contrast w small bowel follow through Alejandro Pro MD [address] [place] [address] [place] [address] Phone: tel: fax: [facility] [address] [place] [id number] Phone: tel: fax: Referral IDStatusReasonStart DateExpiration DateVisits RequestedVisits [id number] Perform Procedure / Reason for Visit * ReasonCommentsMedicare Annual Wellness Visit SubsequentPt has been having with abd pain, bloating,nausea,increased gasHas tried otc treatments Encounter Details DateTypeDepartmentCare Team (Latest Contact Info)Tzdphrtelgu90/13/2025 1:00 PM EDTOffice Visit [facility] [address] [place] [address] [place] [address] Alejandro Pro MD [address] [place] [address] [place] [address] Routine general medical examination at health care facility (Primary Dx); ACP (advance care planning); Chronic systolic heart failure (HCC); Type 2 diabetes mellitus with other circulatory complication, without long-term current use of insulin (HCC); Paroxysmal atrial fibrillation (HCC); Mixed hyperlipidemia; Hypermotility of intestine Social History Tobacco UseTypesPacks/DayYears UsedDateSmoking Tobacco: FormerCigarettes3.510 Started: 1972Smokeless Tobacco: Never Tobacco Cessation:Counseling Given: Not Answered Comments:Last smoked:>10 years Alcohol UseStandard Drinks/WeekCommentsYes0 (1 standard drink = 0.6 oz pure alcohol)2-4 times a month, caffeine 3-4 cups per day,sodaHumiliation, Afraid, Rape, and Kick questionnaireAnswerDate RecordedWithin the last year, have you been afraid of your partner or ex-partner?No05/16/2023Within the last year, have you been humiliated or emotionally abused in other ways by your partner or ex-partner?No05/16/2023Within the last year, have you been kicked, hit, slapped, or otherwise physically hurt by your partner or ex-partner?No05/16/2023Within the last year, have you been raped or forced to have any kind of sexual activity by your partner or ex-partner?No05/16/2023Social Connection and Isolation Panel AnswerDate RecordedIn a typical week, how many times do you talk on the phone with family, friends, or neighbors?Twice a week05/16/2023How often do you get together with friends or relatives?Once a week05/16/2023How often do you attend taoist or moravian services?Patient bahzxpse12/20/2023Do you belong to any clubs or organizations such as taoist groups, unions, fraternal or athletic cordelia ups, or school groups?Yes05/16/2023How often do you attend meetings of the clubs or organizations you belong to?1 to 4 times per year05/16/2023re you , , , , never , or living with a partner? 05/16/2023UDIT-CAnswerDate RecordedQ1: How often do you have a drink containing alcohol?Monthly or less05/16/2023Q2: How many drinks containing alcohol do you have on a typical day when you are drinking?1 or Q3: How often do you have six or more drinks on one occasion?Never05/16/2023Overall Financial Resource Strain (CARDIA)AnswerDate RecordedHow hard is it for you to pay for the very basics like food, housing, medical care, and heating?Not hard at all 05/16/2023HQ-2AnswerDate RecordedPatient Health Questionnaire-2 Score0 03/09/2025[facility] Occup[facility] Health - Occupational Stress QuestionnaireAnswerDate RecordedDo you feel stress - tense, restless, nervous, or anxious, or unable to sleep at night because yourmind is troubled all the time - these days?Only a eikale4005/16/2023Exercise Vital SignAnswerDate Recorded On average, how many days per week do you engage in moderate to strenuous exercise (like a brisk walk)?7 days05/16/2023Minutes of Exercise per SessionNot on file05/16/2023Hunger Vital SignAnswerDate RecordedWithin the past 12 months, you worried that your food would run out before you got the money to buymore. Never true05/16/2023Within the past 12 months, the food you bought just didn't last and you didn't have money to get more.Never true05/16/2023RAPARE - TransportationAnswerDate RecordedIn the past 12 months, has lack of transportation kept you from medical appointments or from getting medications?No 05/16/2023In the past 12 months, has lack of transportation kept you from meetings, work, or from getting things needed for daily living?No05/16/2023 Housing Stability Vital SignAnswerDate RecordedIn the last 12 months, was there a time when you were not able to pay the mortgage or rent on time?No05/16/2023In the last 12 months, how many places have you lived?In the last 12 months, was there a time when you did not have a steady place to sleep or slept in [facility] (including now)?No05/16/2023Sex and Gender InformationValueDate RecordedSex Assigned at FaxkkKbgw88/08/2023 12:11 PM EDTLegal AsuXony0608/09/2022 6:57 PM EDTGender MwbdkqocYdih48/08/2023 12:11 PM EDTSexual OrientationNot on filedocumented as of this encounter Last Filed Vital Signs Vital SignReadingTime TakenCommentsBlood Dchgtodj390/6603/09/2025 12:58 PM EDT Cokcd101103/09/2025 12:58 PM EDTTemperature--Respiratory Rate--Oxygen Saturation 97%03/09/2025 12:58 PM EDTInhaled Oxygen Concentration--Yanbyw55.5 kg (193 lb) 03/09/2025 12:58 PM THKSoijkr204.4 cm (6' 1 )03/09/2025 12:58 PM EDTBody Mass Index25.4603/09/2025 12:58 PM EDTdocumented in this encounter Functional Status * Over the past 2 weeks, how often have you been bothered by any of the following problems?QuestionAnswerDate of AssessmentAuthorLittle interest or pleasure in doing thingsNot at all03/09/2025 1:00 PM Varsha Yañez LPN Feeling down, depressed, or hopelessNot at all03/09/2025 1:00 PM Varsha Yañez LPNPatient Health Questionnaire-2 Kjzcx634 1:00 PM Varsha Yañez LPN documented as of this encounter Progress Notes * Alejandro Pro MD - 03/09/2025 1:00 PM EDT Images from the original note were not included. Subjective : Chief Complaint: Lito Jordan is an 74 y.o. male here for an annual wellness visit. I have reviewed and reconciled the history and medication list with the patient today. Current Outpatient Medications Medication Sig Dispense Refill amantadine (Symmetrel) 100 MG capsule Take 1 capsule (100 mg) by mouth in the morning and 1 capsule(100 mg) before bedtime. 200 capsule 3 amiodarone (Pacerone) 200 MG tablet Take 1 tablet by mouth Daily atorvastatin (Lipitor) 80 MG tablet TAKE 1 TABLET BY MOUTH IN THE MORNING 100 tablet 3 biotin (Biotin Maximum Strength) 10 MG tablet TAKE 1 TABLET BY MOUTH TWICE A DAY 180 tablet 3 celecoxib (CeleBREX) 200 MG capsule Take 200 mg by mouth Daily cetirizine (ZyrTEC ALLERGY) 10 MG tablet Take 10 mg by mouth 1 (one) time each day at the same time dapagliflozin-metFORMIN ER (Xigduo XR) 5-1000 MG Take 1 tablet by mouth in the morning. Take with meals. 90 tablet 3 fluticasone (Flonase) 50 MCG/ACT nasal spray SPRAY 2 SPRAYS INTO EACH NOSTRIL EVERY DAY 48 mL 2 lisinopril 10 MG tablet TAKE 1 TABLET (10 MG) BY MOUTH DAILY. 100 tablet 3 metoprolol succinate XL (Toprol-XL) 100 MG 24 hr tablet TAKE 1 TABLET (100 MG) BY MOUTH ONE TIME EACH DAY AT THE SAME TIME 90 tablet 4 montelukast (Singulair) 10 MG tablet TAKE 1 TABLET BY MOUTH AT BEDTIME 100 tablet 3 Multiple Vitamin (Multi-Vitamin) tablet Take 1 tablet by mouth in the morning. omega-3 (Fish Oil) 1000 MG capsule Take 2 capsules by mouth every 12 (twelve) hours rivaroxaban (Xarelto) 20 MG tablet Take 20 mg by mouth in the evening. Take with meals sildenafil (Viagra) 100 MG tablet Take 100 mg by mouth if needed for erectile dysfunction tiZANidine (Zanaflex) 4 MG tablet Take 0.5 tablets (2 mg) by mouth every 8 (eight) hours if needed for muscle spasms (not to exceed 3 doses in 24 hours) 180 tablet 1 No current facility-administered medications for this visit. [...] at all Patient Health Questionnaire-2 Score: 0 [place] Fall Risk History of Falling, Immediate or Within 3 Months: No Secondary Diagnosis: No Ambulatory Aid: Walks without aid/bedrest/nurse assist Health Risk Assessment Form Do you need [...] taxes?: Yes Cognitive Screening Three Word Registration: Village, Kitchen, Baby Clock Drawing: Normal Clock - 2 Three Word Recall: All 3 words correct - 3 Total Score (0-5 Points): 5 Pain Assessment Pain Score: 5 - Moderate pain Advance Care Planning Do you have a living will?: No Do you have a medical power of fruit distributor?: No Objective : BP 110/66 Pulse 82 Ht 6' 1 Wt 193 lb SpO2 97% BMI 25.46 kg/m?? No results found. Physical Exam Constitutional: General: He is not in acute distress. Appearance: Normal appearance. HENT: Head: Normocephalic and atraumatic. Eyes: General: No scleral icterus. Cardiovascular: Rate and Rhythm: Normal rate. Rhythm irregular. Heart sounds: Murmur heard. Systolic murmur is present with a grade of 2/6. Pulmonary: Effort: Pulmonary effort is normal. No respiratory distress. Breath sounds: Normal breath sounds. No wheezing, rhonchi or rales. Abdominal: General: Bowel sounds are increased. There is no distension. Tenderness: There is no abdominal tenderness. There is no guarding. Hernia: No hernia is present. Musculoskeletal: Right hand: No swelling or tenderness. [...] and tremor present. 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 Behavior: Behavior normal. Office Visit on 03/09/2025 Component Date Value Ref Range Status RESULTS 12/26/2024 ndr Final Hemoglobin A1C 03/09/2025 6.1 Final Assessment/Plan : The following health maintenance schedule was reviewed with the patient and provided in printed form in the after visit summary: Health Maintenance Topic Date Due Diabetes: Hemoglobin A1C 10/28/2024 Influenza Vaccine (1) 01/26/2025 Diabetes: Urine Protein Screening 02/26/2025 Diabetes: Retinopathy Screening 12/26/2026 Pneumococcal Vaccine: 65+ Years Addressed Colorectal Cancer Screening Discontinued Advance Care Planning Assessment/Plan Diagnoses and all orders for this visit: Routine general medical examination at health care facility ACP (advance care planning) Chronic systolic heart failure (HCC) - Comprehensive metabolic panel; Future Type 2 diabetes mellitus with other circulatory complication, without long-term current use of insulin (HCC) - POCT Glycated hemoglobin, total - Comprehensive metabolic panel; Future - FSBS log shows good control, most recent A1C is at or near goal. Continue current treatment plan as previously outlined without changes. Paroxysmal atrial fibrillation (HCC) Mixed hyperlipidemia - Lipid panel; Future Hypermotility of intestine - FL upper GI single contrast w small bowel follow through; Future - Had CT 5 years ago for similar complaint, CT with no cause but did see cholelithiasis - Colonoscopy last year normal except for an isolated polyp, pathology not available Orders Placed This Encounter Procedures Diabetic Retinopathy Screening - OU - Both Eyes This order was created through External Result Entry Electronically signed by Alejandro Pro MD on March 09, 2025 documented in this encounter Plan of Treatment DateTypeDepartmentCare Team (Latest Contact Info)Nlceyiqrflr84/13/2025 11:00 AM ESTOffice Visit [facility] [address] [facility] [address] [place] [address] Alejandro rPo MD [address] [facility] [address] [place] [address] NameTypePriorityAssociated DiagnosesOrder ScheduleLipid panelLabRoutine Mixed hyperlipidemia Expected: 03/09/2025 (Approximate), Expires: 03/09/2026omprehensive metabolic panelLabRoutine Chronic systolic heart failure (HCC) Type 2 diabetes mellitus with other circulatory complication, without long-term current use of insulin (HCC) Expected: 03/09/2025 (Approximate), Expires: 03/09/2026FL upper GI single contrast w small bowel follow throughImagingRoutine Hypermotility of intestine Expected: 03/09/2025, Expires: 03/09/2026documented as of this encounter Procedures Procedure NamePriorityDate/TimeAssociated DiagnosisCommentsPOCT GLYCATED HEMOGLOBIN, VTUSJSsjadxo24/13/2025 1:54 PM EDT Type 2 diabetes mellitus with other circulatory complication, without long-term current use of insulin (HCC) DIABETIC RETINOPATHY SCREENING - OU - BOTH FNPZSwcplxx04/01/2025 documented in this encounter Results * POCT Glycated hemoglobin, total (03/09/2025 1:54 PM EDT)ComponentValueRef RangeTest MethodAnalysis TimePerformed AtPathologist SignatureHemoglobin A1C 6.1Specimen (Source)Anatomical Location / LateralityCollection Method / Volume Collection TimeReceived LaqzFlxdz71/13/2025 1:54 PM EDT Narrative Authorizing ProviderResult TypeResult Dwayne Pro MDPOINT OF CARE TEST ENTER/EDIT ORDERABLESFinal Result * Diabetic Retinopathy Screening - OU - Both Eyes (12/26/2024)ComponentValueRef RangeTest MethodAnalysis TimePerformed AtPathologist SignatureRESULTSndr Anatomical RegionLateralityModalityHeadOtherSpecimen (Source)Anatomical Location / LateralityCollection Method / VolumeCollection TimeReceived Time 12/26/2024 Narrative Authorizing ProviderResult TypeResult StatusAlejandro Pro MDOPHTH PHOTOGRAPHY Final Result documented in this encounter Visit Diagnoses Diagnosis Routine general medical examination at health care facility- Primary Routine general medical examination at a health care facility ACP (advance care planning) Other specified counseling Chronic systolic heart failure (HCC) Chronic systolic heart failure Type 2 diabetes mellitus with other circulatory complication, without long-term current use of insulin (HCC) Paroxysmal atrial fibrillation (HCC) Atrial fibrillation Mixed hyperlipidemia Hypermotility of intestine Unspecified functional disorder of intestine documented in this encounter Additional Health Concerns AssessmentNoted TimePHQ-9 Depression Total Score: 110/11/2023 10:00 AM EDT documented as of this encounter Care Teams Team MemberRelationshipSpecialtyStart DateEnd Date Alejandro Pro MD [address] [place] [address] [place] [address] PCP - ACO Reach10/19/22 Alejandro Pro MD [address] [place] [address] [place] [address] PCP - GeneralInternal Medicine10/03/22documented as of this encounter
--- OUTSIDE RECORDS SUMMARY | 2025-03-23 12:16 | XMS_ITS | Clinical Summary ---
Author Organization [facility] Address [address] [place] [address] Care Team Providers Care Gas Producer Name Role Phone Alejandro Pro MD Unavailable [phone] Alejandro Pro MD Primary Care Provider [phone] Allergies No known active allergies Medications MedicationSigDispense QuantityRefillsLast FilledStart DateEnd DateStatus sildenafil (Viagra) 100 MG tablet Take 100 mg by mouth if needed for erectile dysfunctionActive omega-3 (Fish Oil) 1000 MG capsule Take 2 capsules by mouth every 12 (twelve) hoursActive cetirizine (ZyrTEC ALLERGY) 10 MG tablet Take 10 mg by mouth 1 (one) time each day at the same timeActive Multiple Vitamin (Multi-Vitamin) tablet Take 1 tablet by mouth in the morning.Active metoprolol succinate XL (Toprol-XL) 100 MG 24 hr tablet Indications:Benign hypertensionTAKE 1 TABLET (100 MG) BY MOUTH ONE TIME EACH DAY AT THE SAME TIME 90 tablet 4Active montelukast (Singulair) 10 MG tablet Indications:Allergic rhinitis, unspecified seasonality, unspecified triggerTAKE 1 TABLET BY MOUTH AT BEDTIME 100 tablet 5Active atorvastatin (Lipitor) 80 MG tablet Indications:Mixed hyperlipidemiaTAKE 1 TABLET BY MOUTH IN THE MORNING 100 tablet 5Active biotin (Biotin Maximum Strength) 10 MG tablet Indications:Cervical dystoniaTAKE 1 TABLET BY MOUTH TWICE A DAY 180 tablet 5Active fluticasone (Flonase) 50 MCG/ACT nasal spray Indications:Allergic rhinitis, unspecified seasonality, unspecified triggerSPRAY 2 SPRAYS INTO EACH NOSTRIL EVERY DAY 48 mL 5Active amiodarone (Pacerone) 200 MG tablet Take 1 tablet by mouth DailyActive rivaroxaban (Xarelto) 20 MG tablet Take 20 mg by mouth in the evening. Take with mealsctive dapagliflozin-metFORMIN ER (Xigduo XR) 5-1000 MG Indications:Type 2 diabetes mellitus with other circulatory complication, without long-term current use of insulin (HCC)Take 1 tablet by mouth in the morning. Take with meals. 90 tablet 6Active amantadine (Symmetrel) 100 MG capsule Indications:Parkinsonism, unspecified Parkinsonism type (HCC)Take 1 capsule (100 mg) by mouth in the morning and 1 capsule (100 mg) before bedtime. 200 capsule 6Active tiZANidine (Zanaflex) 4 MG tablet Indications:Low back pain at multiple sitesTake 0.5 tablets (2 mg) by mouth every 8 (eight) hours if needed for muscle spasms (not to exceed 3doses in 24 hours) 180 tablet 5Active lisinopril 10 MG tablet Indications:Paroxysmal atrial fibrillation (HCC)TAKE 1 TABLET (10 MG) BY MOUTH DAILY. 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)Take 1 capsule (200 mg) by mouth Daily 90 capsule 6Active celecoxib (CeleBREX) 200 MG capsule Take 200 mg by mouth DailyDiscontinued Active Problems ProblemNoted DateDiagnosed DateLyme ethcgedhj05/30/8023Alseahtljrce26/27/2025 Bilateral carpal tunnel prnoalnu75/27/2025Lyme oygxwrp0107/24/2024ervical lpywapcu06/01/2024Trochanteric bursitis, right hip07/02/2023Low back pain at multiple sites06/22/2023hronic right sacroiliac joint pain05/01/2023 Longstanding persistent atrial cwqyumhmzuix33/26/2023Trochanteric bursitis of both hips01/30/2023enign vraomjnvvuzq01/01/2023History of cardiac pacemaker in situ01/26/2023llergic umzqoody75/25/2023alculus of gallbladder without cholecystitis without srrzybrfafy12/25/2023hronic systolic heart failure 10/19/2022ongenital medullary sponge rgpqjo7610/19/2022iabetes mellitus 10/19/2022isplacement of lumbar intervertebral disc without myelopathy 10/19/2022astroesophageal reflux disease without sxkbcwaftjy09/25/2023Internal derangement of left pyhjchaz96/25/2023Lumbar pzhknimjmgwrv32/25/2023LVH (left ventricular hypertrophy)10/19/2022Mixed axdsgssgmgtziw77/25/2023Non-rheumatic mitral nquixyasndvjp69/25/2023OSA (obstructive sleep apnea)10/19/2022acemaker 10/19/2022ain in limb10/19/2022aroxysmal atrial ongqltkuuowt63/25/2023Vertigo 10/19/2022ilateral enlargement of atria07/04/2019Tricuspid valve regurgitation 07/04/2019Long term current use of anticoagulant hvrcero5001/30/2019Cardiomegaly 09/14/2016History of colonic abzwar3204/12/2015Inguinal krpnlq6104/12/2015Disorder of lipid istkoaxmof34/10/2014Left heart wvnzanb7211/05/2012Primary cardiomyopathy 11/21/2011 Overview (01/26/2023): EF 40-45 % Chronic qvocfguuihy93/24/2012 Overview (01/26/2023): WILL SWITCH TO METOPROLOL SUCCINATE Congestive heart scwqydw8510/19/2011 Overview (01/26/2023): COMPENSATED Krcvtfon89/21/2012Conduction disorder of the heart10/16/2011Coronary tzylzesuojdomzc27/21/5327Ncbhljp77/21/2012 Resolved Problems ProblemNoted DateDiagnosed DateResolved DateType 2 diabetes mellitus without uhfkjfifotgdm93 Encounters DateTypeDepartmentCare MmvtLqxqfrhgjgx39/22/2025Refill [facility] [address] [place] [address] Jeromy Stone MD 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)03/10/2025bstract [facility] [address] [place] [address] Alejandro Pro MD 03/10/2025bstract [facility] [address] [place] [address] Alejadnro Pro MD 03/09/2025 1:00 PM EDTOffice Visit [facility] [address] [place] [address] Alejandro Pro MD Routine general medical examination at health care facility (Primary Dx); ACP (advance care planning); Chronic systolic heart failure (HCC); Type 2 diabetes mellitus with other circulatory complication, without long-term current use of insulin (HCC); Paroxysmal atrial fibrillation (HCC); Mixed hyperlipidemia; Hypermotility of xulnoxtnb78/13/2025amboo flowsheet [facility] [address] [place] [address] Alejandro Pro MD 03/09/20254068Vnnmwr84/26/2025bstract [facility] [address] [facility] [address] [place] [address] Alejandro Pro MD 02/17/2025Telephone [facility] [address] [place] [address] Montserrat Osorio MA 01/10/2025[facility]ill [facility] [address] [facility] [address] [place] [address] Alejandro Pro MD Paroxysmal atrial fibrillation (HCC); Acute Lyme qsnvpfb0801/01/2025Patient Outreach [facility] [address] [place] [place] [address] Page Rodrigez LPN 12/29/2024Refill [facility] [address] [place] [address] Marj Garza MA Type 2 diabetes mellitus with other circulatory complication, without long-term current use of insulin (HCC); Parkinsonism, unspecified Parkinsonism type (HCC); Low back pain at multiple sites12/29/2024b[facility] [address] [facility] [address] [place] [address] Alejandro Por MD 12/23/2024bstract [facility] [address] [facility] 110 [place] [address] Alejandro Pro MD from Last 3 Months Immunizations ImmunizationAdministration DatesNext DueInfluenza, High Dose Seasonal, Preservative Free02/04/2024,04/07/2020Influenza, High-dose Seasonal, Quadrivalent, Preservative Free04/05/2018,04/16/2017Influenza, Recombinant, injectable, preservative free03/20/2022Influenza, Seasonal, Quadrivalent, Kugfbkwaqb57/12/2023,03/20/2022,02/28/2021Influenza, Split (incl. purified surface antigen)02/25/2014Influenza, injectable, gkmfkeqbwful67/10/2019 Pneumococcal Polysaccharide EIOO666906/07/2019,05/28/2011RSV, recombinant, protein subunit RSVpreF, adjuvant reconstitu, 120mcg/0.5mL, PF (Arexvy)02/04/2024Tdap 01/25/2021Zoster, Apllfjvhdks46/12/2023,10/03/2022Zoster, live11/25/2013 Family History Medical HistoryRelationNameCommentsHeart diseaseFatherParkinsonismFatherCancer MotherDiabetesMotherDiabetesSiblingRelationNameStatusCommentsFatherDeceased MotherDeceasedSibling Social History Tobacco UseTypesPacks/DayYears UsedDateSmoking Tobacco: FormerCigarettes3.510 [...] relatives?Once a week05/16/2023How often do you attend nondenominational or islam services?Patient /20/2023o you belong to any clubs or organizations such as nondenominational groups, unions, fraternal or athletic cordelia ups, [...] at all 05/16/2023HQ-2AnswerDate RecordedPatient Health Questionnaire-2 Score0 03/09/2025[place] [employer] - Occupational Stress QuestionnaireAnswerDate RecordedDo you feel stress - tense, restless, nervous, or anxious, or unable to sleep at night because yourmind is troubled all the time - these days?Only a bonyoc8005/16/2023Exercise Vital SignAnswerDate Recorded On average, how many [...] steady place to sleep or slept [facility] (including now)?No05/16/2023Sex and Gender InformationValueDate RecordedSex Assigned at CmlncNfre54/08/2023 12:11 PM EDTLegal JsnBiun4108/09/2022 6:57 PM EDTGender JhamcnvoLznr91/08/2023 12:11 PM EDTSexual OrientationNot on file Last Filed Vital Signs Vital SignReadingTime TakenCommentsBlood Xhkhwajh406/6610 12:58 PM EDT Kesmu150603/09/2025 12:58 PM AWADqsjcmxkhfj65.8 ??C (98.3 ??F)05/08/2024 8:32 AM ESTRespiratory Qmoq188606/02/2024 2:05 PM ESTOxygen Ogqtitwwro28%03/09/2025 12:58 PM EDTInhaled Oxygen Concentration--Qejbfv66.5 kg (193 lb)03/09/2025 12:58 PM CJBYjsmmk978.4 cm (6' 1 )03/09/2025 12:58 PM EDTBody Mass Index25.4603/09/2025 12:58 PM EDT Plan of Treatment DateTypeDepartmentCare Team (Latest Contact Info)Gmztymxaixq26/13/2025 11:00 AM ESTOffice Visit [facility] [address] [facility] 110 [place] [address] Alejandro Pro MD [address] [facility] 110 [place] [address] Health MaintenanceDue DateLast DoneCommentsInfluenza Vaccine (#1)01/26/2025 02/04/2024, 02/06/2023, 03/20/2022, Additional history existsDiabetes: Urine Protein Xswwquboy15/02/682203, 03/23/2023, 01/25/2021, Additional history existsDiabetes: Hemoglobin A1C61, 07/28/2024, 06/02/2024, Additional history existsDiabetes: Retinopathy Pmkoojgjq78/01/2027 12/26/2024, 05/30/2023, 07/28/2020, Additional history existsPneumococcal Vaccine: 65+ RqbtzUgmsieopx33/16/2021, 04/07/2020, 05/28/2011Overridden with the intention of not completing the topicFIT-FSNRomghpwjvvov79/30/2023, 02/09/2020, 02/09/20206623HyzwrbfmrbaXyswnqiushyu64/14/2024, 3Colorectal Cancer ScreeningDiscontinuedCT ColonographyDiscontinuedFITDiscontinuedFOBTDiscontinued SigmoidoscopyDiscontinued Procedures Procedure NamePriorityDate/TimeAssociated DiagnosisCommentsPOCT GLYCATED HEMOGLOBIN, KGDFRHgzocjv58/13/2025 1:54 PM EDT Type 2 diabetes mellitus with other circulatory complication, without long-term current use of insulin (HCC) DIABETIC RETINOPATHY SCREENING - OU - BOTH QYANJvednel63/01/2025 MICROALBUMIN / CREATININE URINE WFZXAGxykuln47/02/2024 10:32 AM EDT Type 2 diabetes mellitus with other circulatory complication, without long-term current use of insulin (HCC) Benign hypertension Chronic systolic heart failure (HCC) Paroxysmal atrial fibrillation (HCC) Atherosclerosis of coronary artery of stebbins heart, unspecified vessel or lesion type, unspecified whether angina present COLONOSCOPY MTHBYYCRNSKtpyftj65/14/2024 9:39 AM EDTLAB COLOGUARD?? COLON CANCER FHETHIGdlzbxt52/30/2023 5:30 PM EDT Screening for colorectal cancer from Last 3 Months or Most Recently Relevant to Health Maintenance Results * POCT Glycated hemoglobin, total (03/09/2025 1:54 PM EDT)ComponentValueRef RangeTest MethodAnalysis TimePerformed AtPathologist SignatureHemoglobin A1C 6.1Specimen (Source)Anatomical Location / LateralityCollection Method / Volume Collection TimeReceived BewzGfehu39/13/2025 1:54 PM EDT Narrative Authorizing ProviderResult TypeResult Dwayne Pro MDPOINT OF CARE TEST ENTER/EDIT ORDERABLESFinal Result * Diabetic Retinopathy Screening - OU - Both Eyes (12/26/2024)ComponentValueRef RangeTest MethodAnalysis TimePerformed AtPathologist SignatureRESULTSndr Anatomical RegionLateralityModalityHeadOtherSpecimen (Source)Anatomical Location / LateralityCollection Method / VolumeCollection TimeReceived Time 12/26/2024 Narrative Authorizing ProviderResult TypeResult Dwayne Pro [facility] PHOTO[facility] Final Result * (ABNORMAL) Microalbumin / creatinine, urine ratio (02/27/2024 10:32 AM EDT) ComponentValueRef RangeTest MethodAnalysis TimePerformed AtPathologist SignatureCREATININE, RANDOM GXNFN2299 - 320 mg/dLQUESTALBUMIN, URINE15.5See Note: mg/dLQUESTComment: Reference Range: Reference Range Not established ALBUMIN/CREATININE RATIO, RANDOM HJFEE357(H)<30 mg/g creatQUESTComment: The ADA defines abnormalities in albumin excretion as follows: Albuminuria Category ?Result (mg/g creatinine) Normal to Mildly increased <30 Moderately increased ? 30-299 Severely increased > OR = 300 The ADA recommends that at least two of three specimens collected within a 3-6 month period be abnormal before considering a patient to be within a diagnostic category. Specimen (Source)Anatomical Location / LateralityCollection Method / Volume Collection TimeReceived TimeUrineUrine specimen obtained by clean catch procedure / Jxyamvu4802/27/2024 10:32 AM EDT1 10:32 AM EDT Narrative Resulting Agency Comment Performing Organization Information ?Site ID: [id number] ?Name: [facility] ?Address: [address] [place] [address], [address] [place] [id number] ?Director: Trevor Lundy MD Authorizing ProviderResult TypeResult StatusDaniwood [place] URINE ORDERABLESFinal ResultPerforming OrganizationAddressCity/State/ZIP CodePhone Number [facility] * COLONOSCOPY DIAGNOSTIC (11/09/2023 9:39 AM EDT)Anatomical RegionLaterality ModalityRadiographic Imaging Narrative Authorizing ProviderResult TypeResult StatusNoms Provider Unallocated MDIMG XR PROCEDURESFinal Result * (ABNORMAL) Cologuard?? colon cancer screening (03/26/2023 5:30 PM EDT) ComponentValueRef RangeTest MethodAnalysis TimePerformed AtPathologist SignatureNONINV COLON CA DNA+OCC BLD SCRN STL-IMPPositive(A)Zovvjzak74/06/2023 5:33 PM [employer] (CLIA #:[id number])Comment: POSITIVE TEST RESULT. A positive Cologuard result should be followed with a colonoscopy or visual examination of the colon. The normal value (reference range) for this assay is negative. TEST DESCRIPTION: Composite algorithmic analysis of stool DNA-biomarkers with hemoglobin immunoassay. ?? Quantitative values of individual biomarkers are not reportable and are not associated with individual biomarker result reference ranges. Cologuard is intended for colorectal cancer screening ofadults of either sex, 45 years or older, who are at average-risk for colorectal cancer (CRC). Cologuard has been approved for use by the U.S. FDA. The performance of Cologuard was established in a cross sectional study of average-risk adults aged 50-84. Cologuard performance in patients ages 45 to 49 years was estimated by sub-group analysis of near-age groups. Colonoscopies performed for a positive result may find as the most clinically significant lesion: colorectal cancer [4.0%], advanced adenoma (including sessile serrated polyps greater than or equal to 1cm diameter) [20%] or non- advanced adenoma [31%]; or no colorectal neoplasia [45%]. These estimates are derived from a prospective cross-sectional screening study of 10,000 individuals at average risk for colorectal cancer who were screened with both Cologuard and colonoscopy. (Negin Carvajal. et al, N Engl J Med 2014;370(14):3938-1733.) Cologuard may produce a false negative or false positive result (no colorectal cancer or precancerous polyp present at colonoscopy follow up). A negative Cologuard test result does not guarantee the absence of CRC or advanced adenoma (pre-cancer). The current Cologuard screening interval is every 3 years. ([place] Cancer Society and U.S. Multi-Society Task Force). Cologuard performance data in a 10,000 patient pivotal study using colonoscopy as the reference method can be accessed at the following location: www.marker.to.[employer]/results. Additional description of the Cologuard test process, warnings and precautions can be found at www.[employer].com. Specimen (Source)Anatomical Location / LateralityCollection Method / Volume Collection TimeReceived TimeStool specimen (specimen)03/26/2023 5:30 PM EDT 03/28/2023 2:42 PM EDT Narrative Authorizing ProviderResult TypeResult StatusDapanda [place] MOLECULAR DIAGNOSTICS ORDERABLESFinal ResultPerforming OrganizationAddressCity/State/ZIP CodePhone Number Zhilian [employer] (CLIA #:[id number]) [place] [address], from Last 3 Months or Most Recently Relevant to [place] [address] Care Teams Team MemberRelationshipSpecialtyStart DateEnd Alejandro Pro MD [address] [facility] [address] [place] [address] PCP - ACO Re[facility]10/19/22 Alejandro Pro MD [address] [facility] 110 [place] [address] PCP - GeneralInternal Medicine10/03/22
--- OUTSIDE RECORDS SUMMARY | 2025-03-23 12:16 | XMS_ITS | Encounter Summary ---
Author Organization [facility] Address [address] [place] [address] Care Team Providers Care Manager Technical Sales Name Role Phone Alejandro Pro MD Unavailable [phone] Alejandro Pro MD Primary Care Provider [phone] Encounter Details DateTypeDepartmentCare Team (Latest Contact Info)Gyzpkjjphmj83/13/2025Travel Social History Tobacco UseTypesPacks/DayYears UsedDateSmoking Tobacco: FormerCigarettes3.510 Started: 1972Smokeless Tobacco: Never Comments:Last smoked:>10 yea rs Alcohol UseStandard Drinks/WeekCommentsYes0 (1 standard drink = [...] relatives?Once a week05/16/2023How often do you attend samaritan or shinto services?Patient vclhavdw72/20/2023o you belong to any clubs or organizations such as samaritan groups, unions, fraternal or athletic cordelia ups, [...] at all 05/16/2023HQ-2AnswerDate RecordedPatient Health Questionnaire-2 Score0 03/09/2025[facility] [place] [facility] - Occupational Stress QuestionnaireAnswerDate RecordedDo you feel stress - tense, restless, nervous, or anxious, or unable to sleep at night because yourmind is troubled all the time - these days?Only a fsxzno7805/16/2023Exercise Vital SignAnswerDate Recorded On average, how many [...] steady place to sleep or slept in ashelter (including now)?No05/16/2023Sex and Gender InformationValueDate RecordedSex Assigned at MypzdJngr06/08/2023 12:11 PM EDTLegal DsjNtkw5608/09/2022 6:57 PM EDTGender HlcvdcfkUxqt37/08/2023 12:11 PM EDTSexual OrientationNot on filedocumented as of this encounter Functional Status * Over the past 2 weeks, how often have you been bothered by any of the following problems?QuestionAnswerDate of AssessmentAuthorLittle interest or pleasure in doing thingsNot at all03/09/2025 1:00 PM Varsha Yañez LPN Feeling down, depressed, or hopelessNot at all03/09/2025 1:00 PM Varsha Yañez LPNPatient Health Questionnaire-2 Jbpwl971 1:00 PM Varsha Yañez LPN documented as of this encounter Plan of Treatment DateTypeDepartmentCare Team (Latest Contact Info)Rgcrqtavayt84/13/2025 11:00 AM ESTOffice Visit [facility] [place] [facility] [address] [place] [address] Alejandro Pro MD [address] [place] [address] documented as of this encounter Visit Diagnoses Not on filedocumented in this encounter Additional Health Concerns AssessmentNoted TimePHQ-9 Depression Total Score: 10:00 AM EDT documented as of this encounter Care Teams Team MemberRelationshipSpecialtyStart DateEnd Date Alejandro Pro MD [address] [facility] [address] [place] [address] PCP - ACO [facility]10/19/22 Alejandro Pro MD [address] [facility] [address] [place] [address] PCP - GeneralInternal Medicine10/03/22documented as of this encounter
--- OUTSIDE RECORDS SUMMARY | 2025-03-23 12:16 | XMS_ITS | Encounter Summary ---
Author Organization [facility] Address [address] [place] [address] Care Team Providers Care Tip Puncher Name Role Phone Alejandro Pro MD Unavailable [phone] Alejandro Pro MD Primary Care Provider [phone] Encounter Details DateTypeDepartmentCare Team (Latest Contact Info)Nznkuspmfab53/14/2025Abstract [facility] [address] [place] [address] Alejandro Pro MD [address] [place] [address] Social History Tobacco UseTypesPacks/DayYears UsedDateSmoking Tobacco: FormerCigarettes3.510 [...] relatives?Once a week05/16/2023How often do you attend druze or adventism services?Patient ivmobzfg87/20/2023o you belong to any clubs or organizations such as druze groups, unions, Ubers[employer] or athletic Apttus ups, or school groups?Yes05/16/2023How often do you [...] at all 05/16/2023HQ-2AnswerDate RecordedPatient Health Questionnaire-2 Score0 03/09/2025[facility] [place] [facility] - Occupational Stress QuestionnaireAnswerDate RecordedDo you feel stress - tense, restless, nervous, or anxious, or unable to sleep at night because yourmind is troubled all the time - these days?Only a erclxz5305/16/2023Exercise Vital SignAnswerDate Recorded On average, how many [...] now)?No05/16/2023Sex and Gender InformationValueDate RecordedSex Assigned at LyrqxEbkf50/08/2023 12:11 PM EDTLegal CtiQrwy3508/09/2022 6:57 PM EDTGender ZkfiwezjYstj47/08/2023 12:11 PM EDTSexual OrientationNot on filedocumented as of this encounter Plan of Treatment DateTypeDepartmentCare Team (Latest Contact Info)Wmifbcuujzo30/13/2025 11:00 AM ESTOffice Visit [facility] [place] [facility] [address] [place] [address] Alejandro Pro MD [address] [place] [address] documented as of this encounter Visit Diagnoses Not on filedocumented in this encounter Additional Health Concerns AssessmentNoted TimePHQ-9 Depression Total Score: 10:00 AM EDT documented as of this encounter Care Teams Team MemberRelationshipSpecialtyStart DateEnd Date Alejandro Pro MD [address] [place] [address] PCP - ACO [facility]5/25/23 Alejandro Pro MD [address] [facility] 110 [place] [address] PCP - GeneralInternal Medicine10/03/22documented as of this encounter
--- OUTSIDE RECORDS SUMMARY | 2025-03-23 12:16 | XMS_ITS | Encounter Summary ---
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) Social History Tobacco UseTypesPacks/DayYears UsedDateSmoking Tobacco: FormerCigarettes3.510 Started: 1973Smokeless Tobacco: Never Comments:Last smoked:>10 yea rs Alcohol [...] relatives?Once a week05/16/2023How often do you attend gnosticism or buddhist services?Patient pjweoilj62/20/2023o you belong to any clubs or organizations such as gnosticism groups, unions, fraFundbase or athletic cordelia ups, or school groups?Yes05/16/2023How [...] at all 05/16/2023HQ-2AnswerDate RecordedPatient Health Questionnaire-2 Score0 03/09/2025[facility] [place] of Occupational Health - Occupational Stress QuestionnaireAnswerDate RecordedDo you feel stress - tense, restless, nervous, or anxious, or unable to sleep at night because yourmind is troubled all the time - these days?Only a ppipok4005/16/2023Exercise Vital SignAnswerDate Recorded On average, how many days per week do you engage in moderate to strenuous exercise (like a brisk walk)?7 days05/16/2023Minutes of Exercise per SessionNot on file12/20/2023Hunger Vital SignAnswerDate RecordedWithin the past 12 months, [...] steady place to sleep or slept in [place] (including now)?No05/16/2023Sex and Gender InformationValueDate RecordedSex Assigned at KjzagKsip09/08/2023 12:11 PM EDTLegal FphXpxn3208/09/2022 6:57 PM EDTGender GlarqvsaRtbc93/08/2023 12:11 PM EDTSexual OrientationNot on filedocumented as of this encounter Plan of Treatment DateTypeDepartmentCare Team (Latest Contact Info)Vxdezpughrn12/13/2025 11:00 AM ESTOffice Visit [facility] [place] [facility] [address] [place] [address] Alejandro Pro MD [address] [place] [address] documented as of this encounter Visit Diagnoses Diagnosis 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
--- OUTSIDE RECORDS SUMMARY | 2025-03-23 12:16 | XMS_ITS | Encounter Summary ---
Author Organization [facility] Address [address] [place] [address] Care Team Providers Care Funeral Pre Need Consultant Name Role Phone Alejandro Pro MD Unavailable [phone] Alejandro Pro MD Primary Care Provider [phone] Encounter Details DateTypeDepartmentCare Team (Latest Contact Info)Txhkdldcfvi90/14/2025Abstract [facility] [place] [facility] [address] [place] [address] Alejandro Pro MD [address] [place] [address] Social History Tobacco UseTypesPacks/DayYears UsedDateSmoking [...] relatives?Once a week05/16/2023How often do you attend mormon or jehovah's witness services?Patient eltswotj87/20/2023o you belong to any clubs or organizations such as mormon groups, unions, [employer] or athletic [employer] ups, or school groups?Yes05/16/2023How often do you [...] at all 05/16/2023HQ-2AnswerDate RecordedPatient Health Questionnaire-2 Score0 03/09/2025[facility] [place] of Occupational Health - Occupational Stress QuestionnaireAnswerDate RecordedDo you feel stress - tense, restless, nervous, or anxious, or unable to sleep at night because yourmind is troubled all the time - these days?Only a vuvddb4105/16/2023Exercise Vital SignAnswerDate Recorded On average, how many [...] now)?No05/16/2023Sex and Gender InformationValueDate RecordedSex Assigned at UbzvrEnbq61/08/2023 12:11 PM EDTLegal NulOqkl5108/09/2022 6:57 PM EDTGender CydlrlpuRjof02/08/2023 12:11 PM EDTSexual OrientationNot on filedocumented as of this encounter Plan of Treatment DateTypeDepartmentCare Team (Latest Contact Info)Nhcjfkmirys87/13/2025 11:00 AM ESTOffice Visit [facility] [place] [facility] [address] [place] [address] Alejandro Pro MD [address] [place] [address] documented as of this encounter Visit Diagnoses Not on filedocumented in this encounter Additional Health Concerns AssessmentNoted TimePHQ-9 Depression Total Score: 10:00 AM EDT documented as of this encounter Care Teams Team MemberRelationshipSpecialtyStart DateEnd Date Alejandro Pro MD [address] [place] [address] PCP - ACO Reach5/25/23 Alejandro Pro MD [address] [facility] [address] [place] [address] PCP - GeneralInternal Medicine10/03/22documented as of this encounter
--- OUTSIDE RECORDS SUMMARY | 2025-03-23 12:16 | XMS_ITS | Clinical Summary ---
Author Organization [facility] Address [address] [place] [address] Care Team Providers Care Christian Science Nurse Name Role Phone Alejandro Pro MD Primary Care Provider [phone] Allergies No known active allergies Medications MedicationSigDispense QuantityRefillsLast FilledStart DateEnd DateStatus atorvastatin (Lipitor) 80 mg tablet Take 80 mg by mouth in the morning.Active canagliflozin-metformin (Invokamet) 150-1,000 mg Take 1 tablet by mouth in the morning.Active cetirizine (ZyrTEC) 10 mg capsule Take 10 mg by mouth in the evening.Active lisinopril 10 mg tablet Take 10 mg by mouth in the evening.Active metoprolol succinate XL (Toprol-XL) 100 mg 24 hr tablet Take 100 mg by mouth in the morning.Active montelukast (Singulair) 10 mg tablet Take 10 mg by mouth at bedtime.Active omega-3 acid ethyl esters (Lovaza) 1 gram capsule Take 2 g by mouth in the morning and at bedtime.Active sildenafil citrate (VIAGRA ORAL) Take 100 mg by mouth if needed each day.Active tiZANidine (Zanaflex) 4 mg tablet Take 8 mg by mouth if needed each day for muscle spasms.Active multivitamin tablet Take 1 tablet by mouth in the morning.Active biotin 10,000 mcg capsule Take 10,000 mg by mouth two times daily.Active dapaglifloz propaned-metformin (Xigduo XR) 5-1,000 mg Take 1 tablet by mouth with breakfast.Active piroxicam (Feldene) 10 mg capsule Take 10 mg by mouth in the morning.Active amantadine (Symmetrel) 100 mg capsule Take 100 mg by mouth in the morning.Active FLUoxetine (PROzac) 20 mg capsule Take 1 capsule by mouth in the morning.03/13/2024ctive fluticasone (Flonase) 50 mcg/actuation nasal spray Administer 1 spray into each nostril in the morning.08/28/2024tive furosemide (Lasix) 40 mg tablet Take 1 tablet by mouth if needed.01/18/2015ctive potassium chloride CR (Klor-Con M20) 20 mEq ER tablet Take 20 mEq by mouth in the morning.01/18/2015ctive traMADol (Ultram) 50 mg tablet Take 1 tablet by mouth if needed each day.01/18/2015ctive amiodarone (Pacerone) 200 mg tablet Indications:Paroxysmal atrial fibrillation (CMS/HCC)1 tablet (200 mg) in the morning. 90 tablet 5Active rivaroxaban (Xarelto) 20 mg tablet Indications:Paroxysmal atrial fibrillation (CMS/HCC)Take 1 tablet (20 mg) by mouth daily with evening meal. Take with food. 60 tablet /5Active rivaroxaban (Xarelto) 20 mg tablet Indications:Paroxysmal atrial fibrillation (CMS/HCC)Take 1 tablet (20 mg) by mouth daily with evening meal. Take with food. 90 tablet Discontinued(Reorder) Active Problems ProblemNoted DateDiagnosed DateBilateral carpal tunnel kypepjtc93/27/2025Lyme ccjresc2607/24/20240821Niffgbdlldhc65/27/2025ervical oaiuvflu69/01/2024hronic right sacroiliac joint pain05/01/2023Longstanding persistent atrial fibrillation 02/20/2023Trochanteric bursitis, right hip01/30/2023enign hypertension 01/26/2023History of cardiac pacemaker in situ01/26/2023iabetes mellitus Lumbar urzxxngjkwzky17LVH (left ventricular hypertrophy)ongenital medullary sponge kidney ain in limbInternal derangement of left cgpremix89alculus of gallbladder without cholecystitis without dnmxmluvtmr10ilateral enlargement of atria07/04/2019 Chronic diastolic heart ubgqzro6607/04/2019Non-rheumatic mitral regurgitation 07/04/2019Tricuspid valve /07/2020Long term current use of anticoagulant reycsvf47Vertigoardiomegaly llergic vuojrtnx65isplacement of lumbar intervertebral disc without ojduaxdjdi36astroesophageal reflux disease without zxuxucahzgo83History of colonic polyps Inguinal pvtbdm33Medullary cystic kidney cute on chronic systolic heart jrmxiej59 Paroxysmal atrial /16/2015OSA (obstructive sleep apnea)04/12/2015 12/20/2022trial smlxteh4205/06/2014Disorder of lipid uiicfwrpgp20/10/2014Left heart mczrxdw9111/05/2012Cardiac pacemaker in situ02/05/20123534Lrmgxktmt20/10/2012 12/20/2022 Overview (12/20/2022): CLINICAL ASSOCIATE-P Primary zdmvohruhqtrla97/26/2012Chronic qtoqihxizwc20/24/7515Iqtdimeh83/21/2012 Conduction disorder of the heart10/16/2011Coronary pyzhjyccmnlbaex51/21/2012 Xsqdwvpmiidffj19/21/2262Sxjxmsy64/21/2012Sleep apnea10/16/2011Type 2 diabetes mellitus without xmusaolxlxyr49/21/2012 Resolved Problems ProblemNoted DateDiagnosed DateResolved DateAtrial fibrillation, unspecified type/ Encounters DateTypeDepartmentCare LglhGnfjvsyljvm54/23/2025Orders Only [facility] Pre-Anesthesia Clinic [address] [place] [address] Anna Hazel RN 03/03/2025Orders Only [facility] [address] [facility] [place] [address] Elza Parker RN Paroxysmal atrial fibrillation (CMS/HCC) (Primary Dx)03/03/2025Orders Only [facility] [address] [place] [phone] Elza Parker RN Paroxysmal atrial fibrillation (CMS/HCC) (Primary Dx)02/[facility] [address] [place] [address] Kaya Portillo MA Paroxysmal atrial fibrillation (CMS/HCC)02/17/2025 2:30 PM EDTAncillary Procedure [facility] [address] [place] [address] Encounter for implantable defibrillator reprogramming or checkfrom Last 3 Months Family History Medical HistoryRelationNameCommentsParkinsonismFatherCancerMotherDiabetesSister RelationNameStatusCommentsBrotherDeceasedFatherDeceasedMotherDeceasedSister Social History Tobacco UseTypesPacks/DayYears UsedDateSmoking Tobacco: SkzmkqNkapwblzmq68 Started: 1971Smokeless Tobacco: Never Tobacco Cessation:Counseling Given: Not Answered Alcohol UseStandard Drinks/WeekCommentsYes0 (1 standard drink = 0.6 oz pure alcohol)occaionalUT Safety & EnvironmentAnswerDate RecordedFear of Current or Ex-PartnerNot on file07/19/2023Emotionally AbusedNot on 07/19/2023hysically AbusedNot on 07/19/2023Sexually AbusedNot on 07/19/2023hysically or Sexually AbusedNot on file07/19/2023Sex and Gender InformationValueDate Recorded Sex Assigned at QubfyCqfv79/21/2023 5:24 PM ESTLegal KiaPbhl7611/23/2021 10:34 PM EDTGender MiwvcyqySxiw96/21/2023 5:24 PM ESTSexual OrientationHeterosexual or Eztvwvoq39/ 5:24 PM EST Last Filed Vital Signs Vital SignReadingTime TakenCommentsBlood Veqyerxf818/72010/07/2024 11:02 AM EDT Odkon138110/07/2024 11:02 AM EDTTemperature--Respiratory Uehz879206/18/2022 8:47 AM ESTOxygen Psbqgctukg48%10/07/2024 11:02 AM EDTInhaled Oxygen Concentration-- Epdgqa72.9 kg (196 lb)10/07/2024 11:02 AM YPOUfqrng945 cm (6' 2 )10/07/2024 11:02 AM EDTBody Mass Index25.16010/07/2024 11:02 AM EDT Plan of Treatment DateTypeDepartmentCare Team (Latest Contact Info)Xjjchfmovbq21/04/2025 1:30 PM ESTFollow-Up [facility] [place] [address] [place] [address] Peter Crain MD [address] [place] [phone] 04/02/2025 8:30 AM ESTHospital Encounter [facility] [address] [place] [phone] Peter Crain MD [address] [place] [phone] Paroxysmal atrial fibrillation (CMS/HCC)04/02/2025 8:30 AM EST - 04/02/2025 11:30 AM ESTSurgery [facility] [address] [place] [address] Peter Crain MD [address] [place] [phone] Ablation a-fib w/ pvi [[id number] (CPT??)]04/02/2025 8:30 AM ESTAppointment [facility] [address] [facility] [place] [address] Health MaintenanceDue DateLast DoneCommentsMedicare Annual Wellness (AWV) 1948Diabetes: Retinopathy Pejlqfxjc82/06/1959Depression Screening 1960Fall Risk Uuggeswht07/06/2014Pneumococcal Vaccine: 50+ Years (2 of 2 - PCV)/03/2020, 05/28/2011Diabetes: Hemoglobin A1C05/29/2024 02/27/2024, 03/23/2023OVID-19 Vaccine ( season), 09/30/2021, 02/28/2021, Additional history existsInfluenza Vaccine (#1) 9/01/2024, 02/06/2023, 03/20/2022, Additional history existsDiabetes: Urine Protein Xtljttfft68/06/2023, 03/23/2023dult Jcngtpc5701/25/2031 01/25/2021, 01/18/2015Zoster CttviiekUjfqaxevc90/12/2023, 10/03/2022, 04/22/2014, Additional history existsColorectal Cancer ScreeningDiscontinued FIT-QLLRpjhfiqbutbq95/30/4467LDRNebgpusividg25/30/2023T Colonography DiscontinuedColonoscopyDiscontinuedFOBTDiscontinuedHIB VaccinesAged OutNo longer eligible based on patient's age to complete this topicHPV VaccinesAged OutNo longer eligible based on patient's age to complete this topicIPV VaccinesAged OutNo longer eligible based on patient's age to complete this topicMeningococcal B VaccineAged OutNo longer eligible based on patient's age to complete this topicMeningococcal VaccineAged OutNo longer eligible based on patient's age to complete this topicRotavirus VaccinesAged OutNo longer eligible based on patient's age to complete this topicSigmoidoscopyDiscontinued Medical Devices ImplantedTypeAreaManufacturerDevice IdentifierShelf Expiration DateModel / Serial / Janeen,Is-1,Gricelda,[id number] - [id number] - [id number] Implanted:Qty: 1 on 04/17/2022 by [facility]ON[facility] [id number] / [id number] / Crtp [id number] Percepta Crtp Mri Us Implanted:Qty: 1 on 04/17/2022 by [facility] CenterPacemakerMedtronic08/17/[id number] / [id number] / Procedures Procedure NamePriorityDate/TimeAssociated DiagnosisCommentsCARDIAC DEVICE CHECK - IN CLINIC - PACEMAKER DUAL CHAMBER W/ WKFWPzltmse34/24/2025 12:29 PM EDT Encounter for implantable defibrillator reprogramming or check from Last 3 Months Results * CARDIAC DEVICE CHECK - IN CLINIC - PACEMAKER DUAL CHAMBER W/ PROG (02/18/2025 12:29 PM EDT)Anatomical RegionLateralityModalityOtherSpecimen (Source) Anatomical Location / LateralityCollection Method / VolumeCollection Time Received Time Narrative 02/24/2025 10:16 AM EDT By using the attestations below, the signing clinician agrees that I have read and verify that the documentation has been personally reviewed by me and ensure that the documentation accurately reflects the encounter. Routine EP device follow up as per schedule. Please see attached note Authorizing ProviderResult TypeResult StatusPaul Paras [facility] [place] IMPLANTABLE CARDIAC DEVICE PROCEDURESFinal Result from Last 3 [place] [address] [place] [id number] Care Teams Team MemberRelationshipSpecialtyStart DateEnd Alejandro Pro MD [address] [address] [facility] - General01/18/22
--- OUTSIDE RECORDS SUMMARY | 2025-03-23 12:16 | XMS_ITS | Encounter Summary ---
Author Organization [facility] Address [address] [place] [address] Care Team Providers Care Gill Box Fixer Name Role Phone Alejandro Pro MD Unavailable [phone] Alejandro Pro MD Primary Care Provider [phone] Encounter Details DateTypeDepartmentCare Team (Latest Contact Info)Xrbgesjdumq62/13/2025Bamboo flowsheet [facility] [place] [facility] [address] [place] [address] Alejandro Pro MD [address] [place] [address] Social History Tobacco UseTypesPacks/DayYears UsedDateSmoking [...] relatives?Once a week05/16/2023How often do you attend zoroastrian or confucianist services?Patient mnvxftyu93/20/2023o you belong to any clubs or organizations such as zoroastrian groups, unions, [employer] or athletic cordelia ups, or school groups?Yes05/16/2023How [...] Health Questionnaire-2 Score0 03/09/2025[facility], [facility] [place] of Occupational Health - Occupational Stress QuestionnaireAnswerDate RecordedDo you feel stress - tense, restless, nervous, or anxious, or unable to sleep at night because yourmind is troubled all the time - these days?Only a mdqsoy9905/16/2023Exercise Vital SignAnswerDate Recorded On average, how many [...] now)?No05/16/2023Sex and Gender InformationValueDate RecordedSex Assigned at EijtnLhgg40/08/2023 12:11 PM EDTLegal JhgXwtd7708/09/2022 6:57 PM EDTGender EcbulbivUmqk06/08/2023 12:11 PM EDTSexual OrientationNot on filedocumented as of this encounter Plan of Treatment DateTypeDepartmentCare Team (Latest Contact Info)Yqmhgtouxgy84/13/2025 11:00 AM ESTOffice Visit [facility] [place] [facility] [address] [place] [address] Alejandro Pro MD [address] [place] [address] documented as of this encounter Visit Diagnoses Not on filedocumented in this encounter Additional Health Concerns AssessmentNoted TimePHQ-9 Depression Total Score: 10:00 AM EDT documented as of this encounter Care Teams Team MemberRelationshipSpecialtyStart DateEnd Date Alejandro Pro MD [address] [place] [address] PCP - ACO Reach10/19/22 Alejandro Pro MD [address] [facility] [address] [place] [address] PCP - GeneralInternal Medicine10/03/22documented as of this encounter
--- OUTSIDE RECORDS SUMMARY | 2025-03-23 12:16 | XMS_ITS | Encounter Summary ---
Author Organization [facility] Address [address] [place] [address] Care Team Providers Care Rehabilitation Technician Name Role Phone Alejandro Pro MD Primary Care Provider [phone] Encounter Details DateTypeDepartmentCare Team (Latest Contact Info)Hxztbfomsxi72/23/2025Orders Only [facility] Pre-Anesthesia Clinic [address] [place] [address] Anna Hazel, RN Social History Tobacco UseTypesPacks/DayYears UsedDateSmoking Tobacco: YqbotjYygztatomy55 Started: 1973Smokeless Tobacco: Never Tobacco Cessation:Counseling Given: Not Answered Alcohol UseStandard Drinks/WeekCommentsYes0 (1 standard drink = 0.6 oz pure alcohol)occaionalUT Safety & EnvironmentAnswerDate RecordedFear of Current or Ex-PartnerNot on file07/19/2023Emotionally AbusedNot on file4Physically AbusedNot on file07/19/2023Sexually AbusedNot on file4Physically or Sexually AbusedNot on file07/19/2023Sex and Gender InformationValueDate Recorded Sex Assigned at SmmgvUxwt36/21/2023 5:24 PM ESTLegal SfnSsvp1011/23/2021 10:34 PM EDTGender TmwlssczSrbw49/21/2023 5:24 PM ESTSexual OrientationHeterosexual or Cjibjwru02/21/2023 5:24 PM ESTdocumented as of this encounter Plan of Treatment DateTypeDepartmentCare Team (Latest Contact Info)Eadvjujypmf05/04/2025 1:30 PM ESTFollow-Up [facility] Heart at [facility] [address] [place] [facility] [place] [address] Peter Crain MD [address] [place] [address] 04/02/2025 8:30 AM ESTHospital Encounter [facility] [address] [place] [address] Peter Crain MD [address] [place] [address] Paroxysmal atrial fibrillation (CMS/HCC)04/02/2025 8:30 AM EST - 04/02/2025 11:30 AM ESTSurgery [facility] [place] [address] Peter Crain MD [address] [place] [address] Ablation a-fib w/ pvi [[id number] (CPT??)]04/02/2025 8:30 AM ESTAppointment [facility] [place] [address] documented as of this encounter Visit Diagnoses Not on filedocumented in this encounter Care Teams Team MemberRelationshipSpecialtyStart DateEnd Date Alejandro Pro MD [address] [place] [address] PCP - General01/18/22documented as of this encounter
[2025-03-23 12:29] LABS: Hematocrit 36.2 % (42.0-54.0); Hemoglobin 11.6 g/dL (14.0-18.0); Immature Granulocytes Abs Auto 0.05 10^3/uL (0.00-0.03); Immature Granulocytes Pct Auto 0.8 % (0.0-0.5); Lymphocytes Absolute Auto 1.1 10^3/uL (1.2-3.8); Mean Corpuscular HGB Conc 32.0 g/dL (29.9-35.2); Mean Corpuscular Hemoglobin 28.6 pg (25.9-34.0); Mean Corpuscular Volume 89.2 fL (80.0-94.0); Platelet Count 93 10^3/uL (150-450); Red Blood Count 4.06 10^6/uL (4.70-6.10); White Blood Count 6.2 10^3/uL (4.0-11.0)
[2025-03-23 12:50] LABS: Anion Gap 12.1; Blood Urea Nitrogen 32.0 mg/dL (7.0-18.0); Calcium 9.1 mg/dL (8.5-10.1); Carbon Dioxide 28.4 mmol/L (21.0-32.0); Chloride 108 mmol/L (98-107); Estimated GFR (African America >60 (>=60 mL/min/1.73m^2); Estimated GFR (Non-African Ame >60 (>=60 mL/min/1.73m^2); Glucose 109 mg/dL (74-106); Potassium 4.5 mmol/L (3.5-5.1); Sodium 144 mmol/L (136-145)
== END 2025-03-23 12:12 | disposition home or self-care (01) ==
LOC: LAB 12:12
PROVIDERS: PCP Internal Medicine; Visit Provider Internal Medicine Cardiovascular Disease
DX: I48.0 Paroxysmal atrial fibrillation (principal)
CPT/HCPCS: 36415; 80048; 85025